=== PATIENT | female | born 1940 | race Caucasian/White ===

== ENCOUNTER → 2019-07-28 | Outpatient (CLI) | payer MEDICARE, SELFPAY | PROVIDERS: Family Provider Family Medicine; Visit Provider Nurse Practitioner | DX: Z85.3 Personal history of malignant neoplasm of breast (principal) | CPT/HCPCS: 77065 ==

== ENCOUNTER 2019-07-30 03:32 | Emergency (ER) | payer MEDICARE, SELFPAY ==
[2019-07-30 03:34] VITALS: BP 172/110; PULSE 73; RESP 20; TEMP 36.8; O2SAT 96; BMI 29.8
--- NOTE | 2019-07-30 03:37 | ED_ITS ---
Entered by Homa Klein, acting as scribe for HPI - Arrhythmia/Palpitations General: Chief Complaint: General Medical, Adult Stated Complaint: heart racing Time Seen by Provider: 07/30/19 03:38 Source: patient History of Present Illness: HPI narrative: 78 yo f came to the er pov for fast heart rate. Onset was today. Pt states that she was laying down when this started. MD complaint: rapid heart beat and heart racing Onset (ago): unknown (today) Duration: constant Context: occurred during rest Associated symptoms: Reports no associated symptoms; Deny nausea or vomiting Review of Systems General: Reports: other (negative unless marked) Const: Denies: fever or chills Eyes: Denies: change in vision ENMT: Denies: throat pain or mouth pain Card: Reports: palpitations; Denies: chest pain Resp: Denies: shortness of breath GI: Denies: abdominal pain, nausea, vomiting or diarrhea : Denies: difficulty urinating Musc: Denies: back pain or joint pain Skin/Breast: Denies: rash Neuro: Denies: headache or behavioral changes Psych: Denies: depression Endo: Denies: excessive urination Ajay/Lymph: Denies: easy bruising All/Imm: Denies: hives PFSH ED PFSH: Statuses (acute, chronic, etc) shown below reflect problem list status as previously entered and may not be historically accurate Social History Smoking and tobacco status: never smoked Physical Exam Const: COMMON NORMALS: no apparent distress and healthy appearing HENMT: COMMON NORMALS: normocephalic and external nose normal HEAD & SCALP: normocephalic NOSE: external nose normal and no nasal discharge (nasal dischage) Eye: COMMON NORMALS: PERRL PUPIL: Yes PERRL Neck/C-Spine: COMMON NORMALS: full ROM and no lymphadenopathy Chest: COMMONS NORMALS: inspection of chest normal Resp: COMMON NORMALS: normal respiratory effort and clear to auscultation bilaterally AUSCULTATION: clear to auscultation bilaterally Cardio: COMMON NORMALS: regular rate and regular rhythm PALPATION: normal PMI RATE: regular rate RHYTHM: regular rhythm GI: COMMON NORMALS: soft to palpation PALPATION: Yes soft Extremity: COMMON NORMALS: normal to inspection, full ROM and normal capillary refill Psych: COMMON NORMALS: mental status grossly normal and cooperative Skin: COMMON NORMALS: no rashes or lesions noted GENERAL SKIN EXAM: no rashes or lesions noted Course Vital Signs: Vital signs: Vital Signs Temperature 98.3 F 07/30/19 03:34 Pulse Rate 73 07/30/19 03:34 Respiratory Rate 20 H 07/30/19 03:34 Blood Pressure 172/110 07/30/19 03:34 Pulse Oximetry 96 07/30/19 03:34 MDM - Arrhythmia/Palpitations MDM Narrative: Medical decision making narrative: Patient presents here with palpitations. Patient's EKG and heart rate has been normal here. She has had no arrhythmias or tachycardia. Patient is well-appearing and stable for discharge. Lab Data: Labs: Lab Results 07/30/19 07/30/19 07/30/19 Range/Units 04:00 04:00 04:00 WBC 4.7 (4.0-10.0) 10^3/ uL RBC 4.70 (4.1-5.3) 10^6/u L Hgb 13.3 (11.5-15.3) g/dL Hct 42.0 (37.0-47.0) % MCV 89.4 (81-99) fL MCH 28.3 (28.0-34.0) pg MCHC 31.7 (30.0-36.0) g/dL RDW 13.4 (12.1-15.1) % Plt Count 195 (130-400) 10^3/c mm MPV 10.1 (7.4-10.4) fL Neut % (Auto) 52.6 % Lymph % (Auto) 33.8 % Edmonson % (Auto) 10.9 % Eos % (Auto) 1.9 % Baso % (Auto) 0.6 % Neut # (Auto) 2.5 (1.8-7.7) 10^3/u L Lymph # (Auto) 1.6 (0.8-4.8) 10^3/u L Edmonson # (Auto) 0.5 (0.2-0.9) 10^3/u L Eos # (Auto) 0.1 (0.0-0.8) 10^3/u L Baso # (Auto) 0.0 (0.0-0.1) 10^3/u L Nucleated RBC % (a uto) 0 % Nucleated RBCs # 0.0 /100WBC PT 14.30 H (10.5-13.3) SECO NDS INR 1.08 (0.8-1.2) Sodium 137 (136-145) mmol/L Potassium 4.0 (3.5-5.1) mmol/L Chloride 103 (98-107) mmol/L Carbon Dioxide 22 (22-29) mmol/L Anion Gap 16.0 (5-19) BUN 15 (8-23) mg/dL Creatinine 0.7 (0.5-0.9) mg/dL Glucose 111 H (74-106) mg/dL Calcium 9.7 (8.8-10.2) mg/Dl Troponin T Baselin e (0-10) ng/mL 07/30/19 Range/Units 04:00 WBC (4.0-10.0) 10^3/ uL RBC (4.1-5.3) 10^6/u L Hgb (11.5-15.3) g/dL Hct (37.0-47.0) % MCV (81-99) fL MCH (28.0-34.0) pg MCHC (30.0-36.0) g/dL RDW (12.1-15.1) % Plt Count (130-400) 10^3/c mm MPV (7.4-10.4) fL Neut % (Auto) % Lymph % (Auto) % Edmonson % (Auto) % Eos % (Auto) % Baso % (Auto) % Neut # (Auto) (1.8-7.7) 10^3/u L Lymph # (Auto) (0.8-4.8) 10^3/u L Edmonson # (Auto) (0.2-0.9) 10^3/u L Eos # (Auto) (0.0-0.8) 10^3/u L Baso # (Auto) (0.0-0.1) 10^3/u L Nucleated RBC % (a uto) % Nucleated RBCs # /100WBC PT (10.5-13.3) SECO NDS INR (0.8-1.2) Sodium (136-145) mmol/L Potassium (3.5-5.1) mmol/L Chloride (98-107) mmol/L Carbon Dioxide (22-29) mmol/L Anion Gap (5-19) BUN (8-23) mg/dL Creatinine (0.5-0.9) mg/dL Glucose (74-106) mg/dL Calcium (8.8-10.2) mg/Dl Troponin T Baselin e 10 (0-10) ng/mL Imaging Data^: CXR: Attestation: I personally reviewed and interpreted this imaging study as follows: My impression: no acute abnormality EKG Data^: EKG 1: Attestation: I personally reviewed and interpreted this EKG as follows: EKG interpretation date: 07/30/19 EKG interpretation time: 03:41 Interpretation: Normal sinus rhythm heart rate [address] or T wave abnormalities QRS 106 QTc 416 Discharge Plan Discharge Patient Disposition: Home, Self-Care Clinical Impression: Heart palpitations Condition: Stable Prescriptions: No Action Breast Cancer Pill PO RF: 0 Crestor PO DAILY RF: 0 carvedilol PO BID RF: 0 Discharge Orders: Discharge Order (Routine); Ordered 07/30/19 Ordered By: Chelita Storm Referrals: Dequan Dubois, DO [Family Provider] - (in 3-5 days) Discharge Diet: Advance as tolerated Discharge Activity: Resume usual activity Patient Instructions: Heart Palpitations Discharge Date/Time: 07/30/19 05:30 Coding Level of Care Code ED [employer] Equipment Wirer for Chg Fwd Exam Problem Focused The documentation recorded by the Ernie peoples Stephanie Lyn, accurately reflects the service I personally performed and the decisions made by Dotty guerrier Korby, MD Jul 30, 2019 03:32
[2019-07-30 03:41] VITALS: BP 133/83; PULSE 75; RESP 18; O2SAT 93
--- NOTE | 2019-07-30 03:45 | ECG_ITS ---
Measurements Intervals [place] Rate: 73 P: 62 VA: 178 QRS: -28 QRSD: 106 T: 63 QT: 391 QTc: 431 SINUS RHYTHM BORDERLINE LEFT AXIS DEVIATION [QRS AXIS < -20] Compared to ECG 07/30/2018 02:48:21 Sinus tachycardia no longer present Left anterior fascicular block no longer present Electronically Signed On 07-30-2019 7:34:41 AGING [employer]OX HAND by Sarah Ferraro M.D. [email or web address]
--- NOTE | 2019-07-30 03:45 | XR_ITS ---
WS: [id number] Portable AP upright chest, 07/30/2019 Clinical Data: chest pain Comparison: Portable chest, 07/30/2018 Findings: No nodules, masses or effusions are seen. The heart is normal. The pulmonary vascularity is not increased. No pneumonia or pneumothorax is seen. The aortic arch and descending aorta show tortu osity. There is a left coronary artery stent. Monitor leads on the chest wall. XR/XR chest 1V portable [id number] Impression: Atherosclerosis
[2019-07-30 04:11] VITALS: BP 113/81; PULSE 86; RESP 14; O2SAT 94
[2019-07-30 04:17] LABS: Basophils % 0.6 %; Eosinophils # 0.1 10^3/uL (0.0-0.8); Eosinophils % 1.9 %; Hemoglobin 13.3 g/dL (11.5-15.3); Lymphocytes # 1.6 10^3/uL (0.8-4.8); Lymphocytes % 33.8 %; Mean Corpuscular HGB Conc 31.7 g/dL (30.0-36.0); Mean Corpuscular Hemoglobin 28.3 pg (28.0-34.0); Mean Corpuscular Volume 89.4 fL (81-99); Mean Platelet Volume 10.1 fL (7.4-10.4); Monocytes # 0.5 10^3/uL (0.2-0.9); Monocytes % 10.9 %; Neutrophils # 2.5 10^3/uL (1.8-7.7); Neutrophils % 52.6 %; Nucleated Red Blood Cells % 0 %; Platelet Count 195 10^3/cmm (130-400); Red Cell Distribution Width 13.4 % (12.1-15.1); White Blood Count 4.7 10^3/uL (4.0-10.0)
[2019-07-30 04:21] LABS: INR 1.08 (0.8-1.2)
[2019-07-30 04:22] LABS: Add RBC Morph No
[2019-07-30 04:31] LABS: Blood Urea Nitrogen 15 mg/dL (8-23); Calcium 9.7 mg/Dl (8.8-10.2); Carbon Dioxide 22 mmol/L (22-29); Chloride 103 mmol/L (98-107); Glucose 111 mg/dL (74-106); Sodium 137 mmol/L (136-145)
[2019-07-30 04:32] LABS: Troponin(5th) Baseline 10 ng/mL (0-10)
[2019-07-30 04:41] VITALS: BP 118/77; PULSE 67; RESP 16; O2SAT 95
[2019-07-30 05:25] VITALS: BP 122/70; PULSE 72; RESP 14; TEMP 36.3; O2SAT 93
== END 2019-07-30 05:30 | disposition home or self-care (01) ==
PROVIDERS: Emergency Provider Emergency Medicine; Family Provider Family Medicine
DX: R00.2 Palpitations (principal)
CPT/HCPCS: 71045; 80048; 84484; 85025; 85610; 93005; 99281

== ENCOUNTER 2019-08-13 09:55 | Outpatient (CLI) | payer MEDICARE, SELFPAY ==
[2019-08-13 10:21] LABS: Basophils % 0.4 %; Eosinophils # 0.1 10^3/uL (0.0-0.8); Eosinophils % 1.5 %; Hematocrit 40.7 % (37.0-47.0); Lymphocytes # 1.4 10^3/uL (0.8-4.8); Lymphocytes % 30.6 %; Mean Corpuscular HGB Conc 31.9 g/dL (30.0-36.0); Mean Corpuscular Hemoglobin 29.3 pg (28.0-34.0); Mean Corpuscular Volume 91.9 fL (81-99); Mean Platelet Volume 9.9 fL (7.4-10.4); Monocytes # 0.4 10^3/uL (0.2-0.9); Monocytes % 9.1 %; Neutrophils # 2.7 10^3/uL (1.8-7.7); Neutrophils % 58.2 %; Nucleated Red Blood Cells % 0 %; Platelet Count 189 10^3/cmm (130-400); Red Blood Count 4.43 10^6/uL (4.1-5.3); Red Cell Distribution Width 13.6 % (12.1-15.1); White Blood Count 4.6 10^3/uL (4.0-10.0)
[2019-08-13 10:39] LABS: Alanine Aminotransferase 13 U/L (0-33); Albumin Level 4.8 g/dL (3.5-5.2); Alkaline Phosphatase 48 IU/L (35-105); Anion Gap 15.3 (5-19); Aspartate Amino Transferase 19 U/L (0-32); Blood Urea Nitrogen 17 mg/dL (8-23); Calcium 9.8 mg/Dl (8.8-10.2); Carbon Dioxide 27 mmol/L (22-29); Chloride 105 mmol/L (98-107); Globulin 3.2 g/dL (1.3-4.6); Glucose 105 mg/dL (74-106); Potassium 4.3 mmol/L (3.5-5.1); Sodium 143 mmol/L (136-145); Total Bilirubin 0.6 mg/dL (0.15-1.2)
== END 2019-08-13 09:56 | disposition home or self-care (01) ==
LOC: ONCMED 09:55
PROVIDERS: Family Provider Family Medicine; PCP Family Medicine; Visit Provider Nurse Practitioner
DX: C50.411 Malignant neoplasm of upper-outer quadrant of right female breast (principal)
CPT/HCPCS: 80053; 85025

== ENCOUNTER 2019-08-17 08:51 | Outpatient (CLI) | payer MEDICARE, SELFPAY ==
--- NOTE | 2019-08-21 17:51 | ONC FU_ITS ---
Dr. Conrad Patient Follow-Up Note Patient: Ester Reaves Unit #: [id number]: [id number] Dicatated By: Washington Conrad M.D.Date of Visit:Aug 17, 2019 Onc Med Follow-up/Prog Note Chief Complaint: Breast cancer. History of Present Illness: This is a 78 year-old woman with recurrent breast cancer, ER positive/HI negative and HER-2/raghavendra negative.. She had initially presented in May 2015 with a palpable right breast mass. Mammogram on 06/13/2015 showed 3.1 cm right breast mass located at 10:00 position, 5 cm from the nipple. She underwent an excisional biopsy by Dr. Kennedy on 06/30/2015. Her surgical pathology showed grade 3 infiltrating ductal carcinoma measuring 2 cm, with negative margins, but microscopic focus was within 2 mm of inked medial margin. She underwent a sentinel lymph node biopsy on 07/28/2015 with a low axillary dissection. A total of 10 axillary lymph nodes, including 2 sentinel lymph nodes, were negative for metastatic disease. Thus, her disease was pathologic stage IA (T1c, N0, M0). She was first seen by Dr. Marley on 08/09/2015. She had further evaluation with Oncotype DX. This showed a recurrence score of 36, corresponding to 24% risk of recurrence with the hormonal therapy alone in the next 10 years. Her evaluation also showed significant osteoporosis. DEXA scan on 08/24/2015 showed a T score -3.9. She had a follow-up visit with Dr. Marley on 08/25/2015. At that time it was recommended that she undergo adjuvant chemotherapy with 4 cycles of Taxotere/cyclophosphamide to be followed by adjuvant hormonal therapy for 5 years with an aromatase inhibitor. It was further recommended that she start treatment with Prolia for the osteoporosis. At that time she was undecided about chemotherapy. I had seen her for a second opinion evaluation on 09/02/2015. At that point she was pretty adamant that she would not take chemotherapy. We discussed the need to undergo radiation to the right breast to complete her primary treatment, and I had recommended adjuvant hormonal therapy with aromatase inhibitor, as there was a relative contraindication to tamoxifen due to a prior history of deep vein thrombosis. For unclear reasons she failed to return for follow-up and she did not receive any radiation or adjuvant hormonal therapy. On 05/26/2018 she was seen by Dr. Kenendy with recurrence of mass in the right breast. She had become aware of it about 3 months earlier. A diagnostic mammogram with limited ultrasound of the right breast on 05/14/2018 was BI-RADS 4C, suspicious for recurrence in the upper outer quadrant of the right breast. Findings included spiculated architectural distortion at the operative site which appeared progressive compared to study from June 2017. Diffuse skin thickening of the right breast appeared similar. Ultrasound showed a focus of decreased echotexture with posterior shadowing and irregular margins at the 10:00 position measuring 1.1 x 1.2 x 0.7 cm. Ultrasound directed needle biopsy of the right breast mass on 06/05/2018 showed grade 2 infiltrating ductal carcinoma. Tumor was involving 5/6 core fragments. The tumor was ER positive at 100% and HI negative at less than 1%. It was negative for overexpression of HER-2/raghavendra, 1+ by IHC and amplification ratio by FISH of 1.0 with 2.0 HER-2 copies/cell. The Ki-67 was unfavorable at 40%. With evidence of recurrence in the breast, she was still potentially eligible for lumpectomy/radiation, but she preferred to have mastectomy. As she was not going to consider adjuvant chemotherapy or radiation, I felt that axillary lymph node sampling would be unnecessary in the absence of any clinical evidence of lymph node involvement, and her right axillary ultrasound was negative. As such, she proceeded with right simple mastectomy on 07/03/2018. Pathology showed grade 2 infiltrating ductal carcinoma measuring 2.8 x 2.0 cm. The margins were free. The best prognostic profile was not repeated. Her other medical illnesses include hypertension, hyperlipidemia, and coronary artery disease. She has history of previous myocardial infarction, and she underwent angioplasty/stent placement in 2010. Her other medical illnesses include GERD and osteoporosis. She required treatment for left lower extremity deep vein thrombosis following a hysterectomy. Other prior surgeries include cholecystectomy and open reduction for a right forearm fracture. She is a nonsmoker. INTERIM HISTORY: On 07/29/2018 she presented to the emergency room with nausea/vomiting and diarrhea. Her CT abdomen/pelvis reported evidence of a right inguinal hernia containing an incarcerated terminal ileum and cecum. It was noted to be a transition point of a small bowel obstruction. Ultrasound also reported evidence of right inguinal hernia with incarcerated bowel. She had surgical consultation in the emergency room with Dr. Bruno and she then had follow-up as an outpatient with Dr. Kennedy. The illness resolved with conservative management. Her repeat Dexa scan on 08/26/2018 showed osteoporosis with T score -2.6 in the lumbar spine, -3.9 in the left femoral neck, and -3.9 in the right femoral neck. She began adjuvant hormonal therapy with anastrozole 1 mg daily on 09/03/2018, and he following month she began treatment with Prolia for the osteoporosis. As of her follow-up visit on 04/06/2019 I had opted to put the anastrozole on hold due to worsening joint pain, mainly in the hands. The symptoms improved, and the following month she started further adjuvant hormonal therapy with exemestane 25 mg daily. She is seen for a follow-up visit. She has been feeling pretty good generally. She says she is on the go. ECOG score is 1. She has good appetite. She has no fever, night sweats, or hot flashes. She continues to have joint pain, mainly in the right hand, and to a lesser extent in the left hand. She sometimes has shortness of breath. She does not complain of cough, and she has not been having chest pain. She has no GI or complaints. She has some numbness in her right hand at night. She has no other focal neurologic symptoms. Medications: Calcium 2 oz Liquid Oral daily, Carvedilol 1 Tablet (of 3.125 mg) Oral b.i.d., Cholecalciferol 1 Tablet (of 2000 Units) Oral daily, Crestor 1 Tablet (of 40 mg) Oral at bedtime, Exemestane 1 Tablet (of 25 mg) Oral daily, Immune Enhance 1 Capsule Oral daily, mangosteen 1 Capsule daily, Metamucil 2 tsp Powder Oral daily, Caro Juice 2 oz Liquid Oral daily, Probiotic 1 Capsule Oral daily Allergies: No Known Allergies. Review of Systems: Constitutional - Her energy is good. She does light work at home. Her appetite is good and her weight is stable. No fever, chills, hot flashes, or night sweats. ECOG score is 1, ENMT - No sinus congestion/drainage. No mouth sores. No sore throat or difficulty swallowing, Hematologic/Lymphatic - No abnormal bruising or bleeding, Respiratory - She has occasional shortness of breath. No cough. No pleuritic pain or hemoptysis, Cardiovascular - No angina pain. No palpitations, Gastrointestinal - No nausea or vomiting. No heartburn or acid reflux. No diarrhea or constipation. No blood in the stool or black stools, Genitourinary (F) - No dysuria or hematuria. No urinary frequency. No urgency or incontinence, Musculoskeletal - She has pain in her wrists. It has gotten worse in her right wrist, Integumentary - No skin complications, Neurologic - No headache or dizziness. She has numbness in her right hand at night, Psychiatric - No anxiety or depression. No insomnia. Vital Signs: Performed on Aug 17, 2019 09:16 Height - 66.50 in Weight - 187.2 lbs (HIGH) BSA - 1.96 sq.m BMI - 29.76 Temperature - 97.5 F (LOW) Pulse - 64 /min Respiration - 24 /min BP - 142/80 mm(hg) (HIGH) O2 Sat - 98 % Pain - 0 Physical Examination: Constitutional - She looks good generally, Eyes - Sclerae nonicteric. Conjunctivae clear, ENMT - No lesions noted in the oral cavity, Hematologic/Lymphatic - No cervical, clavicular, or axillary adenopathy, Respiratory - Lungs are clear with good air movement bilaterally, Cardiovascular - Heart rhythm is regular. There is a II/ systolic murmur. There is no gallop or rub noted, Abdomen - Soft. Liver and spleen are not enlarged. There is no abdominal mass or ascites noted and there is no inguinal adenopathy, Extremities - There is some slight swelling in the fingers. There is no lower extremity edema, Neurologic - No focal neurologic deficits noted. Lab/Imaging: Test performed on Aug 13, 2019 10:05 Glucose 105 mg/dL BUN 17 mg/dL Creatinine 0.7 mg/dL Cr Clearance (Est) 91.36 mL/min Sodium 143 mmol/L Potassium 4.3 mmol/L Chloride 105 mmol/L CO2 27 mmol/L Calcium 9.8 mg/dL Protein, Total 8.0 g/dL Albumin 4.8 g/dL Bilirubin, Total 0.6 mg/dL Alkaline Phosphatase 48 IU/L AST (SGOT) 19 IU/L ALT (SGPT) 13 IU/L WBC 4.6 10^9/L RBC 4.43 10^12/L HGB 13.0 g/dL HCT 40.7 % MCV 91.9 fl MCH 29.3 pg MCHC 31.9 g/dL RDW 13.6 % Platelet Count 189 10^9/L MPV 9.9 fL Neutrophils (Gran) 2.7 10^9/L Lymphocytes 1.4 10^9/L Monocytes 0.4 10^9/L Eosinophils 0.1 10^9/L Basophils 0.0 10^9/L Manual Lymphocytes 30.6 % Manual Monocytes 9.1 % Manual Eosinophils 1.5 % Manual Basophils 0.4 % NRBCs 0.0 /100 WBC Impression: 1. Patient with recurrence of infiltrating ductal carcinoma of the right breast, grade 2/3, ER positive/HI negative and HER-2/raghavendra negative. Her disease is stage IIA (T2, N0, M0), but with clinical evaluation of the axillary node status. 2. She underwent right simple mastectomy on 07/03/2018. 3. She had previous lumpectomy/axillary lymph node sampling in June 2015 for grade 3 infiltrating ductal carcinoma. Her disease was stage IA (T1c, N0, M0), ER positive/HI negative and HER-2/raghavendra negative. It was high risk by Oncotype DX. She opted against adjuvant chemotherapy and she then failed to return for radiation and adjuvant hormonal therapy. 4. She had evidence of osteoporosis on her baseline Dexa scan. Her other medical illnesses include: 5. Hypertension. 6. Hyperlipidemia. 7. Coronary artery disease with previous myocardial infarction and angioplasty/stent placement. 8. GERD. 9. Osteoporosis. 10. She has a history of left lower extremity deep vein thrombosis following a hysterectomy. In August 2018 she began adjuvant hormonal therapy with anastrozole 1 mg daily. In September she started treatment with Prolia for the osteoporosis. She had initially tolerated treatment very well. As of her follow-up visit in March 2019 the anastrozole was put on hold due to increased joint pain, mainly in the hands. Her symptoms improved, and in April 2019 she began further adjuvant hormonal therapy with exemestane 25 mg daily. At this point she continues to have pain and swelling in both hands. It is uncertain to what extent it may be treatment related. She otherwise seems to be tolerating the exemestane well, and thus far there is been no evidence of any further recurrence of the breast cancer. Plan: She will continue adjuvant hormonal therapy with exemestane 25 mg daily. She is given a prescription for meloxicam 7.5 mg daily. She will be scheduled for a follow-up visit in 2 months. Signed By: Washington Conrad M.D. <<Signature on File>>
== END 2019-08-17 08:52 | disposition home or self-care (01) ==
LOC: ONCMED 08:54
PROVIDERS: Family Provider Family Medicine; PCP Family Medicine; Visit Provider Internal Medicine Medical Oncology
DX: C50.411 Malignant neoplasm of upper-outer quadrant of right female breast (principal); M81.0 Age-related osteoporosis without current pathological fracture; I10 Essential (primary) hypertension; E78.5 Hyperlipidemia, unspecified; I25.10 Atherosclerotic heart disease of native coronary artery without angina pectoris; I25.2 Old myocardial infarction; K21.9 Gastro-esophageal reflux disease without esophagitis; Z95.5 Presence of coronary angioplasty implant and graft; Z86.718 Personal history of other venous thrombosis and embolism; Z90.11 Acquired absence of right breast and nipple; Z17.0 Estrogen receptor positive status [ER+]; Z79.811 Long term (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 of aromatase inhibitors
CPT/HCPCS: 99214

== ENCOUNTER 2019-10-02 09:24 | Outpatient (CLI) | payer MEDICARE, SELFPAY ==
[2019-10-02 09:58] LABS: Basophils % 0.7 %; Eosinophils # 0.1 10^3/uL (0.0-0.8); Eosinophils % 1.8 %; Hematocrit 40.5 % (37.0-47.0); Hemoglobin 12.6 g/dL (11.5-15.3); Lymphocytes # 1.1 10^3/uL (0.8-4.8); Lymphocytes % 25.6 %; Mean Corpuscular HGB Conc 31.1 g/dL (30.0-36.0); Mean Corpuscular Hemoglobin 28.3 pg (28.0-34.0); Mean Platelet Volume 10.2 fL (7.4-10.4); Monocytes # 0.4 10^3/uL (0.2-0.9); Monocytes % 9.2 %; Neutrophils # 2.8 10^3/uL (1.8-7.7); Neutrophils % 62.5 %; Nucleated Red Blood Cells % 0 %; Platelet Count 200 10^3/cmm (130-400); Red Blood Count 4.45 10^6/uL (4.1-5.3); Red Cell Distribution Width 13.6 % (12.1-15.1); White Blood Count 4.5 10^3/uL (4.0-10.0)
[2019-10-02 10:19] LABS: Alanine Aminotransferase 18 U/L (0-33); Albumin Level 4.2 g/dL (3.5-5.2); Alkaline Phosphatase 51 IU/L (35-105); Anion Gap 14.5 (5-19); Aspartate Amino Transferase 24 U/L (0-32); Blood Urea Nitrogen 14 mg/dL (8-23); Calcium 9.5 mg/dL (8.5-10.5); Carbon Dioxide 28 mmol/L (22-29); Chloride 102 mmol/L (98-107); Globulin 3.8 g/dL (1.3-4.6); Glucose 96 mg/dL (65-115); Potassium 4.5 mmol/L (3.5-5.1); Sodium 140 mmol/L (136-145); Total Bilirubin 0.6 mg/dL (0.15-1.2)
[2019-10-02 10:40] LABS: Erythrocyte Sedimentation Rate 15 mm/hr (0-15)
== END 2019-10-02 09:25 | disposition home or self-care (01) ==
LOC: ONCMED 09:24
PROVIDERS: Family Provider Family Medicine; PCP Family Medicine; Visit Provider Internal Medicine Medical Oncology
DX: C50.411 Malignant neoplasm of upper-outer quadrant of right female breast (principal); M25.50 Pain in unspecified joint
CPT/HCPCS: 80053; 85025; 85651; 86431

== ENCOUNTER 2019-10-06 13:18 | Outpatient (CLI) | payer MEDICARE, SELFPAY ==
[2019-10-06] MEDS: denosumab 60 mg SDV SUBCUT (13:57)
--- NOTE | 2019-10-10 16:17 | ONC FU_ITS ---
Dr. Conrad Patient Follow-Up Note Patient: Ester Reaves Unit #: [id number]: [id number] Dicatated By: Washington Conrad M.D.Date of Visit:Oct 06, 2019 Onc Med Follow-up/Prog Note Chief Complaint: Breast cancer. History of Present Illness: This is a 78 year-old woman with recurrent breast cancer, ER positive/OR negative and HER-2/raghavendra negative.. She had initially presented in May 2015 with a palpable right breast mass. Mammogram on 06/13/2015 showed 3.1 cm right breast mass located at 10:00 position, 5 cm from the nipple. She underwent an excisional biopsy by Dr. Kennedy on 06/30/2015. Her surgical pathology showed grade 3 infiltrating ductal carcinoma measuring 2 cm, with negative margins, but microscopic focus was within 2 mm of inked medial margin. She underwent a sentinel lymph node biopsy on 07/28/2015 with a low axillary dissection. A total of 10 axillary lymph nodes, including 2 sentinel lymph nodes, were negative for metastatic disease. Thus, her disease was pathologic stage IA (T1c, N0, M0). She was first seen by Dr. Marley on 08/09/2015. She had further evaluation with Oncotype DX. This showed a recurrence score of 36, corresponding to 24% risk of recurrence with the hormonal therapy alone in the next 10 years. Her evaluation also showed significant osteoporosis. DEXA scan on 08/24/2015 showed a T score -3.9. She had a follow-up visit with Dr. Marley on 08/25/2015. At that time it was recommended that she undergo adjuvant chemotherapy with 4 cycles of Taxotere/cyclophosphamide to be followed by adjuvant hormonal therapy for 5 years with an aromatase inhibitor. It was further recommended that she start treatment with Prolia for the osteoporosis. At that time she was undecided about chemotherapy. I had seen her for a second opinion evaluation on 09/02/2015. At that point she was pretty adamant that she would not take chemotherapy. We discussed the need to undergo radiation to the right breast to complete her primary treatment, and I had recommended adjuvant hormonal therapy with aromatase inhibitor, as there was a relative contraindication to tamoxifen due to a prior history of deep vein thrombosis. For unclear reasons she failed to return for follow-up and she did not receive any radiation or adjuvant hormonal therapy. On 05/26/2018 she was seen by Dr. Kennedy with recurrence of mass in the right breast. She had become aware of it about 3 months earlier. A diagnostic mammogram with limited ultrasound of the right breast on 05/14/2018 was BI-RADS 4C, suspicious for recurrence in the upper outer quadrant of the right breast. Findings included spiculated architectural distortion at the operative site which appeared progressive compared to study from June 2017. Diffuse skin thickening of the right breast appeared similar. Ultrasound showed a focus of decreased echotexture with posterior shadowing and irregular margins at the 10:00 position measuring 1.1 x 1.2 x 0.7 cm. Ultrasound directed needle biopsy of the right breast mass on 06/05/2018 showed grade 2 infiltrating ductal carcinoma. Tumor was involving 5/6 core fragments. The tumor was ER positive at 100% and OR negative at less than 1%. It was negative for overexpression of HER-2/raghavendra, 1+ by IHC and amplification ratio by FISH of 1.0 with 2.0 HER-2 copies/cell. The Ki-67 was unfavorable at 40%. With evidence of recurrence in the breast, she was still potentially eligible for lumpectomy/radiation, but she preferred to have mastectomy. As she was not going to consider adjuvant chemotherapy or radiation, I felt that axillary lymph node sampling would be unnecessary in the absence of any clinical evidence of lymph node involvement, and her right axillary ultrasound was negative. As such, she proceeded with right simple mastectomy on 07/03/2018. Pathology showed grade 2 infiltrating ductal carcinoma measuring 2.8 x 2.0 cm. The margins were free. The best prognostic profile was not repeated. Her other medical illnesses include hypertension, hyperlipidemia, and coronary artery disease. She has history of previous myocardial infarction, and she underwent angioplasty/stent placement in 2010. Her other medical illnesses include GERD and osteoporosis. She required treatment for left lower extremity deep vein thrombosis following a hysterectomy. Other prior surgeries include cholecystectomy and open reduction for a right forearm fracture. She is a nonsmoker. INTERIM HISTORY: On 07/29/2018 she presented to the emergency room with nausea/vomiting and diarrhea. Her CT abdomen/pelvis reported evidence of a right inguinal hernia containing an incarcerated terminal ileum and cecum. It was noted to be a transition point of a small bowel obstruction. Ultrasound also reported evidence of right inguinal hernia with incarcerated bowel. She had surgical consultation in the emergency room with Dr. Bruno and she then had follow-up as an outpatient with Dr. Kennedy. The illness resolved with conservative management. Her repeat Dexa scan on 08/26/2018 showed osteoporosis with T score -2.6 in the lumbar spine, -3.9 in the left femoral neck, and -3.9 in the right femoral neck. She began adjuvant hormonal therapy with anastrozole 1 mg daily on 09/03/2018, and he following month she began treatment with Prolia for the osteoporosis. As of her follow-up visit on 04/06/2019 I had opted to put the anastrozole on hold due to worsening joint pain, mainly in the hands. The symptoms improved, and the following month she started further adjuvant hormonal therapy with exemestane 25 mg daily. She is seen for a follow-up visit. She has been feeling good generally. She has continued to have some joint pain, mainly in the right wrist and in her fingers. She had stopped taking meloxicam because she thought it caused constipation. Since then she has been taking ibuprofen as needed. She has good energy and activity tolerance. ECOG score is 0. Her appetite is good. She has no fever, night sweats, or hot flashes. She has no shortness of breath, cough, or chest pain. She currently has no GI or complaints. Bowel function has been adequate with Metamucil. She does not complain of headache or dizziness. Her right hand sometimes goes to sleep, but that does appear to be positional. She has no other focal neurologic symptoms. Medications: Calcium 2 oz Liquid Oral daily, Carvedilol 1 Tablet (of 3.125 mg) Oral b.i.d., Cholecalciferol 1 Tablet (of 2000 Units) Oral daily, Crestor 1 Tablet (of 40 mg) Oral at bedtime, Exemestane 1 Tablet (of 25 mg) Oral daily, Immune Enhance 1 Capsule Oral daily, mangosteen 1 Capsule daily, Metamucil 2 tsp Powder Oral daily, Caro Juice 2 oz Liquid Oral daily, Probiotic 1 Capsule Oral daily Allergies: No Known Allergies. Review of Systems: Constitutional - Her energy is good. She has normal activity. Her appetite is good and her weight is up a couple of pounds. No fever, chills, hot flashes, or night sweats. ECOG score is 0, ENMT - No sinus congestion/drainage. No mouth sores. No sore throat or difficulty swallowing, Hematologic/Lymphatic - No abnormal bruising or bleeding, Respiratory - No shortness of breath. No cough. No pleuritic pain or hemoptysis, Cardiovascular - No angina pain. No palpitations, Gastrointestinal - No nausea or vomiting. No heartburn or acid reflux. No diarrhea or constipation. No blood in the stool or black stools, Genitourinary (F) - No dysuria or hematuria. No urinary frequency. No urgency or incontinence, Musculoskeletal - She has pain in her right wrist and fingers, Integumentary - No skin complications, Neurologic - No headache or dizziness. Her right hand goes to sleep, but that appears to be positional. She has no other focal neurologic symptoms, Psychiatric - No anxiety or depression. No insomnia. Vital Signs: Performed on Oct 06, 2019 13:26 Height - 66.50 in Weight - 189.4 lbs (HIGH) BSA - 1.97 sq.m BMI - 30.11 (HIGH) Temperature - 97.5 F (LOW) Pulse - 70 /min Respiration - 22 /min BP - 125/73 mm(hg) O2 Sat - 95 % (LOW) Pain - 0 Physical Examination: Constitutional - She looks good generally, Eyes - Sclerae nonicteric. Conjunctivae clear, ENMT - No lesions noted in the oral cavity, Hematologic/Lymphatic - No cervical, clavicular, or axillary adenopathy, Respiratory - Lungs are clear with good air movement bilaterally, Cardiovascular - Heart rhythm is regular. There is a II/ systolic murmur. There is no gallop or rub noted, Abdomen - Soft. Liver and spleen are not enlarged. There is no abdominal mass or ascites noted and there is no inguinal adenopathy, Extremities - Slight edema, Neurologic - No focal neurologic deficits noted. Lab/Imaging: Test performed on Oct 02, 2019 09:40 Sodium 140 mmol/L Potassium 4.5 mmol/L Chloride 102 mmol/L CO2 28 mmol/L Anion Gap 14.5 BUN 14 mg/dL Creatinine 0.8 mg/dL Cr Clearance (Est) 80.2000 mL/min Glucose 96 mg/dL Calcium 9.5 mg/dL Protein, Total 8.0 g/dL Albumin 4.2 g/dL Globulin 3.8 g/dL Bilirubin, Total 0.6 mg/dL ALT (SGPT) 18 U/L AST (SGOT) 24 U/L Alkaline Phosphatase 51 IU/L ESR (Sed Rate) 15 mm/hr WBC 4.5 10 3/uL RBC 4.45 10 6/uL HGB 12.6 g/dL HCT 40.5 % MCV 91.0 fL MCH 28.3 pg MCHC 31.1 g/dL RDW 13.6 % Platelet Count 200 10 3/cmm MPV 10.2 fL Neutrophils 2.8 10 3/uL Lymphocytes 1.1 10 3/uL Monocytes 0.4 10 3/uL Eosinophils 0.1 10 3/uL Basophils 0.0 10 3/uL Neutrophil % 62.5 % Lymphocyte % 25.6 % Monocyte % 9.2 % Eosinophil % 1.8 % Basophils % 0.7 % Impression: 1. Patient with recurrence of infiltrating ductal carcinoma of the right breast, grade 2/3, ER positive/OR negative and HER-2/raghavendra negative. Her disease is stage IIA (T2, N0, M0), but with clinical evaluation of the axillary node status. 2. She underwent right simple mastectomy on 07/03/2018. 3. She had previous lumpectomy/axillary lymph node sampling in June 2015 for grade 3 infiltrating ductal carcinoma. Her disease was stage IA (T1c, N0, M0), ER positive/OR negative and HER-2/raghavendra negative. It was high risk by Oncotype DX. She opted against adjuvant chemotherapy and she then failed to return for radiation and adjuvant hormonal therapy. 4. She had evidence of osteoporosis on her baseline Dexa scan. Her other medical illnesses include: 5. Hypertension. 6. Hyperlipidemia. 7. Coronary artery disease with previous myocardial infarction and angioplasty/stent placement. 8. GERD. 9. Osteoporosis. 10. She has a history of left lower extremity deep vein thrombosis following a hysterectomy. In August 2018 she began adjuvant hormonal therapy with anastrozole 1 mg daily. In September she started treatment with Prolia for the osteoporosis. She had initially tolerated treatment very well. As of her follow-up visit in March 2019 the anastrozole was put on hold due to increased joint pain, mainly in the hands. Her symptoms improved, and in April 2019 she began further adjuvant hormonal therapy with exemestane 25 mg daily. During further follow-up she has had some joint pain, but it has been tolerable. She has otherwise been doing well clinically, thus far with no further recurrence of the breast cancer. Plan: She continues adjuvant hormonal therapy with exemestane 25 mg daily. She will be given Prolia 60 mg by subcutaneous injection for the osteoporosis. She will be scheduled for a follow-up visit in 3 months. Signed By: Washington Conrad M.D. <<Signature on File>>
== END 2019-10-06 13:19 | disposition home or self-care (01) ==
LOC: ONCMED 13:21
PROVIDERS: Family Provider Family Medicine; PCP Family Medicine; Visit Provider Internal Medicine Medical Oncology
DX: C50.411 Malignant neoplasm of upper-outer quadrant of right female breast (principal); M81.0 Age-related osteoporosis without current pathological fracture; I10 Essential (primary) hypertension; E78.5 Hyperlipidemia, unspecified; I25.10 Atherosclerotic heart disease of native coronary artery without angina pectoris; I25.2 Old myocardial infarction; K21.9 Gastro-esophageal reflux disease without esophagitis; Z17.0 Estrogen receptor positive status [ER+]; Z79.899 Other long term (current) drug therapy; Z79.811 Long term (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 of aromatase inhibitors; Z90.11 Acquired absence of right breast and nipple; Z95.5 Presence of coronary angioplasty implant and graft; Z86.718 Personal history of other venous thrombosis and embolism
CPT/HCPCS: 96372; 99214; J0897

== ENCOUNTER 2019-10-10 21:40 | Emergency (ER) | payer MEDICARE, SELFPAY ==
[2019-10-10 21:46] VITALS: BP 99/80; PULSE 97; RESP 18; TEMP 37; O2SAT 96; BMI 29.5
--- NOTE | 2019-10-10 21:50 | ED_ITS ---
Entered by Shannon Pardo, acting as scribe for Reynaldo Gunter DO HPI - Female Genitourinary General: Chief complaint: Nausea/Vomiting/Diarrhea Stated complaint: can't urinate/n/v Time Seen by Provider: 10/10/19 21:50 Source: patient and family Mode of arrival: ambulatory History of Present Illness: HPI Narrative: 78 y/o female presents to the ED with complaint of difficulty urinating and weakness. She has had N/V/D. She got her bone shot at Dr. Samaniego office ( for her osteoporosis) earlier in the week. She had been constipated prior, but states she has had loose stool the past day. She states her diarrhea subsided earlier today but she has had continued weakness and lethargy, and continued vomiting. She reports some lower abd pain and discomfort, consistent with past hx of constipation. Her son states he is concerned about dehydration since her fluid intake has decreased and she has had the V/D. MD elicited complaint: other (difficulty urinating/weakness/constipation) Onset (ago): day(s) Severity: moderate Consistency: progressively worsening Urinary symptoms: Difficulty Urinating Exacerbating factors: movement Relieving factors: none Associated symptoms: Reports abdominal pain (constipation pain), nausea and weakness; Deny headache(s) Review of Systems Const: Denies: fever or chills Eyes: Denies: change in vision or blurry vision ENMT: Denies: painful swallowing or facial/sinus pain Card: Denies: chest pain, palpitations, irregular heart rhythm or edema Resp: Denies: shortness of breath, productive cough, non-productive cough or wheezing GI: Reports: abdominal pain (constipation pain), nausea, vomiting, diarrhea and constipation (today); Denies: blood in stool or black tarry stool : Reports: difficulty urinating and urinary urgency; Denies: blood in urine Musc: Denies: neck pain, back pain, redness or joint warmth Skin/Breast: Denies: rash, itching or redness Neuro: Reports: weakness in extremities; Denies: headache, dizziness, vertigo or confusion Psych: Denies: anxiety PFS ED PFSH: Social History Smoking and tobacco status: never smoked Physical Exam Const: COMMON NORMALS: alert GENERAL APPEARANCE: lethargic ORIENTATION/CONSCIOUSNESS: Yes awake, Yes oriented to person, Yes oriented to place, Yes oriented to time and Yes lethargic HENMT: COMMON NORMALS: normocephalic, external ears normal and external nose normal; oral mucous membranes not moist HEAD & SCALP: normocephalic FACE & SINUS: normal facial exam NOSE: external nose normal and no nasal discharge EXTERNAL EAR: Yes external ears normal THROAT: posterior oropharynx normal; no peritonsillar mass Eye: COMMON NORMALS: PERRL, EOMs intact bilaterally and conjunctivae normal EYELID: eyelids normal CONJUNCTIVA: Yes conjunctivae normal PUPIL: Yes PERRL Neck/C-Spine: GENERAL: No tracheal deviation Chest: COMMONS NORMALS: inspection of chest normal CHEST: Yes symmetrical chest wall rise and No tenderness Resp: COMMON NORMALS: clear to auscultation bilaterally EFFORT & INSPECTION: No tachypneic, No respiratory distress, No retractions, No uses accessory muscles and No tracheal deviation AUSCULTATION: clear to auscultation bilaterally, no rhonchi, no wheezes and lung sounds not diminished Cardio: COMMON NORMALS: regular rhythm RATE: tachycardic RHYTHM: regular rhythm HEART SOUNDS: no murmurs PERIPHERAL PULSES: radial pulses present GI: PALPATION: Yes tender and No rigid PERCUSSION: no dullness to percussion and no tympanic to percussion Extremity: NARRATIVE EXTREMITY EXAM: LE weakness Neuro: SENSORIUM/ORIENTATION: Yes alert, Yes oriented to person, Yes oriented to place, Yes oriented to time and Yes lethargic GAIT: Yes other Psych: COMMON NORMALS: mental status grossly normal and speech normal ATTITUDE: Yes calm SPEECH: Yes normal speech Skin: COMMON NORMALS: no rashes or lesions noted GENERAL SKIN EXAM: no ra shes or lesions noted and pallor Course Vital Signs: Vital signs: Vital Signs Temperature 98.6 F 10/10/19 21:46 Pulse Rate 97 10/10/19 21:46 Respiratory Rate 18 10/10/19 21:46 Blood Pressure 99/80 10/10/19 21:46 Pulse Oximetry 96 10/10/19 21:46 MDM - Female [facility] Narrative: Medical decision making narrative: 78-year-old female presents first with constipation, which had resolved earlier in the day with liquid stool. She had been nauseated and had vomited several times. She was not holding down liquids well. Her and her son were concerned about dehydration. Her vitals were good. Her white blood cell count is 3.8. Sodium 132. BUN and creatinine are slightly elevated. She got some fluid while she was here. No vomiting while here. KUB shows distended loops of small bowel up to over 5 cm. Radiology notes this is indicative of at least a partial small bowel obstruction. When I returned to discuss findings and the need for admission of the patient due to these findings, I was confronted by the patient and her son. Her son states that the problem was taking care of when she had her loose stool earlier in the day. He comes to look at the x-ray. He states that their physician has told him in the past that this type of thing is basically bullshit . He threatens that if the admission is not truly warranted there will be recourse toward me. He demanded that she drink water, and attempt to urinate. After doing these things, they decided to leave the emergency department. They signed AMA paperwork to leave AGAINST MEDICAL ADVICE. Lab Data: Labs: Lab Results 10/10/19 10/10/19 10/10/19 Range/Units 22:06 22:06 23:03 WBC 3.8 L (4.0-10.0) 10^3/ uL RBC 4.66 (4.1-5.3) 10^6/u L Hgb 13.5 (11.5-15.3) g/dL Hct 41.1 (37.0-47.0) % MCV 88.2 (81-99) fL MCH 29.0 (28.0-34.0) pg MCHC 32.8 (30.0-36.0) g/dL RDW 13.9 (12.1-15.1) % Plt Count 201 (130-400) 10^3/c mm MPV 10.1 (7.4-10.4) fL Neut % (Auto) 64.8 % Lymph % (Auto) 14.3 % [place] % (Auto) 18.3 % Eos % (Auto) 2.1 % Baso % (Auto) 0.5 % Neut # (Auto) 2.5 (1.8-7.7) 10^3/u L Lymph # (Auto) 0.5 L (0.8-4.8) 10^3/u L [place] # (Auto) 0.7 (0.2-0.9) 10^3/u L Eos # (Auto) 0.1 (0.0-0.8) 10^3/u L Baso # (Auto) 0.0 (0.0-0.1) 10^3/u L Nucleated RBC % (a uto) 0 % Nucleated RBCs # 0.0 /100WBC Sodium 132 L (136-145) mmol/L Potassium 3.6 (3.5-5.1) mmol/L Chloride 93 L (98-107) mmol/L Carbon Dioxide 23 (22-29) mmol/L Anion Gap 19.6 H (5-19) BUN 28 H (8-23) mg/dL Creatinine 1.3 H (0.5-0.9) mg/dL Glucose 152 H (65-115) mg/dL Calculated Osmolal ity 274 L (285-295) mOsm/k g Calcium 10.2 (8.5-10.5) mg/dL Total Bilirubin 0.9 (0.15-1.2) mg/dL AST 19 (0-32) U/L ALT 13 (0-33) U/L Alkaline Phosphata se 49 (35-105) IU/L C-Reactive Protein 13.0 H (0.0-4.9) mg/L Total Protein 7.6 (6.6-8.7) g/dL Albumin 4.3 (3.5-5.2) g/dL Globulin 3.3 (1.3-4.6) g/dL Urine Color Yellow (Yellow) Urine Appearance Sl cloudy A (CLEAR) Urine pH 5 (5-7) Ur Specific Gravit y 1.025 (1.005-1.030) Urine Protein Neg (Negative) Urine Glucose (UA) Norm (Normal) Urine Ketones Negative (Negative) Urine Blood Neg (Negative) Urine Nitrate Negative (Negative) Urine Bilirubin 1+ H (NEGATIVE) Urine Urobilinogen Norm (Negative) mg/dL Ur Leukocyte Josy ase Negative (Negative) Urine RBC 0-4 H (0-2) /hpf Urine WBC 0-4 H (0-5) /hpf Ur Squamous Epith Cells Rare (0-5) Urine Bacteria 1+ H (NONE) Hyaline Casts 0-4 H Urine Mucus 1+ Discharge Plan Discharge Patient Disposition: Left Against Medical Advice Prescriptions: No Action Coreg 3.125 mg Tablet 3.125 mg PO BID RF: 0 exemestane 25 mg Tablet 25 mg PO DAILY RF: 0 Crestor 40 mg Tablet 40 mg PO BEDTIME RF: 0 Referrals: Dequan Dubois DO [Primary Care Provider] - Stand Alone Forms: Against Medical Advice Discharge Date/Time: 10/11/19 01:25 Coding Level of Care Code ED Window Glazier for Chg Fwd Exam Comprehensive The documentation recorded by the Edvin peoples Ashley, accurately reflects the service I personally performed and the decisions made by Jani guerrier Jeremy John, DO Oct 10, 2019 21:40
--- NOTE | 2019-10-10 22:01 | XRR_ITS ---
PROCEDURE INFORMATION: Exam: XR Abdomen, 1 View Exam date and time: 10/10/2019 10:03 PM Age: 78 years old Clinical indication: Nausea and vomiting; Prior surgery; Surgery date: 6+ months; Surgery type: Gb, hyst; Patient HX: C/O n/v and trouble urinating; Additional info: HX of constipation TECHNIQUE: Imaging protocol: XR of the abdomen. Views: Frontal supine view of the abdomen. 1 View. COMPARISON: No relevant prior studies available. FINDINGS: Gastrointestinal tract: There are moderately dilated numerous loops of small bowel compatible with a partial small bowel obstruction. The greatest transverse measurement the dilated loops of bowel is 5.2 cm. There is a paucity of air in the colon. Bones/joints: Unremarkable. Soft tissues: No calculi or foreign bodies. XR/XR KUB portable [id number] IMPRESSION: Partial small bowel obstruction.
[2019-10-10 22:16] LABS: Basophils % 0.5 %; Eosinophils # 0.1 10^3/uL (0.0-0.8); Eosinophils % 2.1 %; Hematocrit 41.1 % (37.0-47.0); Hemoglobin 13.5 g/dL (11.5-15.3); Lymphocytes # 0.5 10^3/uL (0.8-4.8); Lymphocytes % 14.3 %; Mean Corpuscular HGB Conc 32.8 g/dL (30.0-36.0); Mean Corpuscular Volume 88.2 fL (81-99); Mean Platelet Volume 10.1 fL (7.4-10.4); Monocytes # 0.7 10^3/uL (0.2-0.9); Monocytes % 18.3 %; Neutrophils # 2.5 10^3/uL (1.8-7.7); Neutrophils % 64.8 %; Nucleated Red Blood Cells % 0 %; Platelet Count 201 10^3/cmm (130-400); Red Blood Count 4.66 10^6/uL (4.1-5.3); Red Cell Distribution Width 13.9 % (12.1-15.1); White Blood Count 3.8 10^3/uL (4.0-10.0)
[2019-10-10] MEDS: ondansetron 2 mg/ML SDV 2 mL 4 MG IVP (22:26)
[2019-10-10] MEDS: sodium chloride 0.9% 1,000 ML 999 ML IV (22:27)
[2019-10-10 22:29] LABS: Alanine Aminotransferase 13 U/L (0-33); Albumin Level 4.3 g/dL (3.5-5.2); Alkaline Phosphatase 49 IU/L (35-105); Anion Gap 19.6 (5-19); Aspartate Amino Transferase 19 U/L (0-32); Blood Urea Nitrogen 28 mg/dL (8-23); Calcium 10.2 mg/dL (8.5-10.5); Carbon Dioxide 23 mmol/L (22-29); Chloride 93 mmol/L (98-107); Globulin 3.3 g/dL (1.3-4.6); Glucose 152 mg/dL (65-115); Osmolality Calculated 274 mOsm/kg (285-295); Potassium 3.6 mmol/L (3.5-5.1); Sodium 132 mmol/L (136-145); Total Bilirubin 0.9 mg/dL (0.15-1.2); Total Protein 7.6 g/dL (6.6-8.7)
[2019-10-10 23:23] LABS: Add Urine Microscopic? YES; Bacteria Urine 1+; Bilirubin Urine 1+ (NEGATIVE); Blood Urine Neg (Negative); Glucose Urine UA Norm (Normal); Hyaline Casts Urine 0-4; Ketones Urine Negative (Negative); Leukocyte Esterase Urine Negative (Negative); Mucus Urine 1+; Nitrate Urine Negative (Negative); Protein Urine Neg (Negative); RBC Urine 0-4 /hpf (0-2); Specific Gravity, Urine 1.025 (1.005-1.030); Squamous Epithelial Cell Urine RARE (0-5); Urine Color Yellow (Yellow); Urobilinogen Urine Norm (Negative); WBC Urine 0-4 /hpf (0-5); pH Urine 5 (5-7)
== END 2019-10-11 01:25 | disposition left against medical advice (07) ==
PROVIDERS: Emergency Provider Emergency Medicine; Family Provider Family Medicine; PCP Family Medicine
DX: R11.2 Nausea with vomiting, unspecified (principal); R19.7 Diarrhea, unspecified; R39.198 Other difficulties with micturition; R39.15 Urgency of urination; R53.1 Weakness; Z53.29 Procedure and treatment not carried out because of patient's decision for other reasons
CPT/HCPCS: 12345; 74018; 80053; 81001; 85025; 86140; 96375; 99282; J2405; J7030

== ENCOUNTER 2019-10-12 04:56 | Inpatient (IN) | payer MEDICARE, SELFPAY ==
[2019-10-12] VITALS (11 sets, daily range): BP systolic 90–112; BP diastolic 56–67; PULSE 78–113; RESP 16–24; TEMP 36.9–37.4; O2SAT 89–97; BMI 29.5
--- NOTE | 2019-10-12 05:09 | W.ED.WEAKNES ---
HPI - Weakness General: Chief complaint: Weakness Stated complaint: WEAK Time Seen by Provider: 10/12/19 05:01 History of Present Illness: HPI Narrative: 78-year-old female whom I saw the evening of 10/10/2019 with the same complaint. At that time, she had had some vomiting and progressive generalized weakness. Prior, she had had some belly pain as well. She had distended loops of small bowel on a KUB. She decided to leave the emergency department AGAINST MEDICAL ADVICE, as she did not want to be admitted for further workup and management. She re-presents this morning with the same symptoms of generalized weakness. She is vomited a couple more times. She has had some loose stools. Symptoms of generalized weakness are much worse with any exertion. She believes she is dehydrated still. MD Complaint: generalized weakness Location: generalized Migration: none Severity: similar to previous episodes Relieving factors: none Exacerbating factors: exertion Associated symptoms: Reports nausea, vomiting and other (diarrhea); Denies chest pain, chills, confusion, dysuria, fever(s), headache(s) or syncope Review of Systems Const: Reports: fatigue; Denies: fever or chills Eyes: Denies: change in vision Card: Denies: chest pain, palpitations or syncope Resp: Reports: shortness of breath; Denies: productive cough, non-productive cough or wheezing GI: Reports: nausea, vomiting and diarrhea; Denies: blood in stool : Reports: difficulty urinating; Denies: painful urination Skin/Breast: Denies: rash Neuro: Denies: headache, dizziness or confusion PFS ED PFSH: Social History Smoking and tobacco status: never smoked Physical Exam Const: COMMON NORMALS: alert GENERAL APPEARANCE: well developed ORIENTATION/CONSCIOUSNESS: Yes awake, Yes oriented to person, Yes oriented to place and Yes oriented to time HENMT: COMMON NORMALS: normocephalic and external nose normal; oral mucous membranes not moist HEAD & SCALP: normocephalic FACE & SINUS: normal facial exam NOSE: external nose normal and no nasal discharge Eye: COMMON NORMALS: PERRL, EOMs intact bilaterally and conjunctivae normal EYELID: eyelids normal CONJUNCTIVA: Yes conjunctivae normal PUPIL: Yes PERRL Chest: COMMONS NORMALS: inspection of chest normal CHEST: Yes symmetrical chest wall rise and No tenderness Resp: COMMON NORMALS: clear to auscultation bilaterally EFFORT & INSPECTION: No tachypneic, No respiratory distress, No retractions, No uses accessory muscles and No tracheal deviation AUSCULTATION: clear to auscultation bilaterally, no rhonchi, no wheezes and lung sounds not diminished Cardio: COMMON NORMALS: regular rate and regular rhythm RATE: regular rate RHYTHM: regular rhythm HEART SOUNDS: no murmurs PERIPHERAL PULSES: radial pulses present GI: INSPECTION: Yes abdominal distension AUSCULTATION: No hyperactive bowel sounds and No hypoactive bowel sounds PALPATION: Yes tender, No guarding and No rigid PERCUSSION: no dullness to percussion and tympanic to percussion Back/Pelvis: PELVIS: Yes no pain with anterior-posterior compression and Yes no pain with lateral compression Neuro: SENSORIUM/ORIENTATION: Yes alert, Yes oriented to person, Yes oriented to place and Yes oriented to time Psych: COMMON NORMALS: mental status grossly normal and speech normal SPEECH: Yes normal speech Skin: COMMON NORMALS: no rashes or lesions noted NARRATIVE SKIN EXAM: Significant pallor GENERAL SKIN EXAM: no rashes or lesions noted Course Vital Signs: Vital signs: Vital Signs Pulse Rate 112 H 10/12/19 05:04 Respiratory Rate 18 10/12/19 05:04 Blood Pressure 99/62 10/12/19 05:04 Pulse Oximetry 92 10/12/19 05:04 MDM - Weakness MDM Narrative: Medical decision making narrative: 78-year-old lady with generalized weakness. She has a KUB from 30 hours or so ago showing a small bowel obstruction. She re-presents with similar complaints. Labs and CT are pending. Chest x-ray, done because she is now oxygen dependent, shows some vascular congestion. BNP is pending. She will be checked out to Dr. Storm at shift change. Discharge Plan Discharge Prescriptions: No Action Coreg 3.125 mg Tablet 3.125 mg PO BID RF: 0 exemestane 25 mg Tablet 25 mg PO DAILY RF: 0 Crestor 40 mg Tablet 40 mg PO BEDTIME RF: 0 Coding Level of Care Code ED [employer] for Chg Fwd Exam Comprehensive
--- NOTE | 2019-10-12 05:16 | XR_ITS ---
WS: [id number] XR chest 1V portable [id number] REASON FOR EXAM: weakness FINDINGS: Arteriosclerotic changes in the arch of the aorta. Comparisons were made to July 30, 2019 . The heart mediastinum are normal. There is chronic interstitial changes in the peripheral lungs but no active infiltrates. XR/XR chest 1V portable [id number] IMPRESSION: Arteriosclerotic changes Mild fibrosis.
--- NOTE | 2019-10-12 05:16 | CTR_ITS ---
PROCEDURE INFORMATION: Exam: CT Abdomen And Pelvis With Contrast Exam date and time: 10/12/2019 5:58 AM Age: 78 years old Clinical indication: Abdominal pain; Prior surgery; Surgery type: Gb. Hysterectomy. ; Patient HX: Generalized abd pain with distention and n/v; Additional info: Vomiting, belly distension TECHNIQUE: Imaging protocol: Computed tomography of the abdomen and pelvis with intravenous contrast. Total DLP: 1549.9 mGy-cm Radiation optimization: All CT scans at this facility use at least one of these dose optimization techniques: automated exposure control; mA and/or kV adjustment per patient size (includes targeted exams where dose is matched to clinical indication); or iterative reconstruction. Contrast material: VISI 320; Contrast volume: 95 ml; Contrast route: 20G; COMPARISON: CR XR KUB portable [id number] 10/10/2019 10:29 PM FINDINGS: Lungs: Mild basilar airspace disease versus atelectasis bilaterally. Heart: Cardiomegaly Mediastinum: Small hiatal hernia. Liver: Normal. No mass. Gallbladder and bile ducts: Surgical clips in the region of the gallbladder fossa. Prominence of the biliary radicals likely related to the prior cholecystectomy and hence the reservoir effect. Please correlate with LFTs. Pancreas: Normal. No ductal dilation. Spleen: Normal. No splenomegaly. Adrenals: Normal. No mass. Kidneys and ureters: Parapelvic cysts left kidney. 1 cm cortical cyst left kidney Stomach and bowel: Air and fluid-filled dilated small bowel consistent with a small bowel obstruction. Transition point within the distal small bowel proximal to the cecum within the right mid/lower abdomen in the midline at a loop of mildly thickened small bowel. See image number 64 series 2. Air and fluid-filled large bowel Appendix: No evidence of appendicitis. Intraperitoneal space: Unremarkable. No free air. No significant fluid collection. Vasculature: Unremarkable. No abdominal aortic aneurysm. Lymph nodes: Unremarkable. No enlarged lymph nodes. Bladder: Unremarkable as visualized. Reproductive: Prior hysterectomy. Bones/joints: Mild compression fracture L1. No retropulsed fragment. Chronic. Soft tissues: Unremarkable. CT/CT abdomen pelvis w con* [id number] IMPRESSION: 1. Air and fluid-filled dilated small bowel consistent with a small bowel obstruction. Transition point within the distal small bowel proximal to the cecum within the right mid/lower abdomen in the midline at a loop of mildly thickened small bowel. See image number 64 series 2. 2. Mild basilar airspace disease versus atelectasis bilaterally. 3. Mild compression fracture L1. No retropulsed fragment. Chronic. Is Radiation Dose CTDIVOL = (mGy): DLP = 1549.9 (mGy-cm)
[2019-10-12] MEDS: sodium chloride 0.9% 1,000 ML 999 ML IV (05:34)
[2019-10-12] MEDS: ondansetron 2 mg/ML SDV 2 mL 4 MG IVP (05:36)
[2019-10-12 05:48] LABS: Basophils % 0.3 %; Eosinophils % 0.6 %; Hematocrit 38.9 % (37.0-47.0); Hemoglobin 12.7 g/dL (11.5-15.3); Lymphocytes # 0.5 10^3/uL (0.8-4.8); Lymphocytes % 13.9 %; Mean Corpuscular HGB Conc 32.6 g/dL (30.0-36.0); Mean Corpuscular Hemoglobin 29.2 pg (28.0-34.0); Mean Corpuscular Volume 89.4 fL (81-99); Mean Platelet Volume 10.4 fL (7.4-10.4); Monocytes % 30.1 %; Neutrophils # 1.9 10^3/uL (1.8-7.7); Neutrophils % 54.5 %; Nucleated Red Blood Cells % 0 %; Platelet Count 172 10^3/cmm (130-400); Red Blood Count 4.35 10^6/uL (4.1-5.3); Red Cell Distribution Width 13.7 % (12.1-15.1); White Blood Count 3.4 10^3/uL (4.0-10.0)
[2019-10-12 06:09] LABS: Lactate (Lactic Acid level) 1.5 mmol/L (0.5-2.2)
[2019-10-12 06:12] LABS: Alanine Aminotransferase 64 U/L (0-33); Albumin Level 3.8 g/dL (3.5-5.2); Alkaline Phosphatase 59 IU/L (35-105); Anion Gap 12.5 (5-19); Aspartate Amino Transferase 64 U/L (0-32); Blood Urea Nitrogen 28 mg/dL (8-23); C Reactive Protein 85.7 mg/L (0.0-4.9); Calcium 8.4 mg/dL (8.5-10.5); Carbon Dioxide 30 mmol/L (22-29); Chloride 94 mmol/L (98-107); Globulin 3.7 g/dL (1.3-4.6); Glucose 130 mg/dL (65-115); Lipase 16 U/L (13-60); NT Pro B Type Natriuretic Pept 343 pg/mL (0-450); Osmolality Calculated 275 mOsm/kg (285-295); Potassium 3.5 mmol/L (3.5-5.1); Sodium 133 mmol/L (136-145); Total Bilirubin 1.5 mg/dL (0.15-1.2); Total Protein 7.5 g/dL (6.6-8.7)
[2019-10-12] MEDS: iodixanol 320 mg/mL 100mL Btl IV (06:24)
[2019-10-12 06:39] LABS: Slide Review Slide Review Perform
[2019-10-12 06:40] LABS: Absolute Segmented Neutrophil 0.5 10/cmm (1.6-7.1); Band Neutrophils Absolute 0.9 10^3/cmm (0.0-1.2); Giant Platelets Trace; Lymphocytes 25 %; Monocytes Absolute 0.9 10^3/cmm (0.1-0.6); Platelet Estimate Decreased (Normal); Segmented Neutrophils 16 %; Total Cells Counted 100 (0-100)
[2019-10-12 07:06] LABS: Protein Urine 1+ (Negative); Urine Appearance Cloudy (CLEAR); Urine Color Dark Yellow (Yellow); pH Urine 5 (5-7)
[2019-10-12 07:07] LABS: Add Urine Microscopic? YES; Bilirubin Urine 1+ (NEGATIVE); Blood Urine 3+ (Negative); Glucose Urine UA Norm (Normal); Ketones Urine 1+ (Negative); Leukocyte Esterase Urine 2+ (Negative); Nitrate Urine Positive (Negative); Urobilinogen Urine 4 mg/dL (Negative)
[2019-10-12 07:11] LABS: RBC Urine 15-25 /hpf (0-2)
[2019-10-12 07:12] LABS: Add Urine Culture? Yes; Amorphous Sediment Urine 1+; Bacteria Urine 4+; WBC Urine 25-40 /hpf (0-5)
[2019-10-12] MEDS: cefTRIAXone 1,000 MG in sodium chloride 0.9% (plus) 50 ML 100 MG IV (07:14)
[2019-10-12] MEDS: LORazepam 2 mg/mL INJ 1 mL 1 MG IVP (07:38)
--- NOTE | 2019-10-12 07:49 | XR_ITS ---
WS: [id number] XR chest 1V portable [id number] REASON FOR EXAM: post ng FINDINGS: Feeding tube is seen in the stomach area. Pneumonia atelectasis left lung base is not appre ciated on previous exam of October 12, 2019. The heart was normal in the arch of the aorta shows arteriosclerotic changes. XR/XR chest 1V portable [id number] IMPRESSION: Infiltrate atelectasis left lung base Feeding tube in stomach. Arteriosclerotic changes.
--- NOTE | 2019-10-12 08:13 | PC.NURSE ---
cleaned pt up after son stated she had bowel movement. she had minimal feces that appeared to have been there a while. but cleaned pt up and performed linen change.
--- NOTE | 2019-10-12 08:35 | PC.NURSE ---
informed pt that we needed a clean urine specimen, need to do in and out catheter. pt refused in and out catheter.
--- NOTE | 2019-10-12 08:42 | PM.HP ---
Providers/Chief Complaint Admitting Physician: Ariella Euceda DO Primary Care Provider: Dequan Dubois DO Chief Complaint: Weakness, intractable nausea and vomiting History of Present Illness Ester Reaves is a 78 year old female with a past medical history of breast cancer, hypertension and hyperlipidemia as well as coronary artery disease that presented to the emergency department today for intractable nausea vomiting. She reported that she has been having vague abdominal pain over the past couple of days and continued to have recurrent episodes of diarrhea and nausea. She reports that the diarrhea has improved but she is now having nausea, several episodes throughout the night last night. Patient denies any fevers or chills at home, no cough or shortness of breath, no rhinitis. Patient denies any sick contacts or travel. Patient was brought to the emergency department on 10/10/2019 due to concern for weakness and nausea and vomiting was told that there was concern for partial small bowel obstruction, elevated BUN and creatinine and hyponatremia with concern for dehydration. The recommendation was for patient to be admitted to the hospital, however the patient's son stated that he would not keep her in the hospital and patient was signed out AGAINST MEDICAL ADVICE. Patient went home and continued to deteriorate with worsening nausea and vomiting. She reports several episodes of vomiting last night as discussed. She was then brought into the ER for further evaluation and treatment Patient had a CT scan of her abdomen and pelvis in the emergency department which showed concern for small bowel obstruction, dehydration, concern for hypoxia as she was requiring 3 to 4 L of oxygen by nasal cannula with the question of pneumonia. Patient was started on Rocephin and azithromycin. Patient had a urinalysis performed in the ED which showed 4+ bacteria and concern for urinary tract infection, this was a clean-catch specimen, patient did have a pad on at this time with fecal material and recommended to have straight in and out catheter for proper specimen collection, patient and her son refused. Discussed with patient's son the recommendation for observation and surgical consultation, Dr. Kennedy had been consulted by ER physician. He verbalized understanding and agreed with plan at that time. Review of Systems Const: Reports: fatigue; Denies: fever or chills Eyes: Denies: change in vision ENMT: Denies: nasal congestion Card: Denies: chest pain, palpitations or edema Resp: Denies: shortness of breath, productive cough or coughing up blood GI: Reports: abdominal pain, nausea, vomiting and other (Previously reported diarrhea that is now stopped); Denies: diarrhea, constipation, blood in stool or black tarry stool : Denies: painful urination or blood in urine Musc: Denies: extremity pain or muscle cramps Skin/Breast: Denies: rash or new lesion Neuro: Denies: headache or dizziness Psych: Denies: anxiety or depression Endo: Denies: excessive urination or hot flashes Ajay/Lymph: Denies: easy bruising Medications/Allergies Allergies Allergy/AdvReac Type Severity Reaction Status Date / Time No Known Allergies Allergy Verified 07/30/19 03:42 PFSH Acute PFSH: Medical History (Updated 10/12/19 @ 09:09 by Ariella Euceda DO) Coronary artery disease Hyperlipidemia Hypertension Surgical History (Updated 10/12/19 @ 09:01 by Ariella Euceda DO) History of cholecystectomy History of coronary angioplasty with insertion of stent History of hysterectomy History of mastectomy Right History of orthopedic surgery ORIF right forearm fracture Family History (Updated 10/12/19 @ 09:03 by Ariella Euceda DO) Mother TIA (transient ischemic attack) Father , age 72 CAD (coronary artery disease) Social History (Updated 10/12/19 @ 09:04 by Ariella Euceda DO) Smoking and tobacco status: never smoked Alcohol intake: never Substance/Drug Use: never Vitals/I&O/Wt Last Vital Signs Temp 99.1 F 10/12/19 08:05 Pulse 87 10/12/19 07:33 Resp 16 10/12/19 08:36 BP 112/61 10/12/19 07:33 Pulse Ox 94 10/12/19 08:36 10/11/19 10/12/19 10/12/19 22:59 06:59 14:59 Intake Total 1000 / 1000 Balance 1000 / 1000 Weight last 48 hrs Weight 83.007 kg Physical Exam Const: COMMON NORMALS: oriented x3 and alert GENERAL APPEARANCE: cooperative ORIENTATION/CONSCIOUSNESS: Yes awake, Yes oriented to person, Yes oriented to place and Yes oriented to time HENMT: COMMON NORMALS: normocephalic and head/scalp atraumatic HEAD & SCALP: atraumatic NOSE: other (NG tube in place in the left nare) Eye: COMMON NORMALS: PERRL PUPIL: Yes PERRL Neck/C-Spine: COMMON NORMALS: supple GENERAL: Yes normal visual inspection Resp: OTHER: Oxygen by nasal cannula in place, diminished breath sounds bilaterally, no appreciable wheezing or rhonchi Cardio: COMMON NORMALS: regular rate, regular rhythm and no murmurs RATE: regular rate RHYTHM: regular rhythm GI: COMMON NORMALS: soft to palpation AUSCULTATION: Yes hypoactive bowel sounds PALPATION: Yes soft OTHER: No appreciable tenderness, no guarding or rigidity : COMMON NORMALS: Yes no CVA tenderness Extremity: COMMON NORMALS: no clubbing, cyanosis or edema and no calf tenderness Neuro: COMMON NORMALS: oriented x3, CN's II-XII intact bilaterally, moves all extremities and no focal motor deficits SENSORIUM/ORIENTATION: Yes alert, Yes oriented to person, Yes oriented to place and Yes oriented to time SPEECH: speech normal Psych: COMMON NORMALS: mental status grossly normal and cooperative Skin: COMMON NORMALS: no rashes or lesions noted GENERAL SKIN EXAM: no rashes or lesions noted Data : 10/12/19 05:30 10/12/19 05:30 Micro: Microbiology 10/12/19 07:20 Blood Culture - Preliminary Blood SPECIMEN COLLECTED 10/12/19 07:15 Blood Culture - Preliminary Blood SPECIMEN COLLECTED CT Abd/Pel: I personally reviewed and interpreted this imaging study as follows: Radiologist's impression: IMPRESSION: 1. Air and fluid-filled dilated small bowel consistent with a small bowel obstruction. Transition point within the distal small bowel proximal to the cecum within the right mid/lower abdomen in the midline at a loop of mildly thickened small bowel. See image number 64 series 2. 2. Mild basilar airspace disease versus atelectasis bilaterally. 3. Mild compression fracture L1. No retropulsed fragment. Chronic. Is CXR: I personally reviewed and interpreted this imaging study as follows: Radiologist's impression: IMPRESSION: Infiltrate atelectasis left lung base Feeding tube in stomach. Arteriosclerotic changes. A&P Assessment and plan (1) Small bowel obstruction: CT scan of the abdomen and pelvis as noted above. Concern for small bowel obstruction. Patient reports diarrhea over the past several days which is now since stopped and reports increasing nausea and vomiting. Dr. Kennedy, general surgeon consulted by ER physician. Will follow up with recommendations, appreciate assistance in patient's care. NG tube placed in the ED, will continue at low intermittent suction Status: Acute Code(s): K56.609 - Unspecified intestinal obstruction, unspecified as to partial versus complete obstruction (2) Acute kidney injury: Appears to be prerenal Hold nephrotoxic agents Gentle IV fluids Status: Acute Code(s): N17.9 - Acute kidney failure, unspecified (3) Dehydration: Continue with gentle IV fluids as noted above Status: Acute Code(s): E86.0 - Dehydration (4) Coronary artery disease: With reported history of stent placement several years ago, 2010. We will check EKG to rule out any changes contributing to her symptoms. No longer on aspirin, only taking coreg and statin Status: Acute Code(s): I25.10 - Atherosclerotic heart disease of [place] coronary artery without angina pectoris (5) Hypertension: Continue home Coreg Status: Acute Code(s): I10 - Essential (primary) hypertension (6) Hyperlipidemia: Continue home atorvastatin Status: Acute Code(s): E78.5 - Hyperlipidemia, unspecified (7) Left lower lobe consolidation: New L lower lobe consolidation with concern for increased oxygen requirements. This could be related to aspiration pneumonia. Given Rocephin and azithromycin in the emergency department, will transition to Levaquin Respiratory therapy to assess and treat Oxygen per protocol Status: Acute Code(s): J18.1 - Lobar pneumonia, unspecified organism Additional A&P Information Question of urinary tract infection: However believe most of this is related to specimen. Recommended a repeat specimen with straight catheterization and family and patient declined. We will continue on Levaquin as above Leukopenia: Could be secondary to viral gastroenteritis that could have started this incident. We will continue to monitor closely with recheck tomorrow. Elevated AST, ALT and hyperbilirubinemia: CT scan of the abdomen and pelvis shows postsurgical changes, patient does not have any right upper quadrant abdominal pain, will recheck tomorrow DVT prophylaxis: Lovenox Diet: N.p.o. 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
[2019-10-12] MEDS: azithromycin 500 MG in sodium chloride 0.9% 250 ML 250 MG IV (08:51)
--- NOTE | 2019-10-12 09:10 | ECG_ITS ---
Measurements Intervals [place] Rate: 112 P: 12 FL: 154 QRS: -42 QRSD: 116 T: 51 QT: 350 QTc: 480 SINUS TACHYCARDIA MARKED LEFT AXIS DEVIATION [QRS AXIS < -30] LEFT VENTRICULAR HYPERTROPHY AND ST-T CHANGE [VOLTAGE CRITERIA PLUS ST/T ABNORMALITY] POSSIBLE ANTERIOR MYOCARDIAL INFARCTION [30 ms Q WAVE IN V3/V4, OR R < 0.2 mV IN V4], PROBABLY OLD Compared to ECG 07/30/2019 03:41:28 Left ventricular hypertrophy now present ST (T wave) deviation now present Myocardial infarct finding now present Sinus rhythm no longer present Electronically Signed On 10-12-2019 17:26:45 CDT by Serafin Walker M.D. [email or web address]
[2019-10-12 10:44] LABS: Influenza A by IFA Negative (Negative); Influenza B by IFA Negative (Negative)
--- NOTE | 2019-10-12 11:49 | P.CONIM_ITS ---
Providers/Reason For Consult Consulting Physican/Specialty*: General Surgery Lake Kennedy MD Reason for Consult*: Small bowel obstruction. Primary Care Provider: Dequan Dubois DO History of Present Illness History of Present Illness Ester Reaves is a 78 year old female who apparently started developing nausea and vomiting several days ago. There was an indication that there may have been some mild vague abdominal pain at the time, but she actually denies any abdominal pain to me. She says this started after she got a shot for oste oporosis this past week. She felt like she was constipated and took several home remedies according to her son and started having some loose bowel movements. She says that she had some firmness in the right inguinal region that got better after her constipation resolved. She was in the emergency room 2 days ago for weakness and the nausea/vomiting/diarrhea. Admission was recommended for the patient but her son, who lives with her, thought that they would try to keep an eye on this at home, hoping that she would get better. She did not. She has continued having some loose bowel movements and some vomiting as recently as yesterday. She denies any fevers but feels like she is weak and has not been able to eat, etc. A CAT scan done this morning revealed evidence of a small bowel obstruction. Review of Systems General: Reports: 10 or more systems reviewed and unremarkable except in HPI and below Const: Denies: fever Meds/Allergies Home Medications and Allergies Home Medications Medication Instructions Recorded Confirmed Type carvedilol [Coreg] 3.125 mg PO BID 07/30/19 10/12/19 History exemestane 25 mg PO DAILY 07/30/19 10/12/19 History rosuvastatin [Crestor] 40 mg PO BEDTIME 07/30/19 10/12/19 History Allergies Allergy/AdvReac Type Severity Reaction Status Date / Time No Known Allergies Allergy Verified 07/30/19 03:42 PFSH Acute PFSH: Medical History (Updated 10/12/19 @ 12:32 by Lake Kennedy MD) Coronary artery disease / [place] GERD (gastroesophageal reflux disease) History of DVT (deep vein thrombosis) Left lower extremity - following hysterectomy History of right breast cancer Hyperlipidemia Hypertension Osteoporosis Surgical History (Updated 10/12/19 @ 11:48 by Lake Kennedy MD) History of cholecystectomy History of coronary angioplasty with insertion of stent x 6 around 2010 History of hysterectomy History of mastectomy Right --for recurrence of breast cancer following breast conservation (but with axillary dissection) several years previously History of orthopedic surgery ORIF right forearm fracture Family History Mother TIA (transient ischemic attack) Father , age 72 CAD (coronary artery disease) Social History Smoking and tobacco status: never smoked Alcohol intake: never Substance/Drug Use: never Vitals/I&O/Wt Last Vital Signs Temp 99.1 F 10/12/19 08:05 Pulse 87 10/12/19 07:33 Resp 16 10/12/19 08:36 BP 112/61 10/12/19 07:33 Pulse Ox 94 10/12/19 08:36 10/11/19 10/12/19 10/12/19 22:59 06:59 14:59 Intake Total 1300 / 1300 Balance 1300 / 1300 Weight last 48 hrs Weight 183 lb Physical Exam Narrative: EXAM NARRATIVE: The patient was encountered in her hospital room upon her arrival from the emergency room. She has a nasogastric tube in place, but there is no fluid in the canister. She is wearing a mask. The pupils seem equal. No carotid bruits are heard. The lungs seem clear anteriorly. The heart is regular. Bowel sounds are hypoactive. The abdomen is moderately obese but is soft. She does have some firmness to the upper abdomen at the medial aspect of her subcostal scar. She does not seem to have any obvious masses elsewhere. Her abdomen is not tender. The extremities reveal no edema. Neurologically the patient appears to be grossly intact. Data Micro: Micro: Microbiology 10/12/19 07:20 Blood Culture - Pr eliminary Blood SPECIMEN [facility] 10/12/19 07:15 Blood Culture - Pr eliminary Blood SPECIMEN [facility] Imaging^: CT Abd/Pel: I personally reviewed and interpreted this imaging study as follows: My impression: The patient has clear signs of a small bowel obstruction, but I have some difficulty seeing an obvious transition point. There are no loops of bowel in her right inguinal hernia but there does appear to be some fluid within the hernia sac. I have to wonder if this was incarcerated but now the obstructive process may be improving as a result of the hernia being reduced. In addition, the patient does have a fat-containing ventral hernia in the mid epigastrium just to the left side of midline which was not commented on by the radiologist. Radiologist's impression: CT abdomen/pelvis 10/12/2019 iMPRESSION: 1. Air and fluid-filled dilated small bowel consistent with a small bowel obstruction. Transition point within the distal small bowel proximal to the cecum within the right mid/lower abdomen in the midline at a loop of mildly thickened small bowel. See image number 64 series 2. 2. Mild basilar airspace disease versus atelectasis bilaterally. 3. Mild compression fracture L1. No retropulsed fragment. Chronic. A&P Assessment and plan (1) Hernia, inguinal, right: This has been known for over a year. The patient had some symptoms at that time when a CAT scan showed incarcerated loops of small bowel. It is very possible that she had another episode of temporary incarceration given her description of the firmness in the inguinal region that eventually went away. Status: Chronic Code(s): K40.90 - Unilateral inguinal hernia, without obstruction or gangrene, not specified as recurrent (2) Small bowel obstruction: The patient does have findings consistent with a small bowel obstruction. This may, however, be in the process of resolution as there appears to be fluid moving into the cecum on the CAT scan. I am going to recommend continuing the nasogastric tube until we are certain she has improved. Status: Acute Code(s): K56.609 - Unspecified intestinal obstruction, unspecified as to partial versus complete obstruction (3) Incisional hernia: The patient has a fat-containing incisional hernia in the epigastrium as result of her subcostal incision on the right side. This does not appear to be involved in any way in an obstructive process, however. Status: Acute Code(s): K43.2 - Incisional hernia without obstruction or gangrene Consult Attestations Medical Necessity Statement: See admitting service's notation. Coding Level of Care Code Acute Lobby Porter for [facility] Diagnoses Hernia, inguinal, right K40.90 Small bowel obstruction K56.609 Incisional hernia K43.2
[2019-10-12] MEDS: sodium chlor 0.9% + KCl 20 mEq 20 MEQ/1,000 ML BAG 75 MEQ IV (13:59)
--- NOTE | 2019-10-12 13:59 | PC.CHAP ---
Pastoral Care Encounter/Spiritual Assessment Type of Contact [] Declined cyber security consultant visit [] Patient/Family/Request visit [] Outpatient visit [] Follow-up visit [] Physician referral [] Code/Alert [] Routine visit [] Staff referral [] Actively dying [] Patient sleeping [] Family support [] [] Out of room [] Palliative care [] [] Receiving care in room [] Pre-surgical visit [] Trauma [] Long length of stay [] ICU visit [] Other: Isolution Relational/Emotional Strength [] Patient feels connected with others/family/visitors/staff [] Distress [] Loneliness/isolation [] Abandonment Spirituality of Patient [] Person of Josephine [] Attends Sabianism of their Josephine [] Believes in Prayer [] Reads Bible or Congregation materials [] There are Spiritual issues to be addressed Raw Scales Operator Interventions [] Prayer [] Active listening [] Non-anxious presence [] Spiritual/emotional support [] Crisis/trauma care [] Spiritual counseling [] Bereavement support [] Provided bereavement packet [] Provided Bible/devotional materials [] Provided toy/stuffed animal, coloring book to patient or family member [] Provided Communion [] Anointing/[place] [] Salvation [] Completed spiritual assessment [] Other: Impact on Illness or Injury [] Angry [] Fearful [] Anxious [] Often cries [] Exhaustion [] Unable to work [] Unable to attend sabianist [] Unable to walk/stand [] Unable to read [] Unable to drive [] Unable to eat/drink [] Unable to sleep [] Unable to be with family [] Patient intubated [] Other: Summary Isolution Time spent with patient 5 min
--- NOTE | 2019-10-12 14:01 | PC.CHAP ---
Pastoral Care Encounter/Spiritual Assessment Type of Contact [] Declined abe teacher visit [] Patient/Family/Request visit [] Outpatient visit [] Follow-up visit [] Physician referral [] Code/Alert [] Routine visit [] Staff referral [] Actively dying [] Patient sleeping [] Family support [] [] Out of room [] Palliative care [] [] Receiving care in room [] Pre-surgical visit [] Trauma [] Long length of stay [] ICU visit [] Other: Isolution Relational/Emotional Strength [] Patient feels connected with others/family/visitors/staff [] Distress [] Loneliness/isolation [] Abandonment Spirituality of Patient [] Person of Josephine [] Attends Orthodoxy of their Josephine [] Believes in Prayer [] Reads Bible or Sabianism materials [] There are Spiritual issues to be addressed Violin Restorer Interventions [] Prayer [] Active listening [] Non-anxious presence [] Spiritual/emotional support [] Crisis/trauma care [] Spiritual counseling [] Bereavement support [] Provided bereavement packet [] Provided Bible/devotional materials [] Provided toy/stuffed animal, coloring book to patient or family member [] Provided Communion [] Anointing/[place] [] Salvation [] Completed spiritual assessment [] Other: Impact on Illness or Injury [] Angry [] Fearful [] Anxious [] Often cries [] Exhaustion [] Unable to work [] Unable to attend congregational [] Unable to walk/stand [] Unable to read [] Unable to drive [] Unable to eat/drink [] Unable to sleep [] Unable to be with family [] Patient intubated [] Other: Summary Isolution Time spent with patient 5 mins
--- NOTE | 2019-10-12 14:03 | PC.CHAP ---
Pastoral Care Encounter/Spiritual Assessment Type of Contact [] Declined cemetery counselor visit [] Patient/Family/Request visit [] Outpatient visit [] Follow-up visit [] Physician referral [] Code/Alert [x] Routine visit [] Staff referral [] Actively dying [] Patient sleeping [] Family support [] [] Out of room [] Palliative care [] [x] Receiving care in room [] Pre-surgical visit [] Trauma [] Long length of stay [] ICU visit [] Other: Relational/Emotional Strength [x] Patient feels connected with others/family/visitors/staff [] Distress [] Loneliness/isolation [] Abandonment Spirituality of Patient [x] Person of Josephine [] Attends Yazdanism of their Josephine [x] Believes in Prayer [] Reads Bible or Alevism materials [] There are Spiritual issues to be addressed Cattery Operator Interventions [x] Prayer [x] Active listening [x] Non-anxious presence [x] Spiritual/emotional support [] Crisis/trauma care [] Spiritual counseling [] Bereavement support [] Provided bereavement packet [] Provided Bible/devotional materials [] Provided toy/stuffed animal, coloring book to patient or family member [] Provided Communion [] Anointing/[place] [] Salvation [x] Completed spiritual assessment [] Other: Impact on Illness or Injury [] Angry [] Fearful [] Anxious [] Often cries [] Exhaustion [] Unable to work [] Unable to attend jew [] Unable to walk/stand [] Unable to read [] Unable to drive [] Unable to eat/drink [] Unable to sleep [] Unable to be with family [] Patient intubated [] Other: Summary Feels good, understands what is wrong, & treatment that neds to be done, happy wants to go home Time spent with patient 10 mins
[2019-10-12] MEDS: levofloxacin-dextrose 5 % 750 MG/150 ML PREMIX 150 MG IV (14:05)
--- NOTE | 2019-10-12 14:08 | PC.CHAP ---
Pastoral Care Encounter/Spiritual Assessment Type of Contact [] Declined rotary drum tanner visit [] Patient/Family/Request visit [] Outpatient visit [] Follow-up visit [] Physician referral [] Code/Alert [x] Routine visit [] Staff referral [] Actively dying [] Patient sleeping [] Family support [] [] Out of room [] Palliative care [] [x] Receiving care in room [] Pre-surgical visit [] Trauma [] Long length of stay [] ICU visit [] Other: Relational/Emotional Strength [x] Patient feels connected with others/family/visitors/staff [] Distress [] Loneliness/isolation [] Abandonment Spirituality of Patient [] Person of Josephine [] Attends Mormonism of their Josephine [] Believes in Prayer [] Reads Bible or Buddhist materials [] There are Spiritual issues to be addressed Surg Rn Interventions [x] Prayer [x] Active listening [x] Non-anxious presence [x] Spiritual/emotional support [] Crisis/trauma care [] Spiritual counseling [] Bereavement support [] Provided bereavement packet [] Provided Bible/devotional materials [] Provided toy/stuffed animal, coloring book to patient or family member [] Provided Communion [] Anointing/[place] [] Salvation [x] Completed spiritual assessment [] Other: Impact on Illness or Injury [] Angry [] Fearful [x] Anxious [] Often cries [x] Exhaustion [x] Unable to work [] Unable to attend mandaeism [] Unable to walk/stand [] Unable to read [x] Unable to drive [] Unable to eat/drink [] Unable to sleep [] Unable to be with family [] Patient intubated [] Other: Summary Not able to communicate, nods head Time spent with patient 10 mins
[2019-10-12] MEDS: enoxaparin 40 mg/0.4 mL Syringe SUBCUT (14:09)
--- NOTE | 2019-10-12 14:12 | PC.CHAP ---
Pastoral Care Encounter/Spiritual Assessment Type of Contact [] Declined medicaid billing specialist visit [] Patient/Family/Request visit [] Outpatient visit [] Follow-up visit [] Physician referral [] Code/Alert [xx] Routine visit [] Staff referral [] Actively dying [] Patient sleeping [] Family support [] [] Out of room [] Palliative care [] [x] Receiving care in room [] Pre-surgical visit [] Trauma [] Long length of stay [] ICU visit [] Other: Relational/Emotional Strength [x] Patient feels connected with others/family/visitors/staff [] Distress [] Loneliness/isolation [] Abandonment Spirituality of Patient [x] Person of Josephine [] Attends Scientologist of their Josephine [x] Believes in Prayer [] Reads Bible or Christian materials [] There are Spiritual issues to be addressed Suspender Cutter Interventions [x] Prayer [xx] Active listening [x] Non-anxious presence [x] Spiritual/emotional support [] Crisis/trauma care [x] Spiritual counseling [] Bereavement support [] Provided bereavement packet [] Provided Bible/devotional materials [] Provided toy/stuffed animal, coloring book to patient or family member [] Provided Communion [] Anointing/[place] [] Salvation [x] Completed spiritual assessment [] Other: Impact on Illness or Injury [] Angry [x] Fearful [] Anxious [] Often cries [] Exhaustion [x] Unable to work [] Unable to attend uatsdin [x] Unable to walk/stand [] Unable to read [x] Unable to drive [] Unable to eat/drink [] Unable to sleep [] Unable to be with family [] Patient intubated [] Other: Summary Waiting for doctor about tests hip and back, lives with sister Time spent with patient 10 mins
[2019-10-12] MEDS: atorvastatin 40 mg Tablet 80 MG PO (20:59)
[2019-10-13] VITALS (8 sets, daily range): BP systolic 94–106; BP diastolic 59–70; PULSE 74–110; RESP 16–20; TEMP 36.4–37.2; O2SAT 88–97
[2019-10-13 02:49] LABS: Basophils % 0.4 %; Eosinophils % 0.5 %; Hemoglobin 11.1 g/dL (11.5-15.3); Lymphocytes # 0.9 10^3/uL (0.8-4.8); Lymphocytes % 15.2 %; Mean Corpuscular HGB Conc 32.6 g/dL (30.0-36.0); Mean Corpuscular Volume 88.8 fL (81-99); Mean Platelet Volume 10.3 fL (7.4-10.4); Monocytes % 18.6 %; Neutrophils # 3.6 10^3/uL (1.8-7.7); Neutrophils % 64.6 %; Nucleated Red Blood Cells % 0 %; Platelet Count 154 10^3/cmm (130-400); Red Blood Count 3.83 10^6/uL (4.1-5.3); Red Cell Distribution Width 13.9 % (12.1-15.1); White Blood Count 5.6 10^3/uL (4.0-10.0)
[2019-10-13 03:07] LABS: Alanine Aminotransferase 46 U/L (0-33); Albumin Level 3.1 g/dL (3.5-5.2); Alkaline Phosphatase 53 IU/L (35-105); Anion Gap 13.7 (5-19); Aspartate Amino Transferase 33 U/L (0-32); Blood Urea Nitrogen 37 mg/dL (8-23); Calcium 7.2 mg/dL (8.5-10.5); Carbon Dioxide 25 mmol/L (22-29); Chloride 101 mmol/L (98-107); Globulin 3.4 g/dL (1.3-4.6); Glucose 99 mg/dL (65-115); Osmolality Calculated 282 mOsm/kg (285-295); Sodium 137 mmol/L (136-145); Total Bilirubin 0.7 mg/dL (0.15-1.2); Total Protein 6.5 g/dL (6.6-8.7)
[2019-10-13 03:13] LABS: Potassium 2.7 mmol/L (3.5-5.1)
[2019-10-13 03:15] LABS: Slide Review Slide Review Perform
[2019-10-13] MEDS: sodium chlor 0.9% + KCl 20 mEq 20 MEQ/1,000 ML BAG 75 MEQ IV ×2 (04:13→19:56)
[2019-10-13] MEDS: lidocaine 1% INJ 20 mL 5 ML IV (05:13)
[2019-10-13] MEDS: potassium chloride premix 40 MEQ/100 ML PREMIX 25 MEQ IV (05:13)
--- NOTE | 2019-10-13 06:51 | PM.PN ---
Subjective Subjective: Interval history: The patient continues to have multiple loose bowel movements. She still denies abdominal pain. Vitals/I&O/Wt Last Vital Signs Temp 98.1 F 10/13/19 04:00 Pulse 110 H 10/13/19 04:00 Resp 20 H 10/13/19 04:00 BP 104/70 10/13/19 04:00 Pulse Ox 94 10/13/19 04:00 10/12/19 10/12/19 10/13/19 14:59 22:59 06:59 Intake Total 1300 / 1300 1000 / 2300 Output Total 200 / 200 50 / 250 Balance 1300 / 1300 -200 / 1100 950 / 2050 Weight last 48 hrs Weight 189 lb 8 oz Weight 183 lb Physical Exam Narrative: EXAM NARRATIVE: Abdomen is nondistended and soft. Data : 10/13/19 02:29 10/13/19 02:29 Micro: Microbiology 10/12/19 07:20 Blood Culture - Preliminary Blood SPECIMEN COLLECTED 10/12/19 07:15 Blood Culture - Preliminary Blood SPECIMEN COLLECTED A&P Assessment and plan (1) Small bowel obstruction: Remove NG tube. Clear liquid diet. Potassium being replaced. Status: Acute Code(s): K56.609 - Unspecified intestinal obstruction, unspecified as to partial versus complete obstruction (2) Hernia, inguinal, right: This has been known for over a year. The patient had some symptoms at that time when a CAT scan showed incarcerated loops of small bowel. It is very possible that she had another episode of temporary incarceration given her description of the firmness in the inguinal region that eventually went away. Status: Chronic Code(s): K40.90 - Unilateral inguinal hernia, without obstruction or gangrene, not specified as recurrent (3) Incisional hernia: The patient has a fat-containing incisional hernia in the epigastrium as result of her subcostal incision on the right side. This does not appear to be involved in any way in an obstructive process, however. Status: Acute Code(s): K43.2 - Incisional hernia without obstruction or gangrene Attestations Medical Necessity Statement*: See admitting service's notation. Coding Level of Care Code Acute Technical Services Representative for [facility] Diagnoses Small bowel obstruction K56.609 Hernia, inguinal, right K40.90 Incisional hernia K43.2
--- NOTE | 2019-10-13 10:54 | PC.OT ---
OT note: From chart review noted pt's potassium to be 2.7. Will hold at this time and attempt again once able.
--- NOTE | 2019-10-13 12:08 | PC.RESP ---
Patient does not have a qualifying hx of lung disease at this time.
[2019-10-13] MEDS: levofloxacin-dextrose 5 % 750 MG/150 ML PREMIX 150 MG IV (13:54)
[2019-10-13] MEDS: enoxaparin 40 mg/0.4 mL Syringe SUBCUT (14:01)
--- NOTE | 2019-10-13 18:33 | P.PN_ITS ---
Subjective Subjective: Interval history: 4 Vitals/I&O/Wt Last Vital Signs Temp 97.8 F 10/13/19 15:20 Pulse 84 10/13/19 15:20 Resp 18 10/13/19 15:20 BP 106/70 10/13/19 15:20 Pulse Ox 92 10/13/19 15:20 10/13/19 10/13/19 10/13/19 06:59 14:59 22:59 Intake Total 1000 / 2300 710 / 710 Output Total 50 / 250 Balance 950 / 2050 710 / 710 Weight last 48 hrs Weight 85.956 kg Weight 83.007 kg Physical Exam Const: COMMON NORMALS: oriented x3 and alert GENERAL APPEARANCE: cooperative ORIENTATION/CONSCIOUSNESS: Yes awake, Yes oriented to person, Yes oriented to place and Yes oriented to time HENMT: COMMON NORMALS: normocephalic and head/scalp atraumatic HEAD & SCALP: normocephalic and atraumatic NOSE: other (NG tube in place in the left nare) Eye: COMMON NORMALS: PERRL PUPIL: Yes PERRL Neck/C-Spine: COMMON NORMALS: supple GENERAL: Yes normal visual inspection Resp: OTHER: Improved respirations bilaterally, no wheezing or rhonchi Cardio: COMMON NORMALS: regular rate, regular rhythm and no murmurs RATE: regular rate RHYTHM: regular rhythm GI: COMMON NORMALS: soft to palpation AUSCULTATION: Yes hypoactive bowel sounds PALPATION: Yes soft OTHER: No appreciable tenderness, no guarding or rigidity : COMMON NORMALS: Yes no CVA tenderness BLADDER/KIDNEY EXAM: Yes no CVA tenderness Back/Pelvis: COMMON NORMALS: no CVA tenderness Extremity: COMMON NORMALS: no clubbing, cyanosis or edema and no calf tenderness Neuro: COMMON NORMALS: oriented x3, CN's II-XII intact bilaterally, moves all extremities and no focal motor deficits SENSORIUM/ORIENTATION: Yes alert, Yes oriented to person, Yes oriented to place and Yes oriented to time SPEECH: speech normal Psych: COMMON NORMALS: mental status grossly normal and cooperative Skin: COMMON NORMALS: no rashes or lesions noted GENERAL SKIN EXAM: no rashes or lesions noted Data : 10/13/19 02:29 10/13/19 02:29 Micro: Microbiology 10/12/19 06:46 Urine Culture - Preliminary Urine,Clean Catch Gram Negative Rods 10/12/19 07:15 Blood Culture - Preliminary Blood NEGATIVE TO DATE 10/12/19 07:20 Blood Culture - Preliminary Blood NEGATIVE TO DATE 10/13/19 03:35 C.difficile Toxin B Gene (PCR) - Final Stool A&P Assessment and plan (1) Small bowel obstruction: Improved NG tube removed today Started on clear liquid diet and advance to full liquid as tolerated Status: Acute Code(s): K56.609 - Unspecified intestinal obstruction, unspecified as to partial versus complete obstruction (2) Acute kidney injury: Improved with gentle IV fluids Status: Acute Code(s): N17.9 - Acute kidney failure, unspecified (3) Dehydration: Continue with gentle IV fluids as noted above Status: Acute Code(s): E86.0 - Dehydration (4) Coronary artery disease: With reported history of stent placement several years ago, 2010. No longer on aspirin, only taking coreg and statin Status: Acute Code(s): I25.10 - Atherosclerotic heart disease of [place] coronary artery without angina pectoris (5) Hypertension: Continue home Coreg Status: Acute Code(s): I10 - Essential (primary) hypertension (6) Hyperlipidemia: Continue home atorvastatin Status: Acute Code(s): E78.5 - Hyperlipidemia, unspecified (7) Left lower lobe consolidation: Continue on Levaquin Wean oxygen, currently on room air Status: Acute Code(s): J18.1 - Lobar pneumonia, unspecified organism Additional A&P Information Question of urinary tract infection: However believe most of this is related to specimen. Recommended a repeat specimen with straight catheterization and family and patient declined. We will continue on Levaquin as above Leukopenia: Resolved Elevated AST, ALT and hyperbilirubinemia: Improved Hypokalemia DVT prophylaxis: Lovenox Diet: Clear liquid diet CODE STATUS: Full code Attestations Medical Necessity Statement*: Requires further hospitalization due to continued nausea and diarrhea with resolution of small bowel obstruction Coding Level of Care Code Acute Veterinary X Ray Operator for [facility] Diagnoses Small bowel obstruction K56.609 Acute kidney injury N17.9 Dehydration E86.0 Coronary artery disease I25.10 Hypertension I10 Hyperlipidemia E78.5 Left lower lobe consolidation J18.1
[2019-10-13 20:24] LABS: Potassium 3.6 mmol/L (3.5-5.1)
[2019-10-13] MEDS: atorvastatin 40 mg Tablet 80 MG PO (20:39)
[2019-10-14] VITALS: BP 107/62; PULSE 75; RESP 18; TEMP 37; O2SAT 95
[2019-10-14 04:00] VITALS: BP 106/62; PULSE 80; RESP 18; TEMP 36.6; O2SAT 94
[2019-10-14 05:46] LABS: Anion Gap 14.5 (5-19); Blood Urea Nitrogen 17 mg/dL (8-23); Calcium 7.3 mg/dL (8.5-10.5); Carbon Dioxide 21 mmol/L (22-29); Chloride 107 mmol/L (98-107); Glucose 99 mg/dL (65-115); Osmolality Calculated 284 mOsm/kg (285-295); Potassium 3.5 mmol/L (3.5-5.1); Sodium 139 mmol/L (136-145)
[2019-10-14 07:27] VITALS: BP 113/68; PULSE 74; RESP 16; TEMP 36.7; O2SAT 96
--- NOTE | 2019-10-14 09:09 | P.DS_ITS ---
Discharge Providers Date of Admission: 10/12/19 09:20 Date of Discharge: October 14, 2019 Attending Provider at Admission: Ariella Euceda DO Attending Provider at Discharge: Ariella Euceda DO Primary Care Provider: Dequan Dubois DO Diagnoses at Discharge Discharge Diagnosis (1) Small bowel obstruction: Status: Acute (2) Acute kidney injury: Status: Acute (3) Dehydration: Status: Acute (4) Coronary artery disease: Status: Acute Problem details: History of SC (5) Hypertension: Status: Acute (6) Hyperlipidemia: Status: Acute (7) Left lower lobe consolidation: Status: Acute Reason for Visit Reason for Visit: Reason For Visit: SBO,FRAN, ASPIRATION PNEUMONIA Hospital Course Hospital Course: Patient was seen and evaluated in the emergency department noted to have concern for nausea vomiting and abdominal pain and CT findings consistent with small bowel obstruction. She was admitted to the hospital and NG tube was placed in the emergency department. She was kept n.p.o. and general surgeon, Dr. Kennedy, was consulted. Patient was treated with conservative management and continued to show improvement. She began having loose stools and nausea improved. NG tube was removed and she was started on a clear liquid diet which she tolerated well. She was given IV fluids due to concern for acute kidney injury. Her urine output continued to improve and her renal function returned to baseline. She was noted to have concern for hypoxia on admission with concern for an aspiration pneumonia she was started on Levaquin and co ntinued to show improvement. On date of discharge she was awake in bed with her son at bedside she denied any chest pain, no shortness of breath, no abdominal pain or nausea. Discussed plan for discharge to home and she verbalized understanding and agreed with plan. Physical Exam Const: COMMON NORMALS: oriented x3 and alert GENERAL APPEARANCE: cooperative ORIENTATION/CONSCIOUSNESS: Yes awake, Yes oriented to person, Yes oriented to place and Yes oriented to time HENMT: COMMON NORMALS: normocephalic and head/scalp atraumatic HEAD & SCALP: normocephalic and atraumatic Eye: COMMON NORMALS: PERRL PUPIL: Yes PERRL Neck/C-Spine: COMMON NORMALS: supple GENERAL: Yes normal visual inspection Resp: OTHER: Improved respirations bilaterally, no wheezing or rhonchi Cardio: COMMON NORMALS: regular rate, regular rhythm and no murmurs RATE: regular rate RHYTHM: regular rhythm GI: COMMON NORMALS: soft to palpation AUSCULTATION: Yes hypoactive bowel sounds PALPATION: Yes soft OTHER: No appreciable tenderness, no guarding or rigidity : COMMON NORMALS: Yes no CVA tenderness BLADDER/KIDNEY EXAM: Yes no CVA tenderness Back/Pelvis: COMMON NORMALS: no CVA tenderness Extremity: COMMON NORMALS: no clubbing, cyanosis or edema and no calf t enderness Neuro: COMMON NORMALS: oriented x3, CN's II-XII intact bilaterally, moves all extremities and no focal motor deficits SENSORIUM/ORIENTATION: Yes alert, Yes oriented to person, Yes oriented to place and Yes oriented to time SPEECH: speech normal Psych: COMMON NORMALS: mental status grossly normal and cooperative Skin: COMMON NORMALS: no rashes or lesions noted GENERAL SKIN EXAM: no rashes or lesions noted Discharge Data Data Completed and Pending: Completed Studies During Hospitalization Category Date Time Status CT abdomen pelvis w con* [id number] Urge nt Cat Scan 10/12/19 05:16 Completed CXRP [XR chest 1V portable [id number]] S tat Exams 10/12/19 07:49 Completed XR chest 1V [place]lw[place] ble [id number] Stat Exams 10/12/19 05:16 Completed Pending at discharge Category Date Time Status Blood Culture Sta t Lab 10/12/19 07:20 Results Urine Culture Sta t Lab 10/12/19 06:46 Results Labs from last 24 hours 10/14/19 10/13/19 04:16 19:28 Sodium 139 Potassium 3.5 3.6 Chloride 107 Carbon Dioxide 21 L Anion Gap 14.5 BUN 17 Creatinine 0.7 Glucose 99 Calculated Osmolal ity 284 L Calcium 7.3 L Vitals: Last Vital Signs Temp 98.0 F 10/14/19 07:27 Pulse 74 10/14/19 07:27 Resp 16 10/14/19 07:27 BP 113/68 10/14/19 07:27 Pulse Ox 96 10/14/19 07:27 Discharge Plan Discharge Patient Disposition: Home, Self-Care Condition: Stable Prescriptions: New levofloxacin [Levaquin] 750 mg tablet 750 mg PO DAILY 5 Days Qty: 5 RF: 0 Continued carvedilol [Coreg] 3.125 mg Tablet 3.125 mg PO BID RF: 0 exemestane 25 mg Tablet 25 mg PO DAILY RF: 0 rosuvastatin [Crestor] 40 mg Tablet 40 mg PO BEDTIME RF: 0 Discharge Orders: Discharge Order (Routine); Ordered 10/14/19 Ordered By: Ariella Euceda Referrals: Dequan Dubois DO [Primary Care Provider] - 4-7 days Discharge Diet: Advance as tolerated and GI Soft Discharge Activity: Increase activity as tolerated Activity Restrictions/Additional Instructions: Discharged with Levaquin 750 mg daily for 5 additional days Increase activity as tolerated Continue with a bland GI soft diet and gradually increase as tolerated For any worsening abdominal pain, increased nausea vomiting call your physician or present to the ED. Discharge Attestations Time Spent in Discharge Care*: greater than 30 min Quality Metrics Clinical Quality Measures During this hospital stay, did patient experience: None Coding Level of Care Code Acute Public Administration Teacher for Tessa Islas Diagnoses Small bowel obstruction K56.609 Acute kidney injury N17.9 Dehydration E86.0 Coronary artery disease I25.10 Hypertension I10 Hyperlipidemia E78.5 Left lower lobe consolidation J18.1
--- NOTE | 2019-10-14 09:23 | P.PN_ITS ---
Subjective Subjective: Interval history: Ester says she is feeling well today. She appears to be in very good spirits. She is tolerating an oral diet. Vitals/I&O/Wt Last Vital Signs Temp 98.0 F 10/14/19 07:27 Pulse 74 10/14/19 07:27 Resp 16 10/14/19 07:27 BP 113/68 10/14/19 07:27 Pulse Ox 96 10/14/19 07:27 10/13/19 10/14/19 10/14/19 22:59 06:59 14:59 Intake Total 1299 1031.25 / 3041.25 Output Total 303 / 303 Balance 1299 728.25 / 2738.25 Weight last 48 hrs Weight 188 lb 6.4 oz Weight 189 lb 8 oz Physical Exam Narrative: EXAM NARRATIVE: Abdomen remains soft. Data : 10/13/19 02:29 10/14/19 04:16 Micro: Microbiology 10/12/19 06:46 Urine Culture - Preliminary Urine,Clean Catch Gram Negative Rods 10/12/19 07:15 Blood Culture - Preliminary Blood NEGATIVE TO DATE 10/12/19 07:20 Blood Culture - Preliminary Blood NEGATIVE TO DATE 10/13/19 03:35 C.difficile Toxin B Gene (PCR) - Final Stool A&P Assessment and plan (1) Small bowel obstruction: Resolved. Status: Resolved Code(s): K56.609 - Unspecified intestinal obstruction, unspecified as to partial versus complete obstruction (2) Hernia, inguinal, right: This has been known for over a year. The patient was having symptoms when it was originally seen at that time. I have discussed this with the patient and have made her aware that this may be the source of the 2 episodes of small bowel obstruction that she has been diagnosed with. She does not seem to have much interest in having any surgery for this at the current time (she seems to be convinced that her problems stemmed from that bone shot ), but I can certainly discuss an elective repair of this further if the patient has any interest as an outpatient. Status: Chronic Code(s): K40.90 - Unilateral inguinal hernia, without obstruction or gangrene, not specified as recurrent (3) Incisional hernia: The patient has a fat-containing incisional hernia in the epigastrium as result of her subcostal incision on the right side. This does not appear to be involved in any way in an obstructive process, however. Status: Acute Code(s): K43.2 - Incisional hernia without obstruction or gangrene Attestations Medical Necessity Statement*: See admitting service's notation. Coding Level of Care Code Acute Telephone Solicitor for g Fwd Diagnoses Small bowel obstruction K56.609 Hernia, inguinal, right K40.90 Incisional hernia K43.2
[2019-10-14] MEDS: carvedilol 3.125 mg Tablet PO (09:29)
[2019-10-14 09:40] VITALS: BP 113/68; PULSE 74; RESP 16; TEMP 36.7; O2SAT 96
== END 2019-10-14 09:30 | disposition home or self-care (01) | DRG 388 ==
LOC: ER 11:50 → MEDSURG 11:51
PROVIDERS: Emergency Medicine; Admitting Provider Family Medicine; Emergency Provider Emergency Medicine; Family Provider Family Medicine; PCP Family Medicine; Visit Provider Family Medicine
DX: K56.609 Unspecified intestinal obstruction, unspecified as to partial versus complete obstruction (principal); J18.1 Lobar pneumonia, unspecified organism; N17.9 Acute kidney failure, unspecified; E86.0 Dehydration; I25.10 Atherosclerotic heart disease of native coronary artery without angina pectoris; E78.5 Hyperlipidemia, unspecified; I10 Essential (primary) hypertension; A08.4 Viral intestinal infection, unspecified; D72.819 Decreased white blood cell count, unspecified; K59.00 Constipation, unspecified; K43.2 Incisional hernia without obstruction or gangrene; K40.90 Unilateral inguinal hernia, without obstruction or gangrene, not specified as recurrent; E87.6 Hypokalemia; Z79.1 Long term (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 of non-steroidal anti-inflammatories (NSAID); Z79.2 Long term (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 of antibiotics
CPT/HCPCS: 12345; 36415; 71045; 74018; 74177; 80048; 80053; 81001; 83605; 83690; 83880; 84132; 85007; 85025; 86140; 87040; 87077; 87086; 87186; 87493; 87804; 93005; 96372; 96375; 97116; 97163; 97530; 99282; 99283; J0456; J0696; J1650; J1956; J2001; J2060; J2405; J3480; J7030; J7050; Q9967; S0156

== ENCOUNTER 2019-11-16 03:04 | Emergency (ER) | payer MEDICARE, SELFPAY ==
[2019-11-16 03:14] VITALS: BP 158/83; PULSE 83; RESP 18; TEMP 36.4; O2SAT 95
--- NOTE | 2019-11-16 03:49 | W.ED.GENADLT ---
HPI - General Adult General: Chief complaint: General Medical Stated complaint: high bp Time Seen by Provider: 11/16/19 03:22 History of Present Illness: HPI narrative: 79-year-old female with a history of hypertension. She has been having episodes of hypertension at night. She gets some flushing. She had seen her doctor last week who prescribed her losartan to take at 6 PM. Tonight, she woke up and felt flushed. She denied dizziness, headache, blurry vision or chest pain. She took her blood pressure, and it was in the 170s systolic. She presents to the emergency room for this. Her blood pressure had fallen to the 150s systolic by the time she got here. She remains asymptomatic. Onset (ago): hour(s) (2) Radiation: non-radiation Severity: moderate Relieving factors: none Associated symptoms: Deny chest pain, cough, dyspnea, fevers/chills, headache(s), nausea or vomiting Review of Systems Const: Denies: fever or chills Eyes: Denies: blurry vision ENMT: Denies: painful swallowing or nasal congestion Card: Denies: chest pain Resp: Denies: shortness of breath, productive cough or wheezing GI: Denies: nausea or vomiting : Denies: difficulty urinating Neuro: Denies: headache PFSH ED PFSH: Medical History (Updated 11/16/19 @ 03:46 by Reynaldo Gunter DO) Coronary artery disease History of [place] GERD (gastroesophageal reflux disease) History of DVT (deep vein thrombosis) Left lower extremity - following hysterectomy History of right breast cancer Hyperlipidemia Hypertension Osteoporosis Surgical History (Updated 10/12/19 @ 11:48 by Lake Kennedy MD) History of cholecystectomy History of coronary angioplasty with insertion of stent x 6 around 2010 History of hysterectomy History of mastectomy Right --for recurrence of breast cancer following breast conservation (but with axillary dissection) several years previously History of orthopedic surgery ORIF right forearm fracture Social History Smoking and tobacco status: never smoked Alcohol intake: never Physical Exam Const: GENERAL APPEARANCE: well developed ORIENTATION/CONSCIOUSNESS: Yes oriented to person, Yes oriented to place and Yes oriented to time HENMT: COMMON NORMALS: normocephalic, external ears normal and external nose normal HEAD & SCALP: normocephalic FACE & SINUS: normal facial exam NOSE: external nose normal and no nasal discharge EXTERNAL EAR: Yes external ears normal THROAT: no peritonsillar mass Eye: COMMON NORMALS: PERRL, EOMs intact bilaterally and conjunctivae normal EYELID: eyelids normal CONJUNCTIVA: Yes conjunctivae normal PUPIL: Yes PERRL Chest: COMMONS NORMALS: inspection of chest normal CHEST: No tenderness Resp: COMMON NORMALS: clear to auscultation bilaterally EFFORT & INSPECTION: No tachypneic, No respiratory distress, No retractions, No uses accessory muscles and No tracheal deviation AUSCULTATION: clear to auscultation bilaterally, no rhonchi, no wheezes and lung sounds not diminished Cardio: COMMON NORMALS: regular rate and regular rhythm RATE: regular rate RHYTHM: regular rhythm HEART SOUNDS: no murmurs PERIPHERAL PULSES: radial pulses present GI: INSPECTION: No abdominal distension AUSCULTATION: No hyperactive bowel sounds Neuro: SENSORIUM/ORIENTATION: Yes oriented to person, Yes oriented to place and Yes oriented to time Psych: COMMON NORMALS: mental status grossly normal Skin: COMMON NORMALS: no rashes or lesions noted GENERAL SKIN EXAM: no rashes or lesions noted Course Vital Signs: Vital signs: Vital Signs Temperature 97.6 F 11/16/19 03:14 Pulse Rate 75 11/16/19 03:58 Respiratory Rate 18 11/16/19 03:58 Blood Pressure 125/73 11/16/19 03:58 Pulse Oximetry 95 11/16/19 03:58 MDM - General Adult MDM Narrative: Medical decision making narrative: The patient is asymptomatic on arrival. She never had any chest pain. Her blood pressure had fallen to the 150 systolic. While I was in the room, her blood pressure was 132/80. Her next blood pressure was 126/76. She did not want testing, which I think is appropriate. She will be discharged home. Discharge Plan Discharge Patient Disposition: Home, Self-Care Clinical Impression: Hypertension Qualifiers: Hypertension type: essential hypertension Qualified Code(s): I10 - Essential (primary) hypertension Condition: Stable Prescriptions: No Action carvedilol [Coreg] 3.125 mg Tablet 3.125 mg PO BID RF: 0 exemestane 25 mg Tablet 25 mg PO DAILY RF: 0 rosuvastatin [Crestor] 40 mg Tablet 40 mg PO BEDTIME RF: 0 losartan 25 mg Tablet 25 mg PO DAILY RF: 0 Vitamin D3 100 mcg (4,000 unit) Capsule 100 mcg PO DAILY RF: 0 Discharge Orders: Discharge Order (Routine); Ordered 11/16/19 Ordered By: Reynaldo Gunter Referrals: Dequan Dubois DO [Primary Care Provider] - 1-3 days Discharge Diet: Usual diet Discharge Activity: Increase activity as tolerated Patient Instructions: Hypertension (ED) Activity Restrictions/Additional Instructions: Continue to check your blood pressures twice daily. Report numbers to your physician. Return for symptoms such as headache, dizziness, shortness of breath, chest discomfort, or other concerning symptoms. Discharge Date/Time: 11/16/19 04:00 Coding Level of Care Code ED Package Designer for Tessa Islas
[2019-11-16 03:58] VITALS: BP 125/73; PULSE 75; RESP 18; O2SAT 95
--- NOTE | 2019-11-16 04:34 | PC.NURSE ---
I agree with Bety, Highway Engineer assessment
== END 2019-11-16 04:00 | disposition home or self-care (01) ==
PROVIDERS: Emergency Provider Emergency Medicine; Family Provider Family Medicine; PCP Family Medicine
DX: I10 Essential (primary) hypertension (principal); I25.10 Atherosclerotic heart disease of native coronary artery without angina pectoris; I25.2 Old myocardial infarction; Z86.718 Personal history of other venous thrombosis and embolism; Z85.3 Personal history of malignant neoplasm of breast; E78.5 Hyperlipidemia, unspecified
CPT/HCPCS: 12345; 99281; 99282

== ENCOUNTER 2019-11-27 00:03 | Emergency (ER) | payer MEDICARE, SELFPAY ==
[2019-11-27 00:09] VITALS: BP 136/76; PULSE 63; RESP 18; TEMP 36.6; O2SAT 96; BMI 28.0
--- NOTE | 2019-11-27 00:28 | ECG_ITS ---
Measurements Intervals Mobile Rate: 60 P: 46 TX: 193 QRS: -30 QRSD: 121 T: 22 QT: 451 QTc: 451 SINUS RHYTHM POSSIBLE LEFT VENTRICULAR HYPERTROPHY [VOLTAGE CRITERIA PLUS LAE OR QRS WIDENING] POSSIBLE SEPTAL MYOCARDIAL INFARCTION , OF INDETERMINATE AGE [30 ms Q WAVE IN V1/V2] Compared to ECG 10/12/2019 16:46:40 Sinus tachycardia no longer present Left-axis deviation no longer present ST (T wave) deviation no longer present Myocardial infarct finding still present Electronically Signed On 11-27-2019 15:29:39 CDT by Sarah Ferraro M.D. [email or web address]
--- NOTE | 2019-11-27 00:28 | XR_ITS ---
WS: [id number] PORTABLE CHEST HISTORY: cough/congestion COMPARISON: 10/12/2019 LEFT upper lobe patchy opacification. Otherwise lungs are hyperexpanded but clear. No pleural effusio n or pneumothorax. Cardiac size: Mildly enlarged cardiac silhouette. Coronary artery stent over the LEFT heart. Mediastinum/Aorta: Mild atherosclerosis aorta. Moderate degenerative changes at the AC joints and glenohumeral joints. XR/XR chest 1V portable [id number] IMPRESSION: 1. LEFT upper lobe developing pneumonia or pneumonitis. 2. Partially calcified aorta and mild cardiomegaly.
--- NOTE | 2019-11-27 00:34 | W.ED.GENADLT ---
HPI - General Adult General: Chief complaint: Anxiety Stated complaint: anxiety Time Seen by Provider: 11/27/19 00:09 Source: patient and EMS Mode of arrival: EMS Limitations: no limitations History of Present Illness: HPI narrative: Patient is a very nice 79-year-old female who presents to ED today via EMS for complaints of an episode of not feeling right . Patient tells me while seated in a chair, resting, watching television she states she began not feeling right . She tells me she felt as if her blood pressure was high but when she checked it it was not. She states she felt like her heart was beating harder than normal. Reports pulse was normal. States it could be anxiety however is not sure. She states all day she felt normal. Patient states she never had any chest pain or difficulty breathing. She never had any numbness/tingling/weakness to her extremities. Never noticed any slurred speech or facial drooping. Patient states symptoms began around 8 PM and lasted approximately 1 to 2 hours. Patient states upon arrival her symptoms have completely subsided. Onset (ago): hour(s) Pain Consistency: now resolved Relieving factors: none Exacerbating factors: none Associated symptoms: Deny chest pain, dyspnea, headache(s), malaise, nausea, rash, palpitations, syncope or vomiting Treatments prior to arrival: none Review of Systems Const: Denies: fever, chills, body aches, fatigue or malaise Eyes: Denies: change in vision, blurry vision, blind spots, photophobia, floaters or seeing flashes Card: Reports: other (felt like heart was beating harder than normal -subsided now); Denies: chest pain, palpitations, irregular heart rhythm, edema, lightheadedness, syncope, pre-syncope, shortness of breath on exertion or shortness of breath when lying down Resp: Denies: shortness of breath, productive cough, non-productive cough, pain on inspiration, coughing up blood or chest congestion GI: Denies: abdominal pain, nausea, vomiting, heartburn/indigestion or diarrhea : Denies: flank pain, difficulty urinating, painful urination, urinary frequency or urinary urgency Musc: Denies: neck pain, back pain or joint pain Skin/Breast: Denies: rash Neuro: Denies: headache, numbness in extremities, weakness in extremities or changes in sensation PFSH ED PFSH: Medical History (Updated 11/27/19 @ 02:42 by ALBA Mcmahon) Coronary artery disease History of [place] GERD (gastroesophageal reflux disease) History of DVT (deep vein thrombosis) Left lower extremity - following hysterectomy History of right breast cancer Hyperlipidemia Hypertension Osteoporosis Surgical History (Updated 10/12/19 @ 11:48 by Lake Kennedy MD) History of cholecystectomy History of coronary angioplasty with insertion of stent x 6 around 2010 History of hysterectomy History of mastectomy Right --for recurrence of breast cancer following breast conservation (but with axillary dissection) several years previously History of orthopedic surgery ORIF right forearm fracture Social History Smoking and tobacco status: never smoked Alcohol intake: never Physical Exam Const: COMMON NORMALS: no apparent distress, average body habitus, oriented x3, no limitations, healthy appearing, alert and well nourished ORIENTATION/CONSCIOUSNESS: Yes oriented to person, Yes oriented to place and Yes oriented to time HENMT: COMMON NORMALS: normocephalic, head/scalp atraumatic and hearing grossly normal bilaterally HEAD & SCALP: normocephalic and atraumatic Eye: COMMON NORMALS: PERRL, EOMs intact bilaterally and conjunctivae normal CONJUNCTIVA: Yes conjunctivae normal PUPIL: Yes PERRL Neck/C-Spine: COMMON NORMALS: full ROM, no lymphadenopathy and no meningeal signs Chest: COMMONS NORMALS: inspection of chest normal and palpation of chest normal Resp: COMMON NORMALS: normal respiratory effort and clear to auscultation bilaterally AUSCULTATION: clear to auscultation bilaterally Cardio: COMMON NORMALS: regular rate and regular rhythm RATE: regular rate RHYTHM: regular rhythm GI: COMMON NORMALS: normal to inspection, nondistended, normoactive bowel sounds, soft to palpation, non-tender, no hepatosplenomegaly and no masses PALPATION: Yes soft and Yes no hepatosplenomegaly : COMMON NORMALS: Yes no CVA tenderness BLADDER/KIDNEY EXAM: Yes no CVA tenderness Back/Pelvis: COMMON NORMALS: no CVA tenderness Extremity: COMMON NORMALS: normal to inspection, no clubbing, cyanosis or edema, no calf tenderness and no pedal edema Neuro: ELI COMA SCALE: document GCS findings [place] coma scale eye opening: Spontaneous [place] coma scale verbal response: Orientated [place] coma scale motor response: Obey commands Eli coma scale total score: 15 COMMON NORMALS: oriented x3, CN's II-XII intact bilaterally, moves all extremities, no focal motor deficits, no sensory deficits noted and gait normal SENSORIUM/ORIENTATION: Yes alert, Yes oriented to person, Yes oriented to place and Yes oriented to time MENINGEAL SIGNS: Yes no meningeal signs COORDINATION/BALANCE: [id number] test normal SPEECH: speech normal COORDINATION: [id number] test normal Skin: COMMON NORMALS: no rashes or lesions noted GENERAL SKIN EXAM: no rashes or lesions noted Course Vital Signs: Vital signs: Vital Signs Temperature 97.9 F 11/27/19 00:09 Pulse Rate 60 11/27/19 02:30 Respiratory Rate 16 11/27/19 02:30 Blood Pressure 124/68 11/27/19 02:30 Pulse Oximetry 98 11/27/19 02:30 MDM - General Adult MDM Narrative: Medical decision making narrative: Again upon arrival all of patient's symptoms have completely subsided. She has remained completely asymptomatic throughout her stay. Her baseline troponin is 11. Symptoms starting 4 to 5 hours ago so I would suspect this would be much higher if this was actually any form of cardiac ischemic event. Remainder of labs are non-concerning at this time. Her EKG shows no acute ischemic changes when compared to previous. At this time patient is stable to be discharged. She agrees with this plan and would like to go home. Lab Data: Labs: Lab Results 11/27/19 11/27/19 11/27/19 Range/Units 01:05 01:05 01:05 WBC 5.7 (4.0-10.0) 10^3/ uL RBC 3.98 L (4.1-5.3) 10^6/u L Hgb 11.8 (11.5-15.3) g/dL Hct 36.7 L (37.0-47.0) % MCV 92.2 (81-99) fL MCH 29.6 (28.0-34.0) pg MCHC 32.2 (30.0-36.0) g/dL RDW 14.1 (12.1-15.1) % Plt Count 207 (130-400) 10^3/c mm MPV 10.1 (7.4-10.4) fL Neut % (Auto) 61.9 % Lymph % (Auto) 24.7 % [place] % (Auto) 11.3 % Eos % (Auto) 1.4 % Baso % (Auto) 0.5 % Neut # (Auto) 3.6 (1.8-7.7) 10^3/u L Lymph # (Auto) 1.4 (0.8-4.8) 10^3/u L [place] # (Auto) 0.7 (0.2-0.9) 10^3/u L Eos # (Auto) 0.1 (0.0-0.8) 10^3/u L Baso # (Auto) 0.0 (0.0-0.1) 10^3/u L Nucleated RBC % (a uto) 0 % Nucleated RBCs # 0.0 /100WBC Sodium 141 (136-145) mmol/L Potassium 3.5 (3.5-5.1) mmol/L Chloride 105 (98-107) mmol/L Carbon Dioxide 26 (22-29) mmol/L Anion Gap 13.5 (5-19) BUN 10 (8-23) mg/dL Creatinine 0.8 (0.5-0.9) mg/dL Glucose 138 H (65-115) mg/dL Calculated Osmolal ity 290 (285-295) mOsm/k g Calcium 8.9 (8.5-10.5) mg/dL Total Bilirubin 0.4 (0.15-1.2) mg/dL AST 20 (0-32) U/L ALT 15 (0-33) U/L Alkaline Phosphata se 47 (35-105) IU/L Troponin T Baselin e 11 H (0-10) ng/mL Total Protein 7.2 (6.6-8.7) g/dL Albumin 4.2 (3.5-5.2) g/dL Globulin 3.0 (1.3-4.6) g/dL Imaging Data^: CXR: My impression: NAD EKG Data^: EKG 1: EKG interpretation date: 11/27/19 EKG interpretation time: 01:33 Computer generated interpretation: Chest X-Ray 11/27/19 00:28 IMPRESSION: 1. LEFT upper lobe developing pneumonia or pneumonitis. 2. Partially calcified aorta and mild cardiomegaly. Sinus rhythm Rate 60 Possible LVH No acute ischemic changes noted when compared to EKG performed on 07/2019 Discharge Plan Discharge Patient Disposition: Home, Self-Care Clinical Impression: Pounding heartbeat Condition: Stable Prescriptions: No Action carvedilol [Coreg] 3.125 mg Tablet 3.125 mg PO BID RF: 0 exemestane 25 mg Tablet 25 mg PO DAILY RF: 0 rosuvastatin [Crestor] 40 mg Tablet 40 mg PO BEDTIME RF: 0 losartan 25 mg Tablet 25 mg PO DAILY RF: 0 Vitamin D3 100 mcg (4,000 unit) Capsule 100 mcg PO DAILY RF: 0 Discharge Orders: Discharge Order (Routine); Ordered 11/27/19 Ordered By: Karon Israel Referrals: Dequan Dubois DO [Primary Care Provider] - Discharge Diet: Usual diet Discharge Activity: Increase activity as tolerated Activity Restrictions/Additional Instructions: Return to the emergency department for chest pain, shortness of breath, difficulty breathing, palpitations, or any other concerns you may have. Otherwise follow-up with your PCP early next week for re-evaluation. Discharge Date/Time: 11/27/19 03:10 Coding Level of Care Code ED Bicycle Service Technician for Chg Fwd Exam Comprehensive
[2019-11-27 01:04] VITALS: BP 128/74; PULSE 60; RESP 16; O2SAT 96
--- NOTE | 2019-11-27 01:31 | PC.NURSE ---
Asked the patient if she would like to give a urine sample just incase of UA orders, patient refused, nurse was notified.
[2019-11-27 01:33] LABS: Basophils % 0.5 %; Eosinophils # 0.1 10^3/uL (0.0-0.8); Eosinophils % 1.4 %; Hematocrit 36.7 % (37.0-47.0); Hemoglobin 11.8 g/dL (11.5-15.3); Lymphocytes # 1.4 10^3/uL (0.8-4.8); Lymphocytes % 24.7 %; Mean Corpuscular HGB Conc 32.2 g/dL (30.0-36.0); Mean Corpuscular Hemoglobin 29.6 pg (28.0-34.0); Mean Corpuscular Volume 92.2 fL (81-99); Mean Platelet Volume 10.1 fL (7.4-10.4); Monocytes # 0.7 10^3/uL (0.2-0.9); Monocytes % 11.3 %; Neutrophils # 3.6 10^3/uL (1.8-7.7); Neutrophils % 61.9 %; Nucleated Red Blood Cells % 0 %; Platelet Count 207 10^3/cmm (130-400); Red Blood Count 3.98 10^6/uL (4.1-5.3); Red Cell Distribution Width 14.1 % (12.1-15.1); White Blood Count 5.7 10^3/uL (4.0-10.0)
[2019-11-27 01:42] LABS: Alanine Aminotransferase 15 U/L (0-33); Albumin Level 4.2 g/dL (3.5-5.2); Alkaline Phosphatase 47 IU/L (35-105); Anion Gap 13.5 (5-19); Aspartate Amino Transferase 20 U/L (0-32); Blood Urea Nitrogen 10 mg/dL (8-23); Calcium 8.9 mg/dL (8.5-10.5); Carbon Dioxide 26 mmol/L (22-29); Chloride 105 mmol/L (98-107); Glucose 138 mg/dL (65-115); Osmolality Calculated 290 mOsm/kg (285-295); Potassium 3.5 mmol/L (3.5-5.1); Sodium 141 mmol/L (136-145); Total Bilirubin 0.4 mg/dL (0.15-1.2); Total Protein 7.2 g/dL (6.6-8.7)
[2019-11-27 02:14] LABS: Troponin(5th) Baseline 11 ng/mL (0-10)
[2019-11-27 02:30] VITALS: BP 124/68; PULSE 60; RESP 16; O2SAT 98
== END 2019-11-27 03:10 | disposition home or self-care (01) ==
PROVIDERS: Emergency Provider Physician Assistant; Family Provider Family Medicine; PCP Family Medicine
DX: R00.8 Other abnormalities of heart beat (principal); I25.10 Atherosclerotic heart disease of native coronary artery without angina pectoris; I25.2 Old myocardial infarction; Z86.718 Personal history of other venous thrombosis and embolism; Z85.3 Personal history of malignant neoplasm of breast; E78.5 Hyperlipidemia, unspecified; I10 Essential (primary) hypertension; Z95.5 Presence of coronary angioplasty implant and graft
CPT/HCPCS: 12345; 36415; 71045; 80053; 84484; 85025; 93005; 99282; 99283

== ENCOUNTER 2019-12-10 08:20 | Day surgery (SDC) | payer MEDICARE, SELFPAY ==
[2019-12-09 13:11] VITALS: BMI 36.3
[2019-12-10] VITALS (8 sets, daily range): BP systolic 144–171; BP diastolic 75–99; PULSE 67–98; RESP 15–20; TEMP 35.9–36.8; O2SAT 93–100
--- NOTE | 2019-12-10 08:50 | P.ANESASSM_ITS ---
Pre-Anesthetic Assessment Pre-Anesthetic Assessment: Height/Weight: Height 1.7 m Weight 105.233 kg Temp Pulse Resp BP Pulse Ox 98.3 F 68 18 163/86 98 12/10/19 08:30 12/10/19 08:30 12/10/19 08:30 12/10/19 08:30 12/10/19 08:30 Proposed Procedure: Operation Date: 12/10/19 09:45 Proposed Procedures p Inguinal Hernia Repair w/ Mesh(Right) - Lake Kennedy MD s Incisional Hernia Repair w/ Mesh(Right) - Lake Kennedy MD Last intake: Intake Last Liquid Date 12/09/19 Last Liquid Time 20:00 Last Solid Date 12/09/19 Last Solid Time 18:30 Social: Social History: No alcohol and No tobacco Exam: Pre-Anes Outpt Exam: alert, oriented x 3, clear to auscultation bila terally and regular rate & rhythm Airway: Submandibular: WNL Cervical ROM: WNL MP: 2 Dentition: Partials (lower) and Other (poor dentation) History/ROS: No significant history except as noted Pulmonary: Pulmonary: CONRAD CV/HEM: CV/HEM: CAD (2010 stents) and HTN : : None reported Hepatic: Hepatic: None reported GI: GI: GERD (occ) Metabolic: Metabolic: Hyperlipidemia Musc/skel: Musc/skel: OA/DJD Neuropsych: Neuropsych: None reported Anesthetic Plan: ASA status: 3 Anesthesia: Anesthesia Evaluation and General Risk of > 500 ml blood loss (7ml/kg in children): No PFSH Anesthesia PFSH: Medical History Coronary artery disease History of ID GERD (gastroesophageal reflux disease) History of DVT (deep vein thrombosis) Left lower extremity - following hysterectomy History of right breast cancer Hyperlipidemia Hypertension Osteoporosis Surgical History History of cholecystectomy History of coronary angioplasty with insertion of stent x 6 around 2010 History of hysterectomy History of mastectomy Right --for recurrence of breast cancer following breast conservation (but with axillary dissection) several years previously History of orthopedic surgery ORIF right forearm fracture Family History Mother TIA (transient ischemic attack) Father , age 72 CAD (coronary artery disease) Social History Smoking and tobacco status: never smoked Alcohol intake: never Data Anesthesia Cardiac Studies: No Data to Display
[2019-12-10] MEDS: sodium chloride 0.9% 1,000 ML 100 ML IV (09:20)
--- NOTE | 2019-12-10 09:40 | W.PM.OPSUD ---
Surgery/Procedure H&P Update DATE OF PROCEDURE: December 10, 2019 DATE H&P PERFORMED: 11/30/19 H&P UPDATE INFORMATION: I have examined patient prior to procedure, No changes to prior documentation and Changes to prior documentation as noted here CHANGES TO PREVIOUS DOCUMENTATION: The patient has had a long history of both a incisional hernia as well as a right inguinal hernia. She initially just wanted to undergo repair of the right inguinal hernia, since that has been incarcerated in the past. After the patient had originally scheduled repair of her right inguinal hernia, she had called the office back later and indicated that she did want to proceed with concurrent repair of her longstanding ventral hernia, as well. An addendum was made to the H&P, but the refaxed orders/documents apparently were not received or were misplaced at the hospital. The original documents/orders were updated by me personally accordingly today. PLANNED PROCEDURE: Operation Date: 12/10/19 09:45 Proposed Procedures p Inguinal Hernia Repair w/ Mesh(Right) - Lake Kennedy MD s Incisional Hernia Repair w/ Mesh(Right) - Lake Kennedy MD
--- NOTE | 2019-12-10 10:50 | PM.OP ---
Operative Report Date of procedure: December 10, 2019 Pre-op Diagnosis: 1. Incisional hernia.2. Right inguinal hernia, status post episode of incarceration in the past. Post-op Diagnosis: 1. Incisional hernia. 2. Right indirect inguinal hernia. Procedure Done: 1. Repair of incisional hernia. 2. Repair of right inguinal hernia with mesh. Implants: Large mesh plug and right inguinal hernia repair. Pathology: none sent Surgeon: Lake Kennedy Anesthesia: General Estimated blood loss (mL): 5 Complications: None. Condition: stable Disposition: PACU Procedure: The patient was brought to the operating room and was placed in a supine position on the operating room table. General endotracheal anesthesia was induced. The entire abdomen, including the right inguinal region was prepped and draped in a sterile fashion. A combination of 1% lidocaine and 0.5% bupivacaine with 1-200,000 parts epinephrine was used for local anesthesia throughout the procedures for postoperative anesthesia. The right inguinal hernia was approached first. A transverse incision was carried out above the level of the pubic tubercle. Cautery was used to divide the subcutaneous tissue down to the external oblique aponeurosis which was incised in parallel with its fibers over the inguinal canal. An indirect hernia was found at the internal ring, but had obliterated the upper portion of the inguinal canal floor. The hernia sac and contents were carefully freed from the surrounding structures down to the internal ring and the hernia sac was reduced. A large mesh plug was used to hold the hernia sac in a reduced position and was held in place with several sutures of 0 Prolene that were used to connect the conjoined area medially to the reflecting edge of Poupart's ligament laterally, essentially re-creating the inguinal canal floor superiorly. The onlay patch was anchored at the tubercle with a suture of 0 Prolene and was laid along the inguinal canal floor. The external oblique aponeurosis was closed over the top of the onlay patch using a running suture of 3-0 Vicryl. The wound was irrigated with saline. The subcutaneous tissue was brought together with a simple suture of 3-0 Vicryl and the skin was approximated using a running subcuticular suture of 3-0 Vicryl. Attention was then directed to the incisional hernia in the upper abdomen. A slightly oblique incision was carried out at the medial aspect of the patient's right upper quadrant scar. Cautery was used to divide the subcutaneous tissue and the hernia sac was quickly identified. This was freed on all sides from the surrounding subcutaneous tissue using cautery down to the fascia where the entire hernia sac and contents were reduced through the defect that measured perhaps 3 to 4 cm in greatest size. The surrounding tissue appeared to be in fairly good condition and the defect was simply closed transversely using a combination of interrupted sutures of 0 Prolene and 0 Vicryl. The wound was irrigated with saline. The subcutaneous tissue was brought together with some simple sutures of 3-0 Vicryl and the skin was reapproximated with a running subcuticular suture of 3-0 Vicryl. Benzoin and Steri-Strips were placed over the incisions and sterile bandages followed. The patient was taken to the recovery area in stable condition postoperatively.
--- NOTE | 2019-12-10 11:04 | SUR.PHASEI ---
PT AWAKE ALERT TALKATIVE, DENIES PAIN AND NAUSEA, PT NOW ON RA TRIAL TAKING OCC ICE CHIPS VSS ABD SOFT SITES D/I DR HOLT AT BEDSIDE.
[2019-12-10] MEDS: HYDROcodone-acetaminophen 5-325 mg Tablet 1 TAB PO (11:39)
== END 2019-12-10 12:00 ==
PROVIDERS: PCP Family Medicine; Visit Provider Surgery
PROC: (CPT 49505; principal; 2019-12-10 09:45)
PROC: (CPT 49505; 2019-12-10 09:45)
DX: K43.2 Incisional hernia without obstruction or gangrene (principal); K40.90 Unilateral inguinal hernia, without obstruction or gangrene, not specified as recurrent; I25.10 Atherosclerotic heart disease of native coronary artery without angina pectoris; I10 Essential (primary) hypertension; K21.9 Gastro-esophageal reflux disease without esophagitis; E78.5 Hyperlipidemia, unspecified; M19.90 Unspecified osteoarthritis, unspecified site; I25.2 Old myocardial infarction; M81.0 Age-related osteoporosis without current pathological fracture; Z85.3 Personal history of malignant neoplasm of breast; Z86.718 Personal history of other venous thrombosis and embolism
CPT/HCPCS: 49505; 49560; 12345; J0690; J1885; J2001; J2704; J2710; J3010; J3490; J7030

== ENCOUNTER 2020-01-20 08:42 | Outpatient (CLI) | payer MEDICARE, SELFPAY ==
--- NOTE | 2020-01-20 18:30 | ONC FU_ITS ---
Dr. Conrad Patient Follow-Up Note Patient: Ester Reaves Unit #: [id number]: [id number] Dicatated By: Washington Conrad M.D.Date of Visit:Jan 20, 2020 Onc Med Follow-up/Prog Note Chief Complaint: Breast cancer. History of Present Illness: This is a 79 year-old woman with recurrent breast cancer, ER positive/NE negative and HER-2/raghavendra negative.. She had initially presented in May 2015 with a palpable right breast mass. Mammogram on 06/13/2015 showed 3.1 cm right breast mass located at 10:00 position, 5 cm from the nipple. She underwent an excisional biopsy by Dr. Kennedy on 06/30/2015. Her surgical pathology showed grade 3 infiltrating ductal carcinoma measuring 2 cm, with negative margins, but microscopic focus was within 2 mm of inked medial margin. She underwent a sentinel lymph node biopsy on 07/28/2015 with a low axillary dissection. A total of 10 axillary lymph nodes, including 2 sentinel lymph nodes, were negative for metastatic disease. Thus, her disease was pathologic stage IA (T1c, N0, M0). She was first seen by Dr. Marley on 08/09/2015. She had further evaluation with Oncotype DX. This showed a recurrence score of 36, corresponding to 24% risk of recurrence with the hormonal therapy alone in the next 10 years. Her evaluation also showed significant osteoporosis. DEXA scan on 08/24/2015 showed a T score -3.9. She had a follow-up visit with Dr. Marlye on 08/25/2015. At that time it was recommended that she undergo adjuvant chemotherapy with 4 cycles of Taxotere/cyclophosphamide to be followed by adjuvant hormonal therapy for 5 years with an aromatase inhibitor. It was further recommended that she start treatment with Prolia for the osteoporosis. At that time she was undecided about chemotherapy. I had seen her for a second opinion evaluation on 09/02/2015. At that point she was pretty adamant that she would not take chemotherapy. We discussed the need to undergo radiation to the right breast to complete her primary treatment, and I had recommended adjuvant hormonal therapy with aromatase inhibitor, as there was a relative contraindication to tamoxifen due to a prior history of deep vein thrombosis. For unclear reasons she failed to return for follow-up and she did not receive any radiation or adjuvant hormonal therapy. On 05/26/2018 she was seen by Dr. Kennedy with recurrence of mass in the right breast. She had become aware of it about 3 months earlier. A diagnostic mammogram with limited ultrasound of the right breast on 05/14/2018 was BI-RADS 4C, suspicious for recurrence in the upper outer quadrant of the right breast. Findings included spiculated architectural distortion at the operative site which appeared progressive compared to study from June 2017. Diffuse skin thickening of the right breast appeared similar. Ultrasound showed a focus of decreased echotexture with posterior shadowing and irregular margins at the 10:00 position measuring 1.1 x 1.2 x 0.7 cm. Ultrasound directed needle biopsy of the right breast mass on 06/05/2018 showed grade 2 infiltrating ductal carcinoma. Tumor was involving 5/6 core fragments. The tumor was ER positive at 100% and NE negative at less than 1%. It was negative for overexpression of HER-2/raghavendra, 1+ by IHC and amplification ratio by FISH of 1.0 with 2.0 HER-2 copies/cell. The Ki-67 was unfavorable at 40%. With evidence of recurrence in the breast, she was still potentially eligible for lumpectomy/radiation, but she preferred to have mastectomy. As she was not going to consider adjuvant chemotherapy or radiation, I felt that axillary lymph node sampling would be unnecessary in the absence of any clinical evidence of lymph node involvement, and her right axillary ultrasound was negative. As such, she proceeded with right simple mastectomy on 07/03/2018. Pathology showed grade 2 infiltrating ductal carcinoma measuring 2.8 x 2.0 cm. The margins were free. The breast prognostic profile was not repeated. She began adjuvant hormonal therapy with anastrozole 1 mg daily on 09/03/2018. She also started reatment with Prolia for osteoporosis, as her repeat Dexa scan on 08/26/2018 had shown osteoporosis with T score -2.6 in the lumbar spine, -3.9 in the left femoral neck, and -3.9 in the right femoral neck. As of her follow-up visit on 04/06/2019 I had opted to put the anastrozole on hold due to worsening joint pain, mainly in the hands. The symptoms improved, and the following month she started further adjuvant hormonal therapy with exemestane 25 mg daily. Her other medical illnesses include hypertension, hyperlipidemia, and coronary artery disease. She has history of previous myocardial infarction, and she underwent angioplasty/stent placement in 2010. Her other medical illnesses include GERD and osteoporosis. She required treatment for left lower extremity deep vein thrombosis following a hysterectomy. Other prior surgeries included cholecystectomy and open reduction for a right forearm fracture. On 12/10/2019 she underwent repair of incisional and right inguinal hernias. She is a nonsmoker. INTERIM HISTORY: As her follow-up visit on 10/06/2019 she continued exemestane 25 mg daily, as she appeared to be tolerating it with acceptable toxicity. She also continued Prolia for the osteoporosis. She is seen for a scheduled visit. She has been feeling good generally. She does complain that sometimes following her last visit she had developed pretty significant constipation. She attributed it to the Prolia, but she also decided to stop taking the exemestane. The constipation subsequently resolved, and she did start taking the exemestane again. She is now managing her bowels with warm water and Metamucil, and that seems to be working very well. She has good energy and activity tolerance. ECOG score is 0. She has good appetite. She has not had fever or night sweats. She says she sometimes feels too hot. She has no shortness of breath, cough, or chest pain. She has no other GI or complaints. She currently has no significant joint or bone pain. She has no focal neurologic symptoms. She underwent repair of right inguinal and incisional hernias last month, and she has had an uneventful recovery from that surgery. Medications: Calcium 2 oz Liquid Oral daily, Carvedilol 1 Tablet (of 3.125 mg) Oral b.i.d., Cholecalciferol 1 Tablet (of 2000 Units) Oral daily, Crestor 1 Tablet (of 40 mg) Oral at bedtime, Exemestane 1 Tablet (of 25 mg) Oral daily, Immune Enhance 1 Capsule Oral daily, mangosteen 1 Capsule daily, Metamucil 2 tsp Powder Oral daily, Caro Juice 2 oz Liquid Oral daily, Probiotic 1 Capsule Oral daily Allergies: No Known Allergies. Review of Systems: Constitutional - She is feeling good and her energy is improved. She has pretty normal activity. Her appetite is good and weight is stable. No fever, night sweats, or hot flashes. ECOG score is 0, ENMT - No sinus congestion/drainage. No mouth sores. No sore throat or difficulty swallowing, Hematologic/Lymphatic - No abnormal bruising or bleeding, Respiratory - No shortness of breath. No cough. No pleuritic pain or hemoptysis, Cardiovascular - No angina pain. No palpitations, Gastrointestinal - No nausea or vomiting. No heartburn or acid reflux. No diarrhea. She had developed constipation, but it is now well managed with warm water and Metamucil. No blood in the stool or black stools. She had hernia surgery about one month ago, Genitourinary (F) - No dysuria or hematuria. No urinary frequency. No urgency or incontinence, Musculoskeletal - No joint or bone pain, Integumentary - No skin complications, Neurologic - No headache or dizziness. No numbness or tingling. No other focal neurologic symptoms, Psychiatric - No anxiety or depression. No insomnia. Vital Signs: Performed on Jan 20, 2020 09:16 Height - 66.50 in Weight - 188.0 lbs (LOW) BSA - 1.96 sq.m BMI - 29.89 Temperature - 97.9 F (LOW) Pulse - 66 /min Respiration - 22 /min BP - 125/69 mm(hg) O2 Sat - 98 % Pain - 0 Physical Examination: Constitutional - She looks good generally, Eyes - Sclerae nonicteric. Conjunctivae clear, ENMT - No lesions noted in the oral cavity, Hematologic/Lymphatic - No cervical or clavicular adenopathy, Respiratory - Lungs are clear with good air movement bilaterally, Cardiovascular - Heart rhythm is regular. There is a II/ systolic murmur. There is no gallop or rub noted, Breasts - The right chest wall shows no lesions. There is no axillary adenopathy, Abdomen - Soft. Liver and spleen are not enlarged. There is no abdominal mass or ascites noted and there is no inguinal adenopathy, Extremities - Slight edema, Neurologic - No focal neurologic deficits noted. Impression: 1. Patient with recurrence of infiltrating ductal carcinoma of the right breast, grade 2/3, ER positive/NE negative and HER-2/raghavendra negative. Her disease is stage IIA (T2, N0, M0), but with clinical evaluation of the axillary node status. 2. She underwent right simple mastectomy on 07/03/2018. 3. She had previous lumpectomy/axillary lymph node sampling in June 2015 for grade 3 infiltrating ductal carcinoma. Her disease was stage IA (T1c, N0, M0), ER positive/NE negative and HER-2/raghavendra negative. It was high risk by Oncotype DX. She opted against adjuvant chemotherapy and she then failed to return for radiation and adjuvant hormonal therapy. 4. She had evidence of osteoporosis on her baseline Dexa scan. Her other medical illnesses include: 5. Hypertension. 6. Hyperlipidemia. 7. Coronary artery disease with previous myocardial infarction and angioplasty/stent placement. 8. GERD. 9. Osteoporosis. 10. She has a history of left lower extremity deep vein thrombosis following a hysterectomy. In August 2018 she began adjuvant hormonal therapy with anastrozole 1 mg daily. In September she started treatment with Prolia for the osteoporosis. She had initially tolerated treatment very well. As of her follow-up visit in March 2019 the anastrozole was put on hold due to increased joint pain, mainly in the hands. Her symptoms improved, and in April 2019 she began further adjuvant hormonal therapy with exemestane 25 mg daily. As of her follow-up visit in September 2019 she continued the exemestane, she seemed to be tolerating it without adverse effects. She also continued Prolia for the osteoporosis. Subsequent to that visit she had developed significant constipation, but that subsequently resolved. She did stop the exemestane, but she has since restarted. She otherwise appears to be doing well clinically. Thus far there is been no evidence of any further recurrence of the breast cancer. Plan: She will continue adjuvant hormonal therapy with exemestane 25 mg daily. She is unsure if she will take any furthter Prolia injections. She will be scheduled for a follow-up visit in 3 months. Signed By: Washington Conrad M.D. <<Signature on File>>
== END 2020-01-20 08:43 | disposition home or self-care (01) ==
LOC: ONCMED 08:45
PROVIDERS: PCP Family Medicine; Visit Provider Internal Medicine Medical Oncology
DX: C50.411 Malignant neoplasm of upper-outer quadrant of right female breast (principal); Z17.0 Estrogen receptor positive status [ER+]; M81.0 Age-related osteoporosis without current pathological fracture; I10 Essential (primary) hypertension; E78.5 Hyperlipidemia, unspecified; I25.10 Atherosclerotic heart disease of native coronary artery without angina pectoris; I25.2 Old myocardial infarction; K21.9 Gastro-esophageal reflux disease without esophagitis; Z90.11 Acquired absence of right breast and nipple; Z79.811 Long term (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 of aromatase inhibitors; Z86.718 Personal history of other venous thrombosis and embolism
CPT/HCPCS: 99214

== ENCOUNTER 2020-04-21 09:11 | Outpatient (CLI) | payer MEDICARE, SELFPAY ==
[2020-04-21 09:44] LABS: Basophils % 0.6 %; Eosinophils # 0.1 10^3/uL (0.0-0.8); Eosinophils % 1.5 %; Hematocrit 40.1 % (37.0-47.0); Hemoglobin 12.3 g/dL (11.5-15.3); Lymphocytes # 1.3 10^3/uL (0.8-4.8); Lymphocytes % 26.7 %; Mean Corpuscular HGB Conc 30.7 g/dL (30.0-36.0); Mean Corpuscular Hemoglobin 28.7 pg (28.0-34.0); Mean Corpuscular Volume 93.5 fL (81-99); Mean Platelet Volume 9.9 fL (7.4-10.4); Monocytes # 0.5 10^3/uL (0.2-0.9); Monocytes % 10.8 %; Neutrophils # 2.89 10^3/uL (1.8-7.7); Neutrophils % 60.2 %; Nucleated Red Blood Cells % 0 %; Platelet Count 188 10^3/cmm (130-400); Red Blood Count 4.29 10^6/uL (4.1-5.3); Red Cell Distribution Width 13.8 % (12.1-15.1); White Blood Count 4.8 10^3/uL (4.0-10.0)
[2020-04-21 10:04] LABS: Alanine Aminotransferase 18 U/L (0-33); Albumin Level 4.3 g/dL (3.5-5.2); Alkaline Phosphatase 60 IU/L (35-105); Aspartate Amino Transferase 22 U/L (0-32); Blood Urea Nitrogen 20 mg/dL (8-23); Calcium 9.2 mg/dL (8.5-10.5); Carbon Dioxide 28 mmol/L (22-29); Chloride 103 mmol/L (98-107); Globulin 3.1 g/dL (1.3-4.6); Glucose 78 mg/dL (65-115); Osmolality Calculated 291 mOsm/kg (285-295); Sodium 140 mmol/L (136-145); Total Bilirubin 0.4 mg/dL (0.15-1.2); Total Protein 7.4 g/dL (6.6-8.7)
[2020-04-21 10:37] LABS: Anion Gap 12.9 (5-19); Potassium 3.9 mmol/L (3.5-5.1)
--- NOTE | 2020-04-21 11:57 | ONC FU_ITS ---
Dr. Conrad Patient Follow-Up Note Patient: Ester Reaves Unit #: [id number]: 1940 Dicatated By: Washington Conrad M.D.Date of Visit:Apr 21, 2020 Onc Med Follow-up/Prog Note Chief Complaint: Breast cancer. History of Present Illness: This is a 79 year-old woman with recurrent breast cancer, ER positive/AZ negative and HER-2/raghavendra negative.. She had initially presented in May 2015 with a palpable right breast mass. Mammogram on 06/13/2015 showed 3.1 cm right breast mass located at 10:00 position, 5 cm from the nipple. She underwent an excisional biopsy by Dr. Kennedy on 06/30/2015. Her surgical pathology showed grade 3 infiltrating ductal carcinoma measuring 2 cm, with negative margins, but microscopic focus was within 2 mm of inked medial margin. She underwent a sentinel lymph node biopsy on 07/28/2015 with a low axillary dissection. A total of 10 axillary lymph nodes, including 2 sentinel lymph nodes, were negative for metastatic disease. Thus, her disease was pathologic stage IA (T1c, N0, M0). She was first seen by Dr. Marley on 08/09/2015. She had further evaluation with Oncotype DX. This showed a recurrence score of 36, corresponding to 24% risk of recurrence with the hormonal therapy alone in the next 10 years. Her evaluation also showed significant osteoporosis. DEXA scan on 08/24/2015 showed a T score -3.9. She had a follow-up visit with Dr. Marley on 08/25/2015. At that time it was recommended that she undergo adjuvant chemotherapy with 4 cycles of Taxotere/cyclophosphamide to be followed by adjuvant hormonal therapy for 5 years with an aromatase inhibitor. It was further recommended that she start treatment with Prolia for the osteoporosis. At that time she was undecided about chemotherapy. I had seen her for a second opinion evaluation on 09/02/2015. At that point she was pretty adamant that she would not take chemotherapy. We discussed the need to undergo radiation to the right breast to complete her primary treatment, and I had recommended adjuvant hormonal therapy with aromatase inhibitor, as there was a relative contraindication to tamoxifen due to a prior history of deep vein thrombosis. For unclear reasons she failed to return for follow-up and she did not receive any radiation or adjuvant hormonal therapy. On 05/26/2018 she was seen by Dr. Kennedy with recurrence of mass in the right breast. She had become aware of it about 3 months earlier. A diagnostic mammogram with limited ultrasound of the right breast on 05/14/2018 was BI-RADS 4C, suspicious for recurrence in the upper outer quadrant of the right breast. Findings included spiculated architectural distortion at the operative site which appeared progressive compared to study from June 2017. Diffuse skin thickening of the right breast appeared similar. Ultrasound showed a focus of decreased echotexture with posterior shadowing and irregular margins at the 10:00 position measuring 1.1 x 1.2 x 0.7 cm. Ultrasound directed needle biopsy of the right breast mass on 06/05/2018 showed grade 2 infiltrating ductal carcinoma. Tumor was involving 5/6 core fragments. The tumor was ER positive at 100% and AZ negative at less than 1%. It was negative for overexpression of HER-2/raghavendra, 1+ by IHC and amplification ratio by FISH of 1.0 with 2.0 HER-2 copies/cell. The Ki-67 was unfavorable at 40%. With evidence of recurrence in the breast, she was still potentially eligible for lumpectomy/radiation, but she preferred to have mastectomy. As she was not going to consider adjuvant chemotherapy or radiation, I felt that axillary lymph node sampling would be unnecessary in the absence of any clinical evidence of lymph node involvement, and her right axillary ultrasound was negative. As such, she proceeded with right simple mastectomy on 07/03/2018. Pathology showed grade 2 infiltrating ductal carcinoma measuring 2.8 x 2.0 cm. The margins were free. The breast prognostic profile was not repeated. She began adjuvant hormonal therapy with anastrozole 1 mg daily on 09/03/2018. She also started reatment with Prolia for osteoporosis, as her repeat Dexa scan on 08/26/2018 had shown osteoporosis with T score -2.6 in the lumbar spine, -3.9 in the left femoral neck, and -3.9 in the right femoral neck. As of her follow-up visit on 04/06/2019 I had opted to put the anastrozole on hold due to worsening joint pain, mainly in the hands. The symptoms improved, and the following month she started further adjuvant hormonal therapy with exemestane 25 mg daily. Her other medical illnesses include hypertension, hyperlipidemia, and coronary artery disease. She has history of previous myocardial infarction, and she underwent angioplasty/stent placement in 2010. Her other medical illnesses include GERD and osteoporosis. She required treatment for left lower extremity deep vein thrombosis following a hysterectomy. Other prior surgeries included cholecystectomy and open reduction for a right forearm fracture. On 12/10/2019 she underwent repair of incisional and right inguinal hernias. She is a nonsmoker. INTERIM HISTORY: As her follow-up visit on 10/06/2019 she continued exemestane 25 mg daily, as she appeared to be tolerating it with acceptable toxicity. She also continued Prolia for the osteoporosis. At her follow-up visit in December 2019 she complained of constipation, which she thought was probably due to the Prolia. She did stop taking the exemestane, but just temporarily. She is seen for a scheduled visit. She has been feeling good generally. Her energy has been okay. She has normal activity. Her ECOG score is 0. Her appetite is good. She has no fever, night sweats, or hot flashes. She has no shortness of breath, cough, or chest pain. She currently has no GI or complaints. Her bowels are normal now. She has had no further constipation. She has some joint pain in her hands and arms, but it does not seem to be getting any worse. She does not complain of headache or dizziness. She has no focal neurologic symptoms. Medications: Calcium 2 oz Liquid Oral daily, Carvedilol 1 Tablet (of 3.125 mg) Oral b.i.d., Cholecalciferol 1 Tablet (of 2000 Units) Oral daily, Crestor 1 Tablet (of 40 mg) Oral at bedtime, Exemestane 1 Tablet (of 25 mg) Oral daily, Immune Enhance 1 Capsule Oral daily, mangosteen 1 Capsule daily, Metamucil 2 tsp Powder Oral daily, Caro Juice 2 oz Liquid Oral daily, Probiotic 1 Capsule Oral daily Allergies: No Known Allergies. Review of Systems: Constitutional - Her energy is been okay. She has normal activity. Appetite is good and weight is stable. No fever, night sweats, or hot flashes. ECOG score is 0, ENMT - No sinus congestion/drainage. No mouth sores. No sore throat or difficulty swallowing, Hematologic/Lymphatic - No abnormal bruising or bleeding, Respiratory - No shortness of breath. No cough. No pleuritic pain or hemoptysis, Cardiovascular - No angina pain. No palpitations, Gastrointestinal - No nausea or vomiting. No heartburn or acid reflux. No diarrhea or constipation. No blood in the stool or black stools, Genitourinary (F) - No dysuria or hematuria. No urinary frequency. No urgency or incontinence, Musculoskeletal - She has some joint pain, mainly in the hands and arms. It is not getting worse, Integumentary - No skin rash, Neurologic - No headache or dizziness. No numbness or tingling. No other focal neurologic symptoms, Psychiatric - She is kind of nervous. No depression. No insomnia. Vital Signs: Performed on Apr 21, 2020 10:35 Height - 66.50 in Weight - 189.4 lbs (HIGH) BSA - 1.97 sq.m BMI - 30.11 (HIGH) Temperature - 97.7 F (LOW) Pulse - 65 /min Respiration - 20 /min BP - 144/81 mm(hg) (HIGH) O2 Sat - 96 % Pain - 0 Physical Examination: Constitutional - She looks good generally, Eyes - Sclerae nonicteric. Conjunctivae clear, ENMT - No lesions noted in the oral cavity, Hematologic/Lymphatic - No cervical or clavicular adenopathy, Respiratory - Lungs are clear with good air movement bilaterally, Cardiovascular - Heart rhythm is regular. There is a II/ systolic murmur. There is no gallop or rub noted, Breasts - The right chest wall shows no lesions. There is no axillary adenopathy, Abdomen - Soft. Liver and spleen are not enlarged. There is no abdominal mass or ascites noted and there is no inguinal adenopathy, Extremities - Mild swelling at the left ankle. No other edema, Neurologic - No focal neurologic deficits noted. Lab/Imaging: Test performed on Apr 21, 2020 09:24 Sodium 140 mmol/L Potassium 3.9 mmol/L Chloride 103 mmol/L CO2 28 mmol/L Anion Gap 12.9 BUN 20 mg/dL Creatinine 0.9 mg/dL Cr Clearance (Est) 71.00 mL/min Glucose 78 mg/dL Osmolality - Calculated 291 mOsm/kg Calcium 9.2 mg/dL Protein, Total 7.4 g/dL Albumin 4.3 g/dL Globulin 3.1 g/dL Bilirubin, Total 0.4 mg/dL ALT (SGPT) 18 U/L AST (SGOT) 22 U/L Alkaline Phosphatase 60 IU/L WBC 4.8 10 3/uL RBC 4.29 10 6/uL HGB 12.3 g/dL HCT 40.1 % MCV 93.5 fL MCH 28.7 pg MCHC 30.7 g/dL RDW 13.8 % Platelet Count 188 10 3/cmm MPV 9.9 fL Neutrophils 2.89 10 3/uL Lymphocytes 1.3 10 3/uL Monocytes 0.5 10 3/uL Eosinophils 0.1 10 3/uL Basophils 0.0 10 3/uL Neutrophil % 60.2 % Lymphocyte % 26.7 % Monocyte % 10.8 % Eosinophil % 1.5 % Basophils % 0.6 % NRBC % 0 % Impression: 1. Patient with recurrence of infiltrating ductal carcinoma of the right breast, grade 2/3, ER positive/AZ negative and HER-2/raghavendra negative. Her disease is stage IIA (T2, N0, M0), but with clinical evaluation of the axillary node status. 2. She underwent right simple mastectomy on 07/03/2018. 3. She had previous lumpectomy/axillary lymph node sampling in June 2015 for grade 3 infiltrating ductal carcinoma. Her disease was stage IA (T1c, N0, M0), ER positive/AZ negative and HER-2/raghavendra negative. It was high risk by Oncotype DX. She opted against adjuvant chemotherapy and she then failed to return for radiation and adjuvant hormonal therapy. 4. She had evidence of osteoporosis on her baseline Dexa scan. Her other medical illnesses include: 5. Hypertension. 6. Hyperlipidemia. 7. Coronary artery disease with previous myocardial infarction and angioplasty/stent placement. 8. GERD. 9. Osteoporosis. 10. She has a history of left lower extremity deep vein thrombosis following a hysterectomy. In August 2018 she began adjuvant hormonal therapy with anastrozole 1 mg daily. In September she started treatment with Prolia for the osteoporosis. She had initially tolerated treatment very well. As of her follow-up visit in March 2019 the anastrozole was put on hold due to increased joint pain, mainly in the hands. Her symptoms improved, and in April 2019 she began further adjuvant hormonal therapy with exemestane 25 mg daily. As of her follow-up visit in September 2019 she continued the exemestane, she seemed to be tolerating it without adverse effects. She also continued Prolia for the osteoporosis. Subsequent to that visit she had developed significant constipation, which she thought was most likely due to the Prolia. She had stopped the exemestane, but just temporarily. The constipation subsequently resolved. She has since then continued the exemestane with no adverse effects. Overall, she appears to be doing well clinically with no evidence of any further recurrence of the breast cancer. Plan: She will continue adjuvant hormonal therapy with exemestane 25 mg daily. I will not attempt any further treatment with Prolia. I will see her again in 6 months, or sooner as needed. Signed By: Washington Conrad M.D. <<Signature on File>>
== END 2020-04-21 09:12 | disposition home or self-care (01) ==
LOC: ONCMED 09:14
PROVIDERS: PCP Family Medicine; Visit Provider Internal Medicine Medical Oncology
DX: C50.411 Malignant neoplasm of upper-outer quadrant of right female breast (principal); Z17.0 Estrogen receptor positive status [ER+]; M81.0 Age-related osteoporosis without current pathological fracture; Z79.811 Long term (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 of aromatase inhibitors; Z90.11 Acquired absence of right breast and nipple; I10 Essential (primary) hypertension; E78.5 Hyperlipidemia, unspecified; I25.10 Atherosclerotic heart disease of native coronary artery without angina pectoris; I25.2 Old myocardial infarction; Z95.5 Presence of coronary angioplasty implant and graft; Z95.1 Presence of aortocoronary bypass graft; K21.9 Gastro-esophageal reflux disease without esophagitis; Z86.718 Personal history of other venous thrombosis and embolism
CPT/HCPCS: 80053; 85025; 99214

== ENCOUNTER 2020-06-28 08:47 | Outpatient (CLI) | payer MEDICARE, SELFPAY ==
--- NOTE | 2020-07-01 13:26 | ONC FU_ITS ---
Dr. Conrad Patient Follow-Up Note Patient: Ester Reaves Unit #: [id number]: [id number] Dicatated By: Washington Conrad M.D.Date of Visit:Jun 28, 2020 Onc Med Follow-up/Prog Note Chief Complaint: Breast cancer. History of Present Illness: This is a 79 year-old woman with recurrent breast cancer, ER positive/WA negative and HER-2/raghavendra negative.. She had initially presented in May 2015 with a palpable right breast mass. Mammogram on 06/13/2015 showed 3.1 cm right breast mass located at 10:00 position, 5 cm from the nipple. She underwent an excisional biopsy by Dr. Kennedy on 06/30/2015. Her surgical pathology showed grade 3 infiltrating ductal carcinoma measuring 2 cm, with negative margins, but microscopic focus was within 2 mm of inked medial margin. She underwent a sentinel lymph node biopsy on 07/28/2015 with a low axillary dissection. A total of 10 axillary lymph nodes, including 2 sentinel lymph nodes, were negative for metastatic disease. Thus, her disease was pathologic stage IA (T1c, N0, M0). She was first seen by Dr. Marley on 08/09/2015. She had further evaluation with Oncotype DX. This showed a recurrence score of 36, corresponding to 24% risk of recurrence with the hormonal therapy alone in the next 10 years. Her evaluation also showed significant osteoporosis. DEXA scan on 08/24/2015 showed a T score -3.9. She had a follow-up visit with Dr. Marley on 08/25/2015. At that time it was recommended that she undergo adjuvant chemotherapy with 4 cycles of Taxotere/cyclophosphamide to be followed by adjuvant hormonal therapy for 5 years with an aromatase inhibitor. It was further recommended that she start treatment with Prolia for the osteoporosis. At that time she was undecided about chemotherapy. I had seen her for a second opinion evaluation on 09/02/2015. At that point she was pretty adamant that she would not take chemotherapy. We discussed the need to undergo radiation to the right breast to complete her primary treatment, and I had recommended adjuvant hormonal therapy with aromatase inhibitor, as there was a relative contraindication to tamoxifen due to a prior history of deep vein thrombosis. For unclear reasons she failed to return for follow-up and she did not receive any radiation or adjuvant hormonal therapy. On 05/26/2018 she was seen by Dr. Kennedy with recurrence of mass in the right breast. She had become aware of it about 3 months earlier. A diagnostic mammogram with limited ultrasound of the right breast on 05/14/2018 was BI-RADS 4C, suspicious for recurrence in the upper outer quadrant of the right breast. Findings included spiculated architectural distortion at the operative site which appeared progressive compared to study from June 2017. Diffuse skin thickening of the right breast appeared similar. Ultrasound showed a focus of decreased echotexture with posterior shadowing and irregular margins at the 10:00 position measuring 1.1 x 1.2 x 0.7 cm. Ultrasound directed needle biopsy of the right breast mass on 06/05/2018 showed grade 2 infiltrating ductal carcinoma. Tumor was involving 5/6 core fragments. The tumor was ER positive at 100% and WA negative at less than 1%. It was negative for overexpression of HER-2/raghavendra, 1+ by IHC and amplification ratio by FISH of 1.0 with 2.0 HER-2 copies/cell. The Ki-67 was unfavorable at 40%. With evidence of recurrence in the breast, she was still potentially eligible for lumpectomy/radiation, but she preferred to have mastectomy. As she was not going to consider adjuvant chemotherapy or radiation, I felt that axillary lymph node sampling would be unnecessary in the absence of any clinical evidence of lymph node involvement, and her right axillary ultrasound was negative. As such, she proceeded with right simple mastectomy on 07/03/2018. Pathology showed grade 2 infiltrating ductal carcinoma measuring 2.8 x 2.0 cm. The margins were free. The breast prognostic profile was not repeated. She began adjuvant hormonal therapy with anastrozole 1 mg daily on 09/03/2018. She also started reatment with Prolia for osteoporosis, as her repeat Dexa scan on 08/26/2018 had shown osteoporosis with T score -2.6 in the lumbar spine, -3.9 in the left femoral neck, and -3.9 in the right femoral neck. As of her follow-up visit on 04/06/2019 I had opted to put the anastrozole on hold due to worsening joint pain, mainly in the hands. The symptoms improved, and the following month she started further adjuvant hormonal therapy with exemestane 25 mg daily. Her other medical illnesses include hypertension, hyperlipidemia, and coronary artery disease. She has history of previous myocardial infarction, and she underwent angioplasty/stent placement in 2010. Her other medical illnesses include GERD and osteoporosis. She required treatment for left lower extremity deep vein thrombosis following a hysterectomy. Other prior surgeries included cholecystectomy and open reduction for a right forearm fracture. On 12/10/2019 she underwent repair of incisional and right inguinal hernias. She is a nonsmoker. INTERIM HISTORY: As her follow-up visit on 10/06/2019 she continued exemestane 25 mg daily, as she appeared to be tolerating it with acceptable toxicity. She also continued Prolia for the osteoporosis. At her follow-up visit in December 2019 she complained of constipation, which she thought was probably due to the Prolia. She did stop taking the exemestane, but just temporarily. I had seen her for a follow-up visit in March, at that point she seemed to be tolerating the exemestane pretty well. She is seen for an unplanned visit. She had called recently to report that she was having more joint pain, significant enough that she did stop taking the exemestane 4 days ago. Since then she has felt a little better, though she continues to have pain and stiffness in both hands and she also is having pain in her upper right arm. She still has pretty good energy and activity tolerance. Her ECOG score is 0. Appetite also is good. She has no fever, night sweats, or hot flashes. She has no shortness of breath, cough, or chest pain. She has no GI or complaints. She has headaches, that has been going on for years. She occasionally has numbness in her hands. She has no other focal neurologic symptoms. Medications: Calcium 2 oz Liquid Oral daily, Carvedilol 1 Tablet (of 3.125 mg) Oral b.i.d., Cholecalciferol 1 Tablet (of 2000 Units) Oral daily, Crestor 1 Tablet (of 40 mg) Oral at bedtime, Exemestane 1 Tablet (of 25 mg) Oral daily, Immune Enhance 1 Capsule Oral daily, mangosteen 1 Capsule daily, Metamucil 2 tsp Powder Oral daily, Caro Juice 2 oz Liquid Oral daily, Probiotic 1 Capsule Oral daily Allergies: No Known Allergies. Review of Systems: Constitutional - Her energy is okay. She has normal activity. Appetite is good and weight is stable. No fever, night sweats, or hot flashes. ECOG score is 0, ENMT - No sinus congestion/drainage. No mouth sores. No sore throat or difficulty swallowing, Hematologic/Lymphatic - No abnormal bruising or bleeding, Respiratory - No shortness of breath. She sometimes has a tickle in her throat. No cough. No pleuritic pain or hemoptysis, Cardiovascular - No angina pain. No palpitations, Gastrointestinal - No nausea or vomiting. No heartburn or acid reflux. No diarrhea or constipation. No blood in the stool or black stools, Genitourinary (F) - No dysuria or hematuria. No urinary frequency. No urgency or incontinence, Musculoskeletal - She is still having some joint pain and stiffness in her hands. She has pain in her upper right arm. She does not complain of back pain, Integumentary - No skin rash, Neurologic - She says she has had headaches for years. No dizziness. She occasionally has numbness in her hands. No other focal neurologic symptoms, Psychiatric - No anxiety or depression. No insomnia. Vital Signs: Performed on Jun 28, 2020 08:54 Height - 66.50 in Weight - 197.2 lbs (HIGH) BSA - 2.00 sq.m BMI - 31.35 (HIGH) Temperature - 97.5 F (LOW) Pulse - 71 /min Respiration - 22 /min BP - 160/84 mm(hg) (HIGH) O2 Sat - 97 % Pain - 5 Physical Examination: Constitutional - She looks good generally, Eyes - Sclerae nonicteric. Conjunctivae clear, ENMT - No lesions noted in the oral cavity, Hematologic/Lymphatic - No cervical, clavicular, or axillary adenopathy, Respiratory - Lungs are clear with good air movement bilaterally, Cardiovascular - Heart rhythm is regular. There is a II/ systolic murmur. There is no gallop or rub noted, Abdomen - Soft. Liver and spleen are not enlarged. There is no abdominal mass or ascites noted and there is no inguinal adenopathy, Extremities - There is slight edema at the left ankle, Neurologic - No focal neurologic deficits noted. Impression: 1. Patient with recurrence of infiltrating ductal carcinoma of the right breast, grade 2/3, ER positive/WA negative and HER-2/raghavendra negative. Her disease is stage IIA (T2, N0, M0), but with clinical evaluation of the axillary node status. 2. She underwent right simple mastectomy on 07/03/2018. 3. She had previous lumpectomy/axillary lymph node sampling in June 2015 for grade 3 infiltrating ductal carcinoma. Her disease was stage IA (T1c, N0, M0), ER positive/WA negative and HER-2/raghavendra negative. It was high risk by Oncotype DX. She opted against adjuvant chemotherapy and she then failed to return for radiation and adjuvant hormonal therapy. 4. She had evidence of osteoporosis on her baseline Dexa scan. Her other medical illnesses include: 5. Hypertension. 6. Hyperlipidemia. 7. Coronary artery disease with previous myocardial infarction and angioplasty/stent placement. 8. GERD. 9. Osteoporosis. 10. She has a history of left lower extremity deep vein thrombosis following a hysterectomy. In August 2018 she began adjuvant hormonal therapy with anastrozole 1 mg daily. In September she started treatment with Prolia for the osteoporosis. She had initially tolerated treatment very well. As of her follow-up visit in March 2019 the anastrozole was put on hold due to increased joint pain, mainly in the hands. Her symptoms improved, and in April 2019 she began further adjuvant hormonal therapy with exemestane 25 mg daily. As of her follow-up visit in September 2019 she continued the exemestane, she seemed to be tolerating it without adverse effects. She also continued Prolia for the osteoporosis. Subsequent to that visit she had developed significant constipation, which she thought was most likely due to the Prolia. She had stopped the exemestane, but just temporarily. The constipation subsequently resolved. She then continued the exemestane with no adverse effects. As of her follow-up visit in March 2020 she appeared to be doing well clinically, and she was still tolerating the exemestane well. However, she comes in now with increasing joint pain, the worst of which is in her hands. Plan: She will stop the exemestane. I will have her try taking meloxicam 7.5 mg daily. I will see her in 1 month. Signed By: Washington Conrad M.D. <<Signature on File>>
== END 2020-06-28 08:48 | disposition home or self-care (01) ==
PROVIDERS: PCP Family Medicine; Visit Provider Internal Medicine Medical Oncology
DX: C50.411 Malignant neoplasm of upper-outer quadrant of right female breast (principal); M81.0 Age-related osteoporosis without current pathological fracture; I10 Essential (primary) hypertension; E78.5 Hyperlipidemia, unspecified; I25.10 Atherosclerotic heart disease of native coronary artery without angina pectoris; K21.9 Gastro-esophageal reflux disease without esophagitis; Z17.0 Estrogen receptor positive status [ER+]; Z79.811 Long term (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 of aromatase inhibitors; Z86.718 Personal history of other venous thrombosis and embolism; Z90.11 Acquired absence of right breast and nipple
CPT/HCPCS: 99214

== ENCOUNTER 2020-08-01 07:34 | Outpatient (CLI) | payer MEDICARE, SELFPAY ==
--- NOTE | 2020-08-01 07:40 | MM_ITS ---
WS: [id number] LEFT DIGITAL MAMMOGRAPHY WITH CAD CLINICAL INFORMATION: HX OF BREAST CA;RT MASTECTOMY COMPARISON: TECHNIQUE: 3 views of the left breast were obtained. FINDINGS: The left breast is composed of heterogeneous fibroglandular density tissue, which can limit the detec tion of small underlying mass lesions. No suspicious focal mass, asymmetry, calcifications, or architectural distortion. No evidence of davon gnancy. MM/[id number] IMPRESSION: BI-RADS: 1-Negative FOLLOW UP: 1 Year Follow-up Recommend return to annual diagnostic mammography.
== END 2020-08-01 07:35 | disposition home or self-care (01) ==
LOC: ONCMED 07:38
PROVIDERS: PCP Family Medicine; Visit Provider Internal Medicine Medical Oncology
DX: Z85.3 Personal history of malignant neoplasm of breast (principal); Z90.11 Acquired absence of right breast and nipple
CPT/HCPCS: 77065

== ENCOUNTER 2020-08-15 06:03 | Outpatient (CLI) | payer MEDICARE, SELFPAY ==
--- NOTE | 2020-08-19 13:56 | ONC FU_ITS ---
Dr. Conrad Patient Follow-Up Note Patient: Ester Reaves Unit #: [id number]: 1940 Dicatated By: Washington Conrad M.D.Date of Visit:Aug 15, 2020 Onc Med Follow-up/Prog Note Chief Complaint: Breast cancer. History of Present Illness: This is a 79 year-old woman with recurrent breast cancer, ER positive/SC negative and HER-2/raghavendra negative.. She had initially presented in May 2015 with a palpable right breast mass. Mammogram on 06/13/2015 showed 3.1 cm right breast mass located at 10:00 position, 5 cm from the nipple. She underwent an excisional biopsy by Dr. Kennedy on 06/30/2015. Her surgical pathology showed grade 3 infiltrating ductal carcinoma measuring 2 cm, with negative margins, but microscopic focus was within 2 mm of inked medial margin. She underwent a sentinel lymph node biopsy on 07/28/2015 with a low axillary dissection. A total of 10 axillary lymph nodes, including 2 sentinel lymph nodes, were negative for metastatic disease. Thus, her disease was pathologic stage IA (T1c, N0, M0). She was first seen by Dr. Marley on 08/09/2015. She had further evaluation with Oncotype DX. This showed a recurrence score of 36, corresponding to 24% risk of recurrence with the hormonal therapy alone in the next 10 years. Her evaluation also showed significant osteoporosis. DEXA scan on 08/24/2015 showed a T score -3.9. She had a follow-up visit with Dr. Marley on 08/25/2015. At that time it was recommended that she undergo adjuvant chemotherapy with 4 cycles of Taxotere/cyclophosphamide to be followed by adjuvant hormonal therapy for 5 years with an aromatase inhibitor. It was further recommended that she start treatment with Prolia for the osteoporosis. At that time she was undecided about chemotherapy. I had seen her for a second opinion evaluation on 09/02/2015. At that point she was pretty adamant that she would not take chemotherapy. We discussed the need to undergo radiation to the right breast to complete her primary treatment, and I had recommended adjuvant hormonal therapy with aromatase inhibitor, as there was a relative contraindication to tamoxifen due to a prior history of deep vein thrombosis. For unclear reasons she failed to return for follow-up and she did not receive any radiation or adjuvant hormonal therapy. On 05/26/2018 she was seen by Dr. Kennedy with recurrence of mass in the right breast. She had become aware of it about 3 months earlier. A diagnostic mammogram with limited ultrasound of the right breast on 05/14/2018 was BI-RADS 4C, suspicious for recurrence in the upper outer quadrant of the right breast. Findings included spiculated architectural distortion at the operative site which appeared progressive compared to study from June 2017. Diffuse skin thickening of the right breast appeared similar. Ultrasound showed a focus of decreased echotexture with posterior shadowing and irregular margins at the 10:00 position measuring 1.1 x 1.2 x 0.7 cm. Ultrasound directed needle biopsy of the right breast mass on 06/05/2018 showed grade 2 infiltrating ductal carcinoma. Tumor was involving 5/6 core fragments. The tumor was ER positive at 100% and SC negative at less than 1%. It was negative for overexpression of HER-2/raghavendra, 1+ by IHC and amplification ratio by FISH of 1.0 with 2.0 HER-2 copies/cell. The Ki-67 was unfavorable at 40%. With evidence of recurrence in the breast, she was still potentially eligible for lumpectomy/radiation, but she preferred to have mastectomy. As she was not going to consider adjuvant chemotherapy or radiation, I felt that axillary lymph node sampling would be unnecessary in the absence of any clinical evidence of lymph node involvement, and her right axillary ultrasound was negative. As such, she proceeded with right simple mastectomy on 07/03/2018. Pathology showed grade 2 infiltrating ductal carcinoma measuring 2.8 x 2.0 cm. The margins were free. The breast prognostic profile was not repeated. She began adjuvant hormonal therapy with anastrozole 1 mg daily on 09/03/2018. She also started reatment with Prolia for osteoporosis, as her repeat Dexa scan on 08/26/2018 had shown osteoporosis with T score -2.6 in the lumbar spine, -3.9 in the left femoral neck, and -3.9 in the right femoral neck. As of her follow-up visit on 04/06/2019 I had opted to put the anastrozole on hold due to worsening joint pain, mainly in the hands. The symptoms improved, and the following month she started further adjuvant hormonal therapy with exemestane 25 mg daily. Her other medical illnesses include hypertension, hyperlipidemia, and coronary artery disease. She has history of previous myocardial infarction, and she underwent angioplasty/stent placement in 2010. Her other medical illnesses include GERD and osteoporosis. She required treatment for left lower extremity deep vein thrombosis following a hysterectomy. Other prior surgeries included cholecystectomy and open reduction for a right forearm fracture. On 12/10/2019 she underwent repair of incisional and right inguinal hernias. She is a nonsmoker. INTERIM HISTORY: As her follow-up visit on 10/06/2019 she continued exemestane 25 mg daily, as she appeared to be tolerating it with acceptable toxicity. She also continued Prolia for the osteoporosis. At her follow-up visit in December 2019 she complained of constipation, which she thought was probably due to the Prolia. She did stop taking the exemestane, but just temporarily. I had seen her for a follow-up visit in March, at that point she seemed to be tolerating the exemestane pretty well. However on 06/28/2020 she was seen for an unplanned visit, as her joint pain had worsened significantly. She had stopped taking the exemestane, and at that point I advised her to keep it on hold. At the time I also had her start meloxicam 7.5 mg daily. She is seen for a followup visit. She has been feeling better with significant improvement in her musculoskeletal pain, but at this point I am not certain to what extent that may be due to the meloxicam or to stopping the exemestane. She has been feeling pretty good otherwise with exception that she has been having some GERD symptoms. Medications: Calcium 2 oz Liquid Oral daily, Carvedilol 1 Tablet (of 3.125 mg) Oral b.i.d., Cholecalciferol 1 Tablet (of 2000 Units) Oral daily, Crestor 1 Tablet (of 40 mg) Oral at bedtime, Exemestane 1 Tablet (of 25 mg) Oral daily, Immune Enhance 1 Capsule Oral daily, mangosteen 1 Capsule daily, Metamucil 2 tsp Powder Oral daily, Caro Juice 2 oz Liquid Oral daily, Probiotic 1 Capsule Oral daily Allergies: No Known Allergies. Vital Signs: Performed on Aug 15, 2020 10:21 Height - 66.50 in Weight - 194.4 lbs (LOW) BSA - 1.99 sq.m BMI - 30.91 (HIGH) Temperature - 97.2 F (LOW) Pulse - 71 /min Respiration - 18 /min BP - 142/75 mm(hg) (HIGH) O2 Sat - 96 % Pain - 0 Fatigue - 0 Physical Examination: Constitutional - She looks good generally, Eyes - Sclerae nonicteric. Conjunctivae clear, ENMT - No lesions noted in the oral cavity, Hematologic/Lymphatic - No cervical, clavicular, or axillary adenopathy, Respiratory - Lungs are clear with good air movement bilaterally, Cardiovascular - Heart rhythm is regular. There is a II/ systolic murmur. There is no gallop or rub noted, Abdomen - Soft. Liver and spleen are not enlarged. There is no abdominal mass or ascites noted and there is no inguinal adenopathy, Extremities - There is slight edema at the left ankle, which is chronic, Neurologic - No focal neurologic deficits noted. Problem List: 1. Patient with recurrence of infiltrating ductal carcinoma of the right breast, grade 2/3, ER positive/SC negative and HER-2/raghavendra negative. Her disease was stage IIA (T2, N0, M0), but with clinical evaluation of the axillary node status. 2. She underwent right simple mastectomy on 07/03/2018. 3. She had previous lumpectomy/axillary lymph node sampling in June 2015 for grade 3 infiltrating ductal carcinoma. Her disease was stage IA (T1c, N0, M0), ER positive/SC negative and HER-2/raghavendra negative. It was high risk by Oncotype DX. She opted against adjuvant chemotherapy and she then failed to return for radiation and adjuvant hormonal therapy. 4. She had evidence of osteoporosis on her baseline Dexa scan. 5. Hypertension. 6. Hyperlipidemia. 7. Coronary artery disease with previous myocardial infarction and angioplasty/stent placement. 8. GERD. 9. Osteoporosis. 10. She has a history of left lower extremity deep vein thrombosis following a hysterectomy. Problems Addressed with this Encounter and Plan: 1. Locally recurrent of infiltrating ductal carcinoma of the right breast, grade 2/3, ER positive/SC negative and HER-2/raghavendra negative. She underwent right simple mastectomy on 07/03/2018. Her disease was stage IIA (T2, N0, M0), but with clinical evaluation of the axillary node status. In August 2018 she began adjuvant hormonal therapy with anastrozole 1 mg daily. As of her follow-up visit in March 2019 the anastrozole was put on hold due to increased joint pain, mainly in the hands. Her symptoms improved, and in April 2019 she began further adjuvant hormonal therapy with exemestane 25 mg daily. The exemestane was stopped in June 2020, again due to worsening joint pain. At that time she also started treatment with meloxicam 7.5 mg daily. She has since then had significant improvement in the pain, though it is uncertain to what extent it may be due to the meloxicam or to stopping the exemestane. I discussed options for further management. She has had some difficulty tolerating both the anastrozole and the exemestane due to joint pain. It is not likely that she would do any better with letrozole. She is not a candidate for treatment with tamoxifen due to her prior history of deep vein thrombosis. As such, she pretty much has to decide for her to try and put up with the side effects of the aromatase inhibitor or just continue on observation/expectant management. She would certainly have a higher risk of breast cancer recurrence without treatment. As such, she is going to try restarting the exemestane 25 mg daily together with the meloxicam. She will be scheduled for a follow-up visit in 1 month. 2. She had evidence of osteoporosis by DEXA scan. She has started treatment with Prolia in September 2019, but she opted to have no further treatment with it due to constipation. She will require ongoing monitoring of her bone health. Signed By: Washington Conrad M.D. <<Signature on File>>
== END 2020-08-15 06:04 | disposition home or self-care (01) ==
LOC: ONCMED 06:05
PROVIDERS: PCP Family Medicine; Visit Provider Internal Medicine Medical Oncology
DX: C50.411 Malignant neoplasm of upper-outer quadrant of right female breast (principal); Z17.0 Estrogen receptor positive status [ER+]; M81.0 Age-related osteoporosis without current pathological fracture; M25.50 Pain in unspecified joint; T45.1X5D Adverse effect of antineoplastic and immunosuppressive drugs, subsequent encounter; Z79.811 Long term (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 of aromatase inhibitors; Z79.899 Other long term (current) drug therapy
CPT/HCPCS: 99214

== ENCOUNTER 2020-10-19 11:15 | Outpatient (CLI) | payer MEDICARE, SELFPAY ==
[2020-10-19 11:40] LABS: Basophils % 0.3 %; Eosinophils # 0.1 10^3/uL (0.0-0.8); Eosinophils % 1.5 %; Hematocrit 39.5 % (37.0-47.0); Hemoglobin 12.4 g/dL (11.5-15.3); Lymphocytes # 1.3 10^3/uL (0.8-4.8); Lymphocytes % 20.9 %; Mean Corpuscular HGB Conc 31.4 g/dL (30.0-36.0); Mean Corpuscular Hemoglobin 28.4 pg (28.0-34.0); Mean Corpuscular Volume 90.6 fL (81-99); Mean Platelet Volume 9.7 fL (7.4-10.4); Monocytes # 0.6 10^3/uL (0.2-0.9); Monocytes % 9.7 %; Neutrophils # 4.02 10^3/uL (1.8-7.7); Neutrophils % 67.1 %; Nucleated Red Blood Cells % 0 %; Platelet Count 206 10^3/cmm (130-400); Red Blood Count 4.36 10^6/uL (4.1-5.3); Red Cell Distribution Width 13.9 % (12.1-15.1)
[2020-10-19 12:26] LABS: 25 Hydroxy Vitamin D 46 ng/mL (30-100); Alanine Aminotransferase 22 U/L (0-33); Albumin Level 4.1 g/dL (3.5-5.2); Alkaline Phosphatase 105 IU/L (35-105); Anion Gap 14.4 (5-19); Aspartate Amino Transferase 25 U/L (0-32); Blood Urea Nitrogen 23 mg/dL (8-23); Calcium 9.5 mg/dL (8.5-10.5); Carbon Dioxide 29 mmol/L (22-29); Chloride 103 mmol/L (98-107); Globulin 3.1 g/dL (1.3-4.6); Glucose 79 mg/dL (65-115); Osmolality Calculated 297 mOsm/kg (285-295); Potassium 4.4 mmol/L (3.5-5.1); Sodium 142 mmol/L (136-145); Total Bilirubin 0.3 mg/dL (0.15-1.2); Total Protein 7.2 g/dL (6.6-8.7)
--- NOTE | 2020-10-23 10:07 | ONC FU_ITS ---
Dr. Conrad Patient Follow-Up Note Patient: Ester Reaves Unit #: [id number]: 1940 Dicatated By: Washington Conrad M.D.Date of Visit:Oct 19, 2020 Onc Med Follow-up/Prog Note Chief Complaint: Breast cancer. History of Present Illness: This is a 80 year-old woman with recurrent breast cancer, ER positive/MS negative and HER-2/raghavendra negative.. She had initially presented in May 2015 with a palpable right breast mass. Mammogram on 06/13/2015 showed 3.1 cm right breast mass located at 10:00 position, 5 cm from the nipple. She underwent an excisional biopsy by Dr. Kennedy on 06/30/2015. Her surgical pathology showed grade 3 infiltrating ductal carcinoma measuring 2 cm, with negative margins, but microscopic focus was within 2 mm of inked medial margin. She underwent a sentinel lymph node biopsy on 07/28/2015 with a low axillary dissection. A total of 10 axillary lymph nodes, including 2 sentinel lymph nodes, were negative for metastatic disease. Thus, her disease was pathologic stage IA (T1c, N0, M0). She was first seen by Dr. Marley on 08/09/2015. She had further evaluation with Oncotype DX. This showed a recurrence score of 36, corresponding to 24% risk of recurrence with the hormonal therapy alone in the next 10 years. Her evaluation also showed significant osteoporosis. DEXA scan on 08/24/2015 showed a T score -3.9. She had a follow-up visit with Dr. Marley on 08/25/2015. At that time it was recommended that she undergo adjuvant chemotherapy with 4 cycles of Taxotere/cyclophosphamide to be followed by adjuvant hormonal therapy for 5 years with an aromatase inhibitor. It was further recommended that she start treatment with Prolia for the osteoporosis. At that time she was undecided about chemotherapy. I had seen her for a second opinion evaluation on 09/02/2015. At that point she was pretty adamant that she would not take chemotherapy. We discussed the need to undergo radiation to the right breast to complete her primary treatment, and I had recommended adjuvant hormonal therapy with aromatase inhibitor, as there was a relative contraindication to tamoxifen due to a prior history of deep vein thrombosis. For unclear reasons she failed to return for follow-up and she did not receive any radiation or adjuvant hormonal therapy. On 05/26/2018 she was seen by Dr. Kennedy with recurrence of mass in the right breast. She had become aware of it about 3 months earlier. A diagnostic mammogram with limited ultrasound of the right breast on 05/14/2018 was BI-RADS 4C, suspicious for recurrence in the upper outer quadrant of the right breast. Findings included spiculated architectural distortion at the operative site which appeared progressive compared to study from June 2017. Diffuse skin thickening of the right breast appeared similar. Ultrasound showed a focus of decreased echotexture with posterior shadowing and irregular margins at the 10:00 position measuring 1.1 x 1.2 x 0.7 cm. Ultrasound directed needle biopsy of the right breast mass on 06/05/2018 showed grade 2 infiltrating ductal carcinoma. Tumor was involving 5/6 core fragments. The tumor was ER positive at 100% and MS negative at less than 1%. It was negative for overexpression of HER-2/raghavendra, 1+ by IHC and amplification ratio by FISH of 1.0 with 2.0 HER-2 copies/cell. The Ki-67 was unfavorable at 40%. With evidence of recurrence in the breast, she was still potentially eligible for lumpectomy/radiation, but she preferred to have mastectomy. As she was not going to consider adjuvant chemotherapy or radiation, I felt that axillary lymph node sampling would be unnecessary in the absence of any clinical evidence of lymph node involvement, and her right axillary ultrasound was negative. As such, she proceeded with right simple mastectomy on 07/03/2018. Pathology showed grade 2 infiltrating ductal carcinoma measuring 2.8 x 2.0 cm. The margins were free. The breast prognostic profile was not repeated. She began adjuvant hormonal therapy with anastrozole 1 mg daily on 09/03/2018. She also started reatment with Prolia for osteoporosis, as her repeat Dexa scan on 08/26/2018 had shown osteoporosis with T score -2.6 in the lumbar spine, -3.9 in the left femoral neck, and -3.9 in the right femoral neck. As of her follow-up visit on 04/06/2019 I had opted to put the anastrozole on hold due to worsening joint pain, mainly in the hands. The symptoms improved, and the following month she started further adjuvant hormonal therapy with exemestane 25 mg daily. Her other medical illnesses include hypertension, hyperlipidemia, and coronary artery disease. She has history of previous myocardial infarction, and she underwent angioplasty/stent placement in 2010. Her other medical illnesses include GERD and osteoporosis. She required treatment for left lower extremity deep vein thrombosis following a hysterectomy. Other prior surgeries included cholecystectomy and open reduction for a right forearm fracture. On 12/10/2019 she underwent repair of incisional and right inguinal hernias. She is a nonsmoker. INTERIM HISTORY: As her follow-up visit on 10/06/2019 she continued exemestane 25 mg daily, as she appeared to be tolerating it with acceptable toxicity. She also continued Prolia for the osteoporosis. At her follow-up visit in December 2019 she complained of constipation, which she thought was probably due to the Prolia. She did stop taking the exemestane, but just temporarily. I had seen her for a follow-up visit in March, at that point she seemed to be tolerating the exemestane pretty well. However on 06/28/2020 she was seen for an unplanned visit, as her joint pain had worsened significantly. She had stopped taking the exemestane, and at that point I advised her to keep it on hold. At the time I also had her start meloxicam 7.5 mg daily. Her symptoms improved, and as of her follow-up visit on 08/15/2020 she restarted exemestane at 25 mg daily. She is seen for a followup visit. She has been feeling good generally. Thus far she has been tolerating the exemestane with no apparent significant adverse effects. She has pretty good energy. Her ECOG score is 0. She has good appetite, and she has gained weight. She does not have fever or night sweats. She has no shortness of breath, cough, or chest pain. She currently has no GI or complaints. She does have some joint pain, mainly in the knees, but that does seem to be chronic and not getting any worse. She has some lower back pain, but she says that is getting better. She does not complain of headache or dizziness. She has no focal neurologic symptoms. Medications: Calcium 2 oz Liquid Oral daily, Carvedilol 1 Tablet (of 3.125 mg) Oral b.i.d., Cholecalciferol 1 Tablet (of 2000 Units) Oral daily, Crestor 1 Tablet (of 40 mg) Oral at bedtime, Exemestane 1 Tablet (of 25 mg) Oral daily, Immune Enhance 1 Capsule Oral daily, mangosteen 1 Capsule daily, Metamucil 2 tsp Powder Oral daily, Caro Juice 2 oz Liquid Oral daily, Probiotic 1 Capsule Oral daily Allergies: No Known Allergies. Vital Signs: Performed on Oct 19, 2020 13:00 Height - 66.50 in Weight - 197.4 lbs (HIGH) BSA - 2.00 sq.m BMI - 31.38 (HIGH) Temperature - 97.4 F (LOW) Pulse - 71 /min Respiration - 18 /min BP - 148/78 mm(hg) (HIGH) O2 Sat - 95 % (LOW) Pain - 0 Fatigue - 0 Physical Examination: Constitutional - She looks good generally, Eyes - Sclerae nonicteric. Conjunctivae clear, ENMT - No lesions noted in the oral cavity, Hematologic/Lymphatic - No cervical, clavicular, or axillary adenopathy, Respiratory - Lungs are clear with good air movement bilaterally, Cardiovascular - Heart rhythm is regular. There is a II/ systolic murmur. There is no gallop or rub noted, Abdomen - Soft. Liver and spleen are not enlarged. There is no abdominal mass or ascites noted and there is no inguinal adenopathy, Extremities - Mild edema at the left ankle, Neurologic - No focal neurologic deficits noted. Lab/Imaging: Test performed on Oct 19, 2020 11:23 Sodium 142 mmol/L Vitamin D (25-Hydroxy), Total 46 ng/mL Potassium 4.4 mmol/L Chloride 103 mmol/L CO2 29 mmol/L Anion Gap 14.4 BUN 23 mg/dL Creatinine 1.1 mg/dL Cr Clearance (Est) 59.58 mL/min Glucose 79 mg/dL Osmolality - Calculated 297 mOsm/kg Calcium 9.5 mg/dL Protein, Total 7.2 g/dL Albumin 4.1 g/dL Globulin 3.1 g/dL Bilirubin, Total 0.3 mg/dL ALT (SGPT) 22 U/L AST (SGOT) 25 U/L Alkaline Phosphatase 105 IU/L WBC 6.0 10 3/uL RBC 4.36 10 6/uL HGB 12.4 g/dL HCT 39.5 % MCV 90.6 fL MCH 28.4 pg MCHC 31.4 g/dL RDW 13.9 % Platelet Count 206 10 3/cmm MPV 9.7 fL Neutrophils 4.02 10 3/uL Lymphocytes 1.3 10 3/uL Monocytes 0.6 10 3/uL Eosinophils 0.1 10 3/uL Basophils 0.0 10 3/uL Neutrophil % 67.1 % Lymphocyte % 20.9 % Monocyte % 9.7 % Eosinophil % 1.5 % Basophils % 0.3 % NRBC % 0 % Problem List: 1. Locally recurrent of infiltrating ductal carcinoma of the right breast, grade 2/3, ER positive/MS negative and HER-2/raghavendra negative. Her disease was stage IIA (T2, N0, M0), but with clinical evaluation of the axillary node status. 2. She underwent right simple mastectomy on 07/03/2018. 3. She had previous lumpectomy/axillary lymph node sampling in June 2015 for grade 3 infiltrating ductal carcinoma. Her disease was stage IA (T1c, N0, M0), ER positive/MS negative and HER-2/raghavendra negative. It was high risk by Oncotype DX. She opted against adjuvant chemotherapy, and she then failed to return for radiation and adjuvant hormonal therapy. 4. She had evidence of osteoporosis on her baseline Dexa scan. 5. Hypertension. 6. Hyperlipidemia. 7. Coronary artery disease with previous myocardial infarction and angioplasty/stent placement. 8. GERD. 9. Osteoporosis. 10. She has a history of left lower extremity deep vein thrombosis following a hysterectomy. Problems Addressed with this Encounter and Plan: 1. Patient with local recurrence of ER positive, grade 2 infiltrating ductal carcinoma of the right breast following previous lumpectomy/axiilary lymph node sampling in June 2015. She underent right simple mastectomy on 07/03/2018. Her disease was stage IIA (T2, N0, M0), but with clinical evaluation of the axillary node status. In August 2018 she began adjuvant hormonal therapy with anastrozole 1 mg daily. As of her follow-up visit in March 2019 the anastrozole was put on hold due to increased joint pain, mainly in the hands. Her symptoms improved, and in April 2019 she began further adjuvant hormonal therapy with exemestane 25 mg daily. The exemestane was stopped in June 2020, again due to worsening joint pain. At that time she started treatment with meloxicam 7.5 mg daily. Her symptoms improved, and as of 08/15/2020 she restarted the exemestane together with the meloxicam at 7.5 mg daily. Thus far she has been able to tolerated with no significant adverse effects. She will continue her adjuvant hormonal therapy with exemestane 25 mg daily. I will see her again in 3 months. 2. She had evidence of osteoporosis by DEXA scan. She has started treatment with Prolia in September 2019, but she opted to have no further treatment with it due to constipation. She will require ongoing monitoring of her bone health. Signed By: [place] Conrad M.D. <<Signature on File>>
== END 2020-10-19 11:16 | disposition home or self-care (01) ==
LOC: ONCMED 11:19
PROVIDERS: PCP Family Medicine; Visit Provider Internal Medicine Medical Oncology
DX: C50.411 Malignant neoplasm of upper-outer quadrant of right female breast (principal); M81.0 Age-related osteoporosis without current pathological fracture; Z17.0 Estrogen receptor positive status [ER+]; Z90.11 Acquired absence of right breast and nipple; Z79.811 Long term (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 of aromatase inhibitors; Z79.899 Other long term (current) drug therapy
CPT/HCPCS: 80053; 82306; 85025; 99214

== ENCOUNTER 2020-12-28 12:47 | Outpatient (CLI) | payer MEDICARE, SELFPAY ==
--- NOTE | 2020-12-28 12:59 | XR_ITS ---
WS: [id number] Lumbar spine, 3 views, 12/28/2020 Clinical Data: BACK PAIN Comparison: Lumbar spine, 05/02/2007. Findings: There are old compression fractures of T12, L1 and the superior aspect of L4. There is degenerative d isc narrowing at L5-S1. Diffuse osteoporosis is present. There is a slight dextroscoliosis of the lum bar spine. The transverse processes and SI joints are normal. There is calcification in the wall of t he abdominal aorta along with a small aneurysm of 3.1 cm. XR/XR lumbar spine 2-3V* [id number] Impression: 1. Old compression fractures of T12, L1 and L4 with loss of vertebral body heig ht of approximately 25-50%. 2. Degenerative disc narrowing at L5-S1. 3. Diffuse osteoporosis. 4. 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
== END 2020-12-28 12:48 | disposition home or self-care (01) ==
PROVIDERS: PCP Family Medicine; Visit Provider Family Medicine
DX: M54.5 Low back pain (principal); M81.0 Age-related osteoporosis without current pathological fracture; S22.089A Unspecified fracture of T11-T12 vertebra, initial encounter for closed fracture; S32.019A Unspecified fracture of first lumbar vertebra, initial encounter for closed fracture; S32.049A Unspecified fracture of fourth lumbar vertebra, initial encounter for closed fracture; X58.XXXA Exposure to other specified factors, initial encounter
CPT/HCPCS: 72100

== ENCOUNTER 2021-03-17 06:53 | Outpatient (CLI) | payer MEDICARE, SELFPAY ==
--- NOTE | 2021-03-17 07:03 | MR_ITS ---
WS: [id number] MRI LUMBAR SPINE NONCONTRAST TECHNIQUE: Sagittal T1, T2 and STIR imaging. Axial T1 and T2 imaging. CLINICAL INFORMATION: LOW BACK PAIN < 3 MONTHS COMPARISON: None. FINDINGS: Mild lumbar curve. Acute to subacute appearing biconcave compression of the L1 vertebral body with mi ld edema. Loss of approximately 50% vertebral body height. No retropulsion. Additional mild acute acu te to subacute appearing compression superior endplate T12. Minimal loss vertebral body height. Addit ional mild compression superior endplate L4 with edema. L1 compression fracture was present on 16,0 20 has progressed. L1-L2: Mild disc bulging with slight effacement of ventral thecal sac. Tiny left foraminal protrusion with mild left foraminal narrowing. Right foramen is patent. Moderate facet arthropathy. Spinal thai l is patent. L2-L3: No significant disc bulging. Spinal canal and foramen are patent. Moderate facet arthropathy. L3-L4: Mild annular bulging with slight effacement of ventral thecal sac. Narrowing of the subarticul ar recess bilaterally. Moderate facet arthropathy. Foramen are patent. L4-L5: No significant disc bulging. Moderate facet arthropathy. Spinal canal and foramen are patent. L5-S1: Mild disc bulging with mild central canal stenosis. Slight impingement traversing S1 nerve [place] ts bilaterally. Moderate facet arthropathy. Right eccentric osteophytic ridging L5-S1 encroaches on t he far exiting L5 nerve root. Bilateral peripelvic renal cysts. Slightly ectatic infrarenal abdominal aorta measuring 2.3 x 2.5 cm. Moderate thoracic kyphosis seen on the network support manager imaging. Patulous ventral epidural space unchanged sinc e the prior CTs. MR/MR lumbar spine wo con* [id number] IMPRESSION: 1. Mild lumbar curve. No high-grade central canal stenosis. 2. Acute to subacute compression fractures involving the T12, L1, and L4 vert ebral bodies with edema. 3. Mild compression superior endplate T12. 4. Biconcave compression L1 vertebral body has progressed since with edema. No significant retropulsion. Loss of approximately 50% vertebral body he ight. 5. Mild compression superior endplate L4 with mild edema. 6. Right eccentric osteophytic ridging L5-S1 encroaches on the far exiting L5 nerve root.
== END 2021-03-17 06:54 | disposition home or self-care (01) ==
LOC: RADSHAW 06:59
PROVIDERS: PCP Family Medicine; Visit Provider Clinical Nurse Specialist Adult Health
DX: S22.080A Wedge compression fracture of T11-T12 vertebra, initial encounter for closed fracture (principal); S32.010A Wedge compression fracture of first lumbar vertebra, initial encounter for closed fracture; S32.040A Wedge compression fracture of fourth lumbar vertebra, initial encounter for closed fracture; M25.78 Osteophyte, vertebrae; X58.XXXA Exposure to other specified factors, initial encounter
CPT/HCPCS: 72148

== ENCOUNTER 2021-03-17 07:06 | Outpatient (CLI) | payer MEDICARE, SELFPAY ==
[2021-03-17 08:31] LABS: Basophils % 0.5 %; Eosinophils # 0.1 10^3/uL (0.0-0.8); Eosinophils % 1.7 %; Hemoglobin 12.1 g/dL (11.5-15.3); Lymphocytes # 1.3 10^3/uL (0.8-4.8); Mean Corpuscular HGB Conc 31.8 g/dL (30.0-36.0); Mean Corpuscular Hemoglobin 28.8 pg (28.0-34.0); Mean Corpuscular Volume 90.5 fl (81-99); Mean Platelet Volume 9.9 fL (7.4-10.4); Monocytes # 0.6 10^3/uL (0.2-0.9); Neutrophils # 3.74 10^3/uL (1.8-7.7); Neutrophils % 64.6 %; Nucleated Red Blood Cells % 0 %; Platelet Count 222 10^3/cmm (130-400); Red Cell Distribution Width 14.8 % (12.1-15.1); White Blood Count 5.8 10^3/uL (4.0-10.0)
[2021-03-17 09:01] LABS: Alanine Aminotransferase 25 U/L (0-33); Albumin Level 4.2 g/dL (3.5-5.2); Alkaline Phosphatase 127 IU/L (35-105); Anion Gap 14.2 (5-19); Aspartate Amino Transferase 30 U/L (0-32); Blood Urea Nitrogen 30 mg/dL (8-23); Calcium 9.6 mg/dL (8.5-10.5); Carbon Dioxide 25 mmol/L (22-29); Chloride 106 mmol/L (98-107); Globulin 3.2 g/dL (1.3-4.6); Glucose 99 mg/dL (65-115); Osmolality Calculated 298 mOsm/kg (285-295); Potassium 4.2 mmol/L (3.5-5.1); Sodium 141 mmol/L (136-145); Total Bilirubin 0.4 mg/dL (0.15-1.2); Total Protein 7.4 g/dL (6.6-8.7)
== END 2021-03-17 07:07 | disposition home or self-care (01) ==
LOC: ONCMED 07:08
PROVIDERS: PCP Family Medicine; Visit Provider Nurse Practitioner
DX: C50.911 Malignant neoplasm of unspecified site of right female breast (principal); Z17.0 Estrogen receptor positive status [ER+]; Z79.899 Other long term (current) drug therapy
CPT/HCPCS: 36415; 80053; 85025

== ENCOUNTER 2021-03-20 11:48 | Outpatient (CLI) | payer MEDICARE, SELFPAY ==
--- NOTE | 2021-03-20 12:04 | USCV_ITS ---
Ester Reaves Age: 80 Gender: F : 1940 Exam Date: 03/20/2021 12:36 Ordering Phys: Dionte Rider Technologist: Arlene Harmon Exam Location: [facility] [place] Indication: localized edema BP: 124 / 70 HR: 69 Rhythm: Sinus Technical Quality: Adequate MEASUREMENTS (Male / Female) Normal Values 2D ECHO LV Diastolic Diameter PLAX 3.7 cm 4.2 - 5.9 / 3.9 - 5.3 cm LV Systolic Diameter PLAX 2.7 cm IVS Diastolic Thickness 1.3 cm 0.6 - 1.0 / 0.6 - 0.9 cm IVS Systolic Thickness 1.7 cm LVPW Diastolic Thickness 1.5 cm 0.6 - 1.0 / 0.6 - 0.9 cm LVPW Systolic Thickness 1.4 cm RV Chamber Size 3.3 cm LVOT Diameter 2.0 cm LV Ejection Fraction 2D Teich 53.4 % LV Ejection Fraction MOD 2C 55.1 % LV Ejection Fraction 2C AL 57.2 % LA Diameter 2.9 cm LA Width 3.0 cm LA Height 4.1 cm RA Width 3.8 cm RA Height 4.2 cm Aorta at Sinotubular Diameter 2.5 cm M-MODE Aortic Annulus Diameter 3.4 cm LA Ao Ratio MM 1.1 DOPPLER AV Peak Velocity 145.0 cm/s LVOT Peak Velocity 90.0 cm/s AV Area Cont Eq vti 2.0 cm squared AV Area Cont Eq pk 2.0 cm squared MV Area PHT 3.1 cm squared Mitral E to A Ratio 0.5 MV E' Velocity 34.5 cm/s Mitral E to MV E' Ratio 9.0 Mitral E to LV E' Lateral Ratio 7.3 Mitral E to LV E' Septal Ratio 11.8 TR Peak Velocity 256.0 cm/s TR Peak Gradient 26.2 mmHg TV Peak E Velocity 37.0 cm/s Right Atrial Pressure 3.0 mmHg Pulmonary Artery Systolic Pressu 29.2 mmHg PV Peak Velocity 88.0 cm/s RV Acceleration Time 0.1 s RV Ejection Time 0.3 s RV AcT/ET 0.3 FINDINGS Left Ventricle Normal left ventricular size. LV systolic function is normal with EF of 55-60%. No regional wall motion abnormalities. Grade 1 diastolic dysfunction Right Ventricle The right ventricle is normal in size and function. Right Atrium The right atrium is normal in size. Left Atrium The left atrium is normal in size. Mitral Valve Structurally normal mitral valve without significant stenosis or prolapse. There is trace mitral regurgitation. Aortic Valve Thickened aortic valve. No aortic stenosis. There is mild aortic regurgitation. Tricuspid Valve Structurally normal tricuspid valve without significant stenosis. Trace tricuspid regurgitation. Insufficient TR jet to calculate RVSP Pulmonic Valve Structurally normal pulmonic valve without significant stenosis. There is mild pulmonic regurgitation. Pericardium Normal pericardium without effusion. Aorta Normal ascending aorta dimension. CONCLUSIONS LV systolic function is normal with EF of 55-60% Grade 1 diastolic dysfunction Trace mitral regurgitation Trace tricuspid regurgitation Mild pulmonic regurgitation No comparison studies are available Roc Greco MD (Electronically Signed) Final Date: 30 March 2021 13:17 S
== END 2021-03-20 11:49 | disposition home or self-care (01) ==
LOC: US 11:52
PROVIDERS: PCP Family Medicine; Visit Provider Clinical Nurse Specialist Adult Health
DX: R60.0 Localized edema (principal)
CPT/HCPCS: 93306

== ENCOUNTER 2021-03-21 05:49 | Outpatient (CLI) | payer MEDICARE, SELFPAY ==
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
== END 2021-03-21 05:50 | disposition home or self-care (01) ==
PROVIDERS: PCP Family Medicine; Visit Provider Internal Medicine Medical Oncology
DX: C50.411 Malignant neoplasm of upper-outer quadrant of right female breast (principal); Z17.0 Estrogen receptor positive status [ER+]; M81.0 Age-related osteoporosis without current pathological fracture; Z79.899 Other long term (current) drug therapy
CPT/HCPCS: 99214

== ENCOUNTER 2021-04-11 09:40 | Outpatient (CLI) | payer MEDICARE, SELFPAY ==
--- NOTE | 2021-04-11 09:43 | XR_ITS ---
WS: [id number] SCREENING DEXA SCAN [employer] CLINICAL INFORMATION: OSTEOPOROSIS, GENERALIZED COMPARISON: 019 FINDINGS: The L1-L4 bone mineral density measures 0.960 g/cm2. This corresponds to a T score score of -1.8 and Z score of -0.7. Left femoral neck bone mineral density measures 0.438 g/cm2. This corresponds to a T score of -4.5 an d Z score of -3.1. Right femoral neck bone mineral density measures 0.428 g/cm2. This corresponds to a T score -4.6of an d Z score of -3.2. Mean femoral neck bone mineral density measures 0.433 g/cm2. This corresponds to a T score of -4.6 an d Z score of -3.2. XR/XR DEXA axial skeleton* [id number] IMPRESSION: Osteopenia lumbar spine. Osteoporosis femoral necks. Patient's FRAX calculated 10 year probability for major osteoporotic fracture i s 47.4 % and osteoporotic hip fracture is 25.7%.
== END 2021-04-11 09:41 | disposition home or self-care (01) ==
PROVIDERS: PCP Family Medicine; Visit Provider Clinical Nurse Specialist Adult Health
DX: M81.0 Age-related osteoporosis without current pathological fracture (principal); M85.88 Other specified disorders of bone density and structure, other site
CPT/HCPCS: 77080

== ENCOUNTER 2021-07-31 12:10 | Outpatient (CLI) | payer MEDICARE, SELFPAY ==
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
== END 2021-07-31 12:11 | disposition home or self-care (01) ==
LOC: ONCMED 12:15
PROVIDERS: PCP Family Medicine; Visit Provider Internal Medicine Medical Oncology
DX: C50.011 Malignant neoplasm of nipple and areola, right female breast (principal); Z17.0 Estrogen receptor positive status [ER+]; Z90.11 Acquired absence of right breast and nipple; M81.0 Age-related osteoporosis without current pathological fracture; I10 Essential (primary) hypertension; E78.5 Hyperlipidemia, unspecified; I25.10 Atherosclerotic heart disease of native coronary artery without angina pectoris; K21.9 Gastro-esophageal reflux disease without esophagitis; Z86.718 Personal history of other venous thrombosis and embolism; Z90.710 Acquired absence of both cervix and uterus
CPT/HCPCS: 99215

== ENCOUNTER 2021-10-10 09:30 | Outpatient (CLI) | payer MEDICARE, SELFPAY ==
--- NOTE | 2021-10-10 09:59 | MM_ITS ---
WS: [id number] LEFT 3D TOMOSYNTHESIS DIGITAL MAMMOGRAPHY WITH CAD CLINICAL INFORMATION: HX OF BREAST CA COMPARISON: August 01, 2020 TECHNIQUE: 3 views of the left breast were obtained. FINDINGS: Scattered fibroglandular densities of the left breast. A few stable nodular densities central and out er LEFT breast are unchanged.. No suspicious focal mass, asymmetry, calcifications, or architectural distortion. No evidence of davon gnancy. MM/[place] [id number] IMPRESSION: BI-RADS: 1-Negative FOLLOW UP: 1 Year Follow-up Recommend return to annual diagnostic mammography.
== END 2021-10-10 09:31 | disposition home or self-care (01) ==
LOC: RAD 09:33
PROVIDERS: PCP Family Medicine; Visit Provider Internal Medicine Medical Oncology
DX: C50.411 Malignant neoplasm of upper-outer quadrant of right female breast (principal); M81.0 Age-related osteoporosis without current pathological fracture
CPT/HCPCS: 77061

== ENCOUNTER → 2022-01-19 12:49 | Outpatient (BNVA) | payer MEDICARE, SELFPAY | PROVIDERS: PCP Family Medicine; Visit Provider Family Medicine | DX: N39.0 Urinary tract infection, site not specified (principal) | CPT/HCPCS: 81000; 87077; 87086; 87184 ==

== ENCOUNTER → 2022-02-02 12:48 | Outpatient (BNVA) | payer MEDICARE, SELFPAY | PROVIDERS: PCP Family Medicine; Visit Provider Family Medicine | DX: N39.0 Urinary tract infection, site not specified (principal) | CPT/HCPCS: 81000 ==

== ENCOUNTER → 2022-02-20 08:47 | Outpatient (BNVA) | payer MEDICARE, SELFPAY | PROVIDERS: PCP Family Medicine; Visit Provider Clinical Nurse Specialist Adult Health | DX: R30.0 Dysuria (principal) | CPT/HCPCS: 81000 ==

== ENCOUNTER 2022-02-27 09:30 | Emergency (ER) | payer MEDICARE, SELFPAY ==
--- NOTE | 2022-02-27 09:33 | XR_ITS ---
WS: [id number] CHEST XRAY TECHNIQUE: Portable chest. CLINICAL INFORMATION: palpitations COMPARISON: November 27, 2019 FINDINGS: Heart: Normal cardiac silhouette. Tortuous calcified thoracic aorta. Lungs: Hyperinflation.Chronic emphysematous changes. No acute pulmonary infiltrates. Bones: Osteopenia. XR/XR chest 1V portable [id number] IMPRESSION: No acute chest findings
[2022-02-27 09:35] VITALS: BP 177/69; PULSE 69; RESP 16; TEMP 36.6; O2SAT 97
--- NOTE | 2022-02-27 09:47 | ECG_ITS ---
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 Measurements Intervals [place] Rate: 70 P: 44 HI: 169 QRS: -47 QRSD: 113 T: 65 QT: 410 QTc: 443 Interpretive Statements SINUS RHYTHM LEFT ANTERIOR FASCICULAR BLOCK [QRS AXIS <= -45, QR IN I, RS IN II] MINIMAL VOLTAGE CRITERIA FOR LVH, CONSIDER NORMAL VARIANT [MEETS CRITERIA IN ONE OF: R(aVL), S(V1), R(V5), R(V5/V6)+S(V1)] SEPTAL MYOCARDIAL INFARCTION , OF INDETERMINATE AGE [40+ ms Q WAVE IN V1/V2] INTERPRETATION BASED ON A DEFAULT AGE OF 40 YEARS Compared to ECG 11/27/2019 01:33:24 Left anterior fascicular block now present Myocardial infarct finding still present Electronically Signed On 02-27-2022 21:10:13 CDT by Derrick Diaz M.D. [id number] f
[2022-02-27 13:29] LABS: Basophils # 0.1 10^3/uL (0.0-0.1); Basophils % 0.8 %; Eosinophils % 0.6 %; Hematocrit 42.2 % (37.0-47.0); Hemoglobin 13.1 g/dL (11.5-15.3); Lymphocytes # 1.7 10^3/uL (0.8-4.8); Lymphocytes % 26.7 %; Mean Corpuscular Hemoglobin 28.9 pg (28.0-34.0); Mean Corpuscular Volume 93.2 fl (81-99); Mean Platelet Volume 9.6 fL (7.4-10.4); Monocytes # 0.5 10^3/uL (0.2-0.9); Monocytes % 7.4 %; Neutrophils # 3.96 10^3/uL (1.8-7.7); Nucleated Red Blood Cells % 0 %; Platelet Count 259 10^3/cmm (130-400); Red Blood Count 4.53 10^6/uL (4.1-5.3); Red Cell Distribution Width 14.3 % (12.1-15.1); White Blood Count 6.2 10^3/uL (4.0-10.0)
--- NOTE | 2022-02-27 13:30 | W.ED.ARRPALP ---
HPI - Arrhythmia/Palpitations General: Chief Complaint: Arrhythmia/Palpitations Stated Complaint: Heart beat skipping, sent by Time Seen by Provider: 02/27/22 13:20 Source: patient Mode of arrival: ambulatory Limitations: no limitations History of Present Illness: 81-year-old female presents emergency room complaints of palpitations for about the last 3 days. She not really had any chest pain she has notes intermittent palpitations at times she also has noticed that is better if she stays sitting up is not really technically had any orthopnea. She has a extensive medical history particular for breast cancer which is recurred her oncology notes were reviewed. He also has had coronary disease in the past. MD complaint: skipped beats and palpitations Onset (ago): day(s) (3) Duration: constant Severity: mild Context: occurred during rest Associated symptoms: Deny anxiety, cough, diaphoresis, muscle cramps, nausea, paresthesias, pre-syncope, sense of impending doom, short of breath, syncope or vomiting Review of Systems Const: Denies: fever(s), chills, fatigue, malaise or diaphoresis ENMT: Denies: throat pain, ear or mastoid pain, nasal discharge or nasal congestion Card: Denies: syncope or pre-syncope Resp: Denies: dyspnea, productive cough or non-productive cough GI: Denies: abdominal pain, nausea or vomiting : Denies: flank pain, difficulty voiding, dysuria, urinary frequency or urinary urgency Musc: Denies: back pain or muscle cramps Skin/Breast: Denies: rash or pruritus Neuro: Denies: headache(s) Psych: Denies: anxiety PFSH ED PFSH: Medical History Breast cancer Coronary artery disease History of RI GERD (gastroesophageal reflux disease) History of DVT (deep vein thrombosis) Left lower extremity - following hysterectomy Hyperlipidemia Hypertension Osteoporosis Surgical History History of cholecystectomy History of coronary angioplasty with insertion of stent x 6 around 2010 History of hysterectomy History of inguinal hernia repair History of orthopedic surgery ORIF right forearm fracture History of right mastectomy (07/03/18) S/P lymph node biopsy (07/27/15) Right axillary sentinel lymph node biopsy Status post excisional biopsy (06/30/15) Excisional biopsy of right breast mass Family History Mother TIA (transient ischemic attack) Father , age 72 CAD (coronary artery disease) Social History Smoking and tobacco status: never smoked Alcohol intake: never Physical Exam Const: COMMON NORMALS: no acute distress GENERAL APPEARANCE: cooperative and comfortable ORIENTATION/CONSCIOUSNESS: Yes awake, Yes oriented to person, Yes oriented to place and Yes oriented to time HENMT: COMMON NORMALS: normocephalic, atraumatic and hearing grossly normal bilaterally HEAD & SCALP: normocephalic and atraumatic Eye: COMMON NORMALS: Equal, round and reactive pupils present, EOMs intact bilaterally, conjunctivae normal and no scleral icterus CONJUNCTIVA: Yes conjunctivae normal PUPIL: Yes Equal, round and reactive pupils present Neck/C-Spine: COMMON NORMALS: full ROM, no lymphadenopathy, supple and no JVD Lymph: LYMPHATIC: no lymphadenopathy noted and no lymphedema noted Resp: COMMON NORMALS: normal respiratory effort, No retractions, No use of accessory muscles and clear to auscultation bilaterally AUSCULTATION: clear to auscultation bilaterally Cardio: COMMON NORMALS: no JVD, regular rate, regular rhythm and No murmurs present (Cardio) RATE: regular rate RHYTHM: regular rhythm GI: COMMON NORMALS: Soft to palpation and No hepatosplenomegaly present AUSCULTATION: Yes normoactive bowel sounds PALPATION: Yes Soft to palpation, No Tenderness to palpation present (GI), No Guarding due to palpation present (GI) and Yes No hepatosplenomegaly present Extremity: COMMON NORMALS: normal to inspection, capillary refill normal, no clubbing, cyanosis or edema, no calf tenderness and no pedal edema Neuro: SENSORIUM/ORIENTATION: Yes oriented to person, Yes oriented to place and Yes oriented to time Skin: COMMON NORMALS: no rashes or lesions noted GENERAL SKIN EXAM: no rashes or lesions noted Course Vital Signs: Vital signs: Vital Signs Temperature 98.6 F 02/27/22 16:48 Pulse Rate 74 02/27/22 16:48 Respiratory Rate 22 H 02/27/22 16:48 Blood Pressure 124/62 02/27/22 16:48 Pulse Oximetry 93 02/27/22 16:48 Oxygen Delivery Me thod 02/27/22 16:47 MDM - Arrhythmia/Palpitations Medical Decision Making Labs imaging and EKG reviewed as found in the chart. No significant abnormalities. We will discharge patient home 48-hour Holter and follow-up with her primary care doctor. Medical Records I reviewed the patient's medical records. Lab Data I reviewed the patient's lab results. : 02/27/22 13:19 02/27/22 13:19 Radiology Impressions Chest X-Ray 02/27/22 09:33 IMPRESSION: No acute chest findings Laboratory Results WBC 6.2 10^3/uL (4.0-10.0) 02/27/22 13:19 RBC 4.53 10^6/uL (4.1-5.3) 02/27/22 13:19 Hgb 13.1 g/dL (11.5-15.3) 02/27/22 13:19 Hct 42.2 % (37.0-47.0) 02/27/22 13:19 MCV 93.2 fl (81-99) 02/27/22 13:19 MCH 28.9 pg (28.0-34.0) 02/27/22 13:19 MCHC 31.0 g/dL (30.0-36.0) 02/27/22 13:19 RDW 14.3 % (12.1-15.1) 02/27/22 13:19 Plt Count 259 10^3/cmm (130-400) 02/27/22 13:19 MPV 9.6 fL (7.4-10.4) 02/27/22 13:19 Neut % (Auto) 64.0 % 02/27/22 13:19 Lymph % (Auto) 26.7 % 02/27/22 13:19 [place] % (Auto) 7.4 % 02/27/22 13:19 Eos % (Auto) 0.6 % 02/27/22 13:19 Baso % (Auto) 0.8 % 02/27/22 13:19 Neut # (Auto) 3.96 10^3/uL (1.8-7.7) 02/27/22 13:19 Lymph # (Auto) 1.7 10^3/uL (0.8-4.8) 02/27/22 13:19 [place] # (Auto) 0.5 10^3/uL (0.2-0.9) 02/27/22 13:19 Eos # (Auto) 0.0 10^3/uL (0.0-0.8) 02/27/22 13:19 Baso # (Auto) 0.1 10^3/uL (0.0-0.1) 02/27/22 13:19 Nucleated RBC % (auto) 0 % 02/27/22 13:19 Nucleated RBCs # 0.0 /100WBC 02/27/22 13:19 Sodium 143 mmol/L (136-145) 02/27/22 13:19 Potassium 3.9 mmol/L (3.5-5.1) 02/27/22 13:19 Chloride 104 mmol/L (98-107) 02/27/22 13:19 Carbon Dioxide 28 mmol/L (22-29) 02/27/22 13:19 Anion Gap 14.9 (5-19) 02/27/22 13:19 BUN 20 mg/dL (8-23) 02/27/22 13:19 Creatinine 0.7 mg/dL (0.5-0.9) 02/27/22 13:19 GFR Calculation Not Reportable 02/27/22 13:19 Glucose 100 mg/dL (65-115) 02/27/22 13:19 Calculated Osmolality 299 mOsm/kg (285-295) H 02/27/22 13:19 Calcium 9.5 mg/dL (8.5-10.5) 02/27/22 13:19 Total Bilirubin 0.4 mg/dL (0.15-1.2) 02/27/22 13:19 AST 22 U/L (0-32) 02/27/22 13:19 ALT 16 U/L (0-33) 02/27/22 13:19 Alkaline Phosphatase 118 IU/L (35-105) H 02/27/22 13:19 Troponin T Baseline 10 ng/L (0-10) 02/27/22 13:19 Troponin T 120 Minute 10.08 ng/L (0-10) H 02/27/22 15:41 Delta Troponin T 0.08 ABS# (0-10) 02/27/22 15:41 NT-Pro-B Natriuret Pep 298 pg/mL (0-450) 02/27/22 13:19 Total Protein 7.6 g/dL (6.6-8.7) 02/27/22 13:19 Albumin 4.1 g/dL (3.5-5.2) 02/27/22 13:19 Globulin 3.5 g/dL (1.3-4.6) 02/27/22 13:19 Discharge Plan Discharge Patient Disposition: Home Clinical Impression: Palpitations, Hypertension Condition: Stable Prescriptions: No Action alendronate 70 mg tablet 70 mg PO .COMPLEX Qty: 12 0RF Rx Instructions: 1 tablet by mouth once a week meloxicam 7.5 mg tablet 7.5 tab PO QAM carvedilol [Coreg] 3.125 mg Tablet 3.125 mg PO BID rosuvastatin [Crestor] 40 mg Tablet 40 mg PO BEDTIME Probiotic 15 billion cell Capsule 1 cap PO QAM Immune From Live Pure 1 tab PO DAILY Mangosteen Juice 1 oz PO DAILY Caro Juice 1 oz PO DAILY Tylenol Ex Str Rapid Release 500 mg Tablet 1,000 mg PO Q4H PRN (Reason: Pain) Coffee Mocha Recharge 1 packet PO QAM Calciumk+ 5 - 10 ml PO DAILY Discharge Orders: Discharge ED (Routine); Ordered 02/27/22 Ordered By: Jose Harris Referrals: Dequan Dubois DO [Primary Care Provider] - Discharge Diet: Usual diet Discharge Activity: Resume usual activity Patient Instructions: Opioid Safety Activity Restrictions/Additional Instructions: Case management will call to make arrangements for her to have a 48-hour Holter monitor. Follow-up with your doctor to recheck your blood pressure within the next week. Coding Level of Care Code ED Reimbursement Representative for Tessa Islas
[2022-02-27 13:48] LABS: Troponin(5th) Baseline 10 ng/L (0-10)
[2022-02-27 13:49] LABS: Alanine Aminotransferase 16 U/L (0-33); Albumin Level 4.1 g/dL (3.5-5.2); Alkaline Phosphatase 118 IU/L (35-105); Anion Gap 14.9 (5-19); Aspartate Amino Transferase 22 U/L (0-32); Blood Urea Nitrogen 20 mg/dL (8-23); Calcium 9.5 mg/dL (8.5-10.5); Carbon Dioxide 28 mmol/L (22-29); Chloride 104 mmol/L (98-107); Globulin 3.5 g/dL (1.3-4.6); Glucose 100 mg/dL (65-115); Osmolality Calculated 299 mOsm/kg (285-295); Potassium 3.9 mmol/L (3.5-5.1); Sodium 143 mmol/L (136-145); Total Bilirubin 0.4 mg/dL (0.15-1.2); Total Protein 7.6 g/dL (6.6-8.7)
[2022-02-27 14:13] LABS: NT Pro B Type Natriuretic Pept 298 pg/mL (0-450)
--- NOTE | 2022-02-27 14:14 | ECG_ITS ---
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 Measurements Intervals [place] Rate: 64 P: 42 [place]: 179 QRS: -38 QRSD: 127 T: 36 QT: 441 QTc: 456 Interpretive Statements SINUS RHYTHM LEFT AXIS DEVIATION [QRS AXIS < -30] VOLTAGE CRITERIA FOR LVH [MEETS CRITERIA IN ONE OF: R(aVL), S(V1), R(V5), R(V5/V6)+S(V1)] POSSIBLE SEPTAL MYOCARDIAL INFARCTION , OF INDETERMINATE AGE [30 ms Q WAVE IN V1/V2] Compared to ECG 02/27/2022 09:47:42 Left-axis deviation now present Left anterior fascicular block no longer present Myocardial infarct finding still present Electronically Signed On 02-28-2022 6:45:30 CDT by Derrick Diaz M.D. [id number]
--- NOTE | 2022-02-27 15:36 | ECG_ITS ---
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 Measurements Intervals [place] Rate: 64 P: 43 NC: 180 QRS: -40 QRSD: 114 T: 43 QT: 435 QTc: 450 Interpretive Statements SINUS RHYTHM LEFT AXIS DEVIATION [QRS AXIS < -30] POSSIBLE LEFT VENTRICULAR HYPERTROPHY [VOLTAGE CRITERIA PLUS LAE OR QRS WIDENING] POSSIBLE SEPTAL MYOCARDIAL INFARCTION , OF INDETERMINATE AGE [30 ms Q WAVE IN V1/V2] Compared to ECG 02/27/2022 14:14:38 No significant changes Electronically Signed On 02-28-2022 6:46:35 CDT by Derrick Diaz M.D. [id number]
[2022-02-27 16:25] LABS: Troponin 5 2HR 10.08 ng/L (0-10); Troponin 5 2HR Delta 0.08 ABS# (0-10)
[2022-02-27 16:47] VITALS: BP 124/62; PULSE 74; RESP 21; TEMP 37.1; O2SAT 93
[2022-02-27 16:48] VITALS: BP 124/62; PULSE 74; RESP 22; TEMP 37; O2SAT 93
--- NOTE | 2022-03-09 10:58 | DCPLANNER ---
Addendum entered by Briesyda Anderson 03/30/22 08:34: credit administration manager received the following message from [facility] regarding follow up appointment: Patient does not want monitor - I called and spoke with her yesterday. Original Note: credit administration manager had message to schedule a follow up appointment for patient for a 48 hour halter monitor. credit administration manager faxed order to [facility], who will call patient with appointment information.
== END 2022-02-27 16:50 | disposition home or self-care (01) ==
PROVIDERS: Physician Assistant; Emergency Provider Family Medicine; PCP Family Medicine
DX: R00.2 Palpitations (principal); I10 Essential (primary) hypertension; Z85.3 Personal history of malignant neoplasm of breast; I25.10 Atherosclerotic heart disease of native coronary artery without angina pectoris; E78.5 Hyperlipidemia, unspecified; Z95.5 Presence of coronary angioplasty implant and graft
CPT/HCPCS: 36415; 71045; 80053; 83880; 84484; 85025; 93005; 99285

== ENCOUNTER 2022-03-05 13:39 | Oncology outpatient (recurring) (ONCR) | payer MEDICARE, SELFPAY | END 2022-03-28 23:59 | disposition home or self-care (01) | PROVIDERS: PCP Family Medicine; Visit Provider Internal Medicine Medical Oncology | DX: Z08 Encounter for follow-up examination after completed treatment for malignant neoplasm (principal); Z85.3 Personal history of malignant neoplasm of breast | CPT/HCPCS: G0463 ==

== ENCOUNTER → 2022-04-23 16:31 | Outpatient (BNVA) | payer MEDICARE, SELFPAY | PROVIDERS: PCP Family Medicine; Visit Provider Family Medicine | DX: N39.0 Urinary tract infection, site not specified (principal) | CPT/HCPCS: 81000; 87086 ==

== ENCOUNTER 2022-09-18 13:49 | Oncology outpatient (recurring) (ONCR) | payer MEDICARE, SELFPAY ==
[2022-09-18 14:51] LABS: Basophils % 0.7 %; Eosinophils # 0.1 10^3/uL (0.0-0.8); Hematocrit 40.8 % (37.0-47.0); Hemoglobin 12.8 g/dL (11.5-15.3); Lymphocytes # 1.5 10^3/uL (0.8-4.8); Lymphocytes % 27.9 %; Mean Corpuscular HGB Conc 31.4 g/dL (30.0-36.0); Mean Corpuscular Hemoglobin 28.6 pg (28.0-34.0); Mean Corpuscular Volume 91.1 fl (81-99); Monocytes # 0.5 10^3/uL (0.2-0.9); Monocytes % 9.4 %; Neutrophils # 3.23 10^3/uL (1.8-7.7); Neutrophils % 59.8 %; Nucleated Red Blood Cells % 0 %; Platelet Count 194 10^3/cmm (130-400); Red Blood Count 4.48 10^6/uL (4.1-5.3); Red Cell Distribution Width 14.2 % (12.1-15.1); White Blood Count 5.4 10^3/uL (4.0-10.0)
[2022-09-18 15:20] LABS: Alanine Aminotransferase 16 U/L (0-33); Albumin Level 4.1 g/dL (3.5-5.2); Alkaline Phosphatase 81 U/L (35-105); Anion Gap 13.6 (5-19); Aspartate Amino Transferase 24 U/L (0-32); Blood Urea Nitrogen 22 mg/dL (8-23); Calcium 9.5 mg/dL (8.5-10.5); Carbon Dioxide 28 mmol/L (22-29); Chloride 104 mmol/L (98-107); Globulin 3.5 g/dL (1.3-4.6); Glucose 93 mg/dL (65-115); Osmolality Calculated 295 mOsm/kg (285-295); Potassium 4.6 mmol/L (3.5-5.1); Sodium 141 mmol/L (136-145); Total Bilirubin 0.4 mg/dL (0.15-1.2); Total Protein 7.6 g/dL (6.6-8.7)
== END 2022-09-25 23:59 | disposition home or self-care (01) ==
PROVIDERS: PCP Family Medicine; Visit Provider Internal Medicine Medical Oncology
DX: Z08 Encounter for follow-up examination after completed treatment for malignant neoplasm (principal); Z85.3 Personal history of malignant neoplasm of breast; Z90.11 Acquired absence of right breast and nipple; M81.0 Age-related osteoporosis without current pathological fracture; M84.48XA Pathological fracture, other site, initial encounter for fracture; Z79.899 Other long term (current) drug therapy
CPT/HCPCS: 36415; 80053; 85025; 99214

== ENCOUNTER 2022-11-30 11:11 | Outpatient (CLI) | payer MEDICARE, SELFPAY ==
--- NOTE | 2022-11-30 11:17 | XR_ITS ---
WS: [id number] Chest 2 views, 11/30/2022 Clinical Data: shortness of breath, left wheeze, Comparison: Portable chest, 02/27/2022 Findings: No nodules, masses or effusions are seen. The heart is normal. The pulmonary vascularity is not increased. No pneumonia or pneumothorax is seen. The aortic arch and descending thoracic aorta s how tortuosity and calcification. The diaphragms are flattened. There is a dextroscoliosis and kyphos is with osteoporosis of the thoracic spine. XR/XR chest 2V* [id number] Impression: Atherosclerosis and hyperinflation.
== END 2022-11-30 11:12 | disposition home or self-care (01) ==
PROVIDERS: PCP Family Medicine; Visit Provider Clinical Nurse Specialist Adult Health
DX: J22 Unspecified acute lower respiratory infection (principal); R06.02 Shortness of breath
CPT/HCPCS: 71046

== ENCOUNTER 2023-01-08 10:06 | Outpatient (CLI) | payer MEDICARE, SELFPAY ==
--- NOTE | 2023-01-08 10:11 | MM_ITS ---
WS: [id number] DIAGNOSTIC LEFT DIGITAL BREAST TOMOSYNTHESIS MAMMOGRAPHY WITH CAD HISTORY: ANNUAL - HX BR CA;RT MST COMPARISON: 10/10/2021, 08/01/2020 and 07/28/2019 TECHNIQUE: Bilateral craniocaudad, mediolateral oblique, and mediolateral views are submitted with to mosynthesis and SM. Computer aided detection utilized. Breast composition: There are scattered areas of fibroglandular density. Scattered asymmetries are st able over multiple prior years within the upper outer quadrant of the LEFT breast. No distortion. No mass. MM/[place] [id number] IMPRESSION: BI-RADS: 2-Benign FOLLOW UP: 1 Year Follow-up
== END 2023-01-08 10:07 | disposition home or self-care (01) ==
PROVIDERS: PCP Family Medicine; Visit Provider Family Medicine
DX: Z85.3 Personal history of malignant neoplasm of breast (principal); Z90.11 Acquired absence of right breast and nipple
CPT/HCPCS: 77061; G0279

== ENCOUNTER 2023-01-10 12:47 | Outpatient (CLI) | payer MEDICARE, SELFPAY ==
[2023-01-10] MEDS: iohexol 350 mg/mL 500 mL Btl (per mL) IV (13:13)
--- NOTE | 2023-01-10 13:30 | CT_ITS ---
WS: [id number] CT chest w con* [id number] HISTORY: URI TECHNIQUE: Axial imaging performed through the thorax. Coronal and sagittal reformats are submitted. All CT scans at [facility] use at least one of these dose optimization techniques: automated exposure control; mA and/or kV adjustment per patient size (includes targeted exams where dose is mat ched to clinical indication); or iterative reconstruction. CONTRAST: Omnipaque 350; 100 mL IV. DLP: 271.46 mGy.cm COMPARISON: 07/30/2018 Lungs and central airway: Marked pulmonary hyperinflation. Increased AP diameter of the thorax. Benig n granuloma RIGHT middle lobe. Subsegmental linear areas of atelectasis in the lingula and LEFT lower lobes. There is a soft tissue mass centered at the LEFT hilum encasing the proximal LEFT bronchovasc ular structures. There is partial obstruction of the proximal LEFT upper and LEFT lower lobe bronchi. Largest diameter the soft tissue mass at the LEFT hilum is 3.0 cm x 2.3 cm. Slightly greater encasem ent extending into the LEFT lower lobe bronchovascular tree. Pleura: Normal. No pleural effusion. Heart and pericardium: Mild cardiomegaly. No pericardial effusion. Mediastinum and bebo: See above description of the LEFT hilar mass which is likely adenopathy. There are a few additional smaller lymph nodes. Inferior RIGHT paratracheal lymph node measures 9 mm. Vessels: Marked atherosclerosis aorta. No aneurysm. Pulmonary artery is enlarged at 3.9 cm. Chest wall and lower neck: Prior RIGHT mastectomy. Upper abdomen: Hepatic and splenic granulomata. No adrenal mass. Osseous structures: Advanced degenerative changes within the thoracic spine. L1 60% compression fract ure. Osteopenia. CT/CT chest w con* [id number] IMPRESSION: 1. LEFT hilar soft tissue mass is probably confluent adenopathy encasing the b ronchovascular tree and causing a mild occlusion. Largest diameter is 3.0 x 2.3 cm. Lung cancer/squamous cell carcinoma or lymphoma within the differential. R ecommend follow-up bronchoscopy for sampling. 2. Pulmonary hypertension. 3. Chronic emphysema. 4. Prior RIGHT mastectomy.
== END 2023-01-10 12:48 | disposition home or self-care (01) ==
LOC: RAD 12:51
PROVIDERS: PCP Family Medicine; Visit Provider Family Medicine
DX: J22 Unspecified acute lower respiratory infection (principal); I27.20 Pulmonary hypertension, unspecified; J43.9 Emphysema, unspecified
CPT/HCPCS: 71260; Q9967

== ENCOUNTER → 2023-01-28 09:29 | Outpatient (BNVA) | payer MEDICARE, SELFPAY | PROVIDERS: PCP Family Medicine; Visit Provider Internal Medicine Cardiovascular Disease | DX: I25.10 Atherosclerotic heart disease of native coronary artery without angina pectoris (principal); I44.4 Left anterior fascicular block | CPT/HCPCS: 93005; 99204 ==

== ENCOUNTER 2023-01-31 07:58 | Outpatient (CLI) | payer MEDICARE, SELFPAY ==
[2023-01-31 08:21] LABS: Basophils % 0.4 %; Eosinophils # 0.1 10^3/uL (0.0-0.8); Eosinophils % 1.7 %; Hematocrit 39.6 % (37.0-47.0); Hemoglobin 12.4 g/dL (11.5-15.3); Lymphocytes # 1.3 10^3/uL (0.8-4.8); Lymphocytes % 24.9 %; Mean Corpuscular HGB Conc 31.3 g/dL (30.0-36.0); Mean Corpuscular Hemoglobin 27.9 pg (28.0-34.0); Mean Corpuscular Volume 89.2 fl (81-99); Mean Platelet Volume 9.4 fL (7.4-10.4); Monocytes # 0.5 10^3/uL (0.2-0.9); Monocytes % 9.6 %; Neutrophils # 3.37 10^3/uL (1.8-7.7); Nucleated Red Blood Cells % 0 %; Platelet Count 181 10^3/cmm (130-400); Red Blood Count 4.44 10^6/uL (4.1-5.3); Red Cell Distribution Width 14.2 % (12.1-15.1); White Blood Count 5.3 10^3/uL (4.0-10.0)
[2023-01-31 08:42] LABS: Alanine Aminotransferase 13 U/L (0-33); Albumin Level 4.1 g/dL (3.5-5.2); Alkaline Phosphatase 72 U/L (35-105); Anion Gap 14.2 (5-19); Aspartate Amino Transferase 19 U/L (0-32); Blood Urea Nitrogen 24 mg/dL (8-23); Calcium 9.2 mg/dL (8.5-10.5); Carbon Dioxide 26 mmol/L (22-29); Chloride 105 mmol/L (98-107); Globulin 3.1 g/dL (1.3-4.6); Glucose 99 mg/dL (65-115); Osmolality Calculated 296 mOsm/kg (285-295); Potassium 4.2 mmol/L (3.5-5.1); Sodium 141 mmol/L (136-145); Total Bilirubin 0.4 mg/dL (0.15-1.2); Total Protein 7.2 g/dL (6.6-8.7)
[2023-01-31 08:54] LABS: Erythrocyte Sedimentation Rate 18 mm/hr (0-15)
== END 2023-01-31 07:59 | disposition home or self-care (01) ==
PROVIDERS: PCP Family Medicine; Visit Provider Family Medicine
DX: M19.90 Unspecified osteoarthritis, unspecified site (principal); E03.9 Hypothyroidism, unspecified; R91.8 Other nonspecific abnormal finding of lung field
CPT/HCPCS: 36415; 80053; 85025; 85651; 86140

== ENCOUNTER → 2023-02-05 12:54 | Outpatient (BNVA) | payer MEDICARE, SELFPAY | PROVIDERS: PCP Family Medicine; Visit Provider Internal Medicine Pulmonary Disease | DX: R91.8 Other nonspecific abnormal finding of lung field (principal); R06.02 Shortness of breath; R06.2 Wheezing; T78.40XA Allergy, unspecified, initial encounter | CPT/HCPCS: 36415; 82785; 86003 ==

== ENCOUNTER → 2023-02-05 12:54 | Outpatient (BNVA) | payer MEDICARE, SELFPAY | PROVIDERS: PCP Family Medicine; Visit Provider Internal Medicine Pulmonary Disease | DX: R91.8 Other nonspecific abnormal finding of lung field (principal); R06.2 Wheezing; R06.02 Shortness of breath; T78.40XA Allergy, unspecified, initial encounter | CPT/HCPCS: 36415; 82785; 86003; 99204 ==

== ENCOUNTER → 2023-02-14 14:22 | Outpatient (BNVA) | payer MEDICARE, SELFPAY | PROVIDERS: PCP Family Medicine; Referring Provider Dermatology; Visit Provider Student in an Organized Health Care Education/Training Program | DX: M17.11 Unilateral primary osteoarthritis, right knee (principal) | CPT/HCPCS: 73560; 73565; 99204 ==

== ENCOUNTER 2023-02-16 06:32 | Outpatient (CLI) | payer MEDICARE, SELFPAY ==
--- NOTE | 2023-02-16 08:30 | PETR_ITS ---
PROCEDURE INFORMATION: Exam: PET/CT Skull Base to Mid-thigh Exam date and time: 02/16/2023 9:13 AM Age: 82 years old Clinical indication: Abnormal findings; Lung mass LABS AND CLINICAL REPORTS: Glucose: 98 mg/dl Treatment strategy for malignancy (PET staging): Restaging (PS) TECHNIQUE: Imaging protocol: Following at least four-hour fasting and following the injection of radiopharmaceutical, low dose CT images were obtained. Then, PET images were obtained. Attenuation corrected images were constructed using the CT scan. Fused images of PET and CT were reviewed. The standardized uptake values (SUV) reported below are maximum values within a region of interest, expressed in gm/ml. Exam includes orbital meatal line to mid-thigh. Radiopharmaceutical: 12.27 mCi F-18 FDG (Fluorodeoxyglucose), IV. Time of imaging post radiopharmaceutical administration: 1 hour Injection site: Not specified COMPARISON: CT chest w con* [id number] 01/10/2023 1:45 PM, CT abdomen and pelvis 10/12/2019, CTA chest 07/30/2018 FINDINGS: Brain: Visualized brain has normal physiologic uptake. Pharynx: No abnormal uptake. Larynx: No abnormal uptake. Lungs, pleura and trachea: Abnormal uptake in the left hilar region is noted case in the left hilar structures, SUV max 9.7, within region of soft tissue density measuring approximately 4.1 cm in diameter on series 3, image 52. A right middle lobe calcified granuloma is present. Heart: Normal physiologic uptake. Mediastinal space: No abnormal uptake. Liver: No abnormal uptake. Calcified granulomas in the liver are noted. Gallbladder and bile ducts: No abnormal uptake. The gallbladder is not identified, likely surgically absent. There is moderate prominence of the common bile duct, likely related to postoperative changes of cholecystectomy. Pancreas: No abnormal uptake. Spleen: No abnormal uptake. Calcified granulomas in the spleen are present. Adrenal glands: No abnormal uptake. Kidneys and ureters: Normal physiologic uptake. Stomach and bowel: No abnormal uptake. Small hiatal hernia. Reproductive: The uterus is not identified, likely surgically absent. Vasculature: No abnormal uptake. There are diffuse atherosclerotic changes, and including within the coronary arteries. There is a mildly prominent caliber of the main pulmonary artery. Lymph nodes: Small clustered precarinal lymph nodes measuring up to 1.4 cm in diameter on series 3, image 45 are noted, SUV max 3.3. There is uptake in the right hilar region on image 50, SUV max 4.1 and image 54, SUV max 3.4, without well-defined lymph nodes on the current CT (where there is limited assessment secondary to lack of intravenous contrast). Mildly prominent lymph nodes in these locations were noted on the comparison CT from 01/10/2023 (for example on the prior CT series 3, image 27 where a lymph node or cluster of lymph nodes measured 2.3 x 2.0 cm). Bones/joints: There is moderate to severe right and mild left-sided glenohumeral joint primary osteoarthritic changes. Uptake in the bilateral glenohumeral joint capsules is likely inflammatory and is greatest on the right, SUV max 4.0. In the left ischial tuberosity, there is a new lytic expansile lesion measuring approximately 2.7 x 1.5 cm on series 3, image 141 with elevated uptake, SUV max 11.3. The bones appear demineralized.There is mild diffuse vertebral body spondylosis. There is moderate thoracic spine kyphosis. Non radiotracer avid compression fractures of the vertebral bodies appears severe at L1, mild at T12 and moderate at L4. The compression fractures of T12 and L1 are similar compared with 01/10/2023. The fracture of L4 is new compared with 10/12/2019. Soft tissues: No abnormal uptake in the visualized head, neck, chest, abdomen, pelvis, and extremities. There are postoperative changes of right mastectomy. There is asymmetric atrophy of the right rectus abdominus musculature. METRICS: Mediastinal blood pool: SUV max 3.0 PET/PET skulltothigh SUBSEQ [id number] IMPRESSION: 1. Elevated uptake is noted within a region of rounded soft tissue density encasing left hilar structures a similar to the prior CT of 01/10/2023, SUV max 9.7. This uptake is concerning for malignancy. 2. Mild uptake within a cluster of partially calcified precarinal lymph nodes is likely related to inflammatory or infectious uptake associated with prior granulomatous infection. Uptake in the right hilar region (SUV max 3.4) correlates with mildly prominent lymph nodes on the prior CT. Although this uptake may also represent infectious or inflammatory changes, neoplastic involvement cannot be excluded. 3. There is a new radiotracer avid lytic lesion in the left ischial tuberosity (SUV max 11.3) compatible with malignancy. 4. Additional nonurgent findings as detailed above.
== END 2023-02-16 06:33 | disposition home or self-care (01) ==
LOC: RAD 02-18 06:32
PROVIDERS: PCP Family Medicine; Visit Provider Internal Medicine Pulmonary Disease
DX: R91.8 Other nonspecific abnormal finding of lung field (principal); R93.7 Abnormal findings on diagnostic imaging of other parts of musculoskeletal system
CPT/HCPCS: 36415; 78815; 82785; 86003; A9552

== ENCOUNTER 2023-02-19 08:07 | Outpatient (CLI) | payer MEDICARE, SELFPAY ==
[2023-02-19 08:15] VITALS: BP 152/94
[2023-02-19 08:51] VITALS: PULSE 81; RESP 18; O2SAT 98
[2023-02-19 08:55] VITALS: PULSE 79
== END 2023-02-19 08:08 | disposition home or self-care (01) ==
LOC: RT 08:08
PROVIDERS: PCP Family Medicine; Visit Provider Internal Medicine Pulmonary Disease
DX: R06.09 Other forms of dyspnea (principal); R94.2 Abnormal results of pulmonary function studies
CPT/HCPCS: 94060; 94618; 94726; 94729; J7613

== ENCOUNTER 2023-02-20 06:00 | Outpatient (CLI) | payer MEDICARE, SELFPAY | END 2023-02-20 06:01 | disposition home or self-care (01) | LOC: SPT 02-21 09:37 | PROVIDERS: PCP Family Medicine; Visit Provider Student in an Organized Health Care Education/Training Program | DX: Z46.89 Encounter for fitting and adjustment of other specified devices (principal); M17.11 Unilateral primary osteoarthritis, right knee | CPT/HCPCS: 97760; L1852 ==

== ENCOUNTER → 2023-03-07 15:04 | Outpatient (BNVA) | payer MEDICARE, SELFPAY | PROVIDERS: PCP Family Medicine; Visit Provider Internal Medicine Pulmonary Disease | DX: R91.8 Other nonspecific abnormal finding of lung field (principal); R06.2 Wheezing | CPT/HCPCS: 99214 ==

== ENCOUNTER → 2023-03-08 10:21 | Outpatient (BNVA) | payer MEDICARE, SELFPAY | PROVIDERS: PCP Family Medicine; Visit Provider Emergency Medicine | DX: R39.9 Unspecified symptoms and signs involving the genitourinary system (principal) | CPT/HCPCS: 81000; 87086 ==

== ENCOUNTER 2023-03-12 11:03 | Day surgery (SDC) | payer MEDICARE, SELFPAY ==
[2023-03-08 12:04] VITALS: BMI 31.3
[2023-03-12] VITALS (13 sets, daily range): BP systolic 125–166; BP diastolic 65–94; PULSE 60–83; RESP 10–20; TEMP 36.3–36.6; O2SAT 93–98
[2023-03-12] MEDS: sodium chloride 0.9% 1,000 ML 30 ML IV (11:52)
[2023-03-12 12:33] LABS: INR 0.99 (0.8-1.2)
--- NOTE | 2023-03-12 12:45 | CT_ITS ---
WS: [id number] CT-GUIDED LEFT ISCHIAL TUBEROSITY BIOPSY CLINICAL INFORMATION: CT guided biopsy PET lytic left ischial tuberostiy lesion COMPARISON: PET/CT 02/16/2023 DLP: 519.58 mGy.cm TECHNIQUE: The procedure including risk, benefits, and complications were discussed with the patient who agreed to proceed. Versed and fentanyl administered for conscious sedation. Timeout was performed . Using sterile technique, the patient was prepped and draped in the usual sterile fashion. Patient w as positioned prone and CT images were obtained through the pelvis. The lytic lesion in the left isch ial tuberosity was selected. After 1% lidocaine using fluoroscopic guidance, a 10-gauge coaxial osteo cyte needle device was advanced into the bone lesion. Single bony core was obtained and placed in kevin ine. No immediate complications. IMPRESSION: 1. Uncomplicated CT-guided bone biopsy 2. Pathology is pending. 3. Patient was discharged 1 hour postprocedure in stable condition.
[2023-03-12] MEDS: midazolam 1 mg/mL INJ 2 mL IVP ×2 (13:05→13:13)
[2023-03-12] MEDS: fentaNYL 50 mcg/mL INJ 2mL IVP (13:05)
[2023-03-12] MEDS: fentaNYL 50 mcg/mL INJ 2mL 25 MCG IVP (13:13)
[2023-03-13 14:21] LABS: Lymphoma Profile (BBPL) See Report
== END 2023-03-12 14:52 | disposition home or self-care (01) ==
PROVIDERS: Radiology Neuroradiology; PCP Family Medicine; Visit Provider Internal Medicine Pulmonary Disease
DX: R68.89 Other general symptoms and signs (principal); C79.9 Secondary malignant neoplasm of unspecified site
CPT/HCPCS: 20225; 36415; 77012; 85610; 88184; 88185; 88307; 88311; 88342; 96374; 96375; J2250; J3010; J7030

== ENCOUNTER 2023-03-18 07:48 | Outpatient (CLI) | payer MEDICARE, SELFPAY ==
--- NOTE | 2023-03-18 | ECG_ITS ---
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 Interpretive Statements NAME OF STUDY: LEXISCAN SESTAMIBI STRESS TEST INDICATION: Coronary Artery disease, preop clearance PROCEDURE: At the baseline, the blood pressure was 169/81 mmHg, oxygen saturation 94% with a heart rate of 57 bpm. The electrocardiogram showed sinus bradycardia, leftward axis. Possible old anteroseptal infarct. The Lexiscan was infused over a period of 20 seconds. A total of 0.4 milligrams of Lexiscan was infused. The stress phase was continued for a total of 5 minutes. Heart rate at the end of the stress phase was 71 bpm, oxygen saturation 94% with a blood pressure 119/72 mmHg. The EKG at the peak infusion revealed sinus rhythm with no significant ST-T wave changes. The study was terminated due to protocol combination Sestamibi was injected 20 seconds after the Lexiscan infusion. Blood pressure at the end of the recovery phase was 135/69 mmHg, oxygen saturation 92% with a heart rate of 68 beats per minute. CONCLUSION: 1. Normal EKG response to LexiScan infusion. 2. No LexiScan induced chest pain or cardiac arrhythmia. 3. Normal blood pressure and heart rate response. 4. Sestamibi/sestamibi perfusion scan pending; see separate report. Electronically Signed On 03-18-2023 13:01:17 CDT by Sarah Ferraro M.D. [email or web address]
[2023-03-18 08:09] VITALS: BMI 31.9
--- NOTE | 2023-03-18 08:13 | NMCV_ITS ---
NM sylvester perf SPECT r/s* [id number] Ester Reaves Age: 82 Gender: F : 1940 Exam Date: 03/18/2023 09:21 Ordering Phys: Sarah Ferraro MD ([email or web address]) Technologist: TAVIA Phillips Exam Location: [facility] Indications: HYPERTENSION, ATHEROSCLEROTIC HEART DISEASE STRESS TEST Please see separate stress test report in [facility] for full findings IMAGE PROTOCOL Rest/Stress 1 Lexiscan Day Radiopharmaceutical Dose (mCi) Administration Site Administered by Rest: Tc-99m 10.6 IV TAVIA Gallegos Sestamibi Stress:Tc-99m 32.5 IV TAVIA Phillips Sestamiron Rest: 18-Mar-2023 60 Discovery 630 Stress: 18-Mar-2023 30 Discovery 630 0.4mg Lexiscan. Supine position only as patient was unable to lay prone. SPECT RESULTS Technical Quality: Excellent Raw Data Analysis: Normal Image Corrections: No attenuation or motion correction applied Summed Stress Score: 12 Summed Rest Score: 7 Summed Difference Score: 5 PERFUSION FINDINGS Small sized perfusion abnormality of mild severity of basal to mid inferior lateral, mid inferior, apical lateral wall on rest images with some reversibility noted in mid inferolateral and basal to mid inferior wall on supine stress images. FUNCTIONAL RESULTS (calculated via Gated SPECT) Stress Image LV EF (%): 72 Stress EDV (mL):92 TID: 0.95 Stress ESV (mL):26 FUNCTIONAL FINDINGS: The left ventricle is normal in size. Transient Ischemia Dilatation of 0.95. The left ventricular ejection fraction is normal with a value of 72%. There is normal left ventricular wall thickening. Normal end-diastolic and end-systolic volumes. IMPRESSIONS 1. Medium sized perfusion abnormality of basal to mid inferior lateral, basal to mid inferior, apical inferior and apical lateral jacinto. 2. This may represent old myocardial infarction in right coronary artery/circumflex artery territory with mild sun-infarct ischemia. Attenuation artifact cannot be completely ruled out in absence of prone imaging. 3. Overall left ventricular systolic function is normal without regional wall motion abnormalities, LVEF=72%. 4. No EKG changes with Lexiscan infusion. Refer to separate report for details. Sarah Ferraro MD (Electronically Signed) Final Date: 18 March 2023 13:08 S
[2023-03-18] MEDS: regadenoson 0.4 Mg/5 ml Syringe IVP (10:01)
[2023-03-18 10:16] VITALS: BP 145/68; PULSE 62
== END 2023-03-18 07:49 | disposition home or self-care (01) ==
PROVIDERS: PCP Family Medicine; Visit Provider Internal Medicine Cardiovascular Disease
DX: Z01.818 Encounter for other preprocedural examination (principal); I25.10 Atherosclerotic heart disease of native coronary artery without angina pectoris; I10 Essential (primary) hypertension
CPT/HCPCS: 36415; 78452; 93017; 96374; A9500; J2785

== ENCOUNTER 2023-03-21 10:56 | Day surgery (SDC) | payer MEDICARE, SELFPAY ==
[2023-03-20 16:38] VITALS: BMI 31.9
[2023-03-21] VITALS (9 sets, daily range): BP systolic 127–154; BP diastolic 72–91; PULSE 66–89; RESP 16–18; TEMP 36.2–36.5; O2SAT 92–95
[2023-03-21] MEDS: sodium chloride 0.9% 1,000 ML 30 ML IV (11:33)
--- NOTE | 2023-03-21 11:57 | ANES.PREANE2 ---
Pre-Anesthetic Assessment Height/Weight: Height 1.65 m Weight 87.09 kg Temp Pulse Resp BP Pulse Ox O2 Del Method 97.4 F L 89 18 142/91 95 Room Air 03/21/23 11:21 03/21/23 11:21 03/21/23 11:21 03/21/23 11:21 03/21/23 11:21 03/21/23 11:21 Operation Date: 03/21/23 12:00 Proposed Procedures p EBUS, 92945, 61748, 85949, 48638,R91.8(Not Applicable) - Michele Eli DatarMD Familial anesthetic complications: None Was Beta Dina taken within 24 hours: Yes Was Clonidine taken within 24 hours: N/A Last intake: Intake Last Liquid Date 03/20/23 Last Liquid Time 21:00 Last Solid Date 03/20/23 Last Solid Time 21:00 Social No alcohol and No tobacco Exam alert, oriented x 3, clear to auscultation bilaterally and regular rate & rhythm Airway Submandibular: within normal limits Cervical ROM: within normal limits Mallampati: Class III Dentition: partials History/ROS No significant history except as noted and No significant complaints Pulmonary Exertional Dyspnea and None reported CV/HEM Coronary Artery Disease, Deep Vein Thrombosis, Hypertension and Myocardial Infarction (6 stents 10 years ago.) CONCLUSIONS ?LV systolic function is normal with EF of 55-60% ?Grade 1 diastolic dysfunction ?Trace mitral regurgitation ?Trace tricuspid regurgitation ?Mild pulmonic regurgitation ?No comparison studies are available CONCLUSION: 1. Normal EKG response to LexiScan infusion. 2. No LexiScan induced chest pain or cardiac arrhythmia. 3. Normal blood pressure and heart rate response. 4. Sestamibi/sestamibi perfusion scan pending; see separate report. None reported Hepatic None reported GI Gastroesophageal Reflux Disease Metabolic None reported Musc/skel None reported Neuropsych Neuropathy Anesthetic Plan ASA status: 3 Anesthesia: Anesthesia Evaluation and General Risk of > 500 ml blood loss (7ml/kg in children): No Medications/Allergies Home Medications Medication Instructions Recorded Confirmed Last Taken Type Lactobacillus acidophilus and 1 cap PO QAM 12/09/19 03/20/23 03/20/23 History rhamnosus 15 billion cell capsule (Probiotic) Calciumk+ 5 - 10 ml PO DAILY 02/27/22 03/20/23 03/20/23 History Coffee Mocha Recharge 1 packet PO QAM 02/27/22 03/20/23 03/20/23 History Immune From Live Pure 1 tab PO DAILY 02/27/22 03/20/23 03/20/23 History Mangosteen Juice 1 oz PO DAILY 02/27/22 03/20/23 03/20/23 History Caro Juice 1 oz PO DAILY 02/27/22 03/20/23 03/20/23 History acetaminophen 500 mg tablet 1,000 mg PO Q4H PRN Pain 02/27/22 03/20/23 03/20/23 History 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 ##1 02/20/23 03/08/23 03/12/23 Rx alendronate 70 mg tablet 70 mg PO DIRECTED 03/08/23 03/20/23 03/16/23 History carvedilol 3.125 mg tablet 3.125 mg PO BID 03/08/23 03/20/23 03/21/23 07:30 History meloxicam 7.5 mg tablet 7.5 mg PO DAILY 03/08/23 03/20/23 03/21/23 07:30 History rosuvastatin 40 mg tablet 40 mg PO DAILY 03/08/23 03/20/23 03/20/23 History triamcinolone acetonide 0.1 % 1 applic topical BID skin 03/14/23 03/20/23 03/20/23 Rx topical ointment dermatitis #30 grams Allergies Allergy/AdvReac Type Severity Reaction Status Date / Time No Known Allergies Allergy Verified 03/20/23 16:43 Current Medications Generic Name Dose Route Start Last Admin Trade Name Freq PRN Reason Stop Dose Admin Sodium Chloride 1,000 mls @ 30 mls/hr 03/21/23 11:15 03/21/23 11:33 Sodium Chloride 0.9% IV 03/22/23 11:14 30 mls/hr .Q24H ROMA Administration PFSH Anesthesia Medical History Breast cancer Coronary artery disease History of OR GERD (gastroesophageal reflux disease) History of DVT (deep vein thrombosis) Left lower extremity - following hysterectomy Hyperlipidemia Hypertension Osteoporosis Surgical History History of cholecystectomy History of coronary angioplasty with insertion of stent x 6 around 2010 History of hysterectomy History of inguinal hernia repair History of orthopedic surgery ORIF right forearm fracture History of right mastectomy (07/03/18) S/P lymph node biopsy (07/27/15) Right axillary sentinel lymph node biopsy Status post excisional biopsy (06/30/15) Excisional biopsy of right breast mass Family History Mother TIA (transient ischemic attack) Father , age 72 CAD (coronary artery disease) Social History Smoking and tobacco status: never smoked Alcohol intake: never Substance/Drug Use: never Data Anesthesia Cardiac Studies: Echocardiogram 03/20/21 Sestamibi Stress Test (Cardiology) 03/18/23
--- NOTE | 2023-03-21 12:03 | P.HPUD_ITS ---
Surgery/Procedure H&P Update DATE OF PROCEDURE: March 21, 2023 DATE H&P PERFORMED: 03/07/23 CHANGES TO PREVIOUS DOCUMENTATION: Patient underwent CT-guided biopsy of left ischial tuberosity on 03/12/2023- pathology was consistent with metastatic carcinoma however definitive margin determination is challenging as the material was limited. Hence today she is scheduled for endobronchial ultrasound biopsy of PET active left hilar mass PREOP DIAGNOSIS: Suspected malignancy PRIMARY INDICATION FOR PROCEDURE: Procedure is being performed to obtain tissue from left hilar PET active area to do additional studies to determine primary lung versus metastatic breast PLANNED PROCEDURE: Operation Date: 03/21/23 12:00 Proposed Procedures p EBUS, 03490, 76922, 59925, 82513,R91.8(Not Applicable) - Michele Levy MD
[2023-03-21 12:53] LABS: Apprearance, Bronch Wash Bloody (CLEAR); Bronch Source LEFT UPPER LOBE; Color, Bronc Wash Red; Cyto Order Verification Order Verified
[2023-03-21] MEDS: lidocaine 1% INJ 10 mL (per mL) XX (13:19)
--- NOTE | 2023-03-21 13:27 | P.OP_ITS ---
Operative Report Date of procedure: March 21, 2023 Pre-op diagnosis: Preop Diagnosis Suspected malignancy Post-op diagnosis: same Procedure done: 51853 Dx Bronchoscope w/BAL 51795 Dx Bronchoscopy w/Bronchial or Endobronchial biopsy(s), single or multiple sites 39098 Bronchoscopy w/ therapeutic aspiration of the tracheobronchial tree (clearance of airway secretions, removal of mucus plugs) 93978 EBUS Sampling 1/2 nodes Surgeon: Michele Levy MD [facility] Brief History: Ester is a 82-year-old female with past medical history of, hypertension, CAD, osteoporosis-referred by Dr. Polanco for abnormal lung finding on imaging.? Left hilar soft tissue mass on CT chest 01/10/2023. Patient had history of malignant neoplasm of upper-outer quadrant of right female breast in 2014. She underwent excisional biopsy June 2015 showed grade 3 infiltrating ductal carcinoma with negative margins. Total of 10 axillary lymph nodes were negative for metastatic disease. Her disease was pathologic stage Ia (T1c, N0 M0). She also was recommended to have adjuvant radiation and adjuvant hormonal therapy, but she then failed to return for follow-up. In April 2018-there was recurrence of mass in right breast-ultrasound biopsy May 2018 showed grade 2 infiltrating ductal carcinoma. ER positive at 100%-patient underwent right simple mastectomy 07/03/2018. Margins are free. She received adjuvant hormonal therapy as well as treatment with Prolia for osteoporosis. After several months she discontinued anastrozole due to worsening joint pain-she was started on exemestane. In February 2020 when she was showing some improvement clinically but had vertebral compression fractures and so was recommended to stop exemestane. And since then continue daily expectant management for breast cancer. Reported that she never smoked. In December 2022 patient has shortness of breath and for which she underwent CT chest 01/10/2023 which showed left hilar soft tissue mass probably confluent adenopathy encasing bronchovascular tree and causing mild occlusion.? Largest diameter 3 x 2.3 cm. ? PET/CT 02/16/2023 elevated uptake in the rounded soft tissue density encasing the left hilar structures similar to prior CT 01/10/2023 with SUV max 9.7 from sending for malignancy.? Uptake in the right hilar region SUV max 3.4.? New radiotracer avid lytic lesion in the left ischial tuberosity SUV max 11.3 c ompatible with malignancy. Atherosclerotic heart disease of [place] coronary artery and has seen cardiology after almost 10 years-they plan to do stress test to rule out CAD as cause of her shortness of breath as well. Meanwhile she was referred to me to obtain an lung biopsies. As her cardiac stress test was pending, I recommended CT-guided biopsy of left ischial tuberosity with local anesthesia. However her CT-guided biopsy on 03/12/2023 of left ischial tuberosity-pathology was consistent with metastatic carcinoma however definitive margin determination is challenging as the material was limited. Hence today she is scheduled for bronchoscopic evaluation and endobronchial ultrasound-guided biopsy of left hilar mass. Her cardiac stress test 03/18/2023 showed medium size perfusion abnormality of basal to mid inferior lateral, basal to mid inferior and apical inferior and apical lateral jacinto which may represent old myocardial infarction and RCA/circumflex artery with mild sun-infarct ischemia. I discussed with the patient's systems architecture analyst Dr. Ferraro and she has given clearance to proceed with bronchoscopic biopsies. Prior to procedure indication, alternatives, nature of the procedure, complications including bleeding and pneumothorax were discussed in detail with patient and her [id number]-[id number]. They verbalized understanding and agreed to proceed with the procedure Procedure: 95933 Dx Bronchoscope w/BAL 51791 Dx Bronchoscopy w/Bronchial or Endobronchial biopsy(s), single or multiple sites 37708 Bronchoscopy w/ therapeutic aspiration of the tracheobronchial tree (clearance of airway secretions, removal of mucus plugs) 90130 EBUS Sampling 1/2 nodes Indication: PET active left hilar soft tissue density; uptake in right hilar region-rule out Malignancy Anesthesia: General anesthesia. Local anesthesia: The mei in the right and left mainstem bronchi were anesthetized with 1% lidocaine, 3 mL. Description of the procedure: The procedure was explained to the patient and the consent was obtained. The patient was brought to the OR. The patient underwent induction for general anesthesia and endotracheal tube was placed. The bronchoscope was advanced through the ET tube. The distal trachea was visualized. Tracheal mucosa appeared normal, no endotracheal lesion was seen. The mei was sharp. 1 mL each of 1% lidocaine was instilled in the trachea the right and left mainstem bronchi for local anesthesia. In a systematic manner bilateral bronchial tree was then examined. The bronchoscope was then introduced into the right mainstem bronchus. The right upper lobe, right middle lobe and right lower lobe bronchi were examined up to the third subsegmental level and no abnormalities were identified. The mucosa appeared normal with no endobronchial lesions, active bleeding or mucous plugs.There were clear secretions which were suctioned right away(86811). The bronchoscope was advanced into the left mainstem bronchus. There is a endobronchial lesion which is completely occluding left lower lobe airway. It is friable and started to bleed as soon as bronchoscope touched the surface. The left upper lobe, lingula, left lower lobe were examined and there were endobronchial lesion occluding lingula as well as left lower lobes. There were clear secretions which were suctioned right away(27203). With the help of forceps-endobronchial biopsies (16111) were taken from the endobronchial lesions of lingula.(82513) Bronchoalveolar lavage was taken from left lingula Bronchoscope was retracted and Endobronchial Ultrasound (EBUS)(34051 ) was introduced. Identified a large hypoechoic mass in station 7 as well as station 11 L. Using wjgj-sasgwe-hdqtwxzl were taken from all station 11 L as well as station 7 (35836); there was some evidence of bleeding which is controlled with instillation of cold saline. I do not see any significant lymph nodes on the right hilar area. After making sure there is no active bleeding, bronchoscope retracted and procedure terminated. Samples: 1. Endobronchial biopsies from left lingula endobronchial lesion (94895). 2. Bronchoalveolar lavage (37144) was performed after wedging the bronchoscope at the entrance of occluded left lingula. 30 mL of saline was instilled, fluid return was 15 mL. Bronchoalveolar lavage specimen was sent for cell count and differential, gram stain and culture, cytology B. EBUS guided Fine-needle aspiration biopsies were taken from station 4L, station 11 L, (20424) 1. Total of 3 passes were made using needle aspiration(31218) from station 7; all the material was placed in formalin and sent for histopathology 2. Total of 3 passes were made using needle aspiration(73900) from station 11 L; all the material was placed in formalin and sent for histopathology Complications: None.The patient was extubated and brought to the PACU in stable condition. Disposition: Patient can be discharged home in stable condition. Pt and her hznszsny-qd-zhz are aware that I am going to call them to update final biopsy results once available. Related Problem List Diagnoses (1) Lung mass: (2) Hilar mass:
--- NOTE | 2023-03-21 13:55 | XR_ITS ---
WS: [id number] EXAMINATION: XR chest 1V portable 62309 REASON FOR EXAM: Bronch/ebus COMPARISON: 11/30/2022 ORDER DATE: 03/21/2023 1:59 PM TECHNIQUE: A single, portable frontal chest x-ray was obtained. X-RAY FINDINGS: The lungs are of infiltrate. There our generalized chronic lung changes with some minor atelectasis i n the left base. Pleural spaces are clear. No pleural effusions or pneumothorax. Cardiomediastinal silhouette is unremarkable with atherosclerotic aortic change and tortuosity.. No e vidence for pulmonary edema. Soft tissue and osseous structures are unremarkable. No tubes or lines are present. IMPRESSION: Minor left basal atelectasis, minimal change from previous study
[2023-03-21 14:24] LABS: WBC Within 10% 9
[2023-03-21 14:43] LABS: Other Cells, Bronch Wash 0 %; PATH Referral Yes; Total Cells Counted Bronch 100
--- NOTE | 2023-03-21 16:12 | ANE.PACU2 ---
Inpatient post-anesthesia follow up: Airway intact: Yes Vital signs: Temperature 97.2 F Pulse Rate 67 Respiratory Rate 16 Blood Pressure 132/77 Pulse Oximetry 93 Oxygen Delivery Me thod Room Air Oxygen Flow Rate Fraction of Inspir ed Oxygen Hydration adequate: Yes Nausea and vomiting: No Pain level: 2 Mental status: Baseline
[2023-03-27 06:32] LABS: PD-L1 (Clone 22C3) by IHC BBPL See Report
== END 2023-03-21 14:30 | disposition home or self-care (01) ==
PROVIDERS: PCP Family Medicine; Visit Provider Internal Medicine Pulmonary Disease
PROC: BB4BZZZ Ultrasonography of Pleura (ICD-10-PCS; principal; 2023-03-21 12:00)
PROC: 0BJ08ZZ Inspection of Tracheobronchial Tree, Via Natural or Artificial Opening Endoscopic (ICD-10-PCS; CPT 31622; 2023-03-21 12:00)
DX: R91.8 Other nonspecific abnormal finding of lung field (principal); I10 Essential (primary) hypertension; I25.10 Atherosclerotic heart disease of native coronary artery without angina pectoris; M81.0 Age-related osteoporosis without current pathological fracture; Z85.3 Personal history of malignant neoplasm of breast; I25.2 Old myocardial infarction; Z95.5 Presence of coronary angioplasty implant and graft
CPT/HCPCS: 31624; 31625; 31645; 31652; 71045; 80503; 87070; 87205; 88112; 88305; 88341; 88342; 89050; J0330; J1100; J2405; J2704; J3010; J3490; J7030

== ENCOUNTER 2023-03-26 15:28 | Oncology outpatient (recurring) (ONCR) | payer MEDICARE, SELFPAY ==
[2023-02-26 09:58] VITALS: BMI 31.8
[2023-02-26 09:59] VITALS: BP 138/76; PULSE 70; RESP 16; TEMP 35.9; O2SAT 95
[2023-02-26 10:11] LABS: Basophils % 0.4 %; Eosinophils # 0.1 10^3/uL (0.0-0.8); Eosinophils % 1.8 %; Hematocrit 39.3 % (37.0-47.0); Hemoglobin 12.3 g/dL (11.5-15.3); Lymphocytes # 1.1 10^3/uL (0.8-4.8); Lymphocytes % 24.9 %; Mean Corpuscular HGB Conc 31.3 g/dL (30.0-36.0); Mean Corpuscular Hemoglobin 28.1 pg (28.0-34.0); Mean Corpuscular Volume 89.9 fl (81-99); Mean Platelet Volume 9.7 fL (7.4-10.4); Monocytes # 0.4 10^3/uL (0.2-0.9); Monocytes % 9.9 %; Neutrophils # 2.79 10^3/uL (1.8-7.7); Neutrophils % 62.8 %; Nucleated Red Blood Cells % 0 %; Platelet Count 191 10^3/cmm (130-400); Red Blood Count 4.37 10^6/uL (4.1-5.3); Red Cell Distribution Width 14.5 % (12.1-15.1); White Blood Count 4.5 10^3/uL (4.0-10.0)
[2023-02-26 10:35] LABS: Alanine Aminotransferase 16 U/L (0-33); Albumin Level 4.1 g/dL (3.5-5.2); Alkaline Phosphatase 85 U/L (35-105); Anion Gap 14.4 (5-19); Aspartate Amino Transferase 22 U/L (0-32); Blood Urea Nitrogen 25 mg/dL (8-23); Calcium 9.3 mg/dL (8.5-10.5); Carbon Dioxide 26 mmol/L (22-29); Chloride 103 mmol/L (98-107); Globulin 3.2 g/dL (1.3-4.6); Glucose 96 mg/dL (65-115); Osmolality Calculated 292 mOsm/kg (285-295); Potassium 4.4 mmol/L (3.5-5.1); Sodium 139 mmol/L (136-145); Total Bilirubin 0.3 mg/dL (0.15-1.2); Total Protein 7.3 g/dL (6.6-8.7)
[2023-02-26 11:49] LABS: 25 Hydroxy Vitamin D 46 ng/mL (30-100)
== END 2023-03-28 23:59 | disposition home or self-care (01) ==
PROVIDERS: PCP Family Medicine; Visit Provider Internal Medicine Medical Oncology
DX: C50.811 Malignant neoplasm of overlapping sites of right female breast (principal); Z17.0 Estrogen receptor positive status [ER+]; Z90.11 Acquired absence of right breast and nipple; Z79.811 Long term (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 of aromatase inhibitors; M81.0 Age-related osteoporosis without current pathological fracture; Z79.899 Other long term (current) drug therapy; C79.51 Secondary malignant neoplasm of bone
CPT/HCPCS: 36415; 80053; 82306; 85025; 99214

== ENCOUNTER → 2023-04-18 11:54 | Day surgery (SDC) | payer MEDICARE, SELFPAY ==
--- NOTE | 2023-04-18 11:28 | XR_ITS ---
WS: [id number] XR chest 1V portable [id number] REASON FOR EXAM: Post PICC insertion FINDINGS: The initial left arm PICC line placement image demonstrated the PICC line to be just within the super ior vena cava. It was recommended to advance the PICC line 2 to 3 cm. This was done and the follow-up image demonstr ates the tip of the PICC line in the superior vena cava just above the right atrium in proper positio n for use. IMPRESSION: Left arm PICC line placement as above. Images were reviewed and discussed over the phone with the x-r ay technologist 12:42 p.m. 04/18/2023.
[2023-04-18 12:05] VITALS: BP 144/86; PULSE 87; RESP 18; TEMP 36.1; O2SAT 93
--- NOTE | 2023-04-18 12:10 | PC.NURSE ---
Double lumen PICC placed to left basilic vein. Pt referred to PICC nurse from [facility] for PICC placement for chemotherapy. Risks and benefits discussed with patient and informed consent obtained. Pt with history of right mastectomy. Left arm assessed with basilic vein measuring 7.6 mm, straight, and apparent best choice for placement. Using sterile technique and MST, left basilic vein accessed x 1 stick. Mid-arm circumference measured 10 cm from left AC 25 cm. Trimmed cath 41 cm with external length 0 cm. CXR shows tip in distal SVC, in good position for use per radiologist. Line secured with stat-lock. Insertion site covered with Biopatch and TSM. Report called to Kyara at [facility]. Pt scheduled to follow up tomorrow at 0830 for PICC dressing change at [facility].
== END ==
PROVIDERS: PCP Family Medicine; Visit Provider Internal Medicine Medical Oncology
DX: C79.51 Secondary malignant neoplasm of bone (principal); C50.411 Malignant neoplasm of upper-outer quadrant of right female breast
CPT/HCPCS: 36573; 71045

== ENCOUNTER 2023-04-25 09:00 | Oncology outpatient (recurring) (ONCR) | payer MEDICARE, SELFPAY ==
--- NOTE | 2023-04-04 17:16 | N.ONRAD NP_ITS ---
Radiation Oncology New Patient Visit Patient: Ester Reaves MR#: [id number] : 1940 Age: 82 Sex: Female> Dictated by: Eligio Varela Date of Service: 04/04/2023 Referring Physician(s) : Dr. Lake Kennedy Diagnosis: 1) C50.411 - malignant neoplasm of upper-outer quadrant of right female breast, Diagnosed 06/23/2018 (active), stage iia, t2, n0, m0, g2 and C50.411 - malignant neoplasm of upper-outer quadrant of right female breast, Diagnosed 08/09/2015 (active), stage ia, t1c, n0, m0, g3. 2) lung, left, squamous cell carcinoma, stage T2 N2 M1 Radiotherapy to date: Summary > No prior radiation therapy. Chief Complaint / History of Present Illness: Ms Reaves is an 82-year-old lady who developed breast cancer in May 2015. She had an excisional biopsy of a palpable mass in the right breast that showed grade 3 infiltrating ductal carcinoma. [place] node biopsy was negative with an additional 8 nodes being taken and also negative. She had a stage [id number] with estrogen receptor positive disease, but she had a high Oncotype DX score of 36 and chemotherapy was recommended. She refused chemotherapy and then she also refused radiation as part of breast conservation. She failed in the right breast and underwent a mastectomy and it appears she continues to be free of disease. She developed increased shortness of breath with exertion and worsening cough earlier this summer. A CT scan of the chest was performed which showed a soft tissue mass in the left hilum encasing the bronchovascular tree and causing mild occlusion. The mass measured 3.0 x 2.3 cm. She underwent a bronchoscopy and a mass was encountered in the left upper lobe bronchus and the biopsy was positive for squamous cell carcinoma. She also had ultrasound-guided biopsies of lymph nodes in stations 7 and 11L. They were positive for metastatic squamous cell carcinoma. A PET scan was performed for further staging and it showed uptake consistent with malignancy in the left upper lobe mass and also revealed a lytic lesion in the left ischial tuberosity consistent with malignancy with an SUV of 11.3. A biopsy of the left ischium was performed 03/15/2023. The tissue showed malignancy, favoring lung, though difficult to evaluate because of the paucity of cells. Ms Reaves is stable. She actually has no pulmonary complaints today. She has mild discomfort in the area of the left ischial tuberosity. She mainly notices it when she is erect and walking. She does not complain of significant cough, hemoptysis, or sputum production. She is referred for evaluation and recommendations with regard to the use of radiation in the treatment of her cancer. Current Medications: Anastrozole, calcium, calcium 600/Vitamin D, carvedilol, cholecalciferol, crestor, exemestane, exemestane, immune Enhance, mangosteen, meloxicam, metamucil, linda Juice, probiotic, voltaren. Allergies: No Known Allergies Medical History: Coronary artery disease, DVT of left lower leg post hysterectomy, gastroesophageal reflux disease, hyperlipidemia, hypertension, myocardial infarction, osteoporosis. No history of collagen vascular disease. No previous radiation therapy. Surgical History: Breast biopsy on 06/30/2015, cardiac stent X6 in 2010, cholecystectomy, hysterectomy, iNGUINAL HERNIA REPAIR, mammogram on 06/13/2015, mastectomy in 06/2018, right forearm fracture with surgical repair, right mastectomy on 07/03/2018 and sentinal node biopsy on 07/27/2015. Family History: Father is at age 72 having experienced myocardial infarction. Mother is having experienced TIA. Social History: Last screened on 07/31/2021 - Never smoked. Last screened on 07/31/2021 - Never drank. Current Complaints / Review of Systems: . Vital Signs: Physical Exam: Alert, oriented, no acute distress. She has no cervical or supraclavicular lymphadenopathy. Lungs are clear to percussion. On auscultation no rales, rhonchi, or wheezes. Heart rhythm regular. No murmur or gallop. Abdomen has no distention. No organomegaly or mass or tenderness. Musculoskeletal no bone tenderness. Performance Status: ECOG 2 Pathology: 1)Primary, c50.411 - malignant neoplasm of upper-outer quadrant of right female breast, Diagnosed 06/23/2018 (active) stage iia, t2, n0, m0, g2, Primary, c50.411 - malignant neoplasm of upper-outer quadrant of right female breast, Diagnosed 08/09/2015 (active) stage ia, t1c, n0, m0, g3 and Secondary, m81.0 - age-related osteoporosis without current pathological fracture, Diagnosed 07/29/1799 (active). 2) lung, left, squamous cell carcinoma. Left ischial tuberosity, metastatic carcinoma probably originating from lung. Lab: Imaging: See HPI Impression: Ms. Reaves appears to have metastatic lung cancer. She has a history of breast cancer for which she did not take standard therapy, but it seems that she is doing well related to that cancer. Dr. Macias saw Ms Reaves and he indicated that the NCCN guidelines recommend/allow proceeding with curative therapy in patients who have oligometastatic lung cancer, particularly metastatic to just one site. This appears to be the case with Ms Reaves. I discussed the aggressive approach with Ms Reaves and her [id number]. I discussed a 6-week course of radiation given with weekly chemotherapy. I reviewed the side effects and possible complications. Most likely the main risk from radiation would be related to the esophagus because the mass and lymphadenopathy are directly adjacent to the esophagus. I discussed that in detail and told her that some patients require frequent dilatations following radiation. I also discussed the lesser risks of pulmonary fibrosis or cardiac injury. I discussed that after the aggressive course of treatment to the lung is given that she could be evaluated for a brief course of radiation to the left ischial tuberosity. I reviewed 3 other options with the patient. One is to take palliative systemic therapy without any radiation, reserving radiation for symptomatic disease. Another option is to proceed with palliative radiation at this time with a course of 2 to 3 weeks of therapy to both the primary site and the metastatic site. The last option I discussed is taking no treatment at all at this time and only coming in for treatment when she develops troublesome symptoms. Plan: The patient will see Dr. Conrad next week to further discuss these options. Signed by: 04/04/2023 5:13:59 PM <<Signature on File>> Time spent with patient: CPT Code: CPT Code:
[2023-04-19 08:35] VITALS: BP 142/78; PULSE 63; RESP 17; TEMP 36.7; O2SAT 94
--- NOTE | 2023-04-19 10:43 | PC.NURSE ---
PICC LINE DRESSING CHANGED COMPLETED VIA STERILE TECHNIQUE. NO REDDNESS OR IRRITATION NOTED. NO INFECTION NOTED. PATIENT TOLERATED WELL.
[2023-04-25 09:45] VITALS: BP 137/98; PULSE 80; RESP 18; TEMP 36.8; O2SAT 95
== END 2023-04-27 23:59 | disposition home or self-care (01) ==
PROVIDERS: PCP Family Medicine; Visit Provider Radiology Radiation Oncology
DX: Z45.2 Encounter for adjustment and management of vascular access device (principal)
CPT/HCPCS: 77295; 77300; 77301; 77334; 77338; 77470; 99205; 99214; J1642

== ENCOUNTER 2023-05-13 08:25 | Oncology outpatient (recurring) (ONCR) | payer MEDICARE, SELFPAY ==
[2023-04-29 08:21] VITALS: BP 122/76; PULSE 81; RESP 18; TEMP 36.6; O2SAT 96
[2023-04-29 08:26] LABS: Basophils % 0.6 %; Eosinophils # 0.1 10^3/uL (0.0-0.8); Eosinophils % 1.7 %; Lymphocytes # 1.2 10^3/uL (0.8-4.8); Lymphocytes % 24.4 %; Mean Corpuscular HGB Conc 31.6 g/dL (30-55); Mean Corpuscular Hemoglobin 28.9 pg (27-33); Mean Corpuscular Volume 91.4 fl (85-98); Mean Platelet Volume 9.8 fL (7.4-10.4); Monocytes # 0.5 10^3/uL (0.2-0.9); Monocytes % 10.8 %; Neutrophils # 2.98 10^3/uL (1.8-7.7); Neutrophils % 62.1 %; Nucleated Red Blood Cells % 0 %; Platelet Count 157 10^3/cmm (157-399); Red Blood Count 4.05 10^6/uL (3.85-5.65); Red Cell Distribution Width 14.6 % (12.1-15.1)
[2023-04-29 08:42] LABS: Alanine Aminotransferase 14 U/L (0-33); Albumin Level 3.9 g/dL (3.5-5.2); Alkaline Phosphatase 80 U/L (35-105); Anion Gap 14.3 (5-19); Aspartate Amino Transferase 21 U/L (0-32); Blood Urea Nitrogen 20 mg/dL (8-23); Calcium 8.9 mg/dL (8.5-10.5); Carbon Dioxide 25 mmol/L (22-29); Chloride 103 mmol/L (98-107); Globulin 3.1 g/dL (1.3-4.6); Glucose 103 mg/dL (65-115); Osmolality Calculated 289 mOsm/kg (285-295); Potassium 4.3 mmol/L (3.5-5.1); Sodium 138 mmol/L (136-145); Total Bilirubin 0.4 mg/dL (0.15-1.2)
[2023-04-29] MEDS: palonosetron 0.25 mg/5 mL SDV IVP (10:44)
[2023-04-29] MEDS: acetaminophen 325 mg Tablet 650 MG PO (10:44)
[2023-04-29] MEDS: sodium chloride 0.9% 250 ML 100 ML IV (10:44)
[2023-04-29] MEDS: famotidine 20 mg/2 mL INJ IVP (10:45)
[2023-04-29] MEDS: diphenhydrAMINE 50 mg/mL SDV 1mL 25 MG IVP (10:45)
[2023-04-29] MEDS: dexamethasone 20 MG in sodium chloride 0.9% 50 ML 188 MG IV (10:53)
[2023-04-29] MEDS: PACLitaxeL 100 MG in sodium chloride 0.9%(non-DEHP) 250 ML 266.67 MG IV (11:14)
[2023-04-29] MEDS: CARBOplatin 190 MG in sodium chloride 0.9% 500 ML 519 MG IV (12:24)
[2023-04-29 13:25] VITALS: BP 137/80; PULSE 65; RESP 18; TEMP 36; O2SAT 93
--- NOTE | 2023-04-30 09:42 | ONCRAD TMN_ITS ---
Radiation Oncology Weekly Treatment Management Patient: Jelly Norman MR#: [id number] : 1940 Attending Physician: Gabe Fish Date of Service: 04/30/2023 Referring Physician(s) : Dr. Lake Kennedy Diagnosis: C50.411 - Malignant neoplasm of upper-outer quadrant of right female breast, Diagnosed 06/23/2018 (Active) Stage IIA, T2, N0, M0, G2 C50.411 - Malignant neoplasm of upper-outer quadrant of right female breast, Diagnosed 08/09/2015 (Active) Stage IA, T1c, N0, M0, G3 Radiotherapy to date: Course: Chest [id number], Treatment Site: Lt [id number], Ref. ID: [id number], Energy: 6X, Dose/Fx (cGy): 200, #Fx: , Dose Correction (cGy): 0, Total Dose (cGy): 400, Start Date: 04/29/2023, Elapsed Days: 1 Reason for visit: The patient is being seen today as part of their regularly scheduled weekly on treatment visits to assess for acute toxicities from radiotherapy. Review of Systems: Hard for her to lay on treatment couch yesterday. Eating ok and breathing ok. Vital Signs: Performed on 04/30/2023 8:44 AM BMI - 30.494 kg/m2 (high), Height - 66.5 in, Weight - 191.8 lbs, Temperature - 97.6 f, Pulse - 72 /min, Respiration - 16 /min, O2 Sat - 97 %, Pain - 0, Fatigue - 2 and BP - 137/ 81 mm(hg). Physical Exam: Imaging: Radiation therapy imaging related to accurate target localization (i.e. KV, MV and CBCT) was reviewed. Appropriate changes, if any, were made to ensure treatment accuracy. Plan: Good tolerance of treatment. Continue as planned. Signed by: Gabe Fish 04/30/2023 9:41:35 AM
[2023-05-06 10:04] VITALS: BP 127/78; PULSE 84; RESP 16; TEMP 36.7; O2SAT 95
[2023-05-06 10:30] LABS: Basophils % 0.6 %; Eosinophils # 0.1 10^3/uL (0.0-0.8); Eosinophils % 2.1 %; Lymphocytes # 0.9 10^3/uL (0.8-4.8); Lymphocytes % 19.2 %; Mean Corpuscular HGB Conc 32.6 g/dL (30-55); Mean Corpuscular Hemoglobin 29.6 pg (27-33); Mean Corpuscular Volume 90.9 fl (85-98); Mean Platelet Volume 10.1 fL (7.4-10.4); Monocytes # 0.4 10^3/uL (0.2-0.9); Monocytes % 7.6 %; Neutrophils # 3.28 10^3/uL (1.8-7.7); Neutrophils % 69.4 %; Nucleated Red Blood Cells % 0 %; Platelet Count 169 10^3/cmm (157-399); Red Blood Count 3.85 10^6/uL (3.85-5.65); Red Cell Distribution Width 14.8 % (12.1-15.1); White Blood Count 4.73 10^3/uL (3.29-11.43)
[2023-05-06 10:49] LABS: Alanine Aminotransferase 20 U/L (0-33); Albumin Level 3.7 g/dL (3.5-5.2); Alkaline Phosphatase 77 U/L (35-105); Anion Gap 10.5 (5-19); Aspartate Amino Transferase 27 U/L (0-32); Blood Urea Nitrogen 23 mg/dL (8-23); Calcium 8.7 mg/dL (8.5-10.5); Carbon Dioxide 26 mmol/L (22-29); Chloride 100 mmol/L (98-107); Globulin 2.9 g/dL (1.3-4.6); Glucose 93 mg/dL (65-115); Osmolality Calculated 277 mOsm/kg (285-295); Potassium 4.5 mmol/L (3.5-5.1); Sodium 132 mmol/L (136-145); Total Bilirubin 0.4 mg/dL (0.15-1.2); Total Protein 6.6 g/dL (6.6-8.7)
[2023-05-06] MEDS: sodium chloride 0.9% 250 ML 75 ML IV (12:12)
[2023-05-06] MEDS: palonosetron 0.25 mg/5 mL SDV IVP (12:13)
[2023-05-06] MEDS: acetaminophen 325 mg Tablet 650 MG PO (12:13)
[2023-05-06] MEDS: famotidine 20 mg/2 mL INJ IVP (12:13)
[2023-05-06] MEDS: diphenhydrAMINE 50 mg/mL SDV 1mL 25 MG IVP (12:14)
[2023-05-06 12:20] LABS: Add Urine Culture? No; Add Urine Microscopic? YES; Bacteria Urine TRACE /hpf; Bilirubin Urine Neg (Negative); Blood Urine Neg (Negative); Glucose Urine UA Norm (Normal); Ketones Urine Negative (Negative); Leukocyte Esterase Urine Trace (Negative); Nitrate Urine Negative (Negative); Protein Urine Neg (Negative); RBC Urine 0-4 /hpf (0-2); Squamous Epithelial Cell Urine 0-4 /hpf (0-5); Urine Appearance Clear (CLEAR); Urine Color Yellow (Yellow); Urobilinogen Urine Norm (Negative); WBC Urine 0-4 /hpf (0-5); pH Urine 7 (5-7)
[2023-05-06] MEDS: dexamethasone 20 MG in sodium chloride 0.9% 50 ML 188 MG IV (12:40)
[2023-05-06] MEDS: PACLitaxeL 100 MG in sodium chloride 0.9%(non-DEHP) 250 ML 266.67 MG IV (12:59)
[2023-05-06] MEDS: CARBOplatin 160 MG in sodium chloride 0.9% 500 ML 516 MG IV (13:56)
[2023-05-06 15:10] VITALS: BP 100/60; PULSE 16; RESP 18; TEMP 36.3; O2SAT 91
--- NOTE | 2023-05-07 12:06 | ONCRAD TMN_ITS ---
Radiation Oncology Weekly Treatment Management Patient: Ester Reaves MR#: [id number] : 1940> Attending Physician: Gabe Fish Date of Service: 05/07/2023 Referring Physician(s) : Dr. Lake Kennedy Diagnosis: C34.32 - Malignant neoplasm of lower lobe, left bronchus or lung, Diagnosed 05/06/2023 (Active) C50.411 - Malignant neoplasm of upper-outer quadrant of right female breast, Diagnosed 06/23/2018 (Active) Stage IIA, T2, N0, M0, G2 C50.411 - Malignant neoplasm of upper-outer quadrant of right female breast, Diagnosed 08/09/2015 (Active) Stage IA, T1c, N0, M0, G3 Radiotherapy to date: Course: Chest , Treatment Site: Lt [id number], Ref. ID: [id number], Energy: 15X, Dose/Fx (cGy): 300, #Fx: 2 / 10, Dose Correction (cGy): 0, Total Dose (cGy): 600, Start Date: 05/06/2023, Elapsed Days: 1 Chest [id number], Treatment Site: Lt [id number], Ref. ID: [id number], Energy: 6X, Dose/Fx (cGy): 200, #Fx: , Dose Correction (cGy): 0, Total Dose (cGy): 1,400, Start Date: 04/29/2023, Elapsed Days: 8 Reason for visit: The patient is being seen today as part of their regularly scheduled weekly on treatment visits to assess for acute toxicities from radiotherapy. Review of Systems: She began chemo yesterday which was well tolerated outside of fatigue. Eating ok. Maintaining a normal level of activity. Vital Signs: Performed on 05/07/2023 8:41 AM BMI - 30.875 kg/m2 (high), Height - 66.5 in, Weight - 194.2 lbs, Temperature - 97.1 f, Pulse - 66 /min, Respiration - 16 /min, O2 Sat - 96 %, Pain - 0, Fatigue - 0 and BP - 126/ 83 mm(hg). Physical Exam: Imaging: Radiation therapy imaging related to accurate target localization (i.e. KV, MV and CBCT) was reviewed. Appropriate changes, if any, were made to ensure treatment accuracy. Plan: Good tolerance of treatment. Continue as planned. Signed by: Gabe Fish 05/07/2023 12:06:01 PM Telemedicine Consent Patient seen today via Telemedicine by agreement and consent of patient. Telemedicine technology used during the visit include audio and, as available, review of images. This patient encounter is appropriate and reasonable under the circumstances given the patient???s particular presentation at this time. The patient has been advised of the potential risks and limitations of this mode of treatment (including but not limited to the absence of in-person examination) and has agreed to be treated in a remote fashion in spite of them. Any and all of the patient???s/patient???s family???s questions on this issue have been answered and I have made no promises or guarantees to the patient. The patient has also been advised to contact this office for worsening conditions or problems, and seek emergency medical treatment and/or call 911 if the patient deems either necessary.
[2023-05-13 08:58] LABS: Basophils % 0.3 %; Eosinophils # 0.1 10^3/uL (0.0-0.8); Eosinophils % 1.4 %; Hematocrit 34.3 % (36-47); Lymphocytes # 0.5 10^3/uL (0.8-4.8); Lymphocytes % 14.3 %; Mean Corpuscular HGB Conc 31.5 g/dL (30-55); Mean Corpuscular Hemoglobin 29.3 pg (27-33); Mean Platelet Volume 9.8 fL (7.4-10.4); Monocytes # 0.4 10^3/uL (0.2-0.9); Monocytes % 9.6 %; Neutrophils # 2.69 10^3/uL (1.8-7.7); Neutrophils % 73.9 %; Nucleated Red Blood Cells % 0 %; Platelet Count 155 10^3/cmm (157-399); Red Blood Count 3.69 10^6/uL (3.85-5.65); Red Cell Distribution Width 14.9 % (12.1-15.1); White Blood Count 3.64 10^3/uL (3.29-11.43)
[2023-05-13 09:00] VITALS: BP 177/69; PULSE 79; RESP 16; TEMP 36.6; O2SAT 98
[2023-05-13 09:28] LABS: Alanine Aminotransferase 17 U/L (0-33); Albumin Level 3.6 g/dL (3.5-5.2); Alkaline Phosphatase 76 U/L (35-105); Aspartate Amino Transferase 22 U/L (0-32); Blood Urea Nitrogen 20 mg/dL (8-23); Calcium 8.8 mg/dL (8.5-10.5); Carbon Dioxide 26 mmol/L (22-29); Chloride 101 mmol/L (98-107); Globulin 2.9 g/dL (1.3-4.6); Glucose 95 mg/dL (65-115); Osmolality Calculated 282 mOsm/kg (285-295); Sodium 135 mmol/L (136-145); Total Bilirubin 0.4 mg/dL (0.15-1.2); Total Protein 6.5 g/dL (6.6-8.7)
[2023-05-13 09:35] LABS: Anion Gap 12.7 (5-19); Potassium 4.7 mmol/L (3.5-5.1)
[2023-05-13] MEDS: famotidine 20 mg/2 mL INJ IVP (10:39)
[2023-05-13] MEDS: acetaminophen 325 mg Tablet 650 MG PO (10:39)
[2023-05-13] MEDS: sodium chloride 0.9% 250 ML 75 ML IV (10:39)
[2023-05-13] MEDS: palonosetron 0.25 mg/5 mL SDV IVP (10:43)
[2023-05-13] MEDS: diphenhydrAMINE 50 mg/mL SDV 1mL 25 MG IVP (10:44)
[2023-05-13 11:10] LABS: Add Urine Microscopic? YES; Bilirubin Urine Neg (Negative); Blood Urine Neg (Negative); Glucose Urine UA Norm (Normal); Ketones Urine Negative (Negative); Leukocyte Esterase Urine 2+ (Negative); Nitrate Urine Negative (Negative); Protein Urine Neg (Negative); Specific Gravity, Urine 1.005 (1.005-1.030); Urine Appearance Clear (CLEAR); Urine Color Straw (Yellow); Urobilinogen Urine Norm (Negative); pH Urine 5 (5-7)
[2023-05-13 11:11] LABS: Add Urine Culture? No; Bacteria Urine TRACE /hpf; Squamous Epithelial Cell Urine RARE /hpf (0-5)
[2023-05-13] MEDS: PACLitaxeL 100 MG in sodium chloride 0.9%(non-DEHP) 250 ML 266.67 MG IV (11:29)
[2023-05-13] MEDS: CARBOplatin 160 MG in sodium chloride 0.9% 500 ML 516 MG IV (12:49)
[2023-05-13 14:45] VITALS: BP 179/74; PULSE 77; RESP 16; TEMP 36.5; O2SAT 98
== END 2023-05-13 23:59 | disposition home or self-care (01) ==
PROVIDERS: Internal Medicine Medical Oncology; Nurse Practitioner Family; PCP Family Medicine; Visit Provider Radiology Radiation Oncology
DX: C34.32 Malignant neoplasm of lower lobe, left bronchus or lung (principal); Z51.11 Encounter for antineoplastic chemotherapy; Z51.0 Encounter for antineoplastic radiation therapy; C50.911 Malignant neoplasm of unspecified site of right female breast; C78.02 Secondary malignant neoplasm of left lung; C77.9 Secondary and unspecified malignant neoplasm of lymph node, unspecified; C79.51 Secondary malignant neoplasm of bone; Z17.0 Estrogen receptor positive status [ER+]
CPT/HCPCS: 77336; 77386; 77412; 80053; 81001; 85025; 96365; 96367; 96375; 96411; 96413; 96417; 99024; 99214; 99215; J1100; J1200; J1642; J2469; J3490; J7040; J7050; J9045; J9267

== ENCOUNTER 2023-05-14 08:06 | Outpatient (CLI) | payer MEDICARE, SELFPAY ==
--- NOTE | 2023-05-14 08:41 | USCV_ITS ---
Ester Reaves Age: 82 Gender: F : 1940 Exam Date: 05/14/2023 13:06 Ordering Phys: Washington Conrad MD Technologist: [place] [facility] [place]: pain PROCEDURES: Venous duplex imaging was performed in only the left lower extremity. In addition, the posterior tibial and peroneal trunk were evaluated. FINDINGS: no dvt CONCLUSIONS No evidence of left lower extremity DVT. Darrian Frias MD (Electronically Signed) Final Date: 15 May 2023 09:36 S
== END 2023-05-16 08:07 | disposition home or self-care (01) ==
PROVIDERS: PCP Family Medicine; Visit Provider Internal Medicine Medical Oncology
DX: M79.662 Pain in left lower leg (principal)
CPT/HCPCS: 93971

== ENCOUNTER 2023-05-28 08:38 | Oncology outpatient (recurring) (ONCR) | payer MEDICARE, SELFPAY ==
--- NOTE | 2023-05-15 08:36 | ONCRAD TMN_ITS ---
Radiation Oncology Weekly Treatment Management Patient: Jelly Norman MR#: [id number] : 1940 Attending Physician: Gabe Fish Date of Service: 05/14/2023 Referring Physician(s) : Dr. 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 ID: [id number], Energy: 15X, Dose/Fx (cGy): 300, #Fx: / 10, Dose Correction (cGy): 0, Total Dose (cGy): 2,100, Start Date: 05/06/2023, Elapsed Days: 8 Course: Chest [id number], Treatment Site: Lt Xhqak61Hc, Ref. ID: [id number], Energy: 6X, Dose/Fx (cGy): 200, #Fx: 30, Dose Correction (cGy): 0, Total Dose (cGy): 2,400, Start Date: 04/29/2023, Elapsed Days: 15 Reason for visit: The patient is being seen today as part of their regularly scheduled weekly on treatment visits to assess for acute toxicities from radiotherapy. Review of Systems: New left ankle swelling and pain. Saw Dr. Conrad and U/S study scheduled later today to assess for DVT. No SOB or CP. Swallowing and eating ok. She did have a DVT years ago. Vital Signs: Performed on 05/14/2023 8:43 AM BMI - 30.748 kg/m2 (high), Height - 66.50 in, Weight - 193.4 lbs, Temperature - 97.3 f, Pulse - 18 /min (low), Respiration - 63 /min (high), O2 Sat - 98 %, Pain - 0, Fatigue - 2 and BP - 143/ 74 mm(hg)(high/). Physical Exam: Imaging: Radiation therapy imaging related to accurate target localization (i.e. KV, MV and CBCT) was reviewed. Appropriate changes, if any, were made to ensure treatment accuracy. Plan: Good tolerance of treatment. Await US. She will be seen in Dr. Samaniego office for results. Continue treatment as planned. Signed by: Gabe Fish 05/15/2023 8:34:46 AM Telemedicine Consent Patient seen today via Telemedicine by agreement and consent of patient. Telemedicine technology used during the visit include audio and, as available, review of images. This patient encounter is appropriate and reasonable under the circumstances given the patient???s particular presentation at this time. The patient has been advised of the potential risks and limitations of this mode of treatment (including but not limited to the absence of in-person examination) and has agreed to be treated in a remote fashion in spite of them. Any and all of the patient???s/patient???s family???s questions on this issue have been answered and I have made no promises or guarantees to the patient. The patient has also been advised to contact this office for worsening conditions or problems, and seek emergency medical treatment and/or call 911 if the patient deems either necessary.
[2023-05-20 07:31] VITALS: BP 120/71; PULSE 87; TEMP 36.5; O2SAT 96
[2023-05-20 07:53] LABS: Basophils % 0.4 %; Eosinophils % 1.3 %; Hematocrit 32.4 % (36-47); Lymphocytes # 0.4 10^3/uL (0.8-4.8); Mean Corpuscular HGB Conc 31.8 g/dL (30-55); Mean Corpuscular Hemoglobin 29.4 pg (27-33); Mean Corpuscular Volume 92.6 fl (85-98); Mean Platelet Volume 9.9 fL (7.4-10.4); Monocytes # 0.2 10^3/uL (0.2-0.9); Monocytes % 10.4 %; Neutrophils # 1.65 10^3/uL (1.8-7.7); Neutrophils % 71.5 %; Nucleated Red Blood Cells % 0 %; Platelet Count 107 10^3/cmm (157-399); Red Cell Distribution Width 15.6 % (12.1-15.1); White Blood Count 2.31 10^3/uL (3.29-11.43)
[2023-05-20 08:11] LABS: Alanine Aminotransferase 21 U/L (0-33); Albumin Level 3.9 g/dL (3.5-5.2); Alkaline Phosphatase 100 U/L (35-105); Blood Urea Nitrogen 16 mg/dL (8-23); Carbon Dioxide 22 mmol/L (22-29); Chloride 105 mmol/L (98-107); Globulin 2.7 g/dL (1.3-4.6); Glucose 116 mg/dL (65-115); Osmolality Calculated 282 mOsm/kg (285-295); Sodium 135 mmol/L (136-145); Total Bilirubin 0.3 mg/dL (0.15-1.2); Total Protein 6.6 g/dL (6.6-8.7)
[2023-05-20 08:15] LABS: Anion Gap 12.9 (5-19); Aspartate Amino Transferase 29 U/L (0-32); Potassium 4.9 mmol/L (3.5-5.1)
[2023-05-20] MEDS: acetaminophen 325 mg Tablet 650 MG PO (09:30)
[2023-05-20] MEDS: sodium chloride 0.9% 250 ML 100 ML IV (09:30)
[2023-05-20] MEDS: diphenhydrAMINE 50 mg/mL SDV 1mL 25 MG IVP (09:31)
[2023-05-20] MEDS: palonosetron 0.25 mg/5 mL SDV IVP (09:31)
[2023-05-20] MEDS: dexamethasone 20 MG in sodium chloride 0.9% 50 ML 188 MG IV (09:31)
[2023-05-20] MEDS: famotidine 20 mg/2 mL INJ IVP (09:31)
[2023-05-20] MEDS: PACLitaxeL 100 MG in sodium chloride 0.9%(non-DEHP) 250 ML 266.67 MG IV (09:57)
[2023-05-20] MEDS: CARBOplatin 200 MG in sodium chloride 0.9% 500 ML 520 MG IV (11:13)
[2023-05-20 12:25] VITALS: BP 125/70; PULSE 67; RESP 18; TEMP 36.2; O2SAT 95
--- NOTE | 2023-05-20 12:40 | XR_ITS ---
WS: [id number] Exam: XR hip LT 4V wo/w pel [id number] Date/Time of Exam: 05/20/2023 12:50 PM Reason For Exam: left hip/pelvis pain, known bone mets There is an acute nondisplaced fracture of the LEFT superior pubic ramus. No hip fracture or dislocat ion noted. Old fracture of the LEFT inferior pubic ramus. No obvious sign of bone destruction. Osteop enia noted. Normal soft tissues. Mild to moderate degenerative narrowing of the joint compartment. IMPRESSION: 1. Acute appearing nondisplaced fracture of the LEFT superior pubic ramus. Old healed fracture of the inferior LEFT pubic ramus. 2. No acute hip fracture.
--- NOTE | 2023-05-21 16:09 | ONCRAD TMN_ITS ---
Radiation Oncology Weekly Treatment Management Patient: Jelly Norman MR#: [id number] : 1940> Attending Physician: Dread Parsons Date of Service: 05/21/2023 Referring Physician(s) : Dr. 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 ID: [id number], Energy: 15X, Dose/Fx (cGy): 300, #Fx: , Dose Correction (cGy): 0, Total Dose (cGy): 3,000, Start Date: 05/06/2023, End Date: 05/17/2023, Elapsed Days: 11 Course: Chest [id number], Treatment Site: Lt Fazre14Tr, Ref. ID: [id number], Energy: 6X, Dose/Fx (cGy): 200, #Fx: 30, Dose Correction (cGy): 0, Total Dose (cGy): 3,400, Start Date: 04/29/2023, Elapsed Days: 22 Reason for visit: The patient is being seen today as part of their regularly scheduled weekly on treatment visits to assess for acute toxicities from radiotherapy. Review of Systems: Patient had complained of left hip pain. X-ray by medical oncology has revealed a small fracture in the left pubic ramus. Patient is taking Tylenol every 4-6 hours as needed. She denies any difficulty sleeping. She has a walker if needed at home and has been ambulatory by wheelchair outside the home. She denies cough or hemoptysis. She has no difficulty swallowing. Vital Signs: Performed on 05/21/2023 3:29 PM BMI - 30.557 kg/m2 (high), Height - 66.5 in, Weight - 192.2 lbs, Temperature - 97.9 f, Pulse - 67 /min, Respiration - 16 /min, O2 Sat - 99 %, Pain - 0, Fatigue - 0 and BP - 138/ 78 mm(hg). Physical Exam: Alert and oriented female appearing her stated age. Lungs clear to auscultation. Cardiovascular exam reveals regular rhythm. Patient ambulatory by wheelchair. She is able to stand and move with assistance. Imaging: Radiation therapy imaging related to accurate target localization (i.e. KV, MV and CBCT) was reviewed. Appropriate changes, if any, were made to ensure treatment accuracy. Plan: X-ray was reviewed with the patient and her female friend and Candace Sands nurse practitioner. Recommendation is to allow for healing of the fracture as it is proximal to the recently treated left ischial tuberosity. Continue radiation therapy to the lung. Hydrocodone with acetaminophen was offered however patient declined additional pain medication at this time due to the potential side effect of constipation. Signed by: Dread Parsons 05/21/2023 4:07:48 PM
[2023-05-27 08:28] VITALS: BP 101/69; PULSE 97; RESP 18; TEMP 36.6; O2SAT 96
[2023-05-27 08:29] VITALS: BMI 31.0
[2023-05-27 08:31] LABS: Basophils % 0.9 %; Eosinophils % 1.3 %; Hematocrit 31.5 % (36-47); Lymphocytes # 0.3 10^3/uL (0.8-4.8); Lymphocytes % 14.6 %; Mean Corpuscular Hemoglobin 29.6 pg (27-33); Mean Corpuscular Volume 89.7 fl (85-98); Mean Platelet Volume 10.2 fL (7.4-10.4); Monocytes # 0.3 10^3/uL (0.2-0.9); Monocytes % 12.4 %; Neutrophils # 1.58 10^3/uL (1.8-7.7); Neutrophils % 69.9 %; Nucleated Red Blood Cells % 0 %; Platelet Count 81 10^3/cmm (157-399); Red Blood Count 3.51 10^6/uL (3.85-5.65); Red Cell Distribution Width 15.3 % (12.1-15.1); White Blood Count 2.26 10^3/uL (3.29-11.43)
[2023-05-27 08:50] LABS: Alanine Aminotransferase 20 U/L (0-33); Albumin Level 4.1 g/dL (3.5-5.2); Alkaline Phosphatase 108 U/L (35-105); Aspartate Amino Transferase 23 U/L (0-32); Blood Urea Nitrogen 14 mg/dL (8-23); Calcium 9.1 mg/dL (8.5-10.5); Carbon Dioxide 21 mmol/L (22-29); Chloride 102 mmol/L (98-107); Glucose 123 mg/dL (65-115); Osmolality Calculated 280 mOsm/kg (285-295); Sodium 134 mmol/L (136-145); Total Bilirubin 0.5 mg/dL (0.15-1.2); Total Protein 7.1 g/dL (6.6-8.7)
[2023-05-27 08:55] LABS: Anion Gap 15.4 (5-19); Potassium 4.4 mmol/L (3.5-5.1)
[2023-05-27] MEDS: sodium chloride 0.9% 250 ML 75 ML IV (09:39)
[2023-05-27] MEDS: acetaminophen 325 mg Tablet 650 MG PO (09:41)
[2023-05-27] MEDS: diphenhydrAMINE 50 mg/mL SDV 1mL 25 MG IVP (09:43)
[2023-05-27] MEDS: famotidine 20 mg/2 mL INJ IVP (09:48)
[2023-05-27] MEDS: palonosetron 0.25 mg/5 mL SDV IVP (09:50)
[2023-05-27] MEDS: dexamethasone 20 MG in sodium chloride 0.9% 50 ML 188 MG IV (10:13)
[2023-05-27] MEDS: PACLitaxeL 100 MG in sodium chloride 0.9%(non-DEHP) 250 ML 266.67 MG IV (10:41)
[2023-05-27] MEDS: CARBOplatin 220 MG in sodium chloride 0.9% 500 ML 522 MG IV (12:08)
[2023-05-27 13:57] VITALS: BP 139/72; PULSE 71; RESP 17; TEMP 36.1; O2SAT 96
--- NOTE | 2023-05-28 09:24 | ONCRAD TMN_ITS ---
Radiation Oncology Weekly Treatment Management Patient: Jelly Bernal MR#: [id number] : 1940 Attending Physician: Dr. Chelsea Mays Date of Service: 05/28/2023 Fractions: 22 out of 30, 1 chemo remaining Referring Physician(s) : Dr. 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 ID: [id number], Energy: 15X, Dose/Fx (cGy): 300, #Fx: , Dose Correction (cGy): 0, Total Dose (cGy): 3,000, Start Date: 05/06/2023, End Date: 05/17/2023, Elapsed Days: 11 Course: Chest [id number], Treatment Site: Lt Nbfgk65Fw, Ref. ID: [id number], Energy: 6X, Dose/Fx (cGy): 200, #Fx: , Dose Correction (cGy): 0, Total Dose (cGy): 4,400, Start Date: 04/29/2023, End Date: 05/28/2023, Elapsed Days: 29 Reason for visit: The patient is being seen today as part of their regularly scheduled weekly on treatment visits to assess for acute toxicities from radiotherapy. Review of Systems: Patient is in good spirits. She says that her hip pain is improving. She had her chemo yesterday. Her last chemo is next week. She can still cause problems with her appetite and taste. She has dropped about 9 or 10 pounds to the course of her treatment. She has had no real difficulty with shortness of breath. She was constipated but this has been relieved this morning. Vital Signs: Performed on 05/28/2023 9:06 AM BMI - 29.54 kg/m2 (high), Height - 66.5 in, Weight - 185.8 lbs, Temperature - 97.5 f, Pulse - 77 /min, Respiration - 18 /min, O2 Sat - 99 %, Pain - 0, Fatigue - 0 and BP - 138/ 77 mm(hg). Physical Exam: Alert and oriented x3. Patient is comfortably sitting in wheelchair. Pupils are equal, sclera clear. Respiratory rate was regular nonlabored. No skin changes noted. Imaging: Radiation therapy imaging related to accurate target localization (i.e. KV, MV and CBCT) was reviewed. Appropriate changes, if any, were made to ensure treatment accuracy. Plan: Patient is tolerating combined modality therapy well. She will be completed with her treatments at the end of next week. Signed by: Dr. Chelsea Mays 05/28/2023 9:22:56 AM
[2023-05-28 11:30] LABS: Urine Appearance Hazy (CLEAR); Urine Color Yellow (Yellow); pH Urine 5 (5-7)
[2023-05-28 11:31] LABS: Add Urine Microscopic? YES; Bilirubin Urine Neg (Negative); Blood Urine 2+ (Negative); Glucose Urine UA Norm (Normal); Ketones Urine Negative (Negative); Leukocyte Esterase Urine 2+ (Negative); Nitrate Urine Negative (Negative); Protein Urine Neg (Negative); Specific Gravity, Urine 1.015 (1.005-1.030); Urobilinogen Urine Norm (Negative)
[2023-05-28 11:53] LABS: Bacteria Urine TRACE /hpf; Mucus Urine 1+ /hpf; Squamous Epithelial Cell Urine 0-4 /hpf (0-5); WBC Urine 15-25 /hpf (0-5)
[2023-05-28 11:54] LABS: Add Urine Culture? Yes
== END 2023-05-28 23:59 | disposition home or self-care (01) ==
PROVIDERS: Internal Medicine Medical Oncology; PCP Family Medicine; Visit Provider Radiology Radiation Oncology
DX: C50.811 Malignant neoplasm of overlapping sites of right female breast (principal); Z51.0 Encounter for antineoplastic radiation therapy; C34.32 Malignant neoplasm of lower lobe, left bronchus or lung; C79.51 Secondary malignant neoplasm of bone; R32 Unspecified urinary incontinence
CPT/HCPCS: 73503; 77336; 77386; 80053; 81001; 85025; 87086; 93971; 96367; 96375; 96413; 96417; 99024; 99214; J1100; J1200; J1642; J2469; J3490; J7040; J7050; J9045; J9267

== ENCOUNTER 2023-06-12 10:33 | Inpatient (IN) | payer MEDICARE, SELFPAY ==
[2023-06-12] VITALS (46 sets, daily range): BP systolic 92–160; BP diastolic 60–85; PULSE 76–113; RESP 11–30; TEMP 36.4–36.9; O2SAT 84–98; BMI 28.8; BMI 30.2
--- NOTE | 2023-06-12 10:45 | XR_ITS ---
WS: [id number] Exam: XR chest 1V portable [id number] Date/Time of Exam: 06/12/2023 10:45 AM Reason For Exam: dyspnea/cough Comparison 04/18/2023. The lungs are fully expanded. Areas of plaque atelectasis in the bilateral bases. Mild cardiac enlarg ement unchanged. The mediastinum is normal in contour. Left-sided PICC line ends in the lower one thi rd of the SVC. No pleural effusions. Bony structures are intact. Moderate DJD of the RIGHT shoulder. IMPRESSION: 1. No acute cardiopulmonary finding. 2. Bibasal plaque atelectasis. 3. Right-sided PICC line in satisfactory position.
--- NOTE | 2023-06-12 10:46 | ECG_ITS ---
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 Measurements Intervals [place] Rate: 102 P: 37 AL: 173 QRS: -55 QRSD: 122 T: 84 QT: 374 QTc: 488 Interpretive Statements SINUS TACHYCARDIA LEFT ANTERIOR FASCICULAR BLOCK [QRS AXIS <= -45, QR IN I, RS IN II] SEPTAL MYOCARDIAL INFARCTION , PROBABLY OLD [40+ ms Q WAVE IN V1/V2] Compared to ECG 01/28/2023 09:41:56 Sinus rhythm no longer present Myocardial infarct finding still present Electronically Signed On 06-12-2023 15:11:28 [employer] by Serafin Walker M.D. [id number]
[2023-06-12] MEDS: sodium chloride 0.9% 1,000 ML 999 ML IV (10:54)
[2023-06-12 11:17] LABS: Hematocrit 24.1 % (36-47); Mean Corpuscular Hemoglobin 30.1 pg (27-33); Mean Corpuscular Volume 88.6 fl (85-98); Platelet Count 44 10^3/cmm (157-399); Red Blood Count 2.72 10^6/uL (3.85-5.65); Red Cell Distribution Width 16.4 % (12.1-15.1)
[2023-06-12 11:27] LABS: INR 1.16 (0.8-1.2)
[2023-06-12 11:28] LABS: Partial Thromboplastin Time 35.4 SECONDS (23.9-36.7)
[2023-06-12 11:34] LABS: Troponin(5th) Baseline 26 ng/L (0-10)
[2023-06-12 11:40] LABS: Alanine Aminotransferase 22 U/L (0-33); Albumin Level 3.3 g/dL (3.5-5.2); Alkaline Phosphatase 123 U/L (35-105); Anion Gap 19.1 (5-19); Aspartate Amino Transferase 28 U/L (0-32); Blood Urea Nitrogen 25 mg/dL (8-23); Calcium 8.3 mg/dL (8.5-10.5); Carbon Dioxide 22 mmol/L (22-29); Chloride 97 mmol/L (98-107); Creatine Phosphokinase 21 U/L (26-192); Globulin 2.3 g/dL (1.3-4.6); Glucose 96 mg/dL (65-115); Lipase 20 U/L (13-60); Osmolality Calculated 284 mOsm/kg (285-295); Potassium 3.1 mmol/L (3.5-5.1); Sodium 135 mmol/L (136-145); Total Bilirubin 0.6 mg/dL (0.15-1.2); Total Protein 5.6 g/dL (6.6-8.7)
[2023-06-12 11:49] LABS: Add Urine Microscopic? YES; Bilirubin Urine 1+ (Negative); Blood Urine 2+ (Negative); Glucose Urine UA Norm (Normal); Ketones Urine 1+ (Negative); Leukocyte Esterase Urine 2+ (Negative); Nitrate Urine Negative (Negative); Protein Urine 1+ (Negative); Urine Appearance Hazy (CLEAR); Urine Color Yellow (Yellow); Urobilinogen Urine Norm (Negative); pH Urine 5 (5-7)
--- NOTE | 2023-06-12 11:49 | ED_ITS ---
HPI - Weakness General: Chief complaint: Weakness Stated complaint: weakness Time Seen by Provider: 06/12/23 10:36 Source: patient Mode of arrival: ambulatory History of Present Illness: 82-year-old female who presents to the emergency room complaining of generalized weakness progressive deterioration. Patient has a history of lung cancer recently completed chemo and radiation. Patient has been nauseated no vomiting or diarrhea. She is requiring the assist of 2 to get around her home unable to manage her ADLs. MD Complaint: generalized weakness Onset (ago): hour(s) Duration: constant Relieving factors: none Exacerbating factors: none Associated symptoms: Denies chest pain, chills, confusion, melena, decreased appetite, diaphoresis, dysuria, easy bruising, fever(s), headache(s), myalgias, nausea, rash, short of breath, syncope or vomiting Review of Systems Const: Denies: fever(s), chills or diaphoresis Card: Denies: chest pain or syncope Resp: Denies: dyspnea GI: Denies: nausea, vomiting or melena : Denies: dysuria Musc: Denies: neck pain or back pain Skin/Breast: Denies: rash Neuro: Denies: headache(s) or confusion Ajay/Lymph: Denies: easy bruising PFSH ED PFSH: Medical History (Updated 06/12/23 @ 13:47 by Jose Harris DO) Breast cancer Coronary artery disease History of [place] GERD (gastroesophageal reflux disease) History of DVT (deep vein thrombosis) Left lower extremity - following hysterectomy Hyperlipidemia Hypertension Non-small cell lung cancer Osteoporosis Surgical History History of cholecystectomy History of coronary angioplasty with insertion of stent x 6 around 2010 History of hysterectomy History of inguinal hernia repair History of orthopedic surgery ORIF right forearm fracture History of right mastectomy (07/03/18) S/P lymph node biopsy (07/27/15) Right axillary sentinel lymph node biopsy Status post excisional biopsy (06/30/15) Excisional biopsy of right breast mass Family History Mother TIA (transient ischemic attack) Father , age 72 CAD (coronary artery disease) Social History (Reviewed 06/12/23 @ 12:17 by BUFFY Chavarria Smoking and tobacco/nicotine status: never used tobacco/nicotine Alcohol intake: never Substance/Drug Use: never Physical Exam Const: GENERAL APPEARANCE: cooperative and comfortable ORIENTATION/CONSCIOUSNESS: Yes awake, Yes oriented to person, Yes oriented to place and Yes oriented to time HENMT: COMMON NORMALS: normocephalic, atraumatic and hearing grossly normal bilaterally HEAD & SCALP: normocephalic and atraumatic Resp: COMMON NORMALS: normal respiratory effort, No retractions and No use of accessory muscles AUSCULTATION: rhonchi and wheezes Cardio: COMMON NORMALS: regular rate, regular rhythm and No murmurs present (Cardio) RATE: regular rate RHYTHM: regular rhythm GI: COMMON NORMALS: Soft to palpation and No hepatosplenomegaly present AUSCULTATION: Yes normoactive bowel sounds PALPATION: Yes Soft to palpation, No Tenderness to palpation present (GI), No Guarding due to palpation present (GI) and Yes No hepatosplenomegaly present Extremity: COMMON NORMALS: normal to inspection, capillary refill normal, no clubbing, cyanosis or edema, no calf tenderness and no pedal edema Neuro: SENSORIUM/ORIENTATION: Yes oriented to person, Yes oriented to place and Yes oriented to time Skin: COMMON NORMALS: no rashes or lesions noted GENERAL SKIN EXAM: no rashes or lesions noted Course Vital Signs: Vital signs: Vital Signs Temperature 97.8 F 06/12/23 10:35 Pulse Rate 101 H 06/12/23 12:10 Respiratory Rate 17 06/12/23 12:10 Blood Pressure 112/64 06/12/23 12:10 Pulse Oximetry 93 06/12/23 12:10 Oxygen Delivery Me thod Room Air 06/12/23 11:25 MDM - Weakness Medical Decision Making Chemo and radiation after completion of course. She is neutropenic with a bladder infection this that she is generally. Patient history of lung cancer with recent cessation of the point where she cannot really manage her self and is a full assist of 2 with all activities. We will admit patient on cefepime I am with neutropenia on reverse isolation precautions cultures done discussed with hospitalist orders written Medical Records I reviewed the patient's medical records. Lab Data I reviewed the patient's lab results. 06/12/23 10:26 06/12/23 10:26 Laboratory Results WBC 1.40 10^3/uL (3.29-11.43) L 06/12/23 10: RBC 2.72 10^6/uL (3.85-5.65) L 06/12/23 10:26 Hgb 8.20 g/dL (11.27-16.99) L 06/12/23 10:26 Hct 24.1 % (36-47) L 06/12/23 10: MCV 88.6 fl (85-98) 06/12/23 10:26 MCH 30.1 pg (27-33) 06/12/23 10:26 MCHC 34.0 g/dL (30-55) 06/12/23 10: RDW 16.4 % (12.1-15.1) H 06/12/23 10: Plt Count 44 10^3/cmm (157-399) L 06/12/23 10: MPV 10.0 fL (7.4-10.4) 06/12/23 10:26 Lymph % (Auto) Not Reportable 06/12/23 10:26 [place] % (Auto) Not Reportable 06/12/23 10:26 Neut # (Auto) Pneumatic Hoist Operator 06/12/23 10:26 Lymph # (Auto) Not Reportable 06/12/23 10:26 [place] # (Auto) Not Reportable 06/12/23 10:26 Total Counted 100 (0-100) 06/12/23 10:26 Atypical Lymphs % 13.0 % (0-5) H 06/12/23 10:26 Absolute Neutrophils 0.9 10^3/cmm (1.4-6.5) L 06/12/23 10:26 Segmented Neutrophils 61 % 06/12/23 10:26 Abs Segm Neuts (Man) 0.9 10/cmm (1.6-7.1) L 06/12/23 10:26 Band Neutrophils 2.0 % 06/12/23 10: Abs Band Neuts (Man) 0.0 10^3/cmm (0.0-1.2) 06/12/23 10:26 Absolute Lymphocytes 0.4 10^3/cmm (1.2-3.4) L 06/12/23 10:26 Lymphocytes (Manual) 19 % 06/12/23 10:26 Monocytes (Manual) 1.0 % 06/12/23 10:26 Absolute Monocytes 0.0 10^3/cmm (0.1-0.6) L 06/12/23 10:26 Eosinophils (Manual) 0 % 06/12/23 10:26 Absolute Eosinophils 0.0 10^3/cmm (0.0-0.7) 06/12/23 10: Basophils (Manual) 0.0 % 06/12/23 10: Absolute Basophils 0.0 10^3/cmm (0.0-0.2) 06/12/23 10:26 Metamyelocytes 4.0 % 06/12/23 10: Nucleated RBCs 2.0 /100WBC (0-1) H 06/12/23 10:26 Platelet Estimate Decreased (Normal) L 06/12/23 10:26 Polychromasia 2+ H 06/12/23 10: Anisocytosis 2+ H 06/12/23 10: PT 15.10 SECONDS (12.1-14.9) H 06/12/23 10:26 INR 1.16 (0.8-1.2) 06/12/23 10:26 APTT 35.4 SECONDS (23.9-36.7) 06/12/23 10:26 Sodium 135 mmol/L (136-145) L 06/12/23 10:26 Potassium 3.1 mmol/L (3.5-5.1) L 06/12/23 10:26 Chloride 97 mmol/L (98-107) L 06/12/23 10:26 Carbon Dioxide 22 mmol/L (22-29) 06/12/23 10:26 Anion Gap 19.1 (5-19) H 06/12/23 10:26 BUN 25 mg/dL (8-23) H 06/12/23 10:26 Creatinine 0.7 mg/dL (0.5-0.9) 06/12/23 10:26 GFR Calculation Not Reportable 06/12/23 10:26 Glucose 96 mg/dL (65-115) 06/12/23 10:26 Calculated Osmolality 284 mOsm/kg (285-295) L 06/12/23 10:26 Lactic Acid 0.7 mmol/L (0.5-2.2) 06/12/23 11:32 Calcium 8.3 mg/dL (8.5-10.5) L 06/12/23 10:26 Total Bilirubin 0.6 mg/dL (0.15-1.2) 06/12/23 10:26 AST 28 U/L (0-32) 06/12/23 10:26 ALT 22 U/L (0-33) 06/12/23 10:26 Alkaline Phosphatase 123 U/L (35-105) H 06/12/23 10:26 Creatine Kinase 21 U/L (26-192) L 06/12/23 10:26 Troponin T Baseline 26 ng/L (0-10) H 06/12/23 10:26 Troponin T 120 Minute 20.35 ng/L (0-10) H 06/12/23 12:30 Delta Troponin T -5.65 ABS# (0-10) L 06/12/23 12:30 Total Protein 5.6 g/dL (6.6-8.7) L 06/12/23 10:26 Albumin 3.3 g/dL (3.5-5.2) L 06/12/23 10:26 Globulin 2.3 g/dL (1.3-4.6) 06/12/23 10:26 Lipase 20 U/L (13-60) 06/12/23 10:26 Urine Color Yellow (Yellow) 06/12/23 11:11 Urine Appearance Hazy (CLEAR) A 06/12/23 11:11 Urine pH 5 (5-7) 06/12/23 11:11 Ur Specific [place] 1.020 (1.005-1.030) 06/12/23 11:11 Urine Protein 1+ (Negative) H 06/12/23 11:11 Urine Glucose (UA) Norm (Normal) 06/12/23 11:11 Urine Ketones 1+ (Negative) H 06/12/23 11:11 Urine Blood 2+ (Negative) H 06/12/23 11:11 Urine Nitrate Negative (Negative) 06/12/23 11:11 Urine Bilirubin 1+ (Negative) H 06/12/23 11:11 Urine Urobilinogen Norm mg/dL (Negative) 06/12/23 11:11 Ur Leukocyte Esterase 2+ (Negative) H 06/12/23 11:11 Urine RBC 5-10 /hpf (0-2) H 06/12/23 11:11 Urine WBC 55-80 /hpf (0-5) H 06/12/23 11:11 Ur Squamous Epith Cells 5-10 /hpf (0-5) H 06/12/23 11:11 Ur Transition Epith Cell 5-10 /hpf 06/12/23 11:11 Amorphous Sediment Trace /hpf 06/12/23 11:11 Urine Bacteria 1+ /hpf (NONE) H 06/12/23 11:11 Hyaline Casts 0-4 /lpf H 06/12/23 11:11 Fine Granular Casts 0-4 /lpf H 06/12/23 11:11 Urine Mucus 1+ /hpf 06/12/23 11:11 All radiology interpretation(s) finalized by discharge Discharge Plan Discharge Patient Disposition: Admitted As Inpatient Admit Provider: Lin Wild Clinical Impression: Neutropenia, Anemia, Cystitis, Weakness generalized Condition: Stable Coding Level of Care Code ED Manhole Builder for Tessa Islas
[2023-06-12 11:57] LABS: Amorphous Sediment Urine TRACE /hpf; Bacteria Urine 1+ /hpf; Fine Granular Casts Urine 0-4 /lpf; Hyaline Casts Urine 0-4 /lpf; Mucus Urine 1+ /hpf; WBC Urine 55-80 /hpf (0-5)
[2023-06-12 11:58] LABS: Add Urine Culture? Yes
[2023-06-12 11:59] LABS: Lactic Sepsis W/Reflex 0.7 mmol/L (0.5-2.2)
[2023-06-12 12:25] LABS: Absolute Segmented Neutrophil 0.9 10/cmm (1.6-7.1); Eosinophils 0 %; Lymphocytes 19 %; Segmented Neutrophils 61 %; Slide Review Slide Review Perform; Total Cells Counted 100 (0-100)
[2023-06-12 12:26] LABS: Lymphocytes Absolute 0.4 10^3/cmm (1.2-3.4); Platelet Estimate Decreased (Normal)
[2023-06-12 12:28] LABS: Absolute Neutrophil 0.9 10^3/cmm (1.4-6.5); Anisocytosis 2+; Polychromasia 2+
--- NOTE | 2023-06-12 12:30 | P.HP_ITS ---
Providers/Chief Complaint Primary Care Provider: Dequan Dubois DO Chief Complaint: weakness History of Present Illness Ester Reaves is a 82 year old female With history of recurrent breast cancer, coronary artery disease, history of ID, GERD, DVT following hysterectomy, hyperlipidemia, hypertension, non-small cell lung cancer presented to the hospital today for generalized weakness. She slid off her chair this morning. At this time she is requiring 2 people to assist her for any activity. She is considerably weak. She just had radiation done on 07 June and has been undergoing chemotherapy as well (last tx jun 03). She is currently on weekly carboplatin paclitaxel since 04/29/2023. She tolerated it with acceptable to xicity and she continued cycle 2 on 05/06/2004/17/2023 and cycle 3 on 04/1620. Recently on 04/2323 she also had acute appearing nondisplaced fracture of left superior pubic ramus. She denies nausea, vomiting, diarrhea at this time. Denies chest pain, shortness of breath. ED course: 112/64, respirate 17, pulse 101, temperature 97.8 saturating 93% on room air. Labs show INR 1.16, sodium 135, potassium 3.1, creatinine 0.7, lactic acid 0.7, UA positive for 2+ leukocyte esterase, 55-80 WBC. She has been afebrile. ANC is 0.7. 2% bands present. In the ER urine culture was obtained and sent to the lab. She did have a positive urine culture in 2019 with E. coli that was pansensitive and another one in December 2021 with Enterococcus faecalis which was also pansensitive. 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 ##1 02/20/23 06/12/23 04/18/23 Rx carvedilol 3.125 mg tablet 3.125 mg PO BID 03/08/23 06/12/23 06/03/23 History rosuvastatin 40 mg tablet 40 mg PO QPM 03/08/23 06/12/23 06/03/23 History cholecalciferol (vitamin D3) 10 10 mcg PO DAILY 04/09/23 06/12/23 06/03/23 History mcg (400 unit) capsule prochlorperazine maleate 10 mg 10 mg PO Q4H PRN Mild Nausea #30 04/26/23 3 06/03/23 Rx tablet (Compazine) tabs lorazepam 1 mg tablet 0.5 - 1 mg PO Q6H PRN Severe 04/29/23 06/12/23 06/03/23 Rx Nausea #30 tabs lidocaine HCl 2 % mucosal solution 1 applic mucous membrane TID PRN 06/03/23 06/12/23 Unknown Rx (Lidocaine Viscous) pain #80 mL pantoprazole 40 mg tablet,delayed 40 mg PO DAILY #30 tabs 06/03/23 06/12/23 Unknown Rx release (Protonix) meloxicam 7.5 mg tablet 7.5 mg PO DAILY 06/12/23 06/12/23 Unknown History Allergies Allergy/AdvReac Type Severity Reaction Status Date / Time No Known Allergies Allergy Verified 06/12/23 10:42 PFSH Acute PFSH: Medical History (Updated 06/12/23 @ 15:08 by Lin Wild MD) Breast cancer Coronary artery disease History of [place] GERD (gastroesophageal reflux disease) History of DVT (deep vein thrombosis) Left lower extremity - following hysterectomy Hyperlipidemia Hypertension Non-small cell lung cancer Osteoporosis Surgical History History of cholecystectomy History of coronary angioplasty with insertion of stent x 6 around 2010 History of hysterectomy History of inguinal hernia repair History of orthopedic surgery ORIF right forearm fracture History of right mastectomy (07/03/18) S/P lymph node biopsy (07/27/15) Right axillary sentinel lymph node biopsy Status post excisional biopsy (06/30/15) Excisional biopsy of right breast mass Family History Mother TIA (transient ischemic attack) Father , age 72 CAD (coronary artery disease) Social History Smoking and tobacco/nicotine status: never used tobacco/nicotine Alcohol intake: never Substance/Drug Use: never Vitals/I&O/Wt Last Vital Signs Temp 97.8 F 06/12/23 10:35 Pulse 101 H 06/12/23 12:10 Resp 17 06/12/23 12:10 BP 112/64 06/12/23 12:10 Pulse Ox 93 06/12/23 12:10 O2 Del Method Room Air 06/12/23 11:25 Weight last 48 hrs Weight 78.471 kg Physical Exam Narrative: Frail-appearing 82-year-old female laying in bed appearing comfortable at this time no acute distress. Appears significantly weak NC/AT, mouth without any sores,. dry mucous membranes On room air Abdomen soft nontender Lungs clear to auscultation with mild rhonchi at bases. No edema bilateral lower extremities. Son at bedside Data 06/12/23 10:26 06/12/23 10:26 Micro: Microbiology 06/12/23 11:28 Blood Culture - Preliminary Blood SPECIMEN COLLECTED 06/12/23 11:32 Blood Culture - Preliminary Blood SPECIMEN COLLECTED A&P Assessment and plan (1) Coronary artery disease: (2) Hypertension: (3) Hyperlipidemia: (4) Urinary tract infection: Qualifiers: Hematuria presence: without hematuria Urinary tract infection type: acute cystitis Qualified Code(s): N30.00 - Acute cystitis without hematuria (5) Lung mass: (6) Breast cancer: (7) Neutropenia: (8) Bandemia: (9) SIRS (systemic inflammatory response syndrome): (10) Thrombocytopenia: (11) Anemia: (12) Cystitis: (13) Weakness generalized: (14) Goals of care, counseling/discussion: Plan #UTI #Immunocompromise status #Neutropenia, ANC 0.7, bandemia #Meets SIRS criteria, tachycardic, hypotensive on admission #Acute on chronic anemia #Nosebleed #Generalized weakness #Recurrent breast cancer #Non-small cell lung cancer #Chemotherapy/radiation #Nondisplaced left superior pubic ramus fracture 05/20/23 #Hx of HTN #Thrombocytopenia ? Check blood cultures ? Check urine cultures ? Monitor for fever ? Was initially hypotensive in the ER with systolic 90 but responded well to fluids. Repeat blood pressure 110. Heart rate 101. Lactic 0.7. No evidence of endorgan damage. Does not meet sepsis criteria ? Chest x-ray showed no acute cardiopulmonary finding. Bibasilar plaque atelectasis present. Right-sided PICC in place. ? Admit to medical surgical floor with private bed ? Neutropenic precautions ? Previous urine cultures have been pansensitive however due to patient's immunocompromise status with neutropenia and bandemia I will treat with broad- spectrum cefepime at this time to cover for Pseudomonas. May de-escalate as culture data becomes available ? PT OT ? Continue Protonix, rosuvastatin - Hold coreg ? Zofran for nausea. If still uncontrolled may consider continuing home medication lorazepam and Compazine for nausea if needed. ? Placed on IV fluids normal saline 100 cc/h ? Oxygen therapy protocol as needed ? Hemoglobin 8.20. Last hemoglobin 9.80 06/03/2023. Most likely chemo induced -Check FOBT, iron, TIBC, ferritin - Transfuse 1 unit prbc - dicussed with Dr. Houston Lopez Neuopogen 300 daily x 2 doses, recheck cbc, then repeat cycle till counts come up. Discussed with Dr. Conrad - Platelets 44, continue to monitor DVT prophylaxis: SCDs Goals of care discussion with patient and her son. She would like to be a full code at this time. Attestations Medical Necessity Statement*: >2 midnight stay for tx of uti Diagnoses Coronary artery disease I25.10 Hypertension I10 Hyperlipidemia E78.5 Urinary tract infection N30.00 Hematuria presence: without hematuria Urinary tract infection type: acute cystitis Lung mass R91.8 Breast cancer C50.919 Neutropenia D70.9 Bandemia D72.825 SIRS (systemic inflammatory response syndrome) R65.10 Thrombocytopenia D69.6 Anemia D64.9 Cystitis N30.90 Weakness generalized R53.1 Goals of care, counseling/discussion Z71.89
--- NOTE | 2023-06-12 12:46 | ECG_ITS ---
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 Measurements Intervals [place] Rate: 83 P: 60 RI: 169 QRS: -50 QRSD: 138 T: 79 QT: 408 QTc: 480 Interpretive Statements SINUS RHYTHM INTRAVENTRICULAR CONDUCTION DELAY [130+ ms QRS DURATION] SEPTAL MYOCARDIAL INFARCTION , PROBABLY OLD [40+ ms Q WAVE IN V1/V2] LATERAL MYOCARDIAL INFARCTION , PROBABLY RECENT [40+ ms Q WAVE AND/OR ST/T ABNORMALITY IN I/aVL/V5/V6] Compared to ECG 06/12/2023 10:52:10 Intraventricular conduction delay now present Sinus tachycardia no longer present Left anterior fascicular block no longer present Myocardial infarct finding still present Electronically Signed On 06-12-2023 15:12:57 PULP DRIER FIRER by Serafin Walker M.D. [id number]
[2023-06-12] MEDS: cefepime 1,000 MG in sodium chloride 0.9% (plus) 50 ML 100 MG IV (12:59)
[2023-06-12 13:00] LABS: Troponin 5 2HR 20.35 ng/L (0-10)
[2023-06-12 13:01] LABS: Troponin 5 2HR Delta -5.65 ABS# (0-10)
[2023-06-12] MEDS: filgrastim-sndz 300 mcg/0.5 mL Syringe SUBCUT (15:38)
[2023-06-12] MEDS: sodium chloride 0.9% 1,000 ML 100 ML IV (16:36)
[2023-06-12] MEDS: pantoprazole DR 40 mg Tablet PO (16:37)
--- NOTE | 2023-06-12 16:46 | ECG_ITS ---
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 Measurements Intervals [place] Rate: 79 P: 57 VT: 178 QRS: -37 QRSD: 115 T: 79 QT: 411 QTc: 473 Interpretive Statements SINUS RHYTHM LEFT AXIS DEVIATION [QRS AXIS < -30] LEFT VENTRICULAR HYPERTROPHY AND ST-T CHANGE [VOLTAGE CRITERIA PLUS ST/T ABNORMALITY] POSSIBLE SEPTAL MYOCARDIAL INFARCTION , PROBABLY OLD [30 ms Q WAVE IN V1/V2] Compared to ECG 06/12/2023 13:10:35 Left-axis deviation now present Left ventricular hypertrophy now present ST (T wave) deviation now present Intraventricular conduction delay no longer present Myocardial infarct finding still present Electronically Signed On 06-14-2023 14:16:25 LINUX SYSTEM ENGINEER by Serafin Walker M.D. [id number]
[2023-06-12 17:33] LABS: Troponin 5 6HR 17.67 ng/L (0-10)
[2023-06-12 17:34] LABS: Troponin 5 6HR Delta -8.33 ng/L (0-12)
[2023-06-12] MEDS: atorvastatin 40 mg Tablet 80 MG PO (19:08)
[2023-06-13] VITALS (10 sets, daily range): BP systolic 102–141; BP diastolic 54–85; PULSE 89–113; RESP 16–18; TEMP 36.6–37.3; O2SAT 90–92; BMI 30.8
[2023-06-13] MEDS: cefepime 2,000 MG in sodium chloride 0.9% (plus) 50 ML 100 MG IV ×2 (02:06→12:39)
[2023-06-13] MEDS: sodium chloride 0.9% 1,000 ML 100 ML IV ×2 (02:07→12:40)
[2023-06-13 05:45] LABS: Hematocrit 23.2 % (36-47); Mean Corpuscular HGB Conc 32.8 g/dL (30-55); Mean Corpuscular Hemoglobin 29.6 pg (27-33); Mean Corpuscular Volume 90.3 fl (85-98); Platelet Count 38 10^3/cmm (157-399); Red Blood Count 2.57 10^6/uL (3.85-5.65); Red Cell Distribution Width 16.5 % (12.1-15.1); White Blood Count 2.06 10^3/uL (3.29-11.43)
[2023-06-13 06:05] LABS: Alanine Aminotransferase 21 U/L (0-33); Albumin Level 2.5 g/dL (3.5-5.2); Alkaline Phosphatase 103 U/L (35-105); Anion Gap 17.9 (5-19); Aspartate Amino Transferase 28 U/L (0-32); Blood Urea Nitrogen 17 mg/dL (8-23); Calcium 7.8 mg/dL (8.5-10.5); Carbon Dioxide 20 mmol/L (22-29); Chloride 103 mmol/L (98-107); Globulin 2.7 g/dL (1.3-4.6); Glucose 86 mg/dL (65-115); Magnesium 1.4 mg/dL (1.7-2.3); Osmolality Calculated 287 mOsm/kg (285-295); Sodium 138 mmol/L (136-145); Total Bilirubin 0.8 mg/dL (0.15-1.2); Total Protein 5.2 g/dL (6.6-8.7)
[2023-06-13 06:12] LABS: Slide Review Slide Review Perform
[2023-06-13 06:17] LABS: Absolute Segmented Neutrophil 1.3 10/cmm (1.6-7.1); Eosinophils 0 %; Lymphocytes 20 %; Monocytes Absolute 0.2 10^3/cmm (0.1-0.6); Segmented Neutrophils 64 %; Total Cells Counted 100 (0-100)
[2023-06-13 06:18] LABS: Platelet Estimate Decreased (Normal)
[2023-06-13 06:27] LABS: Potassium 2.9 mmol/L (3.5-5.1)
[2023-06-13] MEDS: potassium chloride ER 20 mEq Tablet 40 MEQ PO (06:45)
[2023-06-13] MEDS: acetaminophen 325 mg Tablet 650 MG PO ×2 (08:23→14:52)
[2023-06-13] MEDS: pantoprazole DR 40 mg Tablet PO (08:25)
--- NOTE | 2023-06-13 10:08 | PC.CHAP ---
Pastoral Care Encounter/Spiritual Assessment Type of Contact [] Declined economic adviser visit [] Patient/Family/Request visit [] Outpatient visit [] Follow-up visit [] Physician referral [] Code/Alert [x] Routine visit [] Staff referral [] Actively dying [] Patient sleeping [] Family support [] [] Out of room [] Palliative care [] [] Receiving care in room [] Pre-surgical visit [] Trauma [] Long length of stay [] ICU visit [x] Other: Isolation Relational/Emotional Strength [] Patient feels connected with others/family/visitors/staff [] Distress [] Loneliness/isolation [] Abandonment Spirituality of Patient [] Person of Josephine [] Attends Hinduism of their Josephine [] Believes in Prayer [] Reads Bible or Congregation materials [] There are Spiritual issues to be addressed Financial Analysis Consultant Interventions [] Prayer [] Active listening [] Non-anxious presence [] Spiritual/emotional support [] Crisis/trauma care [] Spiritual counseling [] Bereavement support [] Provided bereavement packet [] Provided Bible/devotional materials [] Provided toy/stuffed animal, coloring book to patient or family member [] Provided Communion [] Anointing/[place] [] Salvation [] Completed spiritual assessment [] Other: Impact on Illness or Injury [] Angry [] Fearful [] Anxious [] Often cries [] Exhaustion [] Unable to work [] Unable to attend zoroastrian [] Unable to walk/stand [] Unable to read [] Unable to drive [] Unable to eat/drink [] Unable to sleep [] Unable to be with family [] Patient intubated [] Other: Summary Isolation Time spent with patient 5 mins
[2023-06-13] MEDS: pantoprazole 40 mg SDV IVP (12:39)
[2023-06-13] MEDS: nystatin 100,000 unit/mL UDC 5 mL 500000 UNIT PO ×3 (12:39→21:21)
--- NOTE | 2023-06-13 14:17 | PM.PN ---
Subjective Subjective: Continues to complain of difficulty swallowing today. States that she has been vomiting. Experiencing dysphagia and states that food does not go down easily. Outpatient notes reviewed from radiation oncology, it appears there was concern for developing radiation esophagitis while on treatment, patient has not tried any specific medications to address this currently. Medications: Reviewed: Yes Vitals/I&O/Wt Last Vital Signs Temp 98.6 F 06/13/23 12:00 Pulse 109 H 06/13/23 12:00 Resp 18 06/13/23 12:00 BP 116/58 06/13/23 12:00 Pulse Ox 92 06/13/23 12:00 O2 Del Method Room Air 06/13/23 08:00 06/12/23 06/13/23 06/13/23 22:59 06:59 14:59 Intake Total 250 / 1300 1001.667 / 2301.667 1290 / 1290 Output Total 600 / 600 Balance 250 / 1300 1001.667 / 2301.667 690 / 690 Weight last 48 hrs Weight 84.028 kg Weight 82.554 kg Weight 78.471 kg Physical Exam Narrative: General: No acute distress, AO x3 HEENT: PERRLA, pupils bilaterally equal and reactive, pallors not present, no gross findings of mucositis Chest: Normal vesicular breath sounds, no added sounds, equal good air entry bilaterally CVS: S1-S2 regular, no murmurs, no tachycardia, no gallops, no rubs Abdomen: Soft, nontender, no organomegaly, bowel sounds present Neuro: No focal deficits, no facial deformity, AO x3, power 5/5 in all limbs Data 06/13/23 05:20 06/13/23 05:20 Micro: Microbiology 06/12/23 11:11 Urine Culture - Preliminary Urine,Clean Catch 06/12/23 11:28 Blood Culture - Preliminary Blood NEGATIVE TO DATE 06/12/23 11:32 Blood Culture - Preliminary Blood NEGATIVE TO DATE A&P Assessment and plan (1) Metastatic squamous cell carcinoma: (2) Neutropenia: (3) Thrombocytopenia: (4) Anemia: (5) Cystitis: (6) Weakness generalized: Plan 82-year-old lady with current 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 Also on concurrent radiation which she completed on June 11, 2023. Current hospital issues as below #Pancytopenia Most likely related to bone marrow suppression from recent chemotherapy. Patient is currently on filgastrim WBC count has been 2.3 since May 20, 2023, patient states she did not have any fill gastrium after her recent chemotherapy. Currently white blood cell count is at 2.06, ANC not charted today, 900 from yesterday. We will continue full gastrum with aim to bring ANC up to 1000 Thrombocytopenia with platelet count of 38,000 today. No active signs of bleeding at any site. #Radiation esophagitis Patient has been complaining of developing dysphagia, inability to tolerate any p.o. intake and had recurrent vomiting during the course of her radiation. 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 She elected to continue treatment through her symptoms. No gross signs of mucositis in the oropharynx currently. We will start conservative management including continuing IV fluids. Change diet from regular which she is not currently tolerating to a full liquid to pur?ed consistency. Add Ensure with every meal Dietitian consult Start Magic mouthwash 4 times a day Start nystatin swish and swallow due to high probability of coexisting candidal infection in these patients. Discussed with her that should conservative management fail to resolve her symptoms over the next week or so, she will need endoscopic evaluation to assess for esophageal stricture in which case she may need further procedures with esophageal dilatation. change protonix PO to IV #UTI/cystitis Urine WBC 55-80, positive leukocyte Estrace, urine culture revealing mixed urogenital oliver. Currently on empiric treatment with cefepime for neutropenic prophylaxis and also for UTI Continue with the same for now. Attestations Medical Necessity Statement*: raidation esophagitis unable to tolerate po intake, pancytopenia , reassess ANC with filgatsrim Coding Level of Care Code Acute Code for Chg Fwd Moderate MDM includes number and complexity of problems actively addressed during encounter, amount and/or complexity of data reviewed/ordered and described risk of complication, morbidity or mortality of management as documented Diagnoses Metastatic squamous cell carcinoma Neutropenia D70.9 Thrombocytopenia D69.6 Anemia D64.9 Cystitis N30.90 Weakness generalized R53.1
[2023-06-13] MEDS: filgrastim-sndz 300 mcg/0.5 mL Syringe SUBCUT (14:52)
[2023-06-13] MEDS: dextrose 5%-sod chloride 0.9% 1,000 ML 75 ML IV (14:53)
[2023-06-13] MEDS: lidocaine 2% viscous 1.667 ML, diphenhydrAMINE oral liq 4.165 MG, aluminum-mag hydrox-s... MUCOUS MEM ×2 (15:10→21:32)
[2023-06-13] MEDS: atorvastatin 40 mg Tablet 80 MG PO (17:20)
[2023-06-13] MEDS: ondansetron 2 mg/ML SDV 2 mL 4 MG IVP (21:21)
[2023-06-13] MEDS: simethicone 80 mg Chew PO (21:21)
[2023-06-14] VITALS (8 sets, daily range): BP systolic 101–120; BP diastolic 59–72; PULSE 89–98; RESP 16–23; TEMP 36.7–37.4; O2SAT 90–92
[2023-06-14] MEDS: pantoprazole 40 mg SDV IVP ×3 (00:37→23:58)
[2023-06-14] MEDS: cefepime 2,000 MG in sodium chloride 0.9% (plus) 50 ML 100 MG IV ×3 (00:41→23:58)
[2023-06-14] MEDS: lidocaine 2% viscous 1.667 ML, diphenhydrAMINE oral liq 4.165 MG, aluminum-mag hydrox-s... MUCOUS MEM ×4 (01:58→20:33)
[2023-06-14] MEDS: dextrose 5%-sod chloride 0.9% 1,000 ML 75 ML IV (04:41)
[2023-06-14 05:47] LABS: Basophils % 0.8 %; Hematocrit 24.2 % (36-47); Lymphocytes # 0.4 10^3/uL (0.8-4.8); Lymphocytes % 11.4 %; Mean Corpuscular HGB Conc 33.1 g/dL (30-55); Mean Corpuscular Hemoglobin 29.7 pg (27-33); Mean Platelet Volume 10.1 fL (7.4-10.4); Monocytes # 0.5 10^3/uL (0.2-0.9); Monocytes % 14.4 %; Neutrophils # 2.11 10^3/uL (1.8-7.7); Neutrophils % 57.6 %; Nucleated Red Blood Cells % 0.5 %; Platelet Count 35 10^3/cmm (157-399); Red Blood Count 2.69 10^6/uL (3.85-5.65); Red Cell Distribution Width 17.5 % (12.1-15.1); White Blood Count 3.67 10^3/uL (3.29-11.43)
[2023-06-14 06:06] LABS: Alanine Aminotransferase 21 U/L (0-33); Albumin Level 2.6 g/dL (3.5-5.2); Alkaline Phosphatase 113 U/L (35-105); Aspartate Amino Transferase 26 U/L (0-32); Blood Urea Nitrogen 13 mg/dL (8-23); Calcium 7.9 mg/dL (8.5-10.5); Carbon Dioxide 27 mmol/L (22-29); Chloride 107 mmol/L (98-107); Globulin 2.7 g/dL (1.3-4.6); Glucose 133 mg/dL (65-115); Osmolality Calculated 296 mOsm/kg (285-295); Sodium 142 mmol/L (136-145); Total Bilirubin 0.7 mg/dL (0.15-1.2); Total Protein 5.3 g/dL (6.6-8.7)
[2023-06-14 06:17] LABS: Slide Review Slide Review Perform
[2023-06-14] MEDS: nystatin 100,000 unit/mL UDC 5 mL 500000 UNIT PO ×4 (09:08→20:31)
[2023-06-14] MEDS: lidocaine 1% 5 ML in potassium chloride premix 100 ML 25 ML IV (10:23)
--- NOTE | 2023-06-14 14:25 | PC.SOCIAL ---
IMM Update pg 2 of IMM updated and reviewed w/ patient. Copy provided and copy dated, initialed and placed in chart.
[2023-06-14] MEDS: lactulose oral liq 20 gm/30 mL UDC 10 GM PO (14:39)
--- NOTE | 2023-06-14 15:03 | PM.PN ---
Subjective Subjective: States that her dysphagia is better since modifying her diet and starting nystatin and Magic mouthwash. Able to tolerate pur?ed diet today. States that she still feels very weak and is fearful that she will fall when she gets home. Neutropenia resolved, WBC count today at 3.67 with an ANC of 2100. Taken off isolation precautions Platelet count stable at 35. Hemoglobin stable at 8. Medications: Reviewed: Yes Vitals/I&O/Wt Last Vital Signs Temp 98.5 F 06/14/23 11:11 Pulse 98 06/14/23 11:11 Resp 18 06/14/23 11:11 BP 112/67 06/14/23 11:11 Pulse Ox 92 06/14/23 11:11 O2 Del Method Room Air 06/14/23 11:11 06/14/23 06/14/23 06/14/23 06:59 14:59 22:59 Intake Total 1170.0 / 2668.0 170 / 170 105 / 275 Output Total 900 / 900 Balance 1170.0 / 1668.0 -730 / -730 105 / -625 Weight last 48 hrs Weight 89.103 kg Weight 84.028 kg Physical Exam Narrative: General: No acute distress, AO x3 HEENT: PERRLA, pupils bilaterally equal and reactive, pallors not present, no gross findings of mucositis Chest: Normal vesicular breath sounds, no added sounds, equal good air entry bilaterally CVS: S1-S2 regular, no murmurs, no tachycardia, no gallops, no rubs Abdomen: Soft, nontender, no organomegaly, bowel sounds present Neuro: No focal deficits, no facial deformity, AO x3, power 5/5 in all limbs Data 06/14/23 05:30 06/14/23 05:30 Micro: Microbiology 06/12/23 11:11 Urine Culture - Preliminary Urine,Clean Catch 06/12/23 11:28 Blood Culture - Preliminary Blood NEGATIVE TO DATE 06/12/23 11:32 Blood Culture - Preliminary Blood NEGATIVE TO DATE A&P Assessment and plan (1) Metastatic squamous cell carcinoma: (2) Neutropenia: (3) Thrombocytopenia: (4) Anemia: (5) Cystitis: (6) Weakness generalized: Plan 82-year-old lady with current 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 Also on concurrent radiation which she completed on June 11, 2023. Current hospital issues as below #Pancytopenia Currently with anemia and thrombocytopenia. Neutropenia now resolved. ANC up to 2100. Status post jazmyn gastrim for 3 days. Most likely related to bone marrow suppression from recent chemotherapy. #Radiation esophagitis Patient has been complaining of developing dysphagia, inability to tolerate any p.o. intake and had recurrent vomiting during the course of her radiation. Per review of outpatient radiation oncology notes it appears she was diagnosed with radiation esophagitis clinically. She elected to continue treatment through her symptoms. No gross signs of mucositis in the oropharynx currently. reduce IVF today. continue pureed diet, Ensure with every meal Continue Magic mouthwash 4 times a day continue nystatin swish and swallow. Discussed with her and her son over phone that should conservative management fail to resolve her symptoms over the next week or so, she will need endoscopic evaluation to assess for esophageal stricture continue protonix 40mg IV q12h #UTI/cystitis Urine WBC 55-80, positive leukocyte Estrace, urine culture revealing mixed urogenital oliver. Currently on empiric treatment with cefepime Continue with the same for now; plan 5-7 days. # Lactulose for constipation resume carvedilol from home medications Attestations Medical Necessity Statement*: improving clinically, OOB today, ambulate , assess for stability priro to discharge, anticipated in the upcoming 24 hrs Coding Level of Care Code Acute Code for Chg Fwd Diagnoses Metastatic squamous cell carcinoma Neutropenia D70.9 Thrombocytopenia D69.6 Anemia D64.9 Cystitis N30.90 Weakness generalized R53.1
[2023-06-14] MEDS: carvedilol 3.125 mg Tablet PO (17:24)
[2023-06-14] MEDS: atorvastatin 40 mg Tablet 80 MG PO (17:24)
[2023-06-14] MEDS: dextrose 5%-sod chloride 0.9% 1,000 ML 50 ML IV (20:37)
[2023-06-14] MEDS: lanolin oint 7 gm 1 APPLIC TOPICAL (20:39)
[2023-06-15] VITALS: BP 101/65; PULSE 115; RESP 24; TEMP 36.8; O2SAT 91
[2023-06-15 04:00] VITALS: BP 106/67; PULSE 101; RESP 22; TEMP 36.6; O2SAT 92
[2023-06-15 04:39] LABS: Basophils % 0.6 %; Lymphocytes # 0.8 10^3/uL (0.8-4.8); Lymphocytes % 16.4 %; Mean Corpuscular HGB Conc 32.6 g/dL (30-55); Mean Platelet Volume 10.6 fL (7.4-10.4); Monocytes # 0.7 10^3/uL (0.2-0.9); Monocytes % 15.3 %; Neutrophils # 3.08 10^3/uL (1.8-7.7); Neutrophils % 66.4 %; Nucleated Red Blood Cells % 0 %; Platelet Count 33 10^3/cmm (157-399); Red Cell Distribution Width 17.8 % (12.1-15.1); White Blood Count 4.64 10^3/uL (3.29-11.43)
[2023-06-15 04:53] LABS: Alanine Aminotransferase 18 U/L (0-33); Albumin Level 2.4 g/dL (3.5-5.2); Alkaline Phosphatase 119 U/L (35-105); Aspartate Amino Transferase 25 U/L (0-32); Blood Urea Nitrogen 14 mg/dL (8-23); Calcium 7.6 mg/dL (8.5-10.5); Carbon Dioxide 24 mmol/L (22-29); Chloride 107 mmol/L (98-107); Globulin 2.6 g/dL (1.3-4.6); Glucose 124 mg/dL (65-115); Osmolality Calculated 294 mOsm/kg (285-295); Sodium 141 mmol/L (136-145); Total Bilirubin 0.6 mg/dL (0.15-1.2)
[2023-06-15 04:54] VITALS: PULSE 86
[2023-06-15 05:01] LABS: Slide Review Slide Review Perform
[2023-06-15 08:00] VITALS: BP 120/78; PULSE 98; RESP 16; TEMP 36.7; O2SAT 90
[2023-06-15] MEDS: polyethylene glycol 3350 Pkt 17 gm PO (08:40)
[2023-06-15] MEDS: carvedilol 3.125 mg Tablet PO (08:40)
[2023-06-15] MEDS: nystatin 100,000 unit/mL UDC 5 mL 500000 UNIT PO ×2 (08:41→12:09)
[2023-06-15] MEDS: lidocaine 2% viscous 1.667 ML, diphenhydrAMINE oral liq 4.165 MG, aluminum-mag hydrox-s... MUCOUS MEM ×2 (08:41→13:32)
[2023-06-15] MEDS: lidocaine 1% 5 ML in potassium chloride premix 100 ML 26.25 ML IV (10:32)
[2023-06-15 11:51] VITALS: BP 119/75; PULSE 88; RESP 16; TEMP 36.6; O2SAT 94
[2023-06-15] MEDS: acetaminophen 325 mg Tablet 650 MG PO (12:08)
[2023-06-15] MEDS: pantoprazole 40 mg SDV IVP (12:09)
[2023-06-15] MEDS: cefepime 2,000 MG in sodium chloride 0.9% (plus) 50 ML 100 MG IV (12:09)
--- NOTE | 2023-06-15 17:00 | P.DS_ITS ---
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 Also on concurrent radiation which she completed on June 11, 2023. Admitted to the hospital on 06/12 with generalized weakness, fatigue and pancytopenia. #Pancytopenia Currently with anemia and thrombocytopenia.? Neutropenia now resolved.? ANC up to 2100. Status post filgastrim for 3 days. Most likely related to bone marrow suppression from recent chemotherapy. Follow up with heme/onc on saturday for repeat labs (today is saturday) no bleeding manifestations #Radiation esophagitis Patient has been complaining of developing dysphagia, inability to tolerate any p.o. intake and had recurrent vomiting during the course of her radiation.? Per review of outpatient radiation oncology notes it appears she was diagnosed with radiation esophagitis clinically.? She elected to continue treatment through her symptoms. No gross signs of mucositis in the oropharynx currently. received pureed diet and Ensure with every meal Continue Magic mouthwash 4 times a day at discharge continue nystatin swish and swallow continue protonix 40mg? po q12h Outpatient referral provided to general surgery if symptoms persist for possible endoscopy tolerating pureed diet currently, dysphagia better #UTI/cystitis Urine WBC 55-80, positive leukocyte Estrace, urine culture revealing mixed urogenital oliver. received empiric treatment with cefepime between 06/12-06/15 #Nondisplaced left superior pubic ramus fracture 05/20/23 Participated with PT , noted to be independent with all transfers, ambulating well with walker Physical Exam Narrative: General: No acute distress, AO x3 HEENT: PERRLA, pupils bilaterally equal and reactive, pallors not present Chest: Normal vesicular breath sounds, no added sounds, equal good air entry bilaterally CVS: S1-S2 regular, no murmurs, no tachycardia, no gallops, no rubs Abdomen: Soft, nontender, no organomegaly, bowel sounds present Neuro: No focal deficits, no facial deformity, AO x3, power 5/5 in all limbs Discharge Data Studies Completed and Pending Completed Studies During Hospitalization Category Date Time Status XR chest 1V portable [id number] Stat Exams 06/12/23 10:45 Completed Pending at discharge Category Date Time Status Blood Culture Stat Lab 06/12/23 11:32 Results Laboratory Results WBC 4.64 10^3/uL (3.29-11.43) 06/15/23 02:41 Corrected WBC 2.0 10^3/cmm (4.8-10.8) L 06/13/23 05:20 RBC 2.50 10^6/uL (3.85-5.65) L 06/15/23 02:41 Hgb 7.50 g/dL (11.27-16.99) L 06/15/23 02:41 Hct 23.0 % (36-47) L 06/15/23 02:41 MCV 92.0 fl (85-98) 06/15/23 02:41 MCH 30.0 pg (27-33) 06/15/23 02:41 MCHC 32.6 g/dL (30-55) 06/15/23 02:41 RDW 17.8 % (12.1-15.1) H 06/15/23 02:41 Plt Count 33 10^3/cmm (157-399) L 06/15/23 02:41 MPV 10.6 fL (7.4-10.4) H 06/15/23 02:41 Neut % (Auto) 66.4 % 06/15/23 02:41 Lymph % (Auto) 16.4 % 06/15/23 02:41 Kings % (Auto) 15.3 % 06/15/23 02:41 Eos % (Auto) 0.0 % 06/15/23 02:41 Baso % (Auto) 0.6 % 06/15/23 02:41 Neut # (Auto) 3.08 10^3/uL (1.8-7.7) 06/15/23 02:41 Lymph # (Auto) 0.8 10^3/uL (0.8-4.8) 06/15/23 02:41 Kings # (Auto) 0.7 10^3/uL (0.2-0.9) 06/15/23 02:41 Eos # (Auto) 0.0 10^3/uL (0.0-0.8) 06/15/23 02:41 Baso # (Auto) 0.0 10^3/uL (0.0-0.1) 06/15/23 02:41 Nucleated RBC % (auto) 0 % 06/15/23 02:41 Total Counted 100 (0-100) 06/13/23 05:20 Atypical Lymphs % Not Reportable 06/13/23 05:20 Absolute Neutrophils 0.9 10^3/cmm (1.4-6.5) L 06/12/23 10:26 Segmented Neutrophils 64 % 06/13/23 05:20 Abs Segm Neuts (Man) 1.3 10/cmm (1.6-7.1) L 06/13/23 05:20 Band Neutrophils Not Reportable 06/13/23 05:20 Abs Band Neuts (Man) 0.0 10^3/cmm (0.0-1.2) 06/12/23 10:26 Absolute Lymphocytes 0.4 10^3/cmm (1.2-3.4) L 06/12/23 10:26 Lymphocytes (Manual) 20 % 06/13/23 05:20 Monocytes (Manual) 9.0 % 06/13/23 05:20 Absolute Monocytes 0.2 10^3/cmm (0.1-0.6) 06/13/23 05:20 Eosinophils (Manual) 0 % 06/13/23 05:20 Absolute Eosinophils 0.0 10^3/cmm (0.0-0.7) 06/13/23 05:20 Basophils (Manual) 0.0 % 06/13/23 05:20 Absolute Basophils 0.0 10^3/cmm (0.0-0.2) 06/13/23 05:20 Metamyelocytes 4.0 % 06/12/23 10:26 Myelocytes 3.0 % 06/13/23 05:20 Nucleated RBCs 4.0 /100WBC (0-1) H 06/13/23 05:20 Nucleated RBCs # 0.0 /100WBC 06/15/23 02:41 Platelet Estimate Decreased (Normal) L 06/13/23 05:20 Polychromasia 2+ H 06/12/23 10:26 Anisocytosis 2+ H 06/12/23 10:26 PT 15.10 SECONDS (12.1-14.9) H 06/12/23 10:26 INR 1.16 (0.8-1.2) 06/12/23 10: APTT 35.4 SECONDS (23.9-36.7) 06/12/23 10:26 Sodium 141 mmol/L (136-145) 06/15/23 02:41 Potassium 3.0 mmol/L (3.5-5.1) L 06/15/23 02:41 Chloride 107 mmol/L (98-107) 06/15/23 02:41 Carbon Dioxide 24 mmol/L (22-29) 06/15/23 02:41 Anion Gap 13.0 (5-19) 06/15/23 02:41 BUN 14 mg/dL (8-23) 06/15/23 02:41 Creatinine 0.6 mg/dL (0.5-0.9) 06/15/23 02:41 GFR Calculation Not Reportable 06/15/23 02:41 Glucose 124 mg/dL (65-115) H 06/15/23 02:41 Calculated Osmolality 294 mOsm/kg (285-295) 06/15/23 02:41 Lactic Acid 0.7 mmol/L (0.5-2.2) 06/12/23 11:32 Calcium 7.6 mg/dL (8.5-10.5) L 06/15/23 02:41 Magnesium 1.4 mg/dL (1.7-2.3) L 06/13/23 05:20 Total Bilirubin 0.6 mg/dL (0.15-1.2) 06/15/23 02:41 AST 25 U/L (0-32) 06/15/23 02:41 ALT 18 U/L (0-33) 06/15/23 02:41 Alkaline Phosphatase 119 U/L (35-105) H 06/15/23 02:41 Creatine Kinase 21 U/L (26-192) L 06/12/23 10:26 Troponin T Baseline 26 ng/L (0-10) H 06/12/23 10:26 Troponin T 120 Minute 20.35 ng/L (0-10) H 06/12/23 12:30 Delta Troponin T -5.65 ABS# (0-10) L 06/12/23 12:30 Troponin T Hi Sens 6Hr 17.67 ng/L (0-10) H 06/12/23 17:00 Troponin T Hi Sens 6Hr Delta -8.33 ng/L (0-12) L 06/12/23 17:00 Total Protein 5.0 g/dL (6.6-8.7) L 06/15/23 02:41 Albumin 2.4 g/dL (3.5-5.2) L 06/15/23 02:41 Globulin 2.6 g/dL (1.3-4.6) 06/15/23 02:41 Lipase 20 U/L (13-60) 06/12/23 10:26 Urine Color Yellow (Yellow) 06/12/23 11:11 Urine Appearance Hazy (CLEAR) A 06/12/23 11:11 Urine pH 5 (5-7) 06/12/23 11:11 Ur Specific Darragh 1.020 (1.005-1.030) 06/12/23 11:11 Urine Protein 1+ (Negative) H 06/12/23 11:11 Urine Glucose (UA) Norm (Normal) 06/12/23 11:11 Urine Ketones 1+ (Negative) H 06/12/23 11:11 Urine Blood 2+ (Negative) H 06/12/23 11:11 Urine Nitrate Negative (Negative) 06/12/23 11:11 Urine Bilirubin 1+ (Negative) H 06/12/23 11:11 Urine Urobilinogen Norm mg/dL (Negative) 06/12/23 11:11 Ur Leukocyte Esterase 2+ (Negative) H 06/12/23 11:11 Urine RBC 5-10 /hpf (0-2) H 06/12/23 11:11 Urine WBC 55-80 /hpf (0-5) H 06/12/23 11:11 Ur Squamous Epith Cells 5-10 /hpf (0-5) H 06/12/23 11:11 Ur Transition Epith Cell 5-10 /hpf 06/12/23 11:11 Amorphous Sediment Trace /hpf 06/12/23 11:11 Urine Bacteria 1+ /hpf (NONE) H 06/12/23 11:11 Hyaline Casts 0-4 /lpf H 06/12/23 11:11 Fine Granular Casts 0-4 /lpf H 06/12/23 11:11 Urine Mucus 1+ /hpf 06/12/23 11:11 Blood Type A Negative 06/12/23 11:32 Rho(D) Type Negative 06/12/23 11:32 Antibody Screen Negative 06/12/23 11:32 Crossmatch See Detail 06/12/23 11:32 Vitals Last Vital Signs Temp 97.9 F 06/15/23 11:51 Pulse 88 06/15/23 11:51 Resp 16 06/15/23 11:51 BP 119/75 06/15/23 11:51 Pulse Ox 94 06/15/23 11:51 O2 Del Method Room Air 06/15/23 11:51 Discharge Plan Discharge Patient Disposition: Home Health Service Condition: Stable Prescriptions: New nystatin 100,000 unit/mL Suspension 500,000 unit PO QID 30 Days Qty: 600 0RF diphenhydramine HCl 12.5 mg/5 mL elixir 25 mg PO Q6H Qty: 500 0RF Maalox Advanced 200-200-20 mg/5 mL suspension 10 ml PO Q6H Qty: 3000 0RF lactulose 10 gram/15 mL solution 10 g PO DAILY PRN (Reason: constipation) Qty: 237 1RF levofloxacin 500 mg tablet 500 mg PO DAILY 3 Days Qty: 3 0RF Continued cholecalciferol (vitamin D3) 10 mcg (400 unit) capsule 10 mcg PO DAILY lorazepam 1 mg tablet 0.5 - 1 mg PO Q6H PRN (Reason: Severe Nausea) Qty: 30 3RF (DME) top steep tender knee brace See Rx Instructions .Route .MEDSUPPLY Qty: 1 0RF Rx Instructions: arthritis right knee Probiotic 15 billion cell Capsule 1 cap PO QAM Immune From Live Pure 1 tab PO DAILY acetaminophen 500 mg Tablet 1,000 mg PO Q4H PRN (Reason: Pain) Coffee Mocha Recharge 1 packet PO QAM Calciumk+ 5 - 10 ml PO DAILY carvedilol 3.125 mg tablet 3.125 mg PO BID rosuvastatin 40 mg tablet 40 mg PO QPM prochlorperazine maleate [Compazine] 10 mg tablet 10 mg PO Q4H PRN (Reason: Mild Nausea) Qty: 30 3RF Changed Protonix 40 mg tablet,delayed release (DR/EC) 40 mg PO BID Qty: 30 0RF Lidocaine Viscous 2 % solution 1 applic mucous membrane Q6H Qty: 80 0RF Rx Instructions: add Maalox 80ml and benadryl 80ml to make mouthwash swish & swallow Discontinued meloxicam 7.5 mg tablet 7.5 mg PO DAILY Discharge Orders: Discharge Order (Routine); Ordered 06/15/23 Ordered By: Kika Livingston Referrals: [facility]) [Outside] Morris Velazquez MD [Physician] - (radiation esophagitis We have notified your physician's clinic of the need for a follow-up appointment to be scheduled. If you have not heard from them within the next 2 business days, please call them directly. ) Dequan Dubois, [Primary Care Provider] - (We have notified your physician's clinic of the need for a follow-up appointment to be scheduled. If you have not heard from them within the next 2 business days, please call them directly. ) Washington Conrad MD [Hospitalist] - 1-3 days Discharge Diet: Advance as tolerated and Soft Mechanical Discharge Activity: Resume usual activity Patient Instructions: Nystatin (By mouth), Lung Cancer (DC), Oral Candidiasis (GEN), Opioid Safety Activity Restrictions/Additional Instructions: Magic Mouthwash * 70 mL viscous lidocaine 2% * 70 mL Maalox (do not substitute Kaopectate) * 70 mL diphenhydramine (Benadryl) (of the elixir, which is 12.5 mg per 5 mL) Disp: 210 ml (10 day supply) Sig: Swish thoroughly, gargle, and spit one teaspoonful (5 mL) after meals and before bed. Shake well before using. Discharge Attestations Time Spent in Discharge Care*: greater than 30 min Quality Metrics Clinical Quality Measures [ No reported AMI, CVA or VTE this stay] Coding Level of Care Code Acute Code for Chg Fwd Diagnoses Metastatic squamous cell carcinoma Neutropenia D70.9 Thrombocytopenia D69.6 Anemia D64.9 Cystitis N30.90 Weakness generalized R53.1
[2023-06-15 17:41] VITALS: BP 119/75; PULSE 88; RESP 16; TEMP 36.6; O2SAT 94
== END 2023-06-15 17:00 | disposition home health service (06) | DRG 809 ==
LOC: ER 11:53 → MEDSURG 12:49
PROVIDERS: Admitting Provider Internal Medicine; Emergency Provider Family Medicine; PCP Family Medicine; Visit Provider Student in an Organized Health Care Education/Training Program
DX: D61.810 Antineoplastic chemotherapy induced pancytopenia (principal); C34.32 Malignant neoplasm of lower lobe, left bronchus or lung; C79.51 Secondary malignant neoplasm of bone; D84.821 Immunodeficiency due to drugs; T45.1X5A Adverse effect of antineoplastic and immunosuppressive drugs, initial encounter; D75.89 Other specified diseases of blood and blood-forming organs; K12.33 Oral mucositis (ulcerative) due to radiation; W88.1XXA Exposure to radioactive isotopes, initial encounter; N30.90 Cystitis, unspecified without hematuria; I25.10 Atherosclerotic heart disease of native coronary artery without angina pectoris; K21.9 Gastro-esophageal reflux disease without esophagitis; M81.0 Age-related osteoporosis without current pathological fracture; I10 Essential (primary) hypertension; E78.5 Hyperlipidemia, unspecified; I25.2 Old myocardial infarction; Z79.899 Other long term (current) drug therapy; Z85.3 Personal history of malignant neoplasm of breast; Z86.718 Personal history of other venous thrombosis and embolism; Z95.5 Presence of coronary angioplasty implant and graft; Z90.11 Acquired absence of right breast and nipple
CPT/HCPCS: 36415; 36430; 71045; 80053; 81001; 82550; 83605; 83690; 83735; 84484; 85007; 85025; 85610; 85730; 86850; 86900; 86920; 87040; 87086; 92610; 93005; 96360; 96365; 96372; 96375; 97110; 97116; 97162; 97166; 97530; 97535; 99285; C9113; J0692; J1642; J2405; J3480; J7030; J7042; P9040; Q5101

== ENCOUNTER 2023-06-17 09:39 | Oncology outpatient (recurring) (ONCR) | payer MEDICARE, SELFPAY ==
[2023-06-03 08:25] VITALS: BP 128/78; PULSE 97; RESP 16; TEMP 36.7; O2SAT 94
[2023-06-03 08:52] LABS: Basophils % 0.5 %; Eosinophils % 0.5 %; Hematocrit 29.8 % (36-47); Lymphocytes # 0.3 10^3/uL (0.8-4.8); Mean Corpuscular HGB Conc 32.9 g/dL (30-55); Mean Corpuscular Hemoglobin 29.9 pg (27-33); Mean Corpuscular Volume 90.9 fl (85-98); Mean Platelet Volume 10.2 fL (7.4-10.4); Monocytes # 0.3 10^3/uL (0.2-0.9); Monocytes % 15.4 %; Neutrophils # 1.47 10^3/uL (1.8-7.7); Neutrophils % 70.6 %; Nucleated Red Blood Cells % 0 %; Platelet Count 59 10^3/cmm (157-399); Red Blood Count 3.28 10^6/uL (3.85-5.65); Red Cell Distribution Width 15.6 % (12.1-15.1); White Blood Count 2.08 10^3/uL (3.29-11.43)
[2023-06-03 09:32] LABS: Alanine Aminotransferase 20 U/L (0-33); Albumin Level 3.9 g/dL (3.5-5.2); Alkaline Phosphatase 115 U/L (35-105); Anion Gap 16.6 (5-19); Aspartate Amino Transferase 23 U/L (0-32); Blood Urea Nitrogen 19 mg/dL (8-23); Calcium 9.1 mg/dL (8.5-10.5); Carbon Dioxide 22 mmol/L (22-29); Chloride 100 mmol/L (98-107); Creatinine Clr Calc Pharmacy 59.4228; Globulin 3.2 g/dL (1.3-4.6); Glucose 102 mg/dL (65-115); Osmolality Calculated 282 mOsm/kg (285-295); Potassium 3.6 mmol/L (3.5-5.1); Sodium 135 mmol/L (136-145); Total Bilirubin 0.6 mg/dL (0.15-1.2); Total Protein 7.1 g/dL (6.6-8.7)
[2023-06-03] MEDS: sodium chloride 0.9% 250 ML 75 ML IV (11:45)
[2023-06-03] MEDS: acetaminophen 325 mg Tablet 650 MG PO (11:46)
[2023-06-03] MEDS: famotidine 20 mg/2 mL INJ IVP (11:48)
[2023-06-03] MEDS: diphenhydrAMINE 50 mg/mL SDV 1mL 25 MG IVP (11:50)
[2023-06-03] MEDS: palonosetron 0.25 mg/5 mL SDV IVP (11:52)
[2023-06-03] MEDS: dexamethasone 20 MG in sodium chloride 0.9% 50 ML 188 MG IV (11:55)
[2023-06-03] MEDS: PACLitaxeL 100 MG in sodium chloride 0.9%(non-DEHP) 250 ML 266.67 MG IV (12:22)
[2023-06-03] MEDS: CARBOplatin 240 MG in sodium chloride 0.9% 500 ML 524 MG IV (13:36)
[2023-06-03 14:55] VITALS: BP 107/69; PULSE 101; RESP 16; TEMP 36.2; O2SAT 95
--- NOTE | 2023-06-04 10:01 | ONCRAD TMN_ITS ---
Radiation Oncology Weekly Treatment Management Patient: Jelly Norman MR#: [id number] : 1940 Attending Physician: Dr. Chelsea Mays Date of Service: 06/04/2023 Fractions: 27 out of 30 Chief complaint: She began to develop over the last 2 days difficulty with swallowing. It happened over the weekend. She found when she swallowed she was unable to get a few things down and they came back up. She did not have nausea. She says this is gotten to the point this morning where it was quite painful to get half of her coffee down. She is completed her chemotherapy. She is down 3 pounds from last week. Referring Physician(s) : Dr. 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 ID: Lt [id number], Energy: 15X, Dose/Fx (cGy): 300, #Fx: , Dose Correction (cGy): 0, Total Dose (cGy): 3,000, Start Date: 05/06/2023, End Date: 05/17/2023, Elapsed Days: 11 Course: Chest KiUhw1666, Treatment Site: Lt Ynove84Tj, Ref. ID: [id number], Energy: 6X, Dose/Fx (cGy): 200, #Fx: , Dose Correction (cGy): 0, Total Dose (cGy): 5,400, Start Date: 04/29/2023, Elapsed Days: 36 Reason for visit: The patient is being seen today as part of their regularly scheduled weekly on treatment visits to assess for acute toxicities from radiotherapy. Review of Systems: As above Vital Signs: Performed on 06/04/2023 9:10 AM BMI - 29.063 kg/m2 (high), Height - 66.5 in, Weight - 182.8 lbs, Temperature - 96.9 f, Pulse - 81 /min, Respiration - 16 /min, O2 Sat - 98 %, Pain - 2, Fatigue - 4 and BP - 128/ 60 mm(hg)(/low). Physical Exam: Respiratory rate is regular nonlabored. Skin was warm and dry with good color. No radiation changes were noted. Imaging: Radiation therapy imaging related to accurate target localization (i.e. KV, MV and CBCT) was reviewed. Appropriate changes, if any, were made to ensure treatment accuracy. 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 I reviewed with her that she has 3 treatments remaining. The area is substantially down in the esophagus and will be difficult to reach with topical agents such as viscous lidocaine. She declined any pain medicine intervention. She is open to taking Tylenol. I reviewed with her that she could continue with these last 3 treatments and the esophagitis would not worsen. Once she finished then the process of healing will begin. It would feel the same for approximately 3 to 5 days and then gradually improve over 2 weeks. Between 2 and 3 weeks it would substantially improve. We talked about how sometimes patients need additional fluid support the last week or 2 of after treatment. The other option will be to take a break until Saturday and then complete her treatments next week. After some discussion she is elected to go ahead and proceed with the treatments and get this done so that she can begin the healing. At this point I have asked her to return tomorrow and we will weigh her daily. I will get her set up to have fluids on . She was scheduled to visit with the GI physician we will get that put on hold for now. Signed by: Dr. Chelsea Mays 06/04/2023 9:59:48 AM
[2023-06-05] MEDS: sodium chloride 0.9% 1,000 ML 999 ML IV (09:29)
--- NOTE | 2023-06-06 15:16 | ONCRAD TMN_ITS ---
Radiation Oncology Weekly Treatment Management Patient: Ester Reaevs MR#: [id number] : 1940> Attending Physician: Dr. Chelsea Mays Date of Service: 06/06/2023 Interval history: Patient received IV fluids yesterday. She spent last night with watery diarrhea. She is linked to 2. I reassured her that I did not think that she had diarrhea because she got IV fluids. Her son who was on the phone was concerned that all the fluids we gave her have been washed out with her diarrhea. I agreed with him and she has agreed at this point to receive additional fluids tomorrow and 2 days next week. She at this point is not able to get anything in other than sips and I basically told her as a full-time job for her to sip on things old day long. Referring Physician(s) : Dr. 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 ID: Lt [id number], Energy: 15X, Dose/Fx (cGy): 300, #Fx: , Dose Correction (cGy): 0, Total Dose (cGy): 3,000, Start Date: 05/06/2023, End Date: 05/17/2023, Elapsed Days: 11 Chest [id number], Treatment Site: Lt Gjoyp50Je, Ref. ID: [id number], Energy: 6X, Dose/Fx (cGy): 200, #Fx: 30, Dose Correction (cGy): 0, Total Dose (cGy): 5,800, Start Date: 04/29/2023, Elapsed Days: 38 Reason for visit: The patient is being seen today as part of their regularly scheduled weekly on treatment visits to assess for acute toxicities from radiotherapy. Review of Systems: Vital Signs: Imaging: Radiation therapy imaging related to accurate target localization (i.e. KV, MV and CBCT) was reviewed. Appropriate changes, if any, were made to ensure treatment accuracy. Plan: She will get IV fluids tomorrow and twice next week. She will continue to try and work on things that she can get in even if she have to sip on Ensure all day. She only has 1 treatment remaining. I reminded her that it would get better until the middle of next week. Signed by: Dr. Chelsea Mays 06/06/2023 3:15:18 PM
[2023-06-07] MEDS: sodium chloride 0.9% 1,000 ML 999 ML IV (09:30)
[2023-06-07 11:07] VITALS: BP 152/88; PULSE 94; TEMP 36.1; O2SAT 97
--- NOTE | 2023-06-11 12:41 | N.ONRD TS_ITS ---
Radiation Oncology Treatment Summary Patient: Ester Reaves MR#: [id number] : 1940 Age: 82 Sex: Female Dictated by: Gabe Fish Date of Service: 06/07/2023 Referring Physician(s) : Dr. 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 ID: Lt [id number], Energy: 15X, Dose/Fx (cGy): 300, #Fx: 10 , Dose Correction (cGy): 0, Total Dose (cGy): 3,000, Start Date: 05/06/2023, End Date: 05/17/2023, Elapsed Days: 11 Chest [id number], Treatment Site: Lt Kipfg42Wb, Ref. ID: [id number], Energy: 6X, Dose/Fx (cGy): 200, #Fx: 30 / 30, Dose Correction (cGy): 0, Total Dose (cGy): 6,000, Start Date: 04/29/2023, End Date: 06/07/2023, Elapsed Days: 39 Clinical Summary: The patient tolerated poorly as she did require significant IV fluid support for poorly controlled radiation esophagitis. She required IV fluids at the end of treatment on 06/06/2023, 06/10/2023 and 06/11/2023. She was able to sip fluids. She did have triple mix. She declined narcotic analgesics but did use APAP. Plan: End of treatment today. Follow up in one month. Signed by: Gabe Fish>06/11/2023 12:39:47 PM <<Signature on File>>
[2023-06-11 13:32] VITALS: BP 95/56; PULSE 81; RESP 17; TEMP 36.7; O2SAT 96
[2023-06-11] MEDS: sodium chloride 0.9% 1,000 ML 999 ML IV (13:36)
[2023-06-17 09:55] VITALS: BP 120/72; PULSE 99; RESP 16; TEMP 36.7; O2SAT 94
[2023-06-17 10:35] LABS: Basophils % 0.7 %; Hematocrit 25.2 % (36-47); Lymphocytes # 0.7 10^3/uL (0.8-4.8); Mean Corpuscular HGB Conc 32.9 g/dL (30-55); Mean Corpuscular Hemoglobin 29.9 pg (27-33); Mean Corpuscular Volume 90.6 fl (85-98); Monocytes # 0.6 10^3/uL (0.2-0.9); Monocytes % 20.7 %; Neutrophils # 1.45 10^3/uL (1.8-7.7); Neutrophils % 52.8 %; Nucleated Red Blood Cells % 0 %; Platelet Count 34 10^3/cmm (157-399); Red Blood Count 2.78 10^6/uL (3.85-5.65); Red Cell Distribution Width 17.8 % (12.1-15.1); White Blood Count 2.75 10^3/uL (3.29-11.43)
[2023-06-17 10:56] LABS: Alanine Aminotransferase 19 U/L (0-33); Albumin Level 3.1 g/dL (3.5-5.2); Alkaline Phosphatase 126 U/L (35-105); Anion Gap 16.2 (5-19); Aspartate Amino Transferase 22 U/L (0-32); Blood Urea Nitrogen 11 mg/dL (8-23); Calcium 8.9 mg/dL (8.5-10.5); Carbon Dioxide 24 mmol/L (22-29); Chloride 103 mmol/L (98-107); Globulin 2.8 g/dL (1.3-4.6); Glucose 115 mg/dL (65-115); Iron 101 ug/dL (37-145); Osmolality Calculated 290 mOsm/kg (285-295); Percent Saturation 50.5 % (20-50); Potassium 3.2 mmol/L (3.5-5.1); Sodium 140 mmol/L (136-145); Total Bilirubin 0.6 mg/dL (0.15-1.2); Total Iron Binding Capacity 200 mcg/dl; Total Protein 5.9 g/dL (6.6-8.7); Unsaturated Iron Binding 99 ug/dL (112-347)
== END 2023-06-27 23:59 | disposition home or self-care (01) ==
PROVIDERS: Internal Medicine; Nurse Practitioner Family; PCP Family Medicine; Visit Provider Specialist
DX: C34.32 Malignant neoplasm of lower lobe, left bronchus or lung (principal); R35.0 Frequency of micturition; R06.02 Shortness of breath; M79.605 Pain in left leg; M79.89 Other specified soft tissue disorders; C79.51 Secondary malignant neoplasm of bone; Z79.899 Other long term (current) drug therapy
CPT/HCPCS: 36592; 77014; 77336; 77386; 77427; 80053; 83540; 83550; 85025; 96360; 96367; 96375; 96413; 96417; 99024; 99214; 99215; J1100; J1200; J1642; J2469; J3490; J7030; J7040; J7050; J9045; J9267

== ENCOUNTER 2023-06-28 09:39 | Outpatient (CLI) | payer MEDICARE, SELFPAY ==
[2023-06-28] MEDS: iohexol 350 mg/mL 500 mL Btl (per mL) PO (10:30)
--- NOTE | 2023-06-28 10:30 | CT_ITS ---
WS: [id number] CT CHEST, ABDOMEN AND PELVIS WITH CONTRAST HISTORY: Metastatic squamous cell carcinoma. History of breast cancer. RIGHT mastectomy. TECHNIQUE: Contiguous 5 mm axial imaging performed through the chest, abdomen and pelvis with IV cont rast, oral contrast has been provided. Coronal and sagittal reformats chest. Coronal and sagittal ref ormats through the abdomen and pelvis. All CT scans at [facility] use at least one of these d ose optimization techniques: automated exposure control; mA and/or kV adjustment per patient size (in cludes targeted exams where dose is matched to clinical indication); or iterative reconstruction. CONTRAST: Omnipaque 350; 100 mL IV. DLP: 933.96 mGy.cm COMPARISON: 01/10/2023, 10/12/2019, PET/CT 02/16/[address]: Interval change in appearance of the lungs since the prior examinations. There are new scat tered pulmonary nodules. Some of these are ill-defined and slightly spiculated. Some of these nodules are of groundglass attenuation. There is a 9 mm irregular nodule medial RIGHT upper lobe. There are several very small subcentimeter nodules along the RIGHT fissure. Small groundglass attenuation nodul es in the azygos esophageal recess. There are additional scattered very small nodules in pulmonary op acifications. No pericardial or pleural effusions. Mild atherosclerosis aorta. Moderate enlargement o f the pulmonary artery. Overall there is been a moderate decrease in size of the mediastinal and bebo r lymph node burden since 01/10/2023. LEFT hilar lymph nodes were positive on a recent PET/CT. The lar gest lymph node is now 1.5 cm at the RIGHT hilum which is unchanged. No new or increasing mediastinal or hilar lymph nodes. No axillary lymph nodes. Heart is normal size. Small hiatal hernia. Abdomen CT: Hepatic and splenic granulomata. Tiny area of decreased attenuation in the RIGHT lobe of the liver adjacent to a granuloma is probably fatty sparing. Normal pancreas. Common bile duct is mil dly dilated on the basis of prior cholecystectomy. No pancreatic duct dilatation. Normal adrenal glan ds. Kidneys are normally enhancing. Exophytic cyst from the lower pole LEFT kidney measures 1.3 cm. H eavy calcification within the abdominal aorta. No aneurysm. No ascites. No mediastinal or hilar lymph nodes. Stomach is not distended. No small bowel obstruction. The appendix is normal. Mild diffuse constipati on. RIGHT lateral ventral abdominal wall hernias. There is marked thinning of the musculature with severa l defects resulting in herniation. One of the herniations contains the hepatic flexure. There is no o bstruction. Pelvic CT: Prior hysterectomy. No free fluid or adenopathy. Negative urinary bladder. Marked increase in thoracic kyphosis. L1 and T12 compression fractures. Biconcave fracture of L1. The re is an additional concave fracture involving the superior endplate of L4. These fractures were prev iously described on an MRI from 03/17/2021 patient has a known biopsy-proven metastatic lesion in the LEFT ischial tuberosity. No new destructive bone lesions. IMPRESSION: 1. New scattered subcentimeter pulmonary nodules and groundglass opacifications since the PET/CT of . This may be a response to therapy or new metastatic sites. This will need to be further kina luated. Recommend follow-up chest CT in 3 months. 2. LEFT hilar lymphadenopathy that was positive on the PET/CT has significantly decreased in size. Me diastinal and hilar lymph nodes are either stable or decreased in size. No enlarging adenopathy. 3. No metastatic disease to the liver or adrenal glands. 4. Patient has a known metastatic bone lesion in the LEFT ischial tuberosity. No new osseous metastat ic sites are identified. 5. No ascites and no abdominal or pelvic adenopathy. 6. Known osteoporotic compression fractures T12, L1 and L4. 7. RIGHT lateral ventral abdominal wall hernias.
[2023-06-28] MEDS: iohexol 350 mg/mL 500 mL Btl (per mL) IV (11:31)
== END 2023-06-28 09:40 | disposition home or self-care (01) ==
LOC: RAD 09:39
PROVIDERS: PCP Family Medicine; Visit Provider Internal Medicine Medical Oncology
DX: C50.411 Malignant neoplasm of upper-outer quadrant of right female breast (principal); R91.1 Solitary pulmonary nodule; C41.9 Malignant neoplasm of bone and articular cartilage, unspecified; M80.88XA Other osteoporosis with current pathological fracture, vertebra(e), initial encounter for fracture; K59.00 Constipation, unspecified
CPT/HCPCS: 71260; 74177; Q9967

== ENCOUNTER 2023-07-03 08:03 | Oncology outpatient (recurring) (ONCR) | payer MEDICARE, SELFPAY ==
[2023-07-02 10:34] VITALS: BP 112/68; PULSE 86; RESP 16; TEMP 36.3; O2SAT 91
[2023-07-02 10:48] LABS: Basophils % 0.3 %; Eosinophils # 0.1 10^3/uL (0.0-0.8); Eosinophils % 1.3 %; Hematocrit 24.8 % (36-47); Lymphocytes # 0.9 10^3/uL (0.8-4.8); Lymphocytes % 25.1 %; Mean Corpuscular HGB Conc 31.5 g/dL (30-55); Mean Corpuscular Hemoglobin 31.2 pg (27-33); Mean Corpuscular Volume 99.2 fl (85-98); Mean Platelet Volume 9.4 fL (7.4-10.4); Monocytes # 0.5 10^3/uL (0.2-0.9); Monocytes % 13.9 %; Neutrophils # 2.21 10^3/uL (1.8-7.7); Neutrophils % 59.1 %; Nucleated Red Blood Cells % 0 %; Platelet Count 71 10^3/cmm (157-399); Red Cell Distribution Width 22.5 % (12.1-15.1); White Blood Count 3.74 10^3/uL (3.29-11.43)
[2023-07-02 11:05] LABS: Alanine Aminotransferase 9 U/L (0-33); Albumin Level 3.4 g/dL (3.5-5.2); Alkaline Phosphatase 158 U/L (35-105); Aspartate Amino Transferase 20 U/L (0-32); Blood Urea Nitrogen 19 mg/dL (8-23); Calcium 8.7 mg/dL (8.5-10.5); Carbon Dioxide 24 mmol/L (22-29); Chloride 102 mmol/L (98-107); Glucose 99 mg/dL (65-115); Osmolality Calculated 286 mOsm/kg (285-295); Sodium 137 mmol/L (136-145); Total Bilirubin 0.3 mg/dL (0.15-1.2); Total Protein 6.4 g/dL (6.6-8.7)
[2023-07-03] VITALS (8 sets, daily range): BP systolic 104–121; BP diastolic 50–74; PULSE 63–78; RESP 18; TEMP 36.1–36.6; O2SAT 92–98
[2023-07-03] MEDS: diphenhydrAMINE 25 mg Capsule PO (09:00)
[2023-07-03] MEDS: acetaminophen 325 mg Tablet 650 MG PO (09:00)
[2023-07-03] MEDS: sodium chloride 0.9% 100 mL Bag 50 ML IV (09:00)
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
== END 2023-07-28 23:59 | disposition home or self-care (01) ==
PROVIDERS: Internal Medicine Medical Oncology; PCP Family Medicine; Visit Provider Radiology Radiation Oncology
DX: D64.9 Anemia, unspecified (principal); C34.32 Malignant neoplasm of lower lobe, left bronchus or lung; C79.51 Secondary malignant neoplasm of bone
CPT/HCPCS: 36415; 36430; 80053; 85025; 86850; 86900; 86920; 99024; 99215; P9040

== ENCOUNTER 2023-07-30 08:35 | Outpatient (CLI) | payer MEDICARE, SELFPAY ==
--- NOTE | 2023-07-30 09:00 | PETR_ITS ---
PROCEDURE INFORMATION: Exam: PET/CT Skull Base to Mid-thigh Exam date and time: 07/30/2023 10:05 AM Age: 82 years old Clinical indication: Condition or disease; Primary cancer: Breast, lung; Follow-up oncological assessment; Condition/disease: Lung cancer; Prior surgery; Surgery date: 6+ months; Surgery type: RT mastectomy, gb, hysterectomy, hernia repair; Additional info: Compare to previous LABS AND CLINICAL REPORTS: Glucose: 130 mg/dl Treatment strategy for malignancy (PET staging): Restaging (PS) TECHNIQUE: Imaging protocol: Following at least four-hour fasting and following the injection of radiopharmaceutical, low dose CT images were obtained. Then, PET images were obtained. Attenuation corrected images were constructed using the CT scan. Fused images of PET and CT were reviewed. The standardized uptake values (SUV) reported below are maximum values within a region of interest, expressed in gm/ml. Exam includes orbital meatal line to mid-thigh. Radiopharmaceutical: 12.2 mCi F-18 FDG (Fluorodeoxyglucose), IV. Time of imaging post radiopharmaceutical administration: 1 hour Injection site: Right antecubital COMPARISON: CT chest, abdomen and pelvis 06/28/2023, [facility] [id number] 02/16/2023 9:13 AM FINDINGS: Brain: Visualized brain has normal physiologic uptake. Pharynx: Uptake in the region of the soft palate is noted, likely physiologic in nature without evidence of a definitive correlating lesion on the CT images. Larynx: No abnormal uptake. Lungs, pleura and trachea: Elevated uptake is identified in the region of patchy rounded right periesophageal soft tissue density in the region of the medial right lower lobe on series 3, image 77 adjacent to or arising from the esophagus measuring approximately 2.0 cm in diameter, SUV max 5.6. This appears new since the prior PET-CT and increased in prominence since the prior recent CT chest of 06/28/2023. Calcified granulomas in the right lung are noted. A previously noted spiculated nodule in the anteromedial right upper lobe measuring approximately 8 mm is similar compared with 06/28/2023 without elevated uptake. No additional definite noncalcified pulmonary nodules are noted with limitations of respiratory motion artifact. Heart: Normal physiologic uptake. Mediastinal space: No abnormal uptake. Diaphragm: Small hiatal hernia. Liver: No abnormal uptake. Calcified granulomas in the liver are noted. Gallbladder and bile ducts: No abnormal uptake. The gallbladder appears to be surgically absent. Mild prominence of the common bile duct is noted, within normal limits following cholecystectomy. Pancreas: No abnormal uptake. Spleen: No abnormal uptake. There are calcified granulomas in the spleen. Adrenal glands: No abnormal uptake. Kidneys and ureters: A non radiotracer avid exophytic low-density lesion arising from the inferior pole of the left kidney measuring 2.1 cm is compatible with a benign cyst as characterized on the comparison CT of 06/28/2023. Unremarkable right kidney. Stomach and bowel: No abnormal uptake. A segment of proximal transverse colon extends through a partial diastasis of the right rectus abdominus muscle without evidence obstruction or wall thickening similar to the prior examinations. Vasculature: No abnormal uptake. There are diffuse atherosclerotic changes with mild aneurysmal dilatation of the thoracic aortic arch measuring 3.2 cm and mild ectasia of the ascending thoracic aorta is noted measuring approximately 4.3 cm. Lymph nodes: Previously noted elevated uptake in the left hilar region has significantly decreased, SUV max 3.5 (previously 9.7). No well-defined lymph nodes are noted on the noncontrast CT images. Similar partially calcified precarinal lymph node measuring approximately 1.4 cm on series 3, image 71 with interval resolution of elevated uptake. Previously noted uptake in the right hilar region on the prior PET-CT currently demonstrates an SUV max 3.5 (previously 4.1) without well-defined lymph nodes on the noncontrast CT images. Bones/joints: No abnormal uptake. Previously noted uptake in the left ischial tuberosity has resolved with evidence of two healed or healing fractures in this region currently on CT series 3 images 211-213 that appear new since the prior PET-CT. A previously noted lytic lesion in the ischial tuberosity adjacent to the more posteriorly located fracture in this location is similar in appearance compared to the prior PET-CT on series 3, image 215. A non radiotracer avid fracture with corticated margins and no significant bridging between fracture fragments is noted in the left superior pubic ramus on series 3, image 197 which is similar compared with 06/28/2023 and new since the prior PET-CT. No underlying lesion in this location is identified. The bones appear demineralized.There is mild diffuse vertebral body spondylosis. Moderate thoracic spine kyphosis. An extensive old-appearing compression fracture of the L1 vertebral body is noted with additional chronic mild appearing compression fractures of T12 and L3 with a similar moderate superior endplate compression fracture of L4. Moderate to severe appearing right and moderate left-sided glenohumeral joint primary osteoarthritic changes are noted. Soft tissues: No abnormal uptake in the visualized head, neck, chest, abdomen, pelvis, and extremities. There are postoperative changes of right mastectomy. Benign-appearing muscular uptake is noted in the proximal deltoid muscles without evidence of underlying lesions on the CT images and is greatest on the right, SUV max 5.4, likely inflammatory. METRICS: Mediastinal blood pool: SUV max 2.5 PET/PET [facility] SUBSEQ [id number] IMPRESSION: 1. There is been an interval decrease in elevated uptake in the left and right perihilar regions suggestive partial response to therapy. 2. New rounded focus of soft tissue density in the medial right lower lobe/right periesophageal region compared to the prior PET-CT, increased since the prior recent CT chest of 06/28/2023 with elevated uptake (SUV max 5.6) concerning for possible malignancy. An infectious infiltrate may alternatively account for this appearance. 3. A nodular density in the anteromedial right upper lobe is not radiotracer avid, new since the prior PET-CT. Assessment of small nodules can be limited by PET-CT. 4. Interval resolution of abnormal radiotracer uptake in the left ischial tuberosity within a known metastatic lesion in this region suggestive of response to therapy. In this region currently there are two healing fractures without elevated uptake which appear new since the prior PET-CT. An additional fracture of the left superior pubic ramus is new since the prior PET-CT, similar compared with 06/28/2023 without a definite underlying lesion, likely related to interval trauma. 5. Aneurysmal dilatation of the thoracic aorta. 6. Additional nonurgent findings as detailed above.
== END 2023-07-30 08:36 | disposition home or self-care (01) ==
LOC: RAD 08:37
PROVIDERS: PCP Family Medicine; Visit Provider Internal Medicine
DX: C34.32 Malignant neoplasm of lower lobe, left bronchus or lung (principal); C50.411 Malignant neoplasm of upper-outer quadrant of right female breast; C79.51 Secondary malignant neoplasm of bone
CPT/HCPCS: 78815; A9552

== ENCOUNTER 2023-08-26 10:30 | Oncology outpatient (recurring) (ONCR) | payer MEDICARE, SELFPAY ==
[2023-08-22 08:29] VITALS: BP 126/81; PULSE 67; RESP 17; TEMP 35.9; O2SAT 97
[2023-08-22 08:42] LABS: Basophils % 0.3 %; Eosinophils # 0.1 10^3/uL (0.0-0.8); Eosinophils % 0.9 %; Hematocrit 35.4 % (36-47); Lymphocytes # 1.3 10^3/uL (0.8-4.8); Lymphocytes % 16.9 %; Mean Corpuscular HGB Conc 32.2 g/dL (30-55); Mean Corpuscular Volume 99.4 fl (85-98); Mean Platelet Volume 9.7 fL (7.4-10.4); Monocytes # 0.7 10^3/uL (0.2-0.9); Neutrophils # 5.42 10^3/uL (1.8-7.7); Neutrophils % 72.5 %; Nucleated Red Blood Cells % 0 %; Platelet Count 104 10^3/cmm (157-399); Red Blood Count 3.56 10^6/uL (3.85-5.65); Red Cell Distribution Width 15.6 % (12.1-15.1); White Blood Count 7.47 10^3/uL (3.29-11.43)
[2023-08-22 09:07] LABS: Alanine Aminotransferase 17 U/L (0-33); Albumin Level 3.8 g/dL (3.5-5.2); Alkaline Phosphatase 84 U/L (35-105); Anion Gap 13.4 (5-19); Aspartate Amino Transferase 15 U/L (0-32); Blood Urea Nitrogen 45 mg/dL (8-23); CA 15-3 24.2 U/mL (0-25); Calcium 8.8 mg/dL (8.5-10.5); Carbon Dioxide 27 mmol/L (22-29); Chloride 104 mmol/L (98-107); Globulin 3.2 g/dL (1.3-4.6); Glucose 67 mg/dL (65-115); Osmolality Calculated 302 mOsm/kg (285-295); Potassium 3.4 mmol/L (3.5-5.1); Sodium 141 mmol/L (136-145); Total Bilirubin 0.3 mg/dL (0.15-1.2)
[2023-08-22] MEDS: fulvestrant 250 mg/5 mL Syringe 500 MG IM (10:49)
[2023-08-26 11:23] LABS: Basophils % 0.3 %; Eosinophils # 0.1 10^3/uL (0.0-0.8); Hematocrit 37.7 % (36-47); Lymphocytes % 12.2 %; Mean Corpuscular HGB Conc 33.2 g/dL (30-55); Mean Corpuscular Hemoglobin 32.4 pg (27-33); Mean Corpuscular Volume 97.7 fl (85-98); Mean Platelet Volume 9.5 fL (7.4-10.4); Monocytes # 0.4 10^3/uL (0.2-0.9); Monocytes % 5.2 %; Neutrophils # 6.41 10^3/uL (1.8-7.7); Neutrophils % 80.8 %; Nucleated Red Blood Cells % 0 %; Platelet Count 119 10^3/cmm (157-399); Red Blood Count 3.86 10^6/uL (3.85-5.65); Red Cell Distribution Width 14.7 % (12.1-15.1); White Blood Count 7.93 10^3/uL (3.29-11.43)
[2023-08-26 11:32] LABS: Alanine Aminotransferase 20 U/L (0-33); Albumin Level 4.1 g/dL (3.5-5.2); Alkaline Phosphatase 105 U/L (35-105); Anion Gap 15.9 (5-19); Aspartate Amino Transferase 21 U/L (0-32); Blood Urea Nitrogen 36 mg/dL (8-23); Calcium 9.2 mg/dL (8.5-10.5); Carbon Dioxide 27 mmol/L (22-29); Chloride 97 mmol/L (98-107); Globulin 3.5 g/dL (1.3-4.6); Glucose 177 mg/dL (65-115); Osmolality Calculated 295 mOsm/kg (285-295); Potassium 3.9 mmol/L (3.5-5.1); Sodium 136 mmol/L (136-145); Total Bilirubin 0.4 mg/dL (0.15-1.2); Total Protein 7.6 g/dL (6.6-8.7)
== END 2023-08-28 23:59 | disposition home or self-care (01) ==
PROVIDERS: Internal Medicine Medical Oncology; PCP Family Medicine; Visit Provider Radiology Radiation Oncology
DX: C50.811 Malignant neoplasm of overlapping sites of right female breast; Z53.9 Procedure and treatment not carried out, unspecified reason
CPT/HCPCS: 99215 ×2; 36415; 80053; 85025; 86300; 96402; 99214; J9395

== ENCOUNTER 2023-09-04 15:12 | Inpatient (IN) | payer MEDICARE, SELFPAY ==
[2023-09-04] VITALS (18 sets, daily range): BP systolic 75–129; BP diastolic 43–65; PULSE 82–119; RESP 12–26; TEMP 36.8–37.2; O2SAT 91–99; BMI 26.6; BMI 27.7
--- NOTE | 2023-09-04 15:23 | ED_ITS ---
HPI - Weakness 2 General: Chief complaint: Weakness Stated complaint: weakness Time Seen by Provider: 09/04/23 15:14 Source: patient and EMS Mode of arrival: EMS Limitations: no limitations History of Present Illness: This patient was transported from her home by EMS. She apparently had increasing weakness since the weekend. She was apparently was in [place] and developed generalized weakness and was hospitalized at [facility] for elevated blood sugar and was taken home last evening by her family and continues to have weakness today and missed her appointment with Dr. Conrad. She states that she just feels generalized weakness. She denies any particular pain fevers or chills. She states she did drink considerable amount of Ensure just prior to arrival. She has a history of remote breast cancer and subsequent lung cancer with evidence of metastasis. She has undergone different treatment regimens in the past and most recently was started on a new regimen. She states she continues to have loose stools. Denies any blood in her stools or black tarry stools.. Denies any known exposure to infectious disease. Allegedly she had hyperglycemia from one of her targeted biologic agents over the weekend. MD Complaint: generalized weakness and lack of energy Context: new medication Associated symptoms: Denies chest pain, chills, dysuria, easy bruising, fever(s), headache(s), nausea, syncope or vomiting Review of Systems 2 Const: Reports: change in appetite and fatigue; Denies: fever(s), chills or body aches Eyes: Denies: change in vision ENMT: Reports: oral sores; Denies: throat pain or odynophagia Card: Denies: chest pain, palpitations, syncope or pre-syncope Resp: Denies: dyspnea, productive cough or non-productive cough GI: Denies: abdominal pain, nausea, vomiting or diarrhea : Reports: oliguria; Denies: flank pain, difficulty voiding, dysuria or urinary frequency Musc: Denies: neck pain, back pain, extremity pain or extremity swelling Neuro: Denies: headache(s), numbness in extremities or weakness in extremities Ajay/Lymph: Denies: easy bruising or easy bleeding PFSH ED 2 PFSH: Medical History Non-small cell lung cancer Breast cancer GERD (gastroesophageal reflux disease) History of DVT (deep vein thrombosis) Left lower extremity - following hysterectomy Osteoporosis Hyperlipidemia Hypertension Coronary artery disease History of [place] Surgical History History of inguinal hernia repair History of right mastectomy (07/03/18) S/P lymph node biopsy (07/27/15) Right axillary sentinel lymph node biopsy Status post excisional biopsy (06/30/15) Excisional biopsy of right breast mass History of orthopedic surgery ORIF right forearm fracture History of hysterectomy History of cholecystectomy History of coronary angioplasty with insertion of stent x 6 around 2010 Family History Mother TIA (transient ischemic attack) Father , age 72 CAD (coronary artery disease) Social History Smoking and tobacco/nicotine status: never used tobacco/nicotine Alcohol intake: never Substance/Drug Use: never Physical Exam 2 Narrative: EXAM NARRATIVE: She is alert answers questions appropriately. Const: COMMON NORMALS: patient oriented x3 and alert GENERAL APPEARANCE: c ooperative NUTRITIONAL APPEARANCE: overweight HENMT: COMMON NORMALS: normocephalic and Normal nasal mucous membranes and turbinates present HEAD & SCALP: normocephalic NOSE: Normal nasal mucous membranes and turbinates present OTHER: Erythema of her gingiva and anterior oral mucosa. Remainder of the oral pharynx is normal. Eye: COMMON NORMALS: Equal, round and reactive pupils present, EOMs intact bilaterally and conjunctivae normal CONJUNCTIVA: Yes conjunctivae normal P UPIL: Yes Equal, round and reactive pupils present Neck/C-Spine: COMMON NORMALS: full ROM, no lymphadenopathy, no JVD and Thyroid normal THYROID: Thyroid normal Chest: COMMONS NORMALS: normal inspection of the chest Resp: COMMON NORMALS: normal respiratory effort, No retractions, No use of accessory muscles and clear to auscultation bilaterally AUSCULTATION: clear to auscultation bilaterally Cardio: COMMON NORMALS: no JVD, regular rate, regular rhythm, No murmurs present (Cardio) and Peripheral pulses 2+ throughout RATE: regular rate R HYTHM: regular rhythm PERIPHERAL PULSES: Peripheral pulses 2+ throughout GI: COMMON NORMALS: Normal to inspection, nondistended, normoactive bowel sounds present, Soft to palpation, non-tender and no masses PALPATION: Yes Soft to palpation : COMMON NORMALS: Yes no CVA tenderness BLADDER/KIDNEY EXAM: Yes no CVA tenderness Back/Pelvis: COMMON NORMALS: no CVA tenderness, thoracic and lumbar spine normal to inspection, no thoracic nor lumbar tenderness and thoraco-lumbar ROM normal Extremity: COMMON NORMALS: normal to inspection, full ROM, capillary refill normal, no calf tenderness and no pedal edema Neuro: COMMON NORMALS: patient oriented x3 and moves all extremities S ENSORIUM/ORIENTATION: Yes alert CRANIAL NERVES: Yes CN normal except as noted Psych: COMMON NORMALS: mental status grossly normal Skin: COMMON NORMALS: no rashes or lesions noted, no wounds, no jaundice and no petechiae GENERAL SKIN EXAM: no rashes or lesions noted Course 2 Reevaluation(s): Reevaluation #1: Because of persistent low mean arterial pressures while we were infusing fluids we started her on a peripheral norepinephrine infusion to help support her pressure until she was adequately volume resuscitated. Time: 16:25 Reevaluation #2: Plan of care was discussed with both patient and family. Time: 17:27 Consultations: Consultation #1: Discussed with Dr. Conrad her oncologist. One of her targeted agents can cause elevation in blood sugar however no other untoward effects that he is aware. Time: 15:43 Consultation #2: Discussed with attending hospitalist and reviewed her current presentation and working diagnosis. Plan will be to admit for additional hydration pressors as indicated. Time: 17:27 Vital Signs: Vital signs: Vital Signs Temperature 98.3 F 09/04/23 15:15 Pulse Rate 86 09/04/23 17:06 Respiratory Rate 15 09/04/23 16:39 Blood Pressure 90/52 09/04/23 17:06 Pulse Oximetry 92 09/04/23 17:06 Oxygen Delivery Me thod Room Air 09/04/23 15:15 MDM - Weakness Medical Decision Making This patient who has a history of non-small cell carcinoma who recently received a new treatment with a directed biologic had been doing at her usual baseline status and apparently over the weekend became ill while in [place] was hospitalized at [facility] for hyperglycemia which is a known side effect of her medication. She continued to have many symptoms and the family decided to remove her from the hospital last evening and bring her home. Additional history was that she has had decreased oral intake due to oral stomatitis from her medications as well as some associated loose stools. She had no history of cardiovascular disease nor referable symptoms related to any cardiovascular disease. At presentation she was noted to be significantly hypotensive and aggressive fluid resuscitation was initiated followed by peripheral use of norepinephrine to maintain a acceptable mean arterial pressure. Laboratories confirmed acute kidney injury with significant volume depletion. She also had a slight elevation in troponin and transaminases but these are less likely to be the primary pathology but likely related to her decreased renal clearance. Had no ongoing chest pain nor EKG changes. Chest x- ray did not reveal any evidence of new abnormalities at this time. She is being aggressively fluid resuscitated continued peripheral pressors and being admitted to inpatient service for continued care. Lab Data I reviewed the patient's lab results. 09/04/23 15:49 09/04/23 15:49 Radiology Impressions Chest X-Ray 09/04/23 15:30 IMPRESSION: I see no acute abnormality. Persistent left perihilar atelectasis Laboratory Results WBC 4.10 10^3/uL (3.29-11.43) 09/04/23 15:49 RBC 3.65 10^6/uL (3.85-5.65) L 09/04/23 15:49 Hgb 11.60 g/dL (11.27-16.99) 09/04/23 15:49 Hct 35.6 % (36-47) L 09/04/23 15:49 MCV 97.5 fl (85-98) 09/04/23 15:49 MCH 31.8 pg (27-33) 09/04/23 15:49 MCHC 32.6 g/dL (30-55) 09/04/23 15:49 RDW 14.2 % (12.1-15.1) 09/04/23 15:49 Plt Count 41 10^3/cmm (157-399) L 09/04/23 15:49 MPV 10.9 fL (7.4-10.4) H 09/04/23 15:49 Lymph % (Auto) Not Reportable 09/04/23 15:49 [place] % (Auto) Not Reportable 09/04/23 15:49 Lymph # (Auto) Not Reportable 09/04/23 15:49 [place] # (Auto) Not Reportable 09/04/23 15:49 Total Counted 100 (0-100) 09/04/23 15:49 Atypical Lymphs % 2.0 % (0-5) 09/04/23 15:49 Absolute Neutrophils 3.4 10^3/cmm (1.4-6.5) 09/04/23 15:49 Segmented Neutrophils 62 % 09/04/23 15:49 Abs Segm Neuts (Man) 2.5 10/cmm (1.6-7.1) 09/04/23 15:49 Band Neutrophils 20.0 % 09/04/23 15:49 Abs Band Neuts (Man) 0.8 10^3/cmm (0.0-1.2) 09/04/23 15:49 Absolute Lymphocytes 0.4 10^3/cmm (1.2-3.4) L 09/04/23 15:49 Lymphocytes (Manual) 8 % 09/04/23 15:49 Monocytes (Manual) 5.0 % 09/04/23 15:49 Absolute Monocytes 0.2 10^3/cmm (0.1-0.6) 09/04/23 15:49 Eosinophils (Manual) 0 % 09/04/23 15:49 Absolute Eosinophils 0.0 10^3/cmm (0.0-0.7) 09/04/23 15:49 Basophils (Manual) 0.0 % 09/04/23 15:49 Absolute Basophils 0.0 10^3/cmm (0.0-0.2) 09/04/23 15:49 Metamyelocytes 3.0 % 09/04/23 15:49 Platelet Estimate Decreased (Normal) L 09/04/23 15:49 Macrocytosis 1+ H 09/04/23 15:49 Sodium 134 mmol/L (136-145) L 09/04/23 15:49 Potassium 3.6 mmol/L (3.5-5.1) 09/04/23 15:49 Chloride 97 mmol/L (98-107) L 09/04/23 15:49 Carbon Dioxide 19 mmol/L (22-29) L 09/04/23 15:49 Anion Gap 21.6 (5-19) H 09/04/23 15:49 BUN 58 mg/dL (8-23) H 09/04/23 15:49 Creatinine 4.6 mg/dL (0.5-0.9) H 09/04/23 15:49 GFR Calculation Not Reportable 09/04/23 15:49 Glucose 165 mg/dL (65-115) H 09/04/23 15:49 POC Glucose 149 mg/dL (70-110) H 09/04/23 16:08 Calculated Osmolality 298 mOsm/kg (285-295) H 09/04/23 15:49 Calcium 8.4 mg/dL (8.5-10.5) L 09/04/23 15:49 Total Bilirubin 0.7 mg/dL (0.15-1.2) 09/04/23 15:49 AST 48 U/L (0-32) H 09/04/23 15:49 ALT 39 U/L (0-33) H 09/04/23 15:49 Alkaline Phosphatase 163 U/L (35-105) H 09/04/23 15:49 Troponin T Baseline 38 ng/L (0-10) H 09/04/23 15:49 Total Protein 6.4 g/dL (6.6-8.7) L 09/04/23 15:49 Albumin 2.9 g/dL (3.5-5.2) L 09/04/23 15:49 Globulin 3.5 g/dL (1.3-4.6) 09/04/23 15:49 TSH 1.02 uIU/mL (0.27-4.20) 09/04/23 15:49 All radiology interpretation(s) finalized by discharge EKG Data EKG 1: I personally reviewed and interpreted this EKG as follows: Interpretation: Contemporaneous review of her resting EKG reveals a ventricular rate of 94 bpm. Normal WA interval, QRS duration, corrected QT interval. She has a extreme leftward axis consistent with an left anterior Heema block. No acute ST-T wave changes noted. She does have a loss of R wave anterior suggestive of a remote anterior septal injury. Essentially unchanged from prior tracings within the system. 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 See Rx Instructions .Route .MEDSUPPLY Qty: 1 0RF Rx Instructions: arthritis right knee alpelisib 300 mg/day (150 mg x 2) tablet 300 mg PO DAILY Qty: 56 0RF Rx Instructions: Swallow tabs whole with food at approximately same time daily potassium chloride 20 mEq/15 mL liquid 10 meq PO DAILY 30 Days Qty: 473 0RF Probiotic 15 billion cell Capsule 1 cap PO QAM Immune From Live Pure 1 tab PO DAILY acetaminophen 500 mg Tablet 1,000 mg PO Q4H PRN (Reason: Pain) Coffee Mocha Recharge 1 packet PO QAM Calciumk+ 5 - 10 ml PO DAILY diphenhydramine HCl 12.5 mg/5 mL elixir 25 mg PO Q6H Qty: 500 0RF pantoprazole 40 mg tablet,delayed release (DR/EC) 40 mg PO DAILY meloxicam 7.5 mg tablet 7.5 mg PO QAM carvedilol 3.125 mg tablet 3.125 mg PO BID rosuvastatin 40 mg tablet 40 mg PO QPM prochlorperazine maleate [Compazine] 10 mg tablet 10 mg PO Q4H PRN (Reason: Mild Nausea) Qty: 30 3RF Referrals: Dequan Dubois DO [Primary Care Provider] - Coding Level of Care Code ED Professor Of Theater for Tessa Islas
--- NOTE | 2023-09-04 15:30 | XRR_ITS ---
PROCEDURE INFORMATION: Exam: XR Chest Exam date and time: 09/04/2023 3:56 PM Age: 82 years old Clinical indication: Other: Weakness TECHNIQUE: Imaging protocol: Radiologic exam of the chest. Views: 1 view. COMPARISON: CT chest abdpel [id number]/*[id number] 06/28/2023 11:28 AM FINDINGS: Lungs: There is chronic left perihilar atelectasis. I see no lung mass or infiltrate. Pleural spaces: Unremarkable. No pleural effusion. No pneumothorax. Heart/Mediastinum: Mild cardiomegaly is noted. Bones/joints: Unremarkable. XR/XR chest 1V portable [id number] IMPRESSION: I see no acute abnormality. Persistent left perihilar atelectasis
--- NOTE | 2023-09-04 15:31 | ECG_ITS ---
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 Measurements Intervals [place] Rate: 94 P: 55 CO: 160 QRS: -60 QRSD: 108 T: 77 QT: 361 QTc: 453 Interpretive Statements SINUS RHYTHM PATTERN CONSISTENT WITH PULMONARY DISEASE LEFT ANTERIOR FASCICULAR BLOCK [QRS AXIS <= -45, QR IN I, RS IN II] LEFT VENTRICULAR HYPERTROPHY AND ST-T CHANGE [VOLTAGE CRITERIA PLUS ST/T ABNORMALITY] POSSIBLE SEPTAL MYOCARDIAL INFARCTION , PROBABLY OLD [30 ms Q WAVE IN V1/V2] Compared to ECG 06/12/2023 17:46:04 Left anterior fascicular block now present Left-axis deviation no longer present ST (T wave) deviation still present Myocardial infarct finding still present Electronically Signed On 09-04-2023 16:30:58 SENIOR PRINCIPAL PROCESS ENGINEER by Serafin Walker M.D. [id number]
[2023-09-04] MEDS: lactated ringers 1,000 ML 999 ML IV ×2 (15:38→17:38)
--- NOTE | 2023-09-04 15:38 | PC.NURSE ---
pt b/p 80/46, pt placed in trendelenburg and Dr. Kelly notified.
[2023-09-04 15:57] LABS: Hematocrit 35.6 % (36-47); Mean Corpuscular HGB Conc 32.6 g/dL (30-55); Mean Corpuscular Hemoglobin 31.8 pg (27-33); Mean Corpuscular Volume 97.5 fl (85-98); Mean Platelet Volume 10.9 fL (7.4-10.4); Platelet Count 41 10^3/cmm (157-399); Red Blood Count 3.65 10^6/uL (3.85-5.65); Red Cell Distribution Width 14.2 % (12.1-15.1)
--- NOTE | 2023-09-04 16:08 | PC.NURSE ---
blood glucose via fingerstick @1129: 149
[2023-09-04 16:12] LABS: Glucose Point of Care 149 mg/dL (70-110)
[2023-09-04 16:18] LABS: Potassium 3.6 mmol/L (3.5-5.1); Slide Review Slide Review Perform
[2023-09-04 16:19] LABS: Absolute Neutrophil 3.4 10^3/cmm (1.4-6.5); Absolute Segmented Neutrophil 2.5 10/cmm (1.6-7.1); Band Neutrophils Absolute 0.8 10^3/cmm (0.0-1.2); Eosinophils 0 %; Lymphocytes 8 %; Lymphocytes Absolute 0.4 10^3/cmm (1.2-3.4); Macrocytosis 1+; Monocytes Absolute 0.2 10^3/cmm (0.1-0.6); Platelet Estimate Decreased (Normal); Segmented Neutrophils 62 %; Total Cells Counted 100 (0-100)
[2023-09-04 16:22] LABS: Troponin(5th) Baseline 38 ng/L (0-10)
[2023-09-04] MEDS: norepinephrine 4 MG/250 ML BAG 7.5 MG IV (16:39)
[2023-09-04 16:56] LABS: Alanine Aminotransferase 39 U/L (0-33); Albumin Level 2.9 g/dL (3.5-5.2); Alkaline Phosphatase 163 U/L (35-105); Aspartate Amino Transferase 48 U/L (0-32); Blood Urea Nitrogen 58 mg/dL (8-23); Calcium 8.4 mg/dL (8.5-10.5); Carbon Dioxide 19 mmol/L (22-29); Globulin 3.5 g/dL (1.3-4.6); Glucose 165 mg/dL (65-115); Thyroid Stimulating Hormone 1.02 uIU/mL (0.27-4.20); Total Bilirubin 0.7 mg/dL (0.15-1.2); Total Protein 6.4 g/dL (6.6-8.7)
[2023-09-04 16:57] LABS: Anion Gap 21.6 (5-19); Chloride 97 mmol/L (98-107); Osmolality Calculated 298 mOsm/kg (285-295); Sodium 134 mmol/L (136-145)
--- NOTE | 2023-09-04 17:32 | ECG_ITS ---
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 Measurements Intervals [place] Rate: 104 P: 9 ID: [id number] QRS: -48 QRSD: 125 T: 72 QT: 354 QTc: 467 Interpretive Statements SINUS TACHYCARDIA LEFT ANTERIOR FASCICULAR BLOCK [QRS AXIS <= -45, QR IN I, RS IN II] LEFT VENTRICULAR HYPERTROPHY AND ST-T CHANGE [VOLTAGE CRITERIA PLUS ST/T ABNORMALITY] POSSIBLE SEPTAL MYOCARDIAL INFARCTION , OF INDETERMINATE AGE [30 ms Q WAVE IN V1/V2] Compared to ECG 09/04/2023 15:35:23 Sinus rhythm no longer present ST (T wave) deviation still present Myocardial infarct finding still present Electronically Signed On 09-05-2023 11:40:42 PREFABRICATED HOUSES TRIMMER by Roc Greco M.D. [id number]
--- NOTE | 2023-09-04 17:39 | P.HP_ITS ---
Providers/Chief Complaint 2 Admitting Physician: Dr. Martín Boykin Primary Care Provider: Dequan Dubois DO Chief Complaint: weakness History of Present Illness 82yo F with metastatic breast CA carcinoma, CAD, HTN, HLD, Hx of MO with 6 cardiac stents (>15yrs ago), Hx of DVT, GERD presented to ED with weakness and low energy. Of note, Pt was diagnosed with cancer initially as non-small cell lung CA stage AMY (T1c, N2, M1b) via biopsy in 03/20. Patient underwent chemoradiation for the lung tumor and SBRT to the site of metastatic involvement in the pelvis in 05/20. Patient was later admitted to hospital for declining status. Based on results of sequencing study of the lung biopsy, it was actually suspected that left hilar mass was due to metastatic breast cancer rather than to new primary lung cancer. By IHC the tumor was ER positive and HER2/raghavendra negative. Pt was started on fulvestrant and alpelisib on 08/22/23. Since infusion pt states she has progressively declined, had chills, felt weak. While in [place] last week she developed generalized weakness and was hospitalized at [facility] for hyperglycemia which is a side effect of the biologics. per daughter EMS stated glucose was >600 and had and FRAN. diarrhea begain while in hospital. Family was not pleased with the overall care and left AMA. She returned back to [place] yesterday (09/03/23), admits to decline continued. Was supposed to see Dr. Conrad this AM; however, missed appointment due to generalized weakness. Presented to ED today with worsening Sx. Patient admits to loose stools, chills, dysuria, easy bruising, nausea. states diarrhea is 2- 3x/day in large volumes. daughter in law feels it may be more. Decreased urinary output without abd pain or distension. Denies fever, chills CP, palpitations, melena, BRBPR, hematochezia, emesis. In ED attempted aggressive fluid resuscitation followed by peripheral use of norepinepherine gtt to maintain adequate pressure. in ED on drip, MAP >75. weakness slightly improved. Review of Systems 2 General: Reports: 10 or more systems reviewed and unremarkable except in HPI and below Const: Reports: fatigue and malaise; Denies: fever(s) or chills Eyes: Denies: change in vision or blurry vision ENMT: Denies: throat pain, odynophagia or hoarseness Card: Denies: chest pain, palpitations or dyspnea on exertion Resp: Denies: dyspnea, productive cough, non-productive cough or wheezing GI: Reports: nausea and diarrhea; Denies: abdominal pain, vomiting or constipation Musc: Denies: neck pain, back pain or joint pain Skin/Breast: Denies: rash or new lesions Neuro: Denies: headache(s), numbness in extremities or weakness in extremities Medications/Allergies Home Medications Medication Instructions Recorded Confirmed Last Taken Type Lactobacillus acidophilus and 1 cap PO QAM 12/09/19 09/04/23 06/03/23 History rhamnosus 15 billion cell capsule (Probiotic) Calciumk+ 5 - 10 ml PO DAILY 02/27/22 09/04/23 09/03/23 History Coffee Mocha Recharge 1 packet PO QAM 02/27/22 09/04/23 06/03/23 History Immune From Live Pure 1 tab PO DAILY 02/27/22 09/04/23 06/03/23 History acetaminophen 500 mg tablet 1,000 mg PO Q4H PRN Pain 02/27/22 09/04/23 06/03/23 History 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 ##1 02/20/23 09/04/23 04/18/23 Rx carvedilol 3.125 mg tablet 3.125 mg PO BID 03/08/23 09/04/23 09/03/23 History rosuvastatin 40 mg tablet 40 mg PO QPM 03/08/23 09/04/23 06/03/23 History cholecalciferol (vitamin D3) 10 10 mcg PO DAILY 04/09/23 09/04/23 06/03/23 History mcg (400 unit) capsule prochlorperazine maleate 10 mg 10 mg PO Q4H PRN Mild Nausea #30 04/26/23 09/04/23 06/03/23 Rx tablet (Compazine) tabs lorazepam 1 mg tablet 0.5 - 1 mg (0.5 - 1 x 1 mg) PO Q6H 04/29/23 09/04/23 06/03/23 Rx PRN Severe Nausea #30 tabs diphenhydramine HCl 12.5 mg/5 mL 25 mg (10 mL) PO Q6H #500 mL 06/15/23 09/04/23 Unknown Rx oral elixir cyanocobalamin (vitamin B-12) 5,000 mcg PO DAILY 07/02/23 09/04/23 Unknown History 5,000 mcg capsule alpelisib 300 mg/day (150 mg x 2) 300 mg PO DAILY #56 tabs 07/03/23 09/04/23 Unknown Rx tablet furosemide 40 mg tablet 40 mg PO DAILY #30 tabs 08/07/23 09/04/23 Unknown Rx potassium chloride 20 mEq/15 mL 10 meq (7.5 mL) PO DAILY 30 days 08/20/23 09/04/23 Unknown Rx oral liquid #473 mL meloxicam 7.5 mg tablet 7.5 mg PO QAM 09/04/23 09/04/23 Unknown History pantoprazole 40 mg tablet,delayed 40 mg PO DAILY 09/04/23 09/04/23 Unknown History release Allergies Allergy/AdvReac Type Severity Reaction Status Date / Time No Known Allergies Allergy Verified 09/04/23 15:46 PFSH Acute 2 PFSH: Medical History Non-small cell lung cancer Breast cancer GERD (gastroesophageal reflux disease) History of DVT (deep vein thrombosis) Left lower extremity - following hysterectomy Osteoporosis Hyperlipidemia Hypertension Coronary artery disease History of [place] Surgical History History of inguinal hernia repair History of right mastectomy (07/03/18) S/P lymph node biopsy (07/27/15) Right axillary sentinel lymph node biopsy Status post excisional biopsy (06/30/15) Excisional biopsy of right breast mass History of orthopedic surgery ORIF right forearm fracture History of hysterectomy History of cholecystectomy History of coronary angioplasty with insertion of stent x 6 around 2010 Family History Mother TIA (transient ischemic attack) Father , age 72 CAD (coronary artery disease) Social History Smoking and tobacco/nicotine status: never used tobacco/nicotine Alcohol intake: never Substance/Drug Use: never Vitals/I&O/Wt Last Vital Signs Temp 98.3 F 09/04/23 15:15 Pulse 86 09/04/23 17:06 Resp 15 09/04/23 16:39 BP 90/52 09/04/23 17:06 Pulse Ox 92 09/04/23 17:06 O2 Del Method Room Air 09/04/23 15:15 09/04/23 09/04/23 09/04/23 06:59 14:59 22:59 Intake Total 1007.25 / 1007.25 Balance 1007.25 / 1007.25 Weight last 48 hrs Weight 160 lb Physical Exam 2 Narrative: General: AOx3, no acute distress, well developed, well nourished, appears stated age psych: appropriate mood and affect. Head: atraumatic, normocephalic, no mass/lesions Ears: clear external auditory canals, Eyes: conjunctiva clear w/o exudate or hemorrhage. non-icteric, EOM intact, PERRLA. no signs of nystagmus Nose: nasal mucosa pink, septum midline Oropharynx: poor dention. significant stomatosis of lips. Neck: FROM, no lymphadenopathy, no tracheal deviation, non tender, thyroid gland normal w/o mass. supple Chest: atraumatic, symmetrical CVD: RRR, normal S1 and S2, 2/6 BK at LSB, no R/G. 2+ pulse x 4 extremities, no JVD, no carotid bruit. Lungs: clear lung sounds in all leong, no rhonchi, wheezing, rales. Abdomen: NT, ND, soft, NABS. No hepatosplenomegaly, no mass. umbilicus midline w/o herniation : not done on todays examination Rectal: not done on todays examination Spine: no visible deformities, FROM, 5/5 strength Extremities: FROM and 5/5 strength in BUE and BLE. Neuro: CNII-XII grossly intact. No atrophy, no sensory abnormalities. Skin:? significant stomatosis lips. no dec ulcers Data 09/04/23 15:49 09/04/23 15:49 A&P Assessment and plan (1) Hypovolemic shock: (2) Diarrhea: (3) Acute kidney injury: (4) Hyperglycemia: (5) Breast cancer: (6) Metastatic squamous cell carcinoma: (7) Hypertension: (8) Coronary artery disease: (9) Elevated LFTs: (10) Protein calorie malnutrition: (11) Stomatitis: Plan Asessment: hypovolemic shock FRAN 2/2 drug reaction of fulvestrant and alpelisib hyperglycemia Diarrhea of unclear etiology Metastatic Breast CA - ER positive and HER2/raghavendra negative elevated LFT's hyponatremia stomatosis CAD with Hx of MO and 6 stents HTN HLD PCM mild Plan: Admit to ICU Norepinepherine gtt - will titrate down as needed 1L LR bolus IVF given in ICU. will give another 0.5L bolus then will start LR 125 which is slighty above maintenance HOLD home anti-hypertensives monitor severe FRAN. likely 2/2 hypovolemia and hypotension. if no improvement contact nephro. likely ATN. trend troponin LDSSI with accuchecks vasaline to lips AM labs Cx pending: stool Cx, Blood Cx disposition: ICU for norepi ggt. once MAP >65 w/o gtt we can move her to [facility] FULL CODE DVT: lovenox 40 Attestations 2 Medical Necessity Statement*: will require 2 overnight stays for hypovolemic shock Coding Level of Care Code 86392 Diagnoses Hypovolemic shock R57.1 Diarrhea R19.7 Acute kidney injury N17.9 Hyperglycemia R73.9 Breast cancer C50.919 Metastatic squamous cell carcinoma Hypertension I10 Coronary artery disease I25.10 Elevated LFTs R79.89 Protein calorie malnutrition E46 Stomatitis K12.1
[2023-09-04] MEDS: famotidine 20 mg/2 mL INJ IVP (18:55)
[2023-09-04] MEDS: enoxaparin 40 mg/0.4 mL Syringe SUBCUT (18:56)
[2023-09-04 19:09] LABS: Troponin 5 2HR 34.32 ng/L (0-10)
[2023-09-04 19:10] LABS: Troponin 5 2HR Delta -3.68 ABS# (0-10)
[2023-09-04 19:25] LABS: Add Urine Microscopic? YES; Bilirubin Urine 1+ (Negative); Blood Urine 2+ (Negative); Glucose Urine UA Norm (Normal); Ketones Urine Negative (Negative); Leukocyte Esterase Urine Trace (Negative); Nitrate Urine Negative (Negative); Protein Urine 1+ (Negative); Urine Appearance Cloudy (CLEAR); Urine Color Amber (Yellow); Urobilinogen Urine Norm (Negative); pH Urine 5 (5-7)
[2023-09-04 19:34] LABS: Add Urine Culture? No; Amorphous Sediment Urine 3+ /hpf; Bacteria Urine TRACE /hpf; Mucus Urine 4+ /hpf; Oval Fat Bodies Urine 2+ /hpf; RBC Urine 0-4 /hpf (0-2); Squamous Epithelial Cell Urine 0-4 /hpf (0-5); Transitional Epi Cells Urine 0-4 /hpf
[2023-09-04] MEDS: lactated ringers 500 ML 999 ML IV (20:31)
[2023-09-04] MEDS: lanolin oint 7 gm 1 APPLIC TOPICAL (20:34)
[2023-09-04] MEDS: lactated ringers 1,000 ML 125 ML IV (21:03)
[2023-09-04] MEDS: insulin lispro 100 unit/1 mL SUBCUT (21:05)
[2023-09-04 21:32] LABS: Glucose Point of Care 145 mg/dL (70-110)
[2023-09-04 21:53] LABS: Troponin 5 6HR 33.82 ng/L (0-10)
[2023-09-04 21:57] LABS: Troponin 5 6HR Delta -4.18 ng/L (0-12)
[2023-09-05] VITALS (59 sets, daily range): BP systolic 87–152; BP diastolic 49–95; PULSE 74–109; RESP 15–33; TEMP 36.6–36.9; O2SAT 89–100
[2023-09-05] MEDS: lactated ringers 1,000 ML 125 ML IV ×3 (04:50→22:18)
[2023-09-05 05:25] LABS: Basophils % 0.2 %; Eosinophils # 0.1 10^3/uL (0.0-0.8); Eosinophils % 0.9 %; Hematocrit 30.6 % (36-47); Lymphocytes # 0.5 10^3/uL (0.8-4.8); Lymphocytes % 8.7 %; Mean Corpuscular HGB Conc 33.3 g/dL (30-55); Mean Corpuscular Hemoglobin 32.3 pg (27-33); Mean Corpuscular Volume 96.8 fl (85-98); Mean Platelet Volume 11.1 fL (7.4-10.4); Monocytes # 0.8 10^3/uL (0.2-0.9); Monocytes % 13.7 %; Neutrophils # 4.27 10^3/uL (1.8-7.7); Nucleated Red Blood Cells % 0 %; Platelet Count 54 10^3/cmm (157-399); Red Blood Count 3.16 10^6/uL (3.85-5.65); Red Cell Distribution Width 14.5 % (12.1-15.1); White Blood Count 5.62 10^3/uL (3.29-11.43)
[2023-09-05] MEDS: famotidine 20 mg/2 mL INJ IVP ×2 (05:36→17:59)
[2023-09-05 05:51] LABS: Alanine Aminotransferase 32 U/L (0-33); Albumin Level 2.6 g/dL (3.5-5.2); Alkaline Phosphatase 141 U/L (35-105); Anion Gap 18.3 (5-19); Aspartate Amino Transferase 34 U/L (0-32); Blood Urea Nitrogen 57 mg/dL (8-23); Calcium 7.9 mg/dL (8.5-10.5); Carbon Dioxide 20 mmol/L (22-29); Chloride 102 mmol/L (98-107); Globulin 2.9 g/dL (1.3-4.6); Glucose 93 mg/dL (65-115); Magnesium 1.7 mg/dL (1.7-2.3); Osmolality Calculated 300 mOsm/kg (285-295); Potassium 3.3 mmol/L (3.5-5.1); Sodium 137 mmol/L (136-145); Total Bilirubin 0.6 mg/dL (0.15-1.2); Total Protein 5.5 g/dL (6.6-8.7)
[2023-09-05 05:52] LABS: Slide Review Slide Review Perform
[2023-09-05 08:22] LABS: Glucose Point of Care 74 mg/dL (70-110)
[2023-09-05] MEDS: cholecalciferol (vitamin D3) 1,000 unit Tablet 500 UNIT PO (09:10)
[2023-09-05] MEDS: lanolin oint 7 gm 1 APPLIC TOPICAL ×4 (10:50→18:06)
[2023-09-05 11:46] LABS: Glucose Point of Care 90 mg/dL (70-110)
--- NOTE | 2023-09-05 12:03 | P.PN_ITS ---
Subjective 2 Subjective: Patient is off Levophed Endorsing some pain around her lips I do not see any ulcer no sign of shingles She has dermatitis Eating her breakfast Vitals/I&O/Wt Last Vital Signs Temp 97.9 F 09/05/23 10:00 Pulse 78 09/05/23 11:15 Resp 15 09/05/23 11:15 BP 98/65 09/05/23 11:15 Pulse Ox 98 09/05/23 11:15 O2 Del Method Nasal Cannula 09/05/23 11:15 O2 Flow Rate 2 09/05/23 11:15 09/04/23 09/05/23 09/05/23 22:59 06:59 14:59 Intake Total 1138.00 / 1138.00 1192.417 / 2330.417 287.375 / 287.375 Output Total 275 / 275 Balance 1138.00 / 1138.00 917.417 / 2055.417 287.375 / 287.375 Weight last 48 hrs Weight 80.966 kg Weight 78.018 kg Weight 72.575 kg Physical Exam 2 Narrative: Pleasant cooperative Signs of dehydration improving Active chest pain Currently on room air Pleasant cooperative abdomen soft Lower extremity no edema Nonfocal neuroexam Eating breakfast Fatigued and lethargic S1, S2 Urinary Catheter Management: Hurd: Cath Placed During This Visit: yes Reason for Continuing Indwelling Catheter: Accurate Measurement of Urinary Output in Critically Ill Patients Urinary Catheter Date of Insertion: 09/04/23 Urinary Catheter Time of Insertion: 19:14 Data 09/05/23 04:24 09/05/23 04:24 Micro: Microbiology 09/04/23 19:45 Blood Culture - Preliminary Blood SPECIMEN COLLECTED 09/04/23 19:32 Blood Culture - Preliminary Blood SPECIMEN COLLECTED A&P Assessment and plan (1) Coronary artery disease: (2) Palpitations: (3) Hypovolemic shock: (4) Thrombocytopenia: (5) Stomatitis: (6) Diarrhea: (7) Acute kidney injury: (8) Fluid volume depletion: (9) Urinary tract infection: Qualifiers: Urinary tract infection type: acute cystitis Hematuria presence: w ithout hematuria Qualified Code(s): N30.00 - Acute cystitis without hematuria (10) Cystitis: (11) Weakness generalized: Plan Hypovolemic shock related to diarrhea Off Levophed this morning Continue IV fluids Hyperglycemia improved Acute on chronic kidney disease creatinine 4.0 related to hypotension, shock avoid nephrotoxic agents Creatinine improving with IV fluid hydration Hyponatremia related to dehydration: Improved with IV fluids Full code Type 2 diabetes: No sign of DKA No active diarrhea today I have requested Cdiff panel if patient has more than 3 loose stools today Stomatitis: I do not see any sign of Gabby ulcer or shingles This is mostly related to B12 deficiency or zinc I do not see anything related to rash how she can use ointment moisturizing lotion for now History of cancer Recent left AMA from [facility] Attestations 2 Medical Necessity Statement*: Can be transferred out of ICU to [facility] if blood pressure remains stable Diagnoses Coronary artery disease I25.10 Palpitations R00.2 Hypovolemic shock R57.1 Thrombocytopenia D69.6 Stomatitis K12.1 Diarrhea R19.7 Acute kidney injury N17.9 Fluid volume depletion E86.9 Acute cystitis without hematuria N30.00 Urinary tract infection type: acute cystitis Hematuria presence: without hematuria Cystitis N30.90 Weakness generalized R53.1
[2023-09-05 12:41] LABS: Estmated Average Glucose 151; Hemoglobin A1C 6.9 % (4.0-6.0)
[2023-09-05 17:27] LABS: Glucose Point of Care 75 mg/dL (70-110)
[2023-09-05] MEDS: enoxaparin 40 mg/0.4 mL Syringe SUBCUT (18:00)
[2023-09-05] MEDS: atorvastatin 40 mg Tablet PO (18:02)
[2023-09-05] MEDS: ondansetron 4 MG Tablet PO (18:02)
--- NOTE | 2023-09-05 19:40 | PC.NURSE ---
Shift summary: Pt rested in bed throughout the shift. She has complained of being cold frequently. Blankets regular and warmed supplied for her comfort. She has complained of her lips being very tender, lanolin at bedside which she has been applied frequently. No sores noted inside her mouth. Pt has picked at her meals, stating she wants something soft because of her mouth. Variety of things offered and minimal/scant amounts ate. She did have a bout of nausea and emesis this evening. Zofran admin and Sprite offered. She admitted to eating a bite of the mashed potatoes then stated she always throws up on mashed potatoes. Kitchen had been notified twice today about not bringing her potatoes due to her issues with potatoes. She had Levophed infusing at 4mcg/min this am. She maintained a good BP well enough this am that Levophed was titrated off by 100. She still IVF infusing. She remained sinus rhythm on the monitor. Se used O2 at 2lpm/NC today mostly for her comfort. Her O2 sats were greater than 95%. She had 725 of urine output and one bout of diarrhea this shift. Visitors were here mid afternoon.
[2023-09-05 20:27] LABS: Glucose Point of Care 74 mg/dL (70-110)
--- NOTE | 2023-09-05 22:50 | PC.NURSE ---
pt vomiting pt vomiting at this time. this nurse got written order via [facility] for 4mg zofran q4.
[2023-09-05] MEDS: ondansetron 2 mg/ML SDV 2 mL 4 MG IVP (23:02)
[2023-09-06] VITALS (45 sets, daily range): BP systolic 87–145; BP diastolic 46–87; PULSE 75–110; RESP 14–25; TEMP 36.8–37.9; O2SAT 90–98
[2023-09-06 03:38] LABS: Glucose Point of Care 73 mg/dL (70-110)
[2023-09-06] MEDS: ondansetron 2 mg/ML SDV 2 mL 4 MG IVP (03:41)
--- NOTE | 2023-09-06 03:57 | PC.NURSE ---
pt vomiting episode pt fsbg was taken and pt agreed to drink apple juice. pt then vomited a copious amount. Jose De Jesus rn gave zofran. linen changed at this time.
[2023-09-06 04:22] LABS: Basophils # 0.1 10^3/uL (0.0-0.1); Basophils % 1.3 %; Eosinophils % 0.8 %; Hematocrit 30.4 % (36-47); Lymphocytes # 0.3 10^3/uL (0.8-4.8); Lymphocytes % 8.5 %; Mean Corpuscular HGB Conc 33.2 g/dL (30-55); Mean Corpuscular Hemoglobin 31.9 pg (27-33); Mean Corpuscular Volume 95.9 fl (85-98); Mean Platelet Volume 11.1 fL (7.4-10.4); Monocytes # 0.3 10^3/uL (0.2-0.9); Neutrophils # 3.01 10^3/uL (1.8-7.7); Neutrophils % 79.6 %; Nucleated Red Blood Cells % 0 %; Platelet Count 54 10^3/cmm (157-399); Red Blood Count 3.17 10^6/uL (3.85-5.65); Red Cell Distribution Width 14.5 % (12.1-15.1); White Blood Count 3.78 10^3/uL (3.29-11.43)
[2023-09-06 04:45] LABS: Alanine Aminotransferase 26 U/L (0-33); Albumin Level 2.5 g/dL (3.5-5.2); Alkaline Phosphatase 166 U/L (35-105); Anion Gap 18.5 (5-19); Aspartate Amino Transferase 27 U/L (0-32); Blood Urea Nitrogen 56 mg/dL (8-23); Calcium 8.1 mg/dL (8.5-10.5); Carbon Dioxide 21 mmol/L (22-29); Chloride 102 mmol/L (98-107); Globulin 3.1 g/dL (1.3-4.6); Glucose 77 mg/dL (65-115); Osmolality Calculated 300 mOsm/kg (285-295); Potassium 3.5 mmol/L (3.5-5.1); Sodium 138 mmol/L (136-145); Total Bilirubin 0.7 mg/dL (0.15-1.2); Total Protein 5.6 g/dL (6.6-8.7)
[2023-09-06 04:55] LABS: Slide Review Slide Review Perform
[2023-09-06] MEDS: famotidine 20 mg/2 mL INJ IVP ×2 (05:28→18:54)
[2023-09-06] MEDS: ondansetron 4 MG Tablet PO (08:13)
[2023-09-06] MEDS: dextrose 50% syringe 50 mL 25 ML IVP (08:21)
[2023-09-06 08:50] LABS: Glucose Point of Care 121 mg/dL (70-110)
[2023-09-06 10:30] LABS: Eosinophils % 0.4 %; Hematocrit 32.6 % (36-47); Lymphocytes # 0.2 10^3/uL (0.8-4.8); Mean Corpuscular HGB Conc 32.5 g/dL (30-55); Mean Corpuscular Hemoglobin 32.3 pg (27-33); Mean Corpuscular Volume 99.4 fl (85-98); Mean Platelet Volume 10.8 fL (7.4-10.4); Monocytes # 0.4 10^3/uL (0.2-0.9); Monocytes % 6.9 %; Neutrophils # 4.45 10^3/uL (1.8-7.7); Neutrophils % 88.3 %; Nucleated Red Blood Cells % 0 %; Platelet Count 56 10^3/cmm (157-399); Red Blood Count 3.28 10^6/uL (3.85-5.65); Red Cell Distribution Width 14.5 % (12.1-15.1); White Blood Count 5.04 10^3/uL (3.29-11.43)
[2023-09-06] MEDS: cyanocobalamin 1,000 mcg Tablet 5000 MCG PO (10:30)
[2023-09-06] MEDS: cholecalciferol (vitamin D3) 1,000 unit Tablet 500 UNIT PO (10:30)
[2023-09-06] MEDS: pantoprazole DR 40 mg Tablet PO (10:31)
[2023-09-06] MEDS: dextrose 5%-lactated ringers 1,000 ML 75 ML IV ×2 (10:31→23:46)
[2023-09-06] MEDS: thiamine 100 mg Tablet PO (10:31)
--- NOTE | 2023-09-06 10:33 | CTR_ITS ---
PROCEDURE INFORMATION: Exam: CT Abdomen And Pelvis Without Contrast Exam date and time: 09/06/2023 3:31 PM Age: 82 years old Clinical indication: Nausea TECHNIQUE: Imaging protocol: Computed tomography of the abdomen and pelvis without contrast. Radiation optimization: All CT scans at this facility use at least one of these dose optimization techniques: automated exposure control; mA and/or kV adjustment per patient size (includes targeted exams where dose is matched to clinical indication); or iterative reconstruction. COMPARISON: PT PET skulltothigh SUBSEQ [id number] 07/30/2023 10:05 AM RADIATION DOSE METRICS: Total DLP (mGy-cm): 818.63 FINDINGS: Lungs: Left [id number]-right basilar atelectasis/consolidation Liver: No acute findings Gallbladder and bile ducts: No acute findings. Pancreas: No ductal dilation. Spleen: No splenomegaly. Adrenal glands: No mass. Kidneys and ureters: No stones or hydronephrosis. Bilateral renal sinus cysts, no follow-up indicated. Stomach and bowel: Diffusely dilated fluid-filled small bowel with possible transition of caliber upstream from the right lower abdominal ventral abdominal wall defect around axial image 47. No pneumatosis or free air. Appendix: No evidence of appendicitis. Intraperitoneal space: No free air. No significant fluid collection. Vasculature: No abdominal aortic aneurysm. Lymph nodes: No enlarged lymph nodes. Urinary bladder: Decompressed around a Hurd catheter. Reproductive: No acute findings. Bones/joints: No acute findings. Soft tissues: No acute findings. CT/CT abdomen pelvis wo con [id number] IMPRESSION: Partial small bowel obstruction which may be related to a right lower quadrant abdominal wall defect/hernia as above. Short-term follow-up exam with oral contrast may help to further characterize.
[2023-09-06] MEDS: lanolin oint 7 gm 1 APPLIC TOPICAL (10:35)
--- NOTE | 2023-09-06 10:41 | P.PN_ITS ---
Subjective 2 Subjective: Patient is stating that every time she is taking liquid diet she is vomiting About 500 mL output noted through vomiting I requested CT abdomen pelvis without contrast kept her n.p.o. this morning Given Reglan Low blood sugar will add D5 LR Creatinine improving signs of dehydration improving Vitals/I&O/Wt Last Vital Signs Temp 98.6 F 09/06/23 06:24 Pulse 86 09/06/23 06:00 Resp 20 H 09/06/23 06:00 BP 123/66 09/06/23 06:00 Pulse Ox 96 09/06/23 06:00 O2 Del Method Nasal Cannula 09/06/23 04:00 O2 Flow Rate 2 09/06/23 04:00 09/05/23 09/06/23 09/06/23 22:59 06:59 14:59 Intake Total 1300 / 2787.375 Output Total 915 / 915 950 / 1865 Balance 385 / 1872.375 -950 / 922.375 Weight last 48 hrs Weight 82.554 kg Weight 80.966 kg Weight 78.018 kg Weight 72.575 kg Physical Exam 2 Narrative: Pleasant cooperative Sitting in recliner No active emesis Abdomen with sluggish bowel sound Abdomen distended nontender No sign of peritonitis or guarding S1, S2 Currently on 2 L nasal cannula Hemodynamic stable GCS 15 Urinary Catheter Management: Hurd: Cath Placed During This Visit: yes Reason for Continuing Indwelling Catheter: Accurate Measurement of Urinary Output in Critically Ill Patients Urinary Catheter Date of Insertion: 09/04/23 Urinary Catheter Time of Insertion: 19:14 Data 09/06/23 03:28 09/06/23 03:28 Micro: Microbiology 09/04/23 19:45 Blood Culture - Preliminary Blood NEGATIVE TO DATE 09/04/23 19:32 Blood Culture - Preliminary Blood NEGATIVE TO DATE A&P Assessment and plan (1) Thrombocytopenia: (2) Hypovolemic shock: (3) Stomatitis: (4) Diarrhea: (5) Elevated LFTs: (6) Acute kidney injury: (7) Fluid volume depletion: (8) Urinary tract infection: Qualifiers: Urinary tract infection type: acute cystitis Hematuria presence: w ithout hematuria Qualified Code(s): N30.00 - Acute cystitis without hematuria (9) Cystitis: (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 Requested CT abdomen pelvis to rule out obstruction Concern for gastroenteritis related worsening C. difficile panel will be requested Change fluids to D5 LR for symptoms of hypoglycemia FRAN related dehydration: Improving Stomatitis: Improved added multivitamins Thrombocytopenia stable continue DVT prophylaxis with Lovenox Generalized weakness fatigue History of cancer Add Zosyn for possible gastroenteritis Attestations 2 Medical Necessity Statement*: If blood pressure stays stable can be transferred out of ICU Diagnoses Thrombocytopenia D69.6 Hypovolemic shock R57.1 Stomatitis K12.1 Diarrhea R19.7 Elevated LFTs R79.89 Acute kidney injury N17.9 Fluid volume depletion E86.9 Acute cystitis without hematuria N30.00 Urinary tract infection type: acute cystitis Hematuria presence: without hematuria Cystitis N30.90 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
[2023-09-06 11:29] LABS: Slide Review Slide Review Perform
[2023-09-06 12:03] LABS: Glucose Point of Care 106 mg/dL (70-110)
[2023-09-06] MEDS: piperacillin-tazobactam 3.375 GM in sodium chloride 0.9% (plus) 50 ML IV ×2 (12:25→22:45)
[2023-09-06 12:44] LABS: Glucose Point of Care 69 mg/dL (70-110)
[2023-09-06 17:18] LABS: Glucose Point of Care 115 mg/dL (70-110)
--- NOTE | 2023-09-06 17:54 | XRR_ITS ---
PROCEDURE INFORMATION: Exam: XR Chest Exam date and time: 09/06/2023 6:07 PM Age: 82 years old Clinical indication: Device placement; Ng tube; Additional info: Ng placement TECHNIQUE: Imaging protocol: Radiologic exam of the chest. Views: 1 view. COMPARISON: 1. CR XR chest 1V portable [id number] 09/04/2023 3:[address] abdomen pelvis wo con [id number] 09/06/2023 3:31 PM FINDINGS: Tubes, catheters and devices: Interval placement of an enteric tube. The tube is coiled in the stomach with the tip in the fundus. Lungs: Stable linear scarring in the right middle lobe and left lingula. Pleural spaces: No pleural effusion. No pneumothorax. Heart/Mediastinum: Stable moderate enlargement of the cardiac silhouette. Mediastinal contours are unremarkable. Vasculature: Stable vascular calcifications in the aorta. Bones/joints: Unremarkable for age. Gastrointestinal tract: Dilated small bowel loops in the visualized abdomen are overall stable. Findings are suspicious for a small bowel obstruction. XR/XR chest 1V portable [id number] IMPRESSION: 1. No acute cardiopulmonary process. 2. Interval placement of an enteric tube. The tube is coiled in the stomach with the tip in the fundus. 3. Dilated small bowel loops in the visualized abdomen are overall stable. Findings are suspicious for a small bowel obstruction. 4. Incidental/nonacute findings are listed in the report.
--- NOTE | 2023-09-06 17:57 | PC.NURSE ---
Dr Hein, at bedside, inserted NG 18 italian. Pt tolerated poorly. Thick yellow drainage, 500ml out put. Awaiting placement xray
--- NOTE | 2023-09-06 18:00 | P.CONIM_ITS ---
Providers/Reason For Consult 2 Consulting Physician/Specialty*: General surgery Reason for Consult*: Small bowel obstruction Attending Physician: Akhil Cuevas MD Primary Care Provider: Dequan Dubois DO History of Present Illness History of Present Illness Ester Reaves is a 82 year old female with history of metastatic breast cancer who is currently receiving therapy as guided by medical oncology. Was admitted to the hospital 2 days ago with diarrhea, weakness and overall sensation of malaise. Over the last 24 hours patient developed nausea vomit even after ingestion of very small amounts of fluid. A CT scan of the abdomen pelvis was obtained which show evidence of a partial small bowel obstruction and a redemonstration of a hernia in the right hemiabdomen that cannot rule out as the cause of the small bowel obstruction. I was consulted for this finding. Review of Systems 2 General: Reports: 10 or more systems reviewed and unremarkable except in HPI and below Medications/Allergies Home Medications Medication Instructions Recorded Confirmed Last Taken Type Lactobacillus acidophilus and 1 cap PO QAM 12/09/19 09/04/23 06/03/23 History rhamnosus 15 billion cell capsule (Probiotic) Calciumk+ 5 - 10 ml PO DAILY 02/27/22 09/04/23 09/03/23 History Coffee Mocha Recharge 1 packet PO QAM 02/27/22 09/04/23 06/03/23 History Immune From Live Pure 1 tab PO DAILY 02/27/22 09/04/23 06/03/23 History acetaminophen 500 mg tablet 1,000 mg PO Q4H PRN Pain 02/27/22 09/04/23 06/03/23 History 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 ##1 02/20/23 09/04/23 04/18/23 Rx carvedilol 3.125 mg tablet 3.125 mg PO BID 03/08/23 09/04/23 09/03/23 History rosuvastatin 40 mg tablet 40 mg PO QPM 03/08/23 09/04/23 06/03/23 History cholecalciferol (vitamin D3) 10 10 mcg PO DAILY 04/09/23 09/04/23 06/03/23 History mcg (400 unit) capsule prochlorperazine maleate 10 mg 10 mg PO Q4H PRN Mild Nausea #30 04/26/23 09/04/23 06/03/23 Rx tablet (Compazine) tabs lorazepam 1 mg tablet 0.5 - 1 mg (0.5 - 1 x 1 mg) PO Q6H 04/29/23 09/04/23 06/03/23 Rx PRN Severe Nausea #30 tabs diphenhydramine HCl 12.5 mg/5 mL 25 mg (10 mL) PO Q6H #500 mL 06/15/23 09/04/23 Unknown Rx oral elixir cyanocobalamin (vitamin B-12) 5,000 mcg PO DAILY 07/02/23 09/04/23 Unknown History 5,000 mcg capsule alpelisib 300 mg/day (150 mg x 2) 300 mg PO DAILY #56 tabs 07/03/23 09/04/23 Unknown Rx tablet furosemide 40 mg tablet 40 mg PO DAILY #30 tabs 08/07/23 09/04/23 Unknown Rx potassium chloride 20 mEq/15 mL 10 meq (7.5 mL) PO DAILY 30 days 08/20/23 09/04/23 Unknown Rx oral liquid #473 mL meloxicam 7.5 mg tablet 7.5 mg PO QAM 09/04/23 09/04/23 Unknown History pantoprazole 40 mg tablet,delayed 40 mg PO DAILY 09/04/23 09/04/23 Unknown History release Allergies Allergy/AdvReac Type Severity Reaction Status Date / Time No Known Allergies Allergy Verified 09/04/23 15:46 Current Medications Generic Name Dose Route Start Last Admin Trade Name Freq PRN Reason Stop Dose Admin Atorvastatin Calcium 40 mg 09/05/23 18:00 09/05/23 18:02 Atorvastatin 40 Mg Tablet PO 40 mg QPM ROMA Administration Cyanocobalamin 5,000 mcg 09/06/23 09:00 09/06/23 10:30 Cyanocobalamin 1,000 Mcg Tablet PO 5,000 mcg DAILY ROMA Administration Dextrose 25 ml 09/04/23 18:26 09/06/23 08:21 Dextrose 50% Syringe 50 Ml IVP 25 ml ONCE PRN Administration hypoglycemia protocol Protocol Enoxaparin Sodium 40 mg 09/04/23 18:30 09/05/23 18:00 Enoxaparin 40 Mg/0.4 Ml Syringe SUBCUT 40 mg Q24H ROMA Administration Famotidine 20 mg 09/04/23 18:30 09/06/23 05:28 Famotidine 20 Mg/2 Ml Inj IVP 20 mg Q12H ROMA Administration norepinephrine 4 mg in 250 mls @ 0 mls/hr 09/04/23 16:00 09/05/23 10:14 Levophed IV 0 mcg/min .Q0M ROMA 0 mls/hr Titration Protocol Per Protocol Dextrose/Lactated Ringer's 1,000 mls @ 75 mls/hr 09/06/23 10:15 09/06/23 10:31 Dextrose 5%-Lactated Ringers IV 75 mls/hr .[id number] ROMA Administration Piperacillin Sod/Tazobactam 50 mls @ 12.5 mls/hr 09/06/23 11:30 09/06/23 12:25 Sod 3.375 gm/ Sodium Chloride IV 12.5 mls/hr Q12H ROMA Administration Protocol Insulin Human Lispro 0 unit 09/04/23 21:00 09/06/23 17:25 Insulin Lispro 100 Unit/1 Ml SUBCUT Not Given WM&BEDTIME ROMA Protocol Lanolin 1 applic 09/04/23 20:23 09/06/23 10:35 Lanolin Oint 7 Gm TOPICAL 1 applic PRN PRN Administration DRYNESS Ondansetron HCl 4 mg 09/04/23 18:21 09/06/23 08:13 Ondansetron 4 Mg Tablet PO 4 mg Q6H PRN Administration NAUSEA Ondansetron HCl 4 mg 09/05/23 22:48 09/06/23 03:41 Ondansetron 2 Mg/Ml Sdv 2 Ml IVP 4 mg Q4H PRN Administration NAUSEA AND VOMITING Pantoprazole Sodium 40 mg 09/06/23 09:00 09/06/23 10:[address] 40 Mg Tablet PO 40 mg DAILY ROMA Administration Thiamine Mononitrate 100 mg 09/06/23 09:00 09/06/23 10:31 Thiamine 100 Mg Tablet PO 100 mg DAILY ROMA Administration Vitamin D 500 unit 09/05/23 09:00 09/06/23 10:30 Cholecalciferol (Vitamin D3) 1,000 Unit Tablet PO 500 unit DAILY ROMA Administration PFSH Acute 2 PFSH: Medical History Non-small cell lung cancer Breast cancer GERD (gastroesophageal reflux disease) History of DVT (deep vein thrombosis) Left lower extremity - following hysterectomy Osteoporosis Hyperlipidemia Hypertension Coronary artery disease History of [place] Surgical History History of inguinal hernia repair History of right mastectomy (07/03/18) S/P lymph node biopsy (07/27/15) Right axillary sentinel lymph node biopsy Status post excisional biopsy (06/30/15) Excisional biopsy of right breast mass History of orthopedic surgery ORIF right forearm fracture History of hysterectomy History of cholecystectomy History of coronary angioplasty with insertion of stent x 6 around 2010 Family History Mother TIA (transient ischemic attack) Father , age 72 CAD (coronary artery disease) Social History Smoking and tobacco/nicotine status: never used tobacco/nicotine Alcohol intake: never Substance/Drug Use: never Vitals/I&O/Wt Last Vital Signs Temp 98.9 F 09/06/23 16:30 Pulse 87 09/06/23 17:00 Resp 21 H 09/06/23 17:00 BP 108/56 09/06/23 17:00 Pulse Ox 91 09/06/23 17:00 O2 Del Method Room Air 09/06/23 17:00 O2 Flow Rate 2 09/06/23 09:30 09/06/23 09/06/23 09/06/23 06:59 14:59 22:59 Intake Total 1100 / 1100 Output Total 950 / 1865 350 / 350 Balance -950 / 922.375 750 / 750 Weight last 48 hrs Weight 182 lb Weight 178 lb 8 oz Weight 172 lb Physical Exam 2 Narrative: General : Patient appears weak and frail Head : Normal cephalic, a-traumatic. Nose : Mucous membranes are without erythema. Lungs : Equal chest rise bilaterally, no use of accessory muscles, trachea is midline. CV : Rate and rhythm are normal. Abdomen : Soft, there is evidence of previous surgical scar on the right upper quadrant that may be consistent with that of a open cholecystectomy, abdomen is distended, is soft and mildly tender. Extremities : No edema. Upper extremities are normal bilaterally. Back : non-tender to palpation, no CVA tenderness. Urinary Catheter Management: Hurd: Cath Placed During This Visit: yes Reason for Continuing Indwelling Catheter: Accurate Measurement of Urinary Output in Critically Ill Patients Urinary Catheter Date of Insertion: 09/04/23 Urinary Catheter Time of Insertion: 19:14 Data 09/06/23 09:41 09/06/23 03:28 Micro: Microbiology 09/04/23 19:45 Blood Culture - Preliminary Blood NEGATIVE TO DATE 09/04/23 19:32 Blood Culture - Preliminary Blood NEGATIVE TO DATE A&P Assessment and plan (1) Small bowel obstruction: Plan After complete history, physical examination and review of all available clinical data the following is my assessment. Patient has a partial small bowel obstruction as demonstrated by clinical examination and a CT scan that showed evidence of significant dilation of the small bowel but also presence of distal air at the level of the rectal vault. She does have a right abdominal wall hernia which appears to contain hepatic flexure of the colon, this was demonstrated previously in a CAT scan done on June 2023 and appears to remain stable. From my initial review of imaging it is unlikely that the hernia is the cause of the obstruction, most likely cause is additions versus possible progression of disease with peritoneal seeding's. An NG tube was inserted at the bedside with the immediate output of about 550 cc of yellowish enteric content. After initial decompression abdominal exam was much improved. Plan will be for decompression for the next 24 to 48 hours, after these I will plan to do a Gastrografin trial to evaluate for progression of the contrast in the GI tract. In the event of lack of progression patient may require exploratory laparotomy. I will have a discussion with the family members regarding the possibility of surgery. As one of the main concerns is that if there is no improvement of the small bowel obstruction it may be caused by a progression of disease and even after a laparotomy there is a likelihood that if we encountered metastatic disease we will be unable to resolve her obstruction and the only option may be doing palliative ostomy. Is important to note that due to age of the patient, significant comorbidities and history of chemotherapy she is a very high risk for any kind of surgical procedure with increased risk for morbidity and mortality, I will take this into consideration before making a decision to going to the operating room this will be discussed with the family members. In the interim we can continue to monitor abdominal exams NG output and we can trend laboratory workup and lactate levels. General surgery will continue to follow Coding Level of Care Code 78390 Diagnoses Small bowel obstruction K56.609
[2023-09-06] MEDS: enoxaparin 40 mg/0.4 mL Syringe SUBCUT (18:54)
--- NOTE | 2023-09-06 19:00 | PC.NURSE ---
1814: Chest xray for NG placement completed. Line curled in stomach. Dr Treadwell notified: To pull it back out to the next line. 1854: NG pulled back to next line as instructed. Pt tolerated poorly but better than the insertion. Secured tube with venigard on her nose and biocclusive to her left cheek. Still to LIS, draining dark yellow fluid.
[2023-09-06] MEDS: phenol oral Spray 177 mL 3 SPRAY MUCOUS MEM ×2 (19:38→22:24)
--- NOTE | 2023-09-06 20:15 | PC.NURSE ---
Shift summary: Pt started her day up to chair at bedside. She was febrile and did not feel good per her. Checked her blood sugar: 69mg/dl. She was nauseated per her. Zofran PO admin. It was a struggle to get pt to sip juice per the hypglycemic protocol. That lasted about half hour then she vomited 350ml of dark yellow, feces odored fluid. Folowed hypoglycemic protocol for pt's who cannot take oral. Dr Cuevas , then on unit, notified. Pt made NPO, IV fluids changed to D5/LR and imaging for her abdomen ordered. Pt dozed in chair with VSS until about 1100 then she was assisted back to bed. Some odorous belching noted. She rested in bed and visited with friends/family early afternoon. No more compalins of nausea. Her blood sugars now above 100mg/dl. She was even perkier. Late afternoon CT of abd completed. Dr Cuevas notified that results were ready. Dr Treadwell was consulted, NG inserted with return of dark yellow fluid. At end of shift 650ml of gastric output noted. She did have 650 ml of dark yellow urine also.
[2023-09-06 20:54] LABS: Glucose Point of Care 129 mg/dL (70-110)
[2023-09-07] VITALS (27 sets, daily range): BP systolic 92–136; BP diastolic 46–78; PULSE 66–101; RESP 11–24; TEMP 36.4–37.1; O2SAT 91–100
[2023-09-07] MEDS: phenol oral Spray 177 mL 3 SPRAY MUCOUS MEM ×2 (00:49→05:31)
--- NOTE | 2023-09-07 00:54 | PC.NURSE ---
Stool Sample: Lab called and reported that collected stool sample was not enough to run test ordered. Stool is liquid and most absorbs into pads underneath pt. Staff aware that more stool will need to be sent to lab when available.
[2023-09-07 04:23] LABS: Basophils # 0.1 10^3/uL (0.0-0.1); Basophils % 1.2 %; Eosinophils # 0.1 10^3/uL (0.0-0.8); Eosinophils % 1.2 %; Hematocrit 33.3 % (36-47); Lymphocytes # 0.4 10^3/uL (0.8-4.8); Lymphocytes % 8.8 %; Mean Corpuscular HGB Conc 32.4 g/dL (30-55); Mean Corpuscular Hemoglobin 31.7 pg (27-33); Mean Corpuscular Volume 97.7 fl (85-98); Mean Platelet Volume 10.6 fL (7.4-10.4); Monocytes # 0.4 10^3/uL (0.2-0.9); Monocytes % 9.3 %; Neutrophils # 3.39 10^3/uL (1.8-7.7); Neutrophils % 78.8 %; Nucleated Red Blood Cells % 0 %; Platelet Count 57 10^3/cmm (157-399); Red Blood Count 3.41 10^6/uL (3.85-5.65); Red Cell Distribution Width 14.6 % (12.1-15.1)
[2023-09-07 04:54] LABS: Alanine Aminotransferase 23 U/L (0-33); Albumin Level 2.5 g/dL (3.5-5.2); Alkaline Phosphatase 129 U/L (35-105); Anion Gap 15.9 (5-19); Aspartate Amino Transferase 18 U/L (0-32); Blood Urea Nitrogen 53 mg/dL (8-23); Carbon Dioxide 24 mmol/L (22-29); Chloride 105 mmol/L (98-107); Glucose 135 mg/dL (65-115); Osmolality Calculated 310 mOsm/kg (285-295); Sodium 142 mmol/L (136-145); Total Bilirubin 0.5 mg/dL (0.15-1.2); Total Protein 5.5 g/dL (6.6-8.7)
[2023-09-07 05:01] LABS: Potassium 2.9 mmol/L (3.5-5.1)
[2023-09-07] MEDS: lidocaine 1% 5 ML in potassium chloride premix 100 ML 26.25 ML IV ×3 (05:22→12:33)
[2023-09-07 05:31] LABS: Glucose Point of Care 132 mg/dL (70-110)
[2023-09-07] MEDS: famotidine 20 mg/2 mL INJ IVP ×2 (05:31→18:12)
[2023-09-07] MEDS: lanolin oint 7 gm 1 APPLIC TOPICAL ×4 (06:04→11:28)
--- NOTE | 2023-09-07 07:50 | PC.NURSE ---
Blood sugar of 153mg/dl. Dr Cuevas, at bedside, verbally ordered for this am insulin to be held, and continue to hold insulin if blood sugars are 140-180 mg/dl.
--- NOTE | 2023-09-07 09:05 | P.PN_ITS ---
Subjective 2 Subjective: 82-year-old female with partial small saba wel obstruction. Evaluated patient this morning, she denies any abdominal pain, according to her she is feeling fine. Denies having gas or bowel movements in the last 24 hours. NG output has remained minimal if feculent with effluent of 700 cc since insertion. Vitals/I&O/Wt Last Vital Signs Temp 98.4 F 09/07/23 04:30 Pulse 77 09/07/23 06:08 Resp 16 09/07/23 06:00 BP 106/54 09/07/23 06:00 Pulse Ox 97 09/07/23 06:00 O2 Del Method Nasal Cannula 09/07/23 06:00 O2 Flow Rate 2 09/07/23 06:00 09/06/23 09/07/23 09/07/23 22:59 06:59 14:59 Intake Total 961.25 / 2061.25 561.250 / 2622.500 Output Total 1300 / 1650 625 / 2275 Balance -338.75 / 411.25 -63.750 / 347.500 Weight last 48 hrs Weight 182 lb 14.4 oz Weight 182 lb Physical Exam 2 GI: OTHER: Abdomen is soft, nontender, minimally distended. Urinary Catheter Management: Hurd: Cath Placed During This Visit: yes Reason for Continuing Indwelling Catheter: Accurate Measurement of Urinary Output in Critically Ill Patients Urinary Catheter Date of Insertion: 09/04/23 Urinary Catheter Time of Insertion: 19:14 Data 09/07/23 03:20 09/07/23 03:20 A&P Assessment and plan (1) Small bowel obstruction: Plan 82-year-old female with history of metastatic breast cancer and now partial small bowel obstruction. NG tube was inserted yesterday after decompression patient is feeling much better no significant abdominal pain, only complaint is pain on the back of the throat due to the NG tube. Has not had flatus or bowel movement yet. Plan is to decompress additional 24 hours if by tomorrow the output is low and patient is feeling well we will plan to do a Gastrografin trial. ? Continue NG to low intermittent wall suction ? Please replace electrolytes as needed ? Patient should be out of bed to chair and encourage movement is much as possible ? Appreciate care by medical ICU team. Attestations 2 Medical Necessity Statement*: Per medical ICU team. Coding Level of Care Code Acute Code for Chg Fwd Diagnoses Small bowel obstruction K56.609
[2023-09-07] MEDS: pantoprazole 40 mg SDV IVP ×2 (09:19→22:03)
--- NOTE | 2023-09-07 09:47 | P.PN_ITS ---
Subjective 2 Subjective: Mg drained 600 mL of bile Abdomen is soft Patient endorsing feeling slightly better No active emesis Vitals/I&O/Wt Last Vital Signs Temp 98.4 F 09/07/23 04:30 Pulse 77 09/07/23 06:08 Resp 16 09/07/23 06:00 BP 106/54 09/07/23 06:00 Pulse Ox 97 09/07/23 06:00 O2 Del Method Nasal Cannula 09/07/23 06:00 O2 Flow Rate 2 09/07/23 06:00 09/06/23 09/07/23 09/07/23 22:59 06:59 14:59 Intake Total 961.25 / 2061.25 561.250 / 2622.500 Output Total 1300 / 1650 625 / 2275 Balance -338.75 / 411.25 -63.750 / 347.500 Weight last 48 hrs Weight 82.962 kg Weight 82.554 kg Physical Exam 2 Narrative: Sitting in bed Currently on 2 L Pleasant cooperative Abdomen soft Nontender Bowel sounds sluggish but present GCS 15 No signs of rigidity guarding or peritonitis Nonfocal neuroexam Urinary Catheter Management: Hurd: Cath Placed During This Visit: yes Reason for Continuing Indwelling Catheter: Accurate Measurement of Urinary Output in Critically Ill Patients Urinary Catheter Date of Insertion: 09/04/23 Urinary Catheter Time of Insertion: 19:14 Data 09/07/23 03:20 09/07/23 03:20 A&P Assessment and plan (1) Lung mass: (2) Weakness generalized: (3) SBO (small bowel obstruction): (4) Acute kidney injury: (5) Fluid volume depletion: (6) Cystitis: (7) Urinary tract infection: Qualifiers: Urinary tract infection type: acute cystitis Hematuria presence: w ithout hematuria Qualified Code(s): N30.00 - Acute cystitis without hematuria (8) Urinary symptom or sign: (9) Metastatic squamous cell carcinoma: Plan Bowel obstruction NG to suction 600 mL of bile noted Gastrografin study tomorrow as per general surgery Keep blood sugar between 100 4280 mg/dL Continue D5 LR fluid resuscitation for now She can get out of bed to recliner She is not on complete bedrest FRAN: Improving with IV fluid hydration Stomatitis: Improving Stable thrombocytopenia Likely will need prison placement Zosyn was added for concern related to gastroenteritis Attestations 2 Medical Necessity Statement*: Gastrografin study tomorrow Off Levophed can be transferred out of ICU Diagnoses Lung mass R91.8 Weakness generalized R53.1 SBO (small bowel obstruction) K56.609 Acute kidney injury N17.9 Fluid volume depletion E86.9 Cystitis N30.90 Acute cystitis without hematuria N30.00 Urinary tract infection type: acute cystitis Hematuria presence: without hematuria Urinary symptom or sign R39.9 Metastatic squamous cell carcinoma
[2023-09-07 11:06] LABS: Basophils % 0.9 %; Eosinophils % 1.2 %; Hematocrit 28.9 % (36-47); Lymphocytes # 0.3 10^3/uL (0.8-4.8); Mean Corpuscular HGB Conc 33.2 g/dL (30-55); Mean Corpuscular Volume 96.3 fl (85-98); Mean Platelet Volume 10.3 fL (7.4-10.4); Monocytes # 0.4 10^3/uL (0.2-0.9); Monocytes % 11.2 %; Neutrophils # 2.52 10^3/uL (1.8-7.7); Neutrophils % 76.4 %; Nucleated Red Blood Cells % 0 %; Platelet Count 59 10^3/cmm (157-399); Red Cell Distribution Width 14.5 % (12.1-15.1)
[2023-09-07] MEDS: piperacillin-tazobactam 3.375 GM in sodium chloride 0.9% (plus) 50 ML IV (11:11)
[2023-09-07 11:16] LABS: Glucose Point of Care 127 mg/dL (70-110)
[2023-09-07] MEDS: dextrose 5%-lactated ringers 1,000 ML 75 ML IV (12:30)
--- NOTE | 2023-09-07 15:41 | PC.NURSE ---
Report called to [facility]. Report given to Radha Hernnadez.
--- NOTE | 2023-09-07 16:12 | PC.NURSE ---
Pt transferred to room 262 via W/C. All belongings transferred with pt. Cell phe and [employer] cord. Pt only has ONE hearing aid, the left one, with her this hospital stay. Unable to reach Serafin, the son, to notify, his phone had busy signal. Pt called and notified him.
[2023-09-07] MEDS: enoxaparin 40 mg/0.4 mL Syringe SUBCUT (18:12)
[2023-09-07] MEDS: atorvastatin 40 mg Tablet PO (18:12)
[2023-09-07 18:28] LABS: Glucose Point of Care 133 mg/dL (70-110)
[2023-09-07 18:32] LABS: Glucose Point of Care 153 mg/dL (70-110)
[2023-09-07 21:32] LABS: Glucose Point of Care 140 mg/dL (70-110)
[2023-09-08] VITALS (9 sets, daily range): BP systolic 111–131; BP diastolic 66–82; PULSE 76–98; RESP 16–19; TEMP 36.6–37.1; O2SAT 90–95
[2023-09-08] MEDS: piperacillin-tazobactam 3.375 GM in sodium chloride 0.9% (plus) 50 ML IV ×3 (00:43→20:51)
[2023-09-08] MEDS: dextrose 5%-lactated ringers 1,000 ML 75 ML IV ×2 (00:50→14:29)
[2023-09-08 03:54] LABS: Basophils % 1.1 %; Eosinophils % 0.6 %; Hematocrit 30.6 % (36-47); Lymphocytes # 0.5 10^3/uL (0.8-4.8); Lymphocytes % 13.4 %; Mean Corpuscular HGB Conc 32.4 g/dL (30-55); Mean Corpuscular Hemoglobin 31.9 pg (27-33); Mean Corpuscular Volume 98.7 fl (85-98); Mean Platelet Volume 10.1 fL (7.4-10.4); Monocytes # 0.4 10^3/uL (0.2-0.9); Monocytes % 10.6 %; Neutrophils # 2.65 10^3/uL (1.8-7.7); Neutrophils % 73.7 %; Nucleated Red Blood Cells % 0 %; Platelet Count 59 10^3/cmm (157-399); Red Cell Distribution Width 14.5 % (12.1-15.1); White Blood Count 3.59 10^3/uL (3.29-11.43)
[2023-09-08 04:14] LABS: Anion Gap 13.3 (5-19); Blood Urea Nitrogen 39 mg/dL (8-23); Calcium 7.8 mg/dL (8.5-10.5); Carbon Dioxide 26 mmol/L (22-29); Chloride 107 mmol/L (98-107); Glucose 123 mg/dL (65-115); Osmolality Calculated 307 mOsm/kg (285-295); Potassium 3.3 mmol/L (3.5-5.1); Sodium 143 mmol/L (136-145)
[2023-09-08 05:41] LABS: Glucose Point of Care 131 mg/dL (70-110)
--- NOTE | 2023-09-08 07:55 | P.PN_ITS ---
Subjective 2 Subjective: 82-year-old female with multiple medical comorbidities including metastatic breast cancer who is currently being evaluated by my service for episode of partial small bowel obstruction. Good progression over the last 24 hours. About 100 cc of bilious output from the NG tube. Does not have any significant abdominal pain, according to the patient she had a bowel movement this morning. Vitals/I&O/Wt Last Vital Signs Temp 98.0 F 09/08/23 04:00 Pulse 96 09/08/23 05:48 Resp 17 09/08/23 04:00 BP 121/74 09/08/23 04:00 Pulse Ox 90 09/08/23 04:00 O2 Del Method Room Air 09/08/23 04:00 O2 Flow Rate 2 09/07/23 13:00 09/07/23 09/08/23 09/08/23 22:59 06:59 14:59 Intake Total 155 / 900.313 995.25 / 1895.563 Output Total 1300 / 1300 400 / 1700 Balance -1145 / -399.687 595.25 / 195.563 Weight last 48 hrs Weight 183 lb 1 oz Weight 182 lb 14.4 oz Physical Exam 2 GI: OTHER: Abdominal exam is benign, abdomen is mildly distended, is soft, nontender to palpation. Urinary Catheter Management: Hurd: Cath Placed During This Visit: yes Reason for Continuing Indwelling Catheter: Accurate Measurement of Urinary Output in Critically Ill Patients Urinary Catheter Date of Insertion: 09/04/23 Urinary Catheter Time of Insertion: 19:14 Data 09/08/23 03:39 09/08/23 03:39 A&P Assessment and plan (1) SBO (small bowel obstruction): Plan To complete history physical examination and review of all available clinical data the following is my assessment. Patient is showing adequate progression consistent with the possibility of partial small bowel obstruction. We will proceed with Gastrografin trial today. After Gastrografin administration tube will be clamped and will remain clamped for the next 12 to 24 hours if there is good progression of the Gastrografin in the GI tract by the morning we will plan to remove NG tube and start the patient on clear liquid diet. If there is lack of progression or significant symptoms we may consider exploratory laparoscopy versus laparotomy. Patient and family members were informed of the plan and they agree. Attestations 2 Medical Necessity Statement*: Per medical team Coding Level of Care Code Acute Code for Chg Fwd Diagnoses SBO (small bowel obstruction) K56.609
--- NOTE | 2023-09-08 09:05 | P.PN_ITS ---
Subjective 2 Subjective: Patient stating that she had 2 bowel movement this morning General surgery wants Gastrografin trial today NG only have minimal output Abdomen soft positive bowel sounds Patient looks dehydrated Vitals/I&O/Wt Last Vital Signs Temp 97.9 F 09/08/23 08:00 Pulse 98 09/08/23 08:00 Resp 16 09/08/23 08:00 BP 131/70 09/08/23 08:00 Pulse Ox 95 09/08/23 08:00 O2 Del Method Room Air 09/08/23 08:00 O2 Flow Rate 2 09/07/23 13:00 09/07/23 09/08/23 09/08/23 22:59 06:59 14:59 Intake Total 155 / 900.313 995.25 / 1895.563 Output Total 1300 / 1300 400 / 1700 350 / 350 Balance -1145 / -399.687 595.25 / 195.563 -350 / -350 Weight last 48 hrs Weight 83.036 kg Weight 82.962 kg Physical Exam 2 Narrative: Patient looks dehydrated NG to suction Abdomen soft positive bowel sound Pleasant and calm Stomatitis improving S1, S2 Currently on room air Urinary Catheter Management: Hurd: Cath Placed During This Visit: yes Reason for Continuing Indwelling Catheter: Accurate Measurement of Urinary Output in Critically Ill Patients Urinary Catheter Date of Insertion: 09/04/23 Urinary Catheter Time of Insertion: 19:14 Data 09/08/23 03:39 09/08/23 03:39 A&P Assessment and plan (1) Thrombocytopenia: (2) Protein calorie malnutrition: (3) Stomatitis: (4) Nausea & vomiting: (5) SBO (small bowel obstruction): (6) Acute kidney injury: (7) Fluid volume depletion: (8) Urinary symptom or sign: (9) Urinary tract infection: Qualifiers: Urinary tract infection type: acute cystitis Hematuria presence: w ithout hematuria Qualified Code(s): N30.00 - Acute cystitis without hematuria (10) Cystitis: (11) Weakness generalized: Plan Partial SBO Having bowel movement today Positive bowel sounds, Gastrografin study trial today Most likely NG tube will come out and we will let her have clear liquid diet Dehydration: Continue IV fluid FRAN improved with IV fluid Stable thrombocytopenia Patient does not want to go to longterm/rehab stating that she would like to go home with her son with home health Replenish potassium Continue D5 LR UTI: Improving on Zosyn Attestations 2 Medical Necessity Statement*: Possible discharge in next 24 to 48 hours Diagnoses Thrombocytopenia D69.6 Protein calorie malnutrition E46 Stomatitis K12.1 Nausea & vomiting R11.2 SBO (small bowel obstruction) K56.609 Acute kidney injury N17.9 Fluid volume depletion E86.9 Urinary symptom or sign R39.9 Acute cystitis without hematuria N30.00 Urinary tract infection type: acute cystitis Hematuria presence: without hematuria Cystitis N30.90 Weakness generalized R53.1
[2023-09-08] MEDS: pantoprazole 40 mg SDV IVP ×2 (09:12→21:55)
[2023-09-08] MEDS: phenol oral Spray 177 mL 3 SPRAY MUCOUS MEM (09:19)
--- NOTE | 2023-09-08 11:03 | PM.MISC ---
Miscellaneous Note Purpose of Documentation: Update on patient care Note: Patient doing well this morning, no abdominal pain, has had 1 more bowel movement and nursing reports that patient has been passing gas. 100 cc of Gastrografin diluted in 50 cc of water were administered through the NG tube and the NG tube is clamped. Will obtain an x-ray at 5 PM and another 1 tomorrow morning. If x-rays look fine and there is progression of Gastrografin in the GI tract we will remove NG tube and proceed to advance diet.
[2023-09-08 11:59] LABS: Glucose Point of Care 123 mg/dL (70-110)
--- NOTE | 2023-09-08 16:00 | XRR_ITS ---
PROCEDURE INFORMATION: Exam: XR Abdomen Exam date and time: 09/08/2023 5:31 PM Age: 82 years old Clinical indication: Abdominal tenderness and bloating; Patient HX: Abdominal distention; Suspected bowel obstruction; 60cc gastrograffin injected through ng @ approx 1200-5hr film. TECHNIQUE: Imaging protocol: Radiologic exam of the abdomen. Views: Frontal supine view of the abdomen. 1 View. COMPARISON: CT abdomen pelvis con [id number] 09/06/2023 3:31 PM FINDINGS: Gastrointestinal tract: Contrast is seen in multiple dilated small bowel loops, proximal to distal, consistent with distal small bowel obstruction. The contrast filled small bowel loop somewhat obscure large bowel loops. It is unclear whether the contrast has progressed to the proximal large bowel. Bones/joints: Not well seen. XR/XR abdomen 1V* [id number] IMPRESSION: Findings as stated above are consistent with a distal small bowel obstruction.
[2023-09-08 17:47] LABS: Glucose Point of Care 122 mg/dL (70-110)
[2023-09-08] MEDS: famotidine 20 mg/2 mL INJ IVP (18:26)
[2023-09-08] MEDS: atorvastatin 40 mg Tablet PO (18:27)
[2023-09-08] MEDS: enoxaparin 40 mg/0.4 mL Syringe SUBCUT (18:27)
--- NOTE | 2023-09-08 18:45 | PM.MISC ---
Miscellaneous Note Purpose of Documentation: Update on patient care Note: X-ray of the abdomen shows evidence of distended loops of bowel but there is progression of the contrast up to the distal small bowel. I evaluated patient at the bedside, her abdominal exam is benign, I can identify any induration of the abdominal both suggesting of incarcerated hernia both in the abdomen or at the level of the groins. Will finish my evaluation patient stated that she will like to have a bowel movement, she was taken to the bedside commode she passed large amount of flatus and had a large liquid bowel movement. This is consistent with improvement of her partial small bowel obstruction, my recommendation will be to obtain another x-ray tomorrow morning and if there is good progression of contrast into the colon next step will be to remove the NG tube and start clear liquid diet. Patient will require daily laxatives to maintain adequate bowel transit.
[2023-09-08 21:19] LABS: Glucose Point of Care 130 mg/dL (70-110)
[2023-09-08 23:04] LABS: Glucose Point of Care 124 mg/dL (70-110)
[2023-09-09] VITALS (9 sets, daily range): BP systolic 107–160; BP diastolic 65–78; PULSE 70–98; RESP 16–18; TEMP 36.3–36.7; O2SAT 91–95
[2023-09-09 03:06] LABS: Basophils % 0.5 %; Eosinophils % 1.1 %; Hematocrit 28.3 % (36-47); Lymphocytes # 0.6 10^3/uL (0.8-4.8); Lymphocytes % 15.5 %; Mean Corpuscular HGB Conc 32.2 g/dL (30-55); Mean Corpuscular Hemoglobin 31.5 pg (27-33); Mean Corpuscular Volume 97.9 fl (85-98); Mean Platelet Volume 10.4 fL (7.4-10.4); Monocytes # 0.4 10^3/uL (0.2-0.9); Monocytes % 10.4 %; Nucleated Red Blood Cells % 0 %; Platelet Count 57 10^3/cmm (157-399); Red Blood Count 2.89 10^6/uL (3.85-5.65); Red Cell Distribution Width 14.6 % (12.1-15.1); White Blood Count 3.75 10^3/uL (3.29-11.43)
[2023-09-09 03:28] LABS: Anion Gap 10.5 (5-19); Blood Urea Nitrogen 33 mg/dL (8-23); Calcium 7.9 mg/dL (8.5-10.5); Carbon Dioxide 27 mmol/L (22-29); Chloride 112 mmol/L (98-107); Glucose 123 mg/dL (65-115); Osmolality Calculated 313 mOsm/kg (285-295); Sodium 147 mmol/L (136-145)
[2023-09-09 03:43] LABS: Potassium 2.5 mmol/L (3.5-5.1)
[2023-09-09] MEDS: piperacillin-tazobactam 3.375 GM in sodium chloride 0.9% (plus) 50 ML IV ×3 (03:59→20:21)
[2023-09-09] MEDS: dextrose 5%-lactated ringers 1,000 ML 75 ML IV ×2 (03:59→17:44)
[2023-09-09 05:14] LABS: Glucose Point of Care 132 mg/dL (70-110)
--- NOTE | 2023-09-09 05:35 | XRR_ITS ---
PROCEDURE INFORMATION: Exam: XR Abdomen Exam date and time: 09/09/2023 6:01 AM Age: 82 years old Clinical indication: Other: F/u sbo; Prior surgery; Surgery date: 6+ months; Surgery type: Mastectomy. Gb. Hysterectomy. Hernia repair; Patient HX: F/u for sbo. 60cc of gastrograffin administered via ng tube on 09/08/2023 @ 1200 hours. ; Additional info: Follow up gastrografin trial TECHNIQUE: Imaging protocol: Radiologic exam of the abdomen. Views: Frontal supine view of the abdomen. 1 View. COMPARISON: CR (ABDOMEN, ) 09/08/2023 5:31 PM FINDINGS: Tubes, catheters and devices: Stable NG tube. Gastrointestinal tract: Normal. No bowel dilation. Dilute contrast is seen throughout colon. Has entirely or nearly entirely resolved. Minimal scattered small bowel dilatation remains. Bones/joints: Unremarkable. XR/XR abdomen 1V* [id number] IMPRESSION: Resolved or resolving small bowel obstruction with contrast now throughout colon.
[2023-09-09] MEDS: potassium chloride premix 100 ML 25 MEQ IV (05:38)
--- NOTE | 2023-09-09 06:53 | P.PN_ITS ---
Subjective 2 Subjective: 82-year-old female who I have been follo wing for partial small bowel obstruction. In the last 24 hours a Gastrografin trial was done. X-ray this morning shows progression of the contrast to the level of the distal colon. Patient has had multiple bowel movements, does not complain of any abdominal pain. Vitals/I&O/Wt Last Vital Signs Temp 97.8 F 09/09/23 04:00 Pulse 98 09/09/23 06:00 Resp 17 09/09/23 00:00 BP 160/78 09/09/23 04:00 Pulse Ox 93 09/09/23 04:00 O2 Del Method Room Air 09/09/23 04:00 O2 Flow Rate 2 09/07/23 13:00 09/08/23 09/08/23 09/09/23 14:59 22:59 06:59 Intake Total 1000 / 1000 50 / 1050 1050 / 2100 Output Total 350 / 350 500 / 850 700 / 1550 Balance 650 / 650 -450 / 200 350 / 550 Weight last 48 hrs Weight 180 lb Weight 183 lb 1 oz Physical Exam 2 GI: OTHER: Abdominal exam is benign, abdomen is soft nontender minimal distention. Urinary Catheter Management: Hurd: Cath Placed During This Visit: yes Reason for Continuing Indwelling Catheter: Accurate Measurement of Urinary Output in Critically Ill Patients Urinary Catheter Date of Insertion: 09/04/23 Urinary Catheter Time of Insertion: 19:14 Data 09/09/23 02:22 09/09/23 02:22 A&P Assessment and plan (1) SBO (small bowel obstruction): Plan 82-year-old female with partial small bowel obstruction, after review of the current clinical data and physical examination the following is my assessment. Patient is improving significantly, has had several bowel movements yesterday, since last I saw her she had 2 more bowel movements overnight. No abdominal pain no nausea no vomit. NG tube was removed at the bedside. X-ray was reviewed and show evidence of progression of the contrast there is contrast in the distal colon. This indicates there is a resolution of small bowel obstruction. Patient will be initiated on clear liquid diet, she needs to stay on a very aggressive bowel regimen going forward to prevent recurrence of the small bowel obstruction. I recommend a slow advancement of diet, patient may be sent home on full liquid diet with protein shakes. Attestations 2 Medical Necessity Statement*: Per medical team Coding Level of Care Code Acute Code for Chg Fwd Diagnoses SBO (small bowel obstruction) K56.609
[2023-09-09] MEDS: polyethylene glycol 3350 Pkt 17 gm PO (08:22)
[2023-09-09] MEDS: magnesium citrate Btl 296 mL 150 ML PO (08:22)
[2023-09-09] MEDS: pantoprazole 40 mg SDV IVP ×2 (08:22→20:50)
[2023-09-09] MEDS: lanolin oint 7 gm 1 APPLIC TOPICAL (08:53)
[2023-09-09] MEDS: lidocaine 1% 5 ML in potassium chloride premix 100 ML 25 ML IV (10:01)
--- NOTE | 2023-09-09 10:48 | PC.SOCIAL ---
IMM Update pg 2 of IMM updated and reviewed w/ patient. Copy provided and copy dated, initialed and placed in chart.
--- NOTE | 2023-09-09 11:26 | P.PN_ITS ---
Subjective 2 Subjective: NG tube is out Patient is tolerating clear liquid diet Might be able to advance her diet by tomorrow She is hoping to return home with her son Uses a walker Vitals/I&O/Wt Last Vital Signs Temp 98.1 F 09/09/23 07:49 Pulse 77 09/09/23 07:49 Resp 16 09/09/23 07:49 BP 124/76 09/09/23 07:49 Pulse Ox 92 09/09/23 07:49 O2 Del Method Room Air 09/09/23 07:49 O2 Flow Rate 2 09/07/23 13:00 09/08/23 09/09/23 09/09/23 22:59 06:59 14:59 Intake Total 50 / 1050 1050 / 2100 510 / 510 Output Total 500 / 850 700 / 1550 Balance -450 / 200 350 / 550 510 / 510 Weight last 48 hrs Weight 81.647 kg Weight 83.036 kg Physical Exam 2 Narrative: Patient is in good spirits She is very happy that NG tube has come out She is able to tolerate clear liquid diet Abdomen soft Bowel sound present Currently on room air GCS 15 Nonfocal neuroexam Laying in bed without any difficulty Urinary Catheter Management: Hurd: Cath Placed During This Visit: yes Reason for Continuing Indwelling Catheter: Accurate Measurement of Urinary Output in Critically Ill Patients Urinary Catheter Date of Insertion: 09/04/23 Urinary Catheter Time of Insertion: 19:14 Data 09/09/23 02:22 09/09/23 02:22 A&P Assessment and plan (1) Hypovolemic shock: (2) Nausea & vomiting: (3) Acute kidney injury: (4) Fluid volume depletion: (5) Urinary symptom or sign: (6) Urinary tract infection: Qualifiers: Urinary tract infection type: acute cystitis Hematuria presence: w ithout hematuria Qualified Code(s): N30.00 - Acute cystitis without hematuria (7) Cystitis: (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: (9) Acute hypernatremia: Plan Hyponatremia related to dehydration I will continue her D5 LR at 75 mill per hour today Her diet has been advanced Anticipating, by tomorrow Patient does not want to go to SNF she is hoping to return home to live with her son she uses a walker at baseline Currently not on oxygen, Tolerating diet Getting regular bowel movement for last 40 hours Full code Will repeat BMP only by tomorrow FRAN: Improving UTI symptoms: Improved Attestations 2 Medical Necessity Statement*: Possible discharge by tomorrow Coding Level of Care Code Acute Code for Chg Fwd Diagnoses Hypovolemic shock R57.1 Nausea & vomiting R11.2 Acute kidney injury N17.9 Fluid volume depletion E86.9 Urinary symptom or sign R39.9 Acute cystitis without hematuria N30.00 Urinary tract infection type: acute cystitis Hematuria presence: without hematuria Cystitis N30.90 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
[2023-09-09 12:18] LABS: Glucose Point of Care 116 mg/dL (70-110)
[2023-09-09] MEDS: acetaminophen 325 mg Tablet 650 MG PO (12:20)
[2023-09-09 14:49] LABS: Clostridium Difficile PCR NOT DETECTED (NOT DETECTED)
[2023-09-09 16:25] LABS: Glucose Point of Care 131 mg/dL (70-110)
[2023-09-09] MEDS: enoxaparin 40 mg/0.4 mL Syringe SUBCUT (17:43)
[2023-09-09] MEDS: atorvastatin 40 mg Tablet PO (17:44)
[2023-09-09] MEDS: famotidine 20 mg/2 mL INJ IVP (17:44)
[2023-09-09 20:31] LABS: Glucose Point of Care 113 mg/dL (70-110)
[2023-09-10] VITALS (10 sets, daily range): BP systolic 126–138; BP diastolic 68–79; PULSE 70–93; RESP 16–18; TEMP 36.5–36.8; O2SAT 90–95
[2023-09-10] MEDS: piperacillin-tazobactam 3.375 GM in sodium chloride 0.9% (plus) 50 ML IV ×2 (04:57→11:22)
[2023-09-10 05:14] LABS: Glucose Point of Care 110 mg/dL (70-110)
[2023-09-10 05:42] LABS: Anion Gap 12.2 (5-19); Blood Urea Nitrogen 23 mg/dL (8-23); Calcium 7.9 mg/dL (8.5-10.5); Carbon Dioxide 28 mmol/L (22-29); Chloride 113 mmol/L (98-107); Glucose 115 mg/dL (65-115); Osmolality Calculated 315 mOsm/kg (285-295); Potassium 3.2 mmol/L (3.5-5.1); Sodium 150 mmol/L (136-145)
[2023-09-10] MEDS: famotidine 20 mg/2 mL INJ IVP (06:07)
[2023-09-10] MEDS: dextrose 5%-lactated ringers 1,000 ML 75 ML IV (07:24)
--- NOTE | 2023-09-10 07:47 | P.PN_ITS ---
Subjective 2 Subjective: Good progression, no significant complaints over the last 4 hours, has tolerated liquid diet and is passing bowel movements, last bowel movement was overnight. No nausea or vomit. Vitals/I&O/Wt Last Vital Signs Temp 98.2 F 09/10/23 07:45 Pulse 93 09/10/23 07:45 Resp 16 09/10/23 07:45 BP 132/69 09/10/23 07:45 Pulse Ox 90 09/10/23 07:45 O2 Del Method Room Air 09/10/23 07:45 O2 Flow Rate 2 09/07/23 13:00 09/09/23 09/10/23 09/10/23 22:59 06:59 14:59 Intake Total 1410 / 2145 170 / 2315 1000 / 1000 Output Total 250 / 675 1000 / 1675 Balance 1160 / 1470 -830 / 640 1000 / 1000 Weight last 48 hrs Weight 189 lb 9 oz Weight 180 lb Physical Exam 2 GI: OTHER: Abdominal exam is benign, soft, nontender, mildly distended, no evidence of incarcerated hernia exposing the groin or in the abdomen. Urinary Catheter Management: Hurd: Cath Placed During This Visit: yes Reason for Continuing Indwelling Catheter: Other Urinary Catheter Date of Insertion: 09/04/23 Urinary Catheter Time of Insertion: 19:14 Data 09/09/23 02:22 09/10/23 05:07 Micro: Microbiology 09/04/23 19:45 Blood Culture - Final Blood NO GROWTH AFTER 5 DAYS 09/04/23 19:32 Blood Culture - Final Blood NO GROWTH AFTER 5 DAYS A&P Assessment and plan (1) SBO (small bowel obstruction): Plan Patient with resolving small bowel obstruction. No acute surgical intervention is indicated at this point. Patient can be advanced to low residue diet (GI soft). Patient should remain on low residue diet as outpatient and received twice a day MiraLAX to facilitate intestinal transit. All other management per primary team is appreciated. Attestations 2 Medical Necessity Statement*: Per medical team. Coding Level of Care Code Acute Code for [facility] Diagnoses SBO (small bowel obstruction) K56.609
[2023-09-10] MEDS: pantoprazole 40 mg SDV IVP (08:35)
[2023-09-10] MEDS: polyethylene glycol 3350 Pkt 17 gm PO (08:35)
[2023-09-10] MEDS: dextrose 5% 1,000 ML 100 ML IV (08:35)
--- NOTE | 2023-09-10 10:07 | PM.DCS ---
Discharge Providers Date of Admission: 09/04/23 20:16 Date of Discharge: September 10, 2023 Attending Provider at Admission: Martín Boykin MD Attending Provider at Discharge: Akhil Cuevas MD Primary Care Provider: Dequan Dubois DO Diagnoses at Discharge Discharge Diagnosis (1) SBO (small bowel obstruction): Status: Acute Reason for Visit Reason for Visit: weakness Hospital Course Hospital Course 82-year-old female who was admitted for management and evaluation of hypovolemic shock she required Levophed for couple of hours in the ICU she was diagnosed with FRAN as well she initially had diarrhea which resolved then she developed partial bowel obstruction around ventral hernia General surgery was consulted, she was managed conservatively with NG tube to low intermittent suction, her symptoms improved, however because of n.p.o. status despite use of IV fluids her sodium worsened, NG tube was taken out she is tolerating clear liquid diet diet has been advanced, patient is able to walk 75 feet, she has refused home health services, she lives with her son, uses a walker and does have a bedside commode at home, FRAN improving on daily basis with IV fluid hydration, she complain of stomatitis for which we gave her mouthwash there is no sign of shingles I do believe this is related to vitamin deficiency she can take multivitamins at home. I would like to keep her on D5 until 2 or 3 PM time of discharge. I am anticipating this will improve with better free water and fluid intake at home. Physical Exam Narrative: Awake and alert Signs of dehydration improving Awake and alert GCS 15 nonfocal exam Currently on room air S1, S2 Urinary Catheter Management: Hurd: Cath Placed During This Visit: yes Reason for Continuing Indwelling Catheter: Other Urinary Catheter Date of Insertion: 09/04/23 Urinary Catheter Time of Insertion: 19:14 Discharge Data Studies Completed and Pending Completed Studies During Hospitalization Category Date Time Status CT abdomen pelvis wo con [id number] Routine Cat Scan 09/06/23 10:33 Completed XR abdomen 1V* [id number] Routine Exams 09/08/23 16:00 Completed XR abdomen 1V* [id number] Stat Exams 09/09/23 05:35 Completed XR chest 1V portable [id number] Stat Exams 09/04/23 15:30 Completed XR chest 1V portable [id number] Stat Exams 09/06/23 17:54 Completed Radiology Impressions Abdomen/Pelvis CT 09/06/23 10:33 IMPRESSION: Partial small bowel obstruction which may be related to a right lower quadrant abdominal wall defect/hernia as above. Short-term follow-up exam with oral contrast may help to further characterize. Chest X-Ray 09/06/23 17:54 IMPRESSION: 1. No acute cardiopulmonary process. 2. Interval placement of an enteric tube. The tube is coiled in the stomach with the tip in the fundus. 3. Dilated small bowel loops in the visualized abdomen are overall stable. Findings are suspicious for a small bowel obstruction. 4. Incidental/nonacute findings are listed in the report. Abdomen X-Ray 09/09/23 05:35 IMPRESSION: Resolved or resolving small bowel obstruction with contrast now throughout colon. Laboratory Results WBC 3.75 10^3/uL (3.29-11.43) 09/09/23 02:22 RBC 2.89 10^6/uL (3.85-5.65) L 09/09/23 02:22 Hgb 9.10 g/dL (11.27-16.99) L 09/09/23 02:22 Hct 28.3 % (36-47) L 09/09/23 02:22 MCV 97.9 fl (85-98) 09/09/23 02:22 MCH 31.5 pg (27-33) 09/09/23 02:22 MCHC 32.2 g/dL (30-55) 09/09/23 02:22 RDW 14.6 % (12.1-15.1) 09/09/23 02:22 Plt Count 57 10^3/cmm (157-399) L 09/09/23 02:22 MPV 10.4 fL (7.4-10.4) 09/09/23 02:22 Neut % (Auto) 72.0 % 09/09/23 02:22 Lymph % (Auto) 15.5 % 09/09/23 02:22 Price % (Auto) 10.4 % 09/09/23 02:22 Eos % (Auto) 1.1 % 09/09/23 02:22 Baso % (Auto) 0.5 % 09/09/23 02:22 Neut # (Auto) 2.70 10^3/uL (1.8-7.7) 09/09/23 02:22 Lymph # (Auto) 0.6 10^3/uL (0.8-4.8) L 09/09/23 02:22 Price # (Auto) 0.4 10^3/uL (0.2-0.9) 09/09/23 02:22 Eos # (Auto) 0.0 10^3/uL (0.0-0.8) 09/09/23 02:22 Baso # (Auto) 0.0 10^3/uL (0.0-0.1) 09/09/23 02:22 Nucleated RBC % (auto) 0 % 09/09/23 02:22 Total Counted 100 (0-100) 09/04/23 15:49 Atypical Lymphs % 2.0 % (0-5) 09/04/23 15:49 Absolute Neutrophils 3.4 10^3/cmm (1.4-6.5) 09/04/23 15:49 Segmented Neutrophils 62 % 09/04/23 15:49 Abs Segm Neuts (Man) 2.5 10/cmm (1.6-7.1) 09/04/23 15:49 Band Neutrophils 20.0 % 09/04/23 15:49 Abs Band Neuts (Man) 0.8 10^3/cmm (0.0-1.2) 09/04/23 15:49 Absolute Lymphocytes 0.4 10^3/cmm (1.2-3.4) L 09/04/23 15:49 Lymphocytes (Manual) 8 % 09/04/23 15:49 Monocytes (Manual) 5.0 % 09/04/23 15:49 Absolute Monocytes 0.2 10^3/cmm (0.1-0.6) 09/04/23 15:49 Eosinophils (Manual) 0 % 09/04/23 15:49 Absolute Eosinophils 0.0 10^3/cmm (0.0-0.7) 09/04/23 15:49 Basophils (Manual) 0.0 % 09/04/23 15:49 Absolute Basophils 0.0 10^3/cmm (0.0-0.2) 09/04/23 15:49 Metamyelocytes 3.0 % 09/04/23 15:49 Nucleated RBCs # 0.0 /100WBC 09/09/23 02:22 Platelet Estimate Decreased (Normal) L 09/04/23 15:49 Macrocytosis 1+ H 09/04/23 15:49 Sodium 150 mmol/L (136-145) H 09/10/23 05:07 Potassium 3.2 mmol/L (3.5-5.1) L 09/10/23 05:07 Chloride 113 mmol/L (98-107) H 09/10/23 05:07 Carbon Dioxide 28 mmol/L (22-29) 09/10/23 05:07 Anion Gap 12.2 (5-19) 09/10/23 05:07 BUN 23 mg/dL (8-23) 09/10/23 05:07 Creatinine 1.4 mg/dL (0.5-0.9) H 09/10/23 05:07 GFR Calculation Not Reportable 09/10/23 05:07 Glucose 115 mg/dL (65-115) 09/10/23 05:07 POC Glucose 110 mg/dL (70-110) 09/10/23 05:00 Estimat Average Glucose 151 09/05/23 04:25 Hemoglobin A1c 6.9 % (4.0-6.0) H 09/05/23 04:25 Calculated Osmolality 315 mOsm/kg (285-295) H 09/10/23 05:07 Calcium 7.9 mg/dL (8.5-10.5) L 09/10/23 05:07 Magnesium 1.7 mg/dL (1.7-2.3) 09/05/23 04:24 Total Bilirubin 0.5 mg/dL (0.15-1.2) 09/07/23 03:20 AST 18 U/L (0-32) 09/07/23 03:20 ALT 23 U/L (0-33) 09/07/23 03:20 Alkaline Phosphatase 129 U/L (35-105) H 09/07/23 03:20 Troponin T Baseline 38 ng/L (0-10) H 09/04/23 15:49 Troponin T 120 Minute 34.32 ng/L (0-10) H 09/04/23 18:16 Delta Troponin T -3.68 ABS# (0-10) L 09/04/23 18:16 Troponin T Hi Sens 6Hr 33.82 ng/L (0-10) H 09/04/23 21:25 Troponin T Hi Sens 6Hr Delta -4.18 ng/L (0-12) L 09/04/23 21:25 Total Protein 5.5 g/dL (6.6-8.7) L 09/07/23 03:20 Albumin 2.5 g/dL (3.5-5.2) L 09/07/23 03:20 Globulin 3.0 g/dL (1.3-4.6) 09/07/23 03:20 TSH 1.02 uIU/mL (0.27-4.20) 09/04/23 15:49 Urine Color Keisha (Yellow) 09/04/23 19:07 Urine Appearance Cloudy (CLEAR) A 09/04/23 19:07 Urine pH 5 (5-7) 09/04/23 19:07 Ur Specific [place] 1.020 (1.005-1.030) 09/04/23 19:07 Urine Protein 1+ (Negative) H 09/04/23 19:07 Urine Glucose (UA) Norm (Normal) 09/04/23 19:07 Urine Ketones Negative (Negative) 09/04/23 19:07 Urine Blood 2+ (Negative) H 09/04/23 19:07 Urine Nitrate Negative (Negative) 09/04/23 19:07 Urine Bilirubin 1+ (Negative) H 09/04/23 19:07 Urine Urobilinogen Norm mg/dL (Negative) 09/04/23 19:07 Ur Leukocyte Esterase Trace (Negative) H 09/04/23 19:07 Urine RBC 0-4 /hpf (0-2) H 09/04/23 19:07 Urine WBC 5-10 /hpf (0-5) H 09/04/23 19:07 Ur Squamous Epith Cells 0-4 /hpf (0-5) H 09/04/23 19:07 Ur Transition Epith Cell 0-4 /hpf 09/04/23 19:07 Amorphous Sediment 3+ /hpf 09/04/23 19:07 Urine Bacteria Trace /hpf (NONE) 09/04/23 19:07 Urine Mucus 4+ /hpf 09/04/23 19:07 Ur Oval Fat Bodies 2+ /hpf 09/04/23 19:07 Stool H. pylori Ag See note 09/07/23 14:15 C. difficile Tox (PCR) Not detected (NOT DETECTED) 09/07/23 14:15 Vitals Last Vital Signs Temp 98.2 F 09/10/23 10:00 Pulse 93 09/10/23 10:00 Resp 16 09/10/23 10:00 BP 132/69 09/10/23 10:00 Pulse Ox 90 09/10/23 07:45 O2 Del Method Room Air 09/10/23 07:45 O2 Flow Rate 2 09/07/23 13:00 Discharge Plan Discharge Patient Disposition: Home Condition: Stable Prescriptions: New potassium chloride 20 mEq tablet extended release 20 meq PO DAILY Qty: 10 0RF Continued cholecalciferol (vitamin D3) 10 mcg (400 unit) capsule 10 mcg PO DAILY cyanocobalamin (vitamin B-12) 5,000 mcg capsule 5,000 mcg PO DAILY Rx Instructions: 1 drop oral liquid lorazepam 1 mg tablet 0.5 - 1 mg PO Q6H PRN (Reason: Severe Nausea) Qty: 30 3RF (DME) plate straightener knee brace See Rx Instructions .Route .MEDSUPPLY Qty: 1 0RF Rx Instructions: arthritis right knee alpelisib 300 mg/day (150 mg x 2) tablet 300 mg PO DAILY Qty: 56 0RF Rx Instructions: Swallow tabs whole with food at approximately same time daily potassium chloride 20 mEq/15 mL liquid 10 meq PO DAILY 30 Days Qty: 473 0RF Probiotic 15 billion cell Capsule 1 cap PO QAM Immune From Live Pure 1 tab PO DAILY acetaminophen 500 mg Tablet 1,000 mg PO Q4H PRN (Reason: Pain) Calciumk+ 5 - 10 ml PO DAILY pantoprazole 40 mg tablet,delayed release (DR/EC) 40 mg PO DAILY carvedilol 3.125 mg tablet 3.125 mg PO BID prochlorperazine maleate [Compazine] 10 mg tablet 10 mg PO Q4H PRN (Reason: Mild Nausea) Qty: 30 3RF Held furosemide 40 mg tablet 40 mg PO DAILY Qty: 30 0RF Hold Instructions: Resume on 09/17/23. Discontinued Coffee Mocha Recharge 1 packet PO QAM diphenhydramine HCl 12.5 mg/5 mL elixir 25 mg PO Q6H Qty: 500 0RF meloxicam 7.5 mg tablet 7.5 mg PO QAM rosuvastatin 40 mg tablet 40 mg PO QPM Discharge Orders: Discharge Order (Routine); Ordered 09/10/23 Ordered By: Akhil Cuevas Referrals: Dequan Dubois DO [Primary Care Provider] - 2 weeks Discharge Diet: GI Soft Patient Instructions: Opioid Safety Discharge Attestations Time Spent in Discharge Care*: greater than 30 min Quality Metrics Clinical Quality Measures [ No reported AMI, CVA or VTE this stay] Coding Level of Care Code Acute Code for Chg Fwd Diagnoses SBO (small bowel obstruction) K56.609
[2023-09-10 11:06] LABS: Glucose Point of Care 86 mg/dL (70-110)
[2023-09-10 13:58] LABS: Sodium 147 mmol/L (136-145)
--- NOTE | 2023-09-10 14:30 | PC.NURSE ---
Patients discharge was delayed due to elevated sodium levels. Sodium level redrawn at [address] Cuevas notified and stated to proceed with discharge. Waiting to go over discharge instructions until patients' son arrives at 1630 to take patient home.
[2023-09-10 16:40] LABS: Glucose Point of Care 117 mg/dL (70-110)
== END 2023-09-10 18:03 | disposition home or self-care (01) | DRG 682 ==
LOC: ER 17:39 → ICU 20:17 → MEDSURG 09-07 15:49
PROVIDERS: Admitting Provider Family Medicine; Emergency Provider Emergency Medicine; PCP Family Medicine; Visit Provider Internal Medicine
DX: N17.9 Acute kidney failure, unspecified (principal); R57.1 Hypovolemic shock; K56.600 Partial intestinal obstruction, unspecified as to cause; N30.00 Acute cystitis without hematuria; E87.1 Hypo-osmolality and hyponatremia; E44.1 Mild protein-calorie malnutrition; C34.32 Malignant neoplasm of lower lobe, left bronchus or lung; C79.89 Secondary malignant neoplasm of other specified sites; T38.6X5A Adverse effect of antigonadotrophins, antiestrogens, antiandrogens, not elsewhere classified, initial encounter; E86.0 Dehydration; E11.65 Type 2 diabetes mellitus with hyperglycemia; K52.9 Noninfective gastroenteritis and colitis, unspecified; I12.9 Hypertensive chronic kidney disease with stage 1 through stage 4 chronic kidney disease, or unspecified chronic kidney disease; E11.22 Type 2 diabetes mellitus with diabetic chronic kidney disease; N18.9 Chronic kidney disease, unspecified; D69.6 Thrombocytopenia, unspecified; L30.9 Dermatitis, unspecified; Z68.30 Body mass index [BMI] 30.0-30.9, adult; I25.2 Old myocardial infarction; I25.10 Atherosclerotic heart disease of native coronary artery without angina pectoris; Z95.5 Presence of coronary angioplasty implant and graft; E78.5 Hyperlipidemia, unspecified; M85.80 Other specified disorders of bone density and structure, unspecified site; Z86.718 Personal history of other venous thrombosis and embolism; K21.9 Gastro-esophageal reflux disease without esophagitis; Z85.3 Personal history of malignant neoplasm of breast; Z90.11 Acquired absence of right breast and nipple; K43.9 Ventral hernia without obstruction or gangrene; E53.8 Deficiency of other specified B group vitamins; E60 Dietary zinc deficiency
CPT/HCPCS: 36415; 36416; 51702; 71045; 74018; 74176; 80048; 80053; 81001; 82962; 83036; 83735; 84295; 84443; 84484; 85007; 85025; 87040; 87338; 87493; 93005; 96365; 96372; 96375; 96376; 97110; 97116; 97162; 97530; 99285; C9113; J1650; J1815; J2405; J2543; J3480; J3490; J7070; J7120; J7121; Q0162; Q9963

== ENCOUNTER 2023-09-23 12:00 | Oncology outpatient (recurring) (ONCR) | payer MEDICARE, SELFPAY ==
--- OUTSIDE RECORDS SUMMARY | 2023-09-16 10:00 | XMS_ITS | Continuity of Care Document ---
Author Name Unknown Organization [facility] Address [address] [place] [address]- Encounter [employer] Number [id number] Date(s): 08/31/23 - 09/03/23 [facility] [address] [place] [address]- [phone] Encounter Diagnosis Hyperglycemia(Discharge Diagnosis) - 08/31/23 Superficial thrombosis of leg(Discharge Diagnosis) - 08/31/23 FRAN (acute kidney injury)(Discharge Diagnosis) - 08/31/23 Metabolic encephalopathy(Discharge Diagnosis) - 08/31/23 Hypokalemia(Discharge Diagnosis) - 08/31/23 Breast cancer metastasized to bone(Discharge Diagnosis) - 08/31/23 Breast cancer metastasized to lung(Discharge Diagnosis) - 08/31/23 NSAID long-term use(Discharge Diagnosis) - 08/31/23 Hyperglycemia(Discharge Diagnosis) - 09/01/23 Fever(Discharge Diagnosis) - 09/02/23 CKD (chronic kidney disease) stage 4, GFR 15-29 ml/min(Discharge Diagnosis) - 09/02/23 Discharge Disposition: .Discharge to Home (Routine) Attending Physician: Pedro Lay MD Admitting Physician: Eligio Haywood MD Allergies, Adverse Reactions, Alerts No Known Medication Allergies Assessment and Plan Extracted from: Title:Progress SOAP Note Author:Priyanka Lay MD Date:09/03/23 1.??Hyperglycemia(Hyperglyce yumi, unspecified: R73.9) 2.??FRAN (acute kidney injury)(Acute kidney failure, unspecified: N17.9) 3.??Metabolic encephalopathy(Metabolic encephalopathy: G93.41) 4.??Superficial thrombosis of leg(Embolism and thrombosis of superficial veins of unspecified lower extremity: I82.819) 5.??Hypokalemia(Hypokalemia: E87.6) 6.??Breast cancer metastasized to bone(Malignant neoplasm of unspecified site of unspecified female breast: C50.919) 7.??Breast cancer metastasized to lung(Malignant neoplasm of unspecified site of unspecified female breast: C50.919) 8.??NSAID long-term use(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 (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 of non-steroidal anti- inflammatories (NSAID): Z79.1) CKD (chronic kidney disease) stage 4, GFR 15-29 ml/min(Chronic kidney disease, stage 4 (severe): N18.4) Fever(Fever, unspecified: R50.9) Hyperglycemia(Hyperglycemia, unspecified: R73.9) Orders: Occupational Therapy Evaluation and Treatment, eval and tx Physical Therapy Additional Treatment Physical Therapy Evaluation and Treatment, eval and tx Extracted from: Title:Progress SOAP Note Author:Priyanka Lay MD Date:09/02/23 1.??Hyperglycemia(Hyperglyce yumi, unspecified: R73.9) 2.??FRAN (acute kidney injury)(Acute kidney failure, unspecified: N17.9) 3.??Metabolic encephalopathy(Metabolic encephalopathy: G93.41) 4.??Superficial thrombosis of leg(Embolism and thrombosis of superficial veins of unspecified lower extremity: I82.819) 5.??Hypokalemia(Hypokalemia: E87.6) 6.??Breast cancer metastasized to bone(Malignant neoplasm of unspecified site of unspecified female breast: C50.919) 7.??Breast cancer metastasized to lung(Malignant neoplasm of unspecified site of unspecified female breast: C50.919) 8.??NSAID long-term use(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 (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 of non-steroidal anti- inflammatories (NSAID): Z79.1) Hyperglycemia(Hyperglycemia, unspecified: R73.9) Orders: Potassium Serum Extracted from: Title:Endocrinology Author:Laura Nuñez NP Date:09/01/23 1.??Hyperglycemia(Hyperglyce yumi, unspecified: R73.9) Continue IV insulin via Glucommander. Elevated BGs likely due to combination of prednisone and alpelisib. 2.??FRAN (acute kidney injury)(Acute kidney failure, unspecified: N17.9) 3.??Metabolic encephalopathy(Metabolic encephalopathy: G93.41) 4.??Superficial thrombosis of leg(Embolism and thrombosis of superficial veins of unspecified lower extremity: I82.819) 5.??Hypokalemia(Hypokalemia: E87.6) Start potassium replacement protocol 6.??Breast cancer metastasized to bone(Malignant neoplasm of unspecified site of unspecified female breast: C50.919) 7.??Breast cancer metastasized to lung(Malignant neoplasm of unspecified site of unspecified female breast: C50.919) 8.??NSAID long-term use(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 (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 of non-steroidal anti- inflammatories (NSAID): Z79.1) Hyperglycemia(Hyperglycemia, unspecified: R73.9) Orders: BALTA Russell if...., Unspecified, UNSPECIFIED-See comments, Unscheduled, Start Date: 09/01/23 9:04:00 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, Duration: 90 Days, Stop date 11/30/23 10:03:00 CDT, Routine, Disp Location: [facility] citric acid-potassium bicarbonate, 25 mEq = 1 tab, Solutab, PO/per tube, as directed, PRN, See Comment Note, Start Date: 09/01/23 9:04:00 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 CLERK, Duration: 90 Days, Stop date 11/30/23 10:03:00 CDT, Routine, Disp Location: [place] [address], [facility] citric acid-potassium bicarbonate, 50 mEq = 2 tab, Solutab, PO/per tube, as directed, PRN, See Comment Note, Start Date: 09/01/23 9:04:00 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 CLERK, Duration: 90 Days, Stop date 11/30/23 10:03:00 CDT, Routine, Disp Location: [place] [address], [facility] Initiate Plan, Potassium Replacement Protocol - Routine Nursing Communication Order, Order Potassium Serum level to be drawn 4 hours after po dose. Potassium Replacement Protocol, *SERUM POTASSIUM LEVEL 3.1 - 3.4 mEq/L administer 25 mEq potassium bicarbonate (Effer-K), po/ng. Recheck serum potassium level 4 hours after last oral dose. *SERUM POTASSIUM LEVEL less than 3.1 mEq/L administer 50 mEq potassium bicarbonate (Effer-K), po Potassium Serum Extracted from: Title:Progress SOAP Note Author:Yesica Euceda DO Date:09/01/23 1.??Hyperglycemia(Hyperglyce yumi, unspecified: R73.9) 2.??FRAN (acute kidney injury)(Acute kidney failure, unspecified: N17.9) 3.??Metabolic encephalopathy(Metabolic encephalopathy: G93.41) 4.??Superficial thrombosis of leg(Embolism and thrombosis of superficial veins of unspecified lower extremity: I82.819) 5.??Hypokalemia(Hypokalemia: E87.6) 6.??Breast cancer metastasized to bone(Malignant neoplasm of unspecified site of unspecified female breast: C50.919) 7.??Breast cancer metastasized to lung(Malignant neoplasm of unspecified site of unspecified female breast: C50.919) 8.??NSAID long-term use(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 (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 of non-steroidal anti- inflammatories (NSAID): Z79.1) Hyperglycemia(Hyperglycemia, unspecified: R73.9) Orders: carvedilol, 3.125 mg = 1 tab, TAB, By mouth, BID, Start Date: 09/01/23 9:00:00 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 CLERK, Duration: 90 Days, Stop date 11/29/23 21:00:00 CDT, Routine, Disp Location: [facility] NaCl 0.45% / 20mEq KCL 1000ml 1,000 mL, Route: IV, Routine, Start Date: 09/01/23 6:41:00 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 CLERK, 90 Days, Stop date 11/30/23 6:40:00 CDT, Rate= 75 ml/hr, hr, Total Vol ml = 1,000, Disp Location: MAIN RX, Populate Charting Weight From Order, GEN DISP, 1.87, m2 pantoprazole, 40 mg = 1 tab, TAB, By mouth, Daily, Home Med Continuation, Routine, Start Date: 09/01/23 10:00:00 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 CLERK, Duration: 90 Days, Stop date 11/30/23 8:59:00 CDT, Disp Location: [facility] 2nd Floor 1, GEN DISP rosuvastatin, 10 mg = 1 tab, TAB, By mouth, Daily, Start Date: 09/01/23 9:00:00 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 CLERK, Duration: 90 Days, Stop date 11/29/23 9:00:00 CDT, Routine, Disp Location: [facility], GEN DISP Soft diet Hyperglycemia:?? GMS consult appreciated, IV insulin non DKA ?? Acute kidney??injury:?? Hold??NSAIDs,??hold further nephrotoxic??agents, allow renal perfusion. hold home lasix, meloxicam, decreased statin dosing. ?? Thrombocytopenia: hold heparin ?? Hypokalemia: IVF with KCl with IV insulin ?? Metastatic breast cancer: followed in [place]. Recently started on Piqray, holding at this time due to risk of hyperglycemia. Followed by Dr. Conrad in [place] ? Diet:??soft, carb??consistent diet ?? DVT ppx:??SCDs, heparin stopped due to above Discharge Disposition planning:??pending ?? Code status:??Full Code ? Extracted from: Title:Admission H&P Note Author:Reyes Vazquez on M Date:08/31/23 1.??Hyperglycemia(Hyperglyce yumi, unspecified: R73.9) 2.??FRAN (acute kidney injury)(Acute kidney failure, unspecified: N17.9) 3.??Metabolic encephalopathy(Metabolic encephalopathy: G93.41) 4.??Superficial thrombosis of leg(Embolism and thrombosis of superficial veins of unspecified lower extremity: I82.819) 5.??Hypokalemia(Hypokalemia: E87.6) 6.??Breast cancer metastasized to bone(Malignant neoplasm of unspecified site of unspecified female breast: C50.919) 7.??Breast cancer metastasized to lung(Malignant neoplasm of unspecified site of unspecified female breast: C50.919) 8.??NSAID long-term use(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 Admit to the hospitalist service ?? IV insulin started in ER, will continue glycemic management team consult Replace potassium s/p 1 liter of IVFs, will continue with 100 ml.hr and follow renal function (unknown baseline) ?? VTE??prophylaxis with heparin? - recommend cessation of meloxicam due to FRAN and active cancer with increased thromboembolic events ?? Code:Full, discussed with patient time of admission ?? Plan of care in coordination with??Eligio Haywood MD ? ATTENDING ATTESTATION: The patient? s history, exam findings, diagnostics, and a summary??was reviewed in detail with??KUSHAL??Jose. I??have seen and examined this patient??independently of above. ??I agree with HPI as documented. My personal exam reveals findings consistent with those documented. All diagnostic studies were reviewed and discussed. I confirm diagnosis as documented by Jose. The care plan articulated was made after review of all data and??consistent with our discussion of the patient? s care ? Hyperglycemia due to new DM or??could be due??to new medication??that??was started.?? Check??hemoglobin A1c??anyway??placed on insulin??glycemic??management.?? Pseudohyponatremia corrected sodium??for glucose is about 141 FRAN hydrate monitor??renal function??closely hold all NSAIDs, hold Lasix,??unclear if??there is a baseline chronic??kidney disease either.? Hypokalemia being replaced?? Superficial??thrombophlebitis noted on ultrasound of the leg? Voice recognition software [employer] was used dictate and transcribe this document. Security Researcher variances may occur. Despite proofreading, typographical errors may occur. ?? Eligio Haywood MD. Hospitalist ? Extracted from: Title:Increased blood sugar Author:Patti Olvera MD A Date:08/31/23 Impression and Plan Diagnosis Hyperglycemia (GNG82-GM R73.9) Plan Condition: Improved. Disposition: Admit time 08/31/2023 20:53:00, Admit to Inpatient Unit, Eligio Haywood MD. Discharge: Diagnosis: Hyperglycemia (R73.9) Superficial thrombosis of leg (I82.819) Orders: ( Completed ): Urinalysis w/ microscopy (Urinalysis w/ microscopy) 08/31/2023 19:22 Xtra purple top 08/31/2023 18:56 Xtra green top 08/31/2023 18:59 Xtra Gold Top 08/31/2023 18:59 CMP (CMP) 08/31/2023 20:09 Venous Blood Gas (VBG) 08/31/2023 19:45 Ketone Serum (Ketone Serum) 08/31/2023 23:08 Charge Bedside Glucose Xtra green top 08/31/2023 18:40 Xtra Olvera Top 08/31/2023 18:49 Xtra blue top 08/31/2023 18:55 Xtra purple top 08/31/2023 18:55 CBC-d (CBC-d) 08/31/2023 20:00 Obtain EKG (Obtain EKG) 08/31/2023 19:28 US VL Venous LE Left (US VL Venous LE Left) 08/31/2023 21:10 Osmolality Serum (Osmolality Serum) 08/31/2023 20:34 Charge Bedside Glucose ED Physician Request (ED Physician Request) 08/31/2023 20:45 zCBC Automated Diff 08/31/2023 20:00 Weight to Glucommander (Weight to Glucommander) insulin regular (insulin regular infusion 100units/100mL premix) 100 Units ED Physician Request Pending Complete (ED Physician Request Pending Complete) 08/31/2023 20:48 Orders: ( Ordered ): Urinalysis w/ microscopy (UA w/ micro) . Counseled: Patient, Family, Regarding diagnosis, Regarding diagnostic results, Regarding treatment plan, Patient indicated understanding of instructions, Need to admit. Medications carvedilol 3.125 mg oral tablet 3.125 mg = 1 tab, By mouth, BID, Refill(s) 0 Start Date: 08/31/23 Status: Ordered fulvestrant 250mg, IM, QMonth, X 42 Days, Refill(s) 0 Start Date: 08/31/23 Stop Date: 10/12/23 Status: Ordered furosemide 40 mg oral tablet 40 mg = 1 tab, By mouth, Daily, Refill(s) 0 Start Date: 08/31/23 Status: Ordered meloxicam 7.5 mg oral tablet 7.5 mg = 1 tab, By mouth, Daily, Refill(s) 0 Start Date: 08/31/23 Status: Ordered pantoprazole 40 mg oral delayed release tablet Refill(s) 0 Start Date: 08/31/23 Status: Ordered Piqray By mouth, Daily, Refill(s) 0 Start Date: 08/31/23 Status: Ordered potassium chloride 20 mEq/15 mL oral liquid 20 mEq = 15 mL, By mouth, Daily, dilute with at least 6 ounces of fluids, Refill(s) 0 Start Date: 08/31/23 Status: Ordered rosuvastatin 40 mg oral tablet 40 mg = 1 tab, By mouth, Daily, Refill(s) 0 Start Date: 08/31/23 Status: Ordered Problem List Condition Confirmation Course Effective Dates Status Health St atus Informant Breast cancer metastasized to bone Confirmed Active Breast cancer metastasized to lung Confirmed Active NSAID long-term use Confirmed Active Procedures Procedure Date Related Diagnosis Body Site Status Fluoroscopy guided angioplas ty of bilateral iliac arteries and insertion of bilateral iliac artery stents with contrast Completed History of right mastectomy Completed Results Laboratory List Name Date CBC-d 09/02/23 CMP 09/02/23 Manual Differential for CBC (DF) 09/02/23 Potassium Serum 09/02/23 BMP 09/02/23 Hemogram (CBC(Hemogram)) 09/02/23 BMP 09/01/23 CBC-d (CBC with diff) 09/01/23 Magnesium Serum (Mg Serum) 09/01/23 zCBC Automated Diff 09/01/23 Osmolality Serum (OsmolSerum) 08/31/23 CMP 08/31/23 Hgb A1C (Glyc Hgb) 08/31/23 Ketone Serum (KetoneSerum) 08/31/23 zCBC Automated Diff 08/31/23 Venous Blood Gas (VBG) 08/31/23 Urinalysis w/ microscopy (UA w/ micro) Most recent to oldest [Reference Range]: 1 2 3 RBC Morphology Normal (09/02/23 4:36 PM) Bedside Glucose 115 mg/dL 1 (09/03/23 5:09 PM) 143 mg/dL 2 (09/03/23 11:15 AM) 128 mg/dL 3 (09/03/23 7:06 AM) Administered FIO2 .21 *NA* (08/31/23 6:56 PM) Modified Gian's Test Not Applicable (08/31/23 6:56 PM) Est. Ave. Glucose 157 mg/dL *NA* (08/31/23 7:34 PM) Anion Gap [2-15 mEq/L] 5 mEq/L (09/02/23 4:36 PM) 8 mEq/L (09/02/23 12:14 AM) 10 mEq/L (09/01/23 1:43 AM) Sample Site Venous Draw (08/31/23 6:56 PM) RTE Casts None Seen (08/31/23 6:10 PM) RTEs None Seen (08/31/23 6:10 PM) eGFR CKD-EPI [>=61 mL/min/1. 73 m2] 21 mL/min/1.73 m2 *LOW* (09/02/23 4:36 PM) 25 mL/min/1.73 m2 *LOW* (09/02/23 12:14 AM) 27 mL/min/1.73 m2 *LOW* (09/01/23 1:43 AM) Seg Abs Man [1.8-8.0 Thous/mm3] 4.3 Thous/mm3 (09/02/23 4:36 PM) Lymph Abs Man [1.0-4.8 Thous/mm3] 0.4 Thous/mm3 *LOW* (09/02/23 4:36 PM) [place] Abs Man [0.2-0.8 Thous/mm3] 0.1 Thous/mm3 *LOW* (09/02/23 4:36 PM) Eos Abs Man [0.0-0.5 Thous/mm3] 0.0 Thous/mm3 (09/02/23 4:36 PM) Baso Abs Man [0.0-0.2 Thous/mm3] 0.0 Thous/mm3 (09/02/23 4:36 PM) P/F Ratio 148 *NA* (08/31/23 6:56 PM) pH [7.36-7.41] 7.40 (08/31/23 6:56 PM) pCO2 [40-45 mmHg] 42 mmHg (08/31/23 6:56 PM) pO2 [18-41 mmHg] 31 mmHg (08/31/23 6:56 PM) HCO3 26 *NA* (08/31/23 6:56 PM) BE 1 *NA* (08/31/23 6:56 PM) THb 12.9 g/dL *NA* (08/31/23 6:56 PM) O2Hb 49 % *NA* (08/31/23 6:56 PM) COHB 1.1 % *NA* (08/31/23 6:56 PM) MetHb 0.2 % *NA* (08/31/23 6:56 PM) Glucose, Serum/Plasma [70-10 0 mg/dL] 138 mg/dL *HI* (09/02/23 4:36 PM) 157 mg/dL *HI* (09/02/23 12:14 AM) 377 mg/dL *HI* (09/01/23 1:43 AM) WBC [4.8-10.8 Thous/mm3] 4.8 Thous/mm3 (09/02/23 4:36 PM) 6.4 Thous/mm3 (09/02/23 12:14 AM) 8.5 Thous/mm3 (09/01/23 1:43 AM) Hct [37.0-47.0 %] 39.8 % (09/02/23 4:36 PM) 40.4 % (09/02/23 12:14 AM) 37.9 % (09/01/23 1:43 AM) Hgb [12.0-16.0 g/dL] 13.1 g/dL (09/02/23 4:36 PM) 13.2 g/dL (09/02/23 12:14 AM) 12.7 g/dL (09/01/23 1:43 AM) RBC [4.20-5.40 Million/mm3] 4.15 Million /mm3 *LOW* (09/02/23 4:36 PM) 4.17 Million/mm3 *LOW* (09/02/23 12:14 AM) 4.03 Million/mm3 *LOW* (09/01/23 1:43 AM) MCV [80.0-100.0 fl] 95.9 fl (09/02/23 4:36 PM) 96.9 fl (09/02/23 12:14 AM) 94.0 fl (09/01/23 1:43 AM) MCH [26.0-34.0 pg] 31.6 pg (09/02/23 4:36 PM) 31.7 pg (09/02/23 12:14 AM) 31.5 pg (09/01/23 1:43 AM) MCHC [31.0-36.5 g/dL] 32.9 g/dL (09/02/23 4:36 PM) 32.7 g/dL (09/02/23 12:14 AM) 33.5 g/dL (09/01/23 1:43 AM) RDW [10.4-14.4 %] 14.4 % (09/02/23 4:36 PM) 14.3 % (09/02/23 12:14 AM) 14.1 % (09/01/23 1:43 AM) Platelets [130-440 Thous/mm3] 40 Thous/m m3 *LOW* (09/02/23 4:36 PM) 41 Thous/mm3 *LOW* (09/02/23 12:14 AM) 51 Thous/mm3 *LOW* (09/01/23 1:43 AM) MPV [9.4-12.4 fl] 11.0 fl (09/02/23 4:36 PM) 9.3 fl *LOW* (09/02/23 12:14 AM) 10.2 fl (09/01/23 1:43 AM) AutoNeutrophil [43.0-78.0 %] 83.8 % *HI* (09/01/23 1:43 AM) 84.1 % *HI* (08/31/23 7:34 PM) AutoLymphs [20.0-40.0 %] 9.0 % *LOW* (09/01/23 1:43 AM) 6.5 % *LOW* (08/31/23 7:34 PM) AutoMono [2.0-10.0 %] 5.0 % (09/01/23 1:43 AM) 7.0 % (08/31/23 7:34 PM) AutoEo [0.0-7.0 %] 1.2 % (09/01/23 1:43 AM) 1.3 % (08/31/23 7:34 PM) Sodium [136-145 mEq/L] 136 mEq/L (09/02/23 4:36 PM) 138 mEq/L (09/02/23 12:14 AM) 135 mEq/L *LOW* (09/01/23 1:43 AM) Potassium [3.5-5.1 mEq/L] 3.5 mEq/L (09/02/23 4:36 PM) 3.8 mEq/L (09/02/23 6:24 AM) 3.0 mEq/L *LOW* (09/02/23 12:14 AM) Chloride [98-107 mEq/L] 106 mEq/L (09/02/23 4:36 PM) 106 mEq/L (09/02/23 12:14 AM) 101 mEq/L (09/01/23 1:43 AM) AbsNeut [2.0-8.0 Thous/mm3] 7.1 Thous/mm 3 (09/01/23 1:43 AM) 7.7 Thous/mm3 (08/31/23 7:34 PM) CO2 [21-32 mEq/L] 25 mEq/L (09/02/23 4:36 PM) 24 mEq/L (09/02/23 12:14 AM) 24 mEq/L (09/01/23 1:43 AM) BUN [7-18 mg/dL] 30 mg/dL *HI* (09/02/23 4:36 PM) 25 mg/dL *HI* (09/02/23 12:14 AM) 31 mg/dL *HI* (09/01/23 1:43 AM) Creatinine [0.55-1.02 mg/dL] 2.26 mg/dL *HI* (09/02/23 4:36 PM) 2.01 mg/dL *HI* (09/02/23 12:14 AM) 1.88 mg/dL *HI* (09/01/23 1:43 AM) AbsLymph [1.0-4.0 Thous/mm3] 0.8 Thous/m m3 *LOW* (09/01/23 1:43 AM) 0.6 Thous/mm3 *LOW* (08/31/23 7:34 PM) AbsMono [0.1-1.0 Thous/mm3] 0.4 Thous/mm 3 (09/01/23 1:43 AM) 0.6 Thous/mm3 (08/31/23 7:34 PM) Bilirubin, Total [0.2-1.0 mg/dL] 0.5 mg/dL (09/02/23 4:36 PM) 0.5 mg/dL (08/31/23 7:34 PM) AbsEo [0.0-0.5 Thous/mm3] 0.1 Thous/mm3 (09/01/23 1:43 AM) 0.1 Thous/mm3 (08/31/23 7:34 PM) AbsBaso [0.0-0.2 Thous/mm3] 0.0 Thous/mm 3 (09/01/23 1:43 AM) 0.0 Thous/mm3 (08/31/23 7:34 PM) AutoBaso [0.0-2.5 %] 0.4 % (09/01/23 1:43 AM) 0.2 % (08/31/23 7:34 PM) Seg [42-76 %] 88 % *HI* (09/02/23 4:36 PM) Band [0-4 %] 1 % (09/02/23 4:36 PM) Lymphocyte [20-40 %] 9 % *LOW* (09/02/23 4:36 PM) Monocyte [2-10 %] 2 % (09/02/23 4:36 PM) Calcium [8.3-10.6 mg/dL] 8.7 mg/dL (09/02/23 4:36 PM) 8.6 mg/dL (09/02/23 12:14 AM) 8.5 mg/dL (09/01/23 1:43 AM) Eosinophil [0-7 %] 0 % (09/02/23 4:36 PM) Basophil [0-2 %] 0 % (09/02/23 4:36 PM) Protein Total [6.4-8.5 g/dL] 6.9 g/dL (09/02/23 4:36 PM) 6.9 g/dL (08/31/23 7:34 PM) Albumin [3.4-5.0 g/dL] 3.0 g/dL *LOW* (09/02/23 4:36 PM) 3.2 g/dL *LOW* (08/31/23 7:34 PM) AST [15-37 U/L] 27 U/L (09/02/23 4:36 PM) 18 U/L (08/31/23 7:34 PM) Alk Phos [45-117 U/L] 113 U/L (09/02/23 4:36 PM) 103 U/L (08/31/23 7:34 PM) Magnesium [1.8-2.4 mg/dL] 2.1 mg/dL (09/01/23 1:43 AM) ALT [10-49 U/L] 21 U/L (09/02/23 4:36 PM) 20 U/L (08/31/23 7:34 PM) Appearance [Clear] Clear (08/31/23 6:10 PM) Color [Yellow] Yellow *NA* (08/31/23 6:10 PM) Sp. Berry [1.001-1.035] 1.018 (08/31/23 6:10 PM) Ketones [Negative] Negative (08/31/23 6:10 PM) Glucose [Negative] 3+ *ABN* (08/31/23 6:10 PM) Protein [Negative] 1+ *ABN* (08/31/23 6:10 PM) Blood [Negative] Trace *ABN* (08/31/23 6:10 PM) Nitrites UA [Negative] Negative (08/31/23 6:10 PM) HgbA1c [4.2-6.4 %] 7.1 % *HI* (08/31/23 7:34 PM) Osmolality Serum [275-295 mOsm/kg] 337 mOsm/kg *HI* (08/31/23 8:12 PM) Bilirubin UA [Negative] Negative (08/31/23 6:10 PM) Urobilinogen [1.0 mg/dL] 0.2 mg/dL (08/31/23 6:10 PM) Leuko Esterase UA [Negative] Negative (08/31/23 6:10 PM) pH UA [5.0-9.0] 7.0 (08/31/23 6:10 PM) RBC [0-2/hpf] 6-10/hpf *ABN* (08/31/23 6:10 PM) WBC [0-5/hpf] 0-5/hpf (08/31/23 6:10 PM) Hyaline Casts [0-2/lpf] 3-5/lpf *ABN* (08/31/23 6:10 PM) Bacteria [None Seen] None Seen (08/31/23 6:10 PM) Epithelium [None Seen] None Seen (08/31/23 6:10 PM) Volume 3 mL *NA* (08/31/23 6:10 PM) P/F Ratio Graph() 14.8 *NA* (08/31/23 6:56 PM) b-Hydroxybutyrate [<=2.8 mg/dL] 8.3 mg/dL *HI* (08/31/23 7:34 PM) Imm. Grans % [0-5 %] <5 % (09/01/23 1:43 AM) <5 % (08/31/23 7:34 PM) Imm. Grans # [0.0-0.5 Thous/mm3] <0.5 Thous/mm3 (09/01/23 1:43 AM) <0.5 Thous/mm3 (08/31/23 7:34 PM) ANC-AbsNeutCount 7.1 Thous/mm3 *NA* (09/01/23 1:43 AM) 7.7 Thous/mm3 *NA* (08/31/23 7:34 PM) ANC Manual DF 4.3 Thous/mm3 *NA* (09/02/23 4:36 PM) 1Result Comment: Notify RN/ Performed at:[address], [address] Reference Ranges: Age 0 - 24 hours: 45 - 115 mg/dL Age 24 hours - 30 days: 55 - 115 mg/dL Age > 30 days: 70 - 100 mg/dL Critical Results Requiring Immediate Notification: Age <72 Hours: <40 or >350 mg/dL Age >72 Hours: <50 or >400 mg/dL 2Result Comment: Notify DELL/ Performed at:[address], [address] Reference Ranges: Age 0 - 24 hours: 45 - 115 mg/dL Age 24 hours - 30 days: 55 - 115 mg/dL Age > 30 days: 70 - 100 mg/dL Critical Results Requiring Immediate Notification: Age <72 Hours: <40 or >350 mg/dL Age >72 Hours: <50 or >400 mg/dL 3Result Comment: Notify RN/DR Performed at:[facility], [facility] [place], [address] Reference Ranges: Age 0 - 24 hours: 45 - 115 mg/dL Age 24 hours - 30 days: 55 - 115 mg/dL Age > 30 days: 70 - 100 mg/dL Critical Results Requiring Immediate Notification: Age <72 Hours: <40 or >350 mg/dL Age >72 Hours: <50 or >400 mg/dL Orders for Microbiology Reports Name Date Blood Culture 2of2 (C Blood 2of2) 09/02/23 Blood Culture (C Blood) 09/02/23 Microbiology Reports TEST:Blood Culture 2of2 STATUS:Order in Progress BODY SITE: SOURCE:Blood COLLECTED DATE/TIME:09/02/23 3:56 AM PRELIMINARY REPORT No Growth at 24 hours TEST:Blood Culture STATUS:Order in Progress BODY SITE: SOURCE:Blood COLLECTED DATE/TIME:09/02/23 3:20 AM PRELIMINARY REPORT No Growth at 24 hours Radiology Reports * Exam Date Time Procedure Performing Provider Status 08/31/23 8:47 PM US VL Venous LE Left Wade RENTERIA, Dahlia A; Auth (Verified) Notes: (US VL Venous LE Left) Reason For Exam: palpable cord in RLE REPORT US VL Venous LE Left PROCEDURE INFORMATION: Exam: US Duplex Left Lower Extremity Veins, Limited Exam date and time: 08/31/2023 8:47 PM Age: 82 years old Clinical indication: Hyperglycemia, unspecified; Additional info: palpable cord in rle TECHNIQUE: Imaging protocol: Real-time duplex ultrasound of the left extremity with 2-D olvera scale, color Doppler flow and spectral waveform analysis including responses to compression and other maneuvers (when performed) with image documentation. Limited exam focused on the left lower extremity veins. COMPARISON: No relevant prior studies available. FINDINGS: Left deep veins: The common femoral, femoral, proximal profunda femoral and popliteal veins are patent without thrombus. Normal Doppler waveforms. Normal compressibility and/or augmentation response. Superficial veins: Filling defect noted in the entire great saphenous vein 0.3 cm away from the common femoral vein-great saphenous vein junction. Soft tissues: Unremarkable. IMPRESSION: No evidence of deep vein thrombosis. Filling defect noted in the entire great saphenous vein. this is consistent with superficial thrombophlebitis Electronically signed by: Keesha Elkins MD, [facility], 08/31/2023 21:10 Brittni RENTERIA, Keesha Signed 08/31/23 21:10:23 (Electronic Signature) Technologist AMANDO Vital Signs Most recent to oldest [Reference Range]: 1 2 3 Blood Pressure 92/56mmHg (09/03/23 3:28 PM) 94/61mmHg (09/03/23 12:18 PM) 83/53mmHg *<LLOW* (09/03/23 11:13 AM) Height (inches) (Clinical) 66 in (09/03/23 9:00 AM) 66 in (09/03/23 5:00 AM) 66 in (09/03/23 2:00 AM) Weight (kg) (Clinical) 80 kg (09/03/23 5:00 AM) 80 kg (09/03/23 3:38 AM) 78.4 kg (09/02/23 6:17 AM) BMI (Clinical) 28.4 kg/m2 (09/03/23 5:00 AM) 26.3 kg/m2 (09/01/23 5:00 AM) 25.8 kg/m2 (08/31/23 10:36 PM) Scale Type Bed (09/03/23 5:00 AM) Bed (09/03/23 3:38 AM) Bed (09/01/23 5:00 AM) Social History Social History Type Response Smoking Status Never smoker; Smokel ess tobacco use: Never; Has the patient smoked in the last 365 days, even once? No entered on: 08/31/23 Sex Female Endocrinology Consult note * Joaquin [employer]ER, Laura M: PERFORM, MODIFY Event Display: Endocrinology Consultation Authored Date: [id number] Chief Complaint pt. started new medication recently, started piqray. family called d/t acting more confused. BSG found to be high. A&Ox3. not a diabetic.. Care Team Primary Care Physician??- Admitting Physician - Eligio Haywood MD Attending Physician - Ariella Euceda DO Arrival Date/Time??- 08/31/2023 18:11:00 History of Present Illness GMS consulted for??medication induced hyperglycemiasamy Neri PAC_ ?? HgbA1c:??7.1 %??High (08/31/23) Weight (kg) (Clinical): 74.1 kg (09/01/23 05:00:00) ?? HPI: Admitted with fatigue, weakness, and hyperglycemia. Appears to have started prednisone 10mg 08/07 after an initial 3 day loading dose of 20mg. Unsure??of alpelisib dose or start date but she takes 2 pills of this per day. Denies increase in thirst or urination, changes in vision, or neuropathy.Denies being diagnosed with diabetes in the past. Reports her son has DM2. ?? Home Regimen: alpelisib daily + prednisone 10mg ?? Hospital Regimen: IV insulin via Glucommander ?? Diet:??clear liquid??then soft, carb consist at lunch ?? Reviewed MAR, insulin administration, blood glucose levels, and labs as reported on this document.?? Review of Systems Denies nausea and vomiting. Reports she is starving Physical Exam Vitals & Measurements T:??98.3?F?? TMIN:??97.5?F?? TMAX:??98.9?F?? HR:??93?? RR:??17?? BP:??92/60?? SpO2:??95%??WT:??74.1??kg?? Labs - Diabetes - GMS Bedside Glucose: 140 mg/dL (09/01/23 11:47:52) Bedside Glucose: 149 mg/dL (09/01/23 10:41:17) Bedside Glucose: 141 mg/dL (09/01/23 09:49:43) Bedside Glucose: 120 mg/dL (09/01/23 08:42:51) Bedside Glucose: 116 mg/dL (09/01/23 07:35:48) Bedside Glucose: 148 mg/dL (09/01/23 06:35:44) Bedside Glucose: 189 mg/dL (09/01/23 05:39:47) Bedside Glucose: 238 mg/dL (09/01/23 04:40:39) Bedside Glucose: 253 mg/dL (09/01/23 03:41:00) Bedside Glucose: 317 mg/dL (09/01/23 02:41:33) Bedside Glucose: 382 mg/dL (09/01/23 01:43:30) Bedside Glucose:??445 mg/dL??Critical (09/01/23 00:45:42) Bedside Glucose:??451 mg/dL??Critical (08/31/23 23:48:33) Bedside Glucose:??440 mg/dL??Critical (08/31/23 22:46:33) Bedside Glucose:??503 mg/dL??Critical (08/31/23 21:46:12) Bedside Glucose:??534 mg/dL??Critical (08/31/23 20:28:33) Bedside Glucose:??570 mg/dL??Critical (08/31/23 18:38:35) ?? Pt seen at bedside in no apparent distress. Alert, oriented. Speech fluent. Warm, dry. Cooperative.?? Assessment/Plan 1.??Hyperglycemia(Hyperglycemia, unspecified: R73.9) Continue IV insulin via Glucommander. Elevated BGs likely due to combination of prednisone and alpelisib. 2.??FRAN (acute kidney injury)(Acute kidney failure, unspecified: N17.9) 3.??Metabolic encephalopathy(Metabolic encephalopathy: G93.41) 4.??Superficial thrombosis of leg(Embolism and thrombosis of superficial veins of unspecified lowerextremity: I82.819) 5.??Hypokalemia(Hypokalemia: E87.6) Start potassium replacement protocol 6.??Breast cancer metastasized to bone(Malignant neoplasm of unspecified site of unspecified femalebreast: C50.919) 7.??Breast cancer metastasized to lung(Malignant neoplasm of unspecified site of unspecified femalebreast: C50.919) 8.??NSAID long-term use(group home (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 of non-steroidal anti- inflammatories (NSAID): Z79.1) Hyperglycemia(Hyperglycemia, unspecified: R73.9) Orders: BALTA Russell if...., Unspecified, UNSPECIFIED-See comments, Unscheduled, Start Date: 09/01/23 9:04:00 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 CLERK, Duration: 90 Days, Stop date 11/30/23 10:03:00 CDT, Routine, Disp Location: [facility] citric acid-potassium bicarbonate, 25 mEq = 1 tab, Solutab, PO/per tube, as directed, PRN, See Comment Note, Start Date: 09/01/23 9:04:00 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 CLERK, Duration: 90 Days, Stop date 11/30/23 10:03:00 CDT, Routine, Disp Location: [place] [address], [facility] citric acid-potassium bicarbonate, 50 mEq = 2 tab, Solutab, PO/per tube, as directed, PRN, See Comment Note, Start Date: 09/01/23 9:04:00 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 CLERK, Duration: 90 Days, Stop date 11/30/23 10:03:00 CDT, Routine, Disp Location: [place] [address], [facility] Initiate Plan, Potassium Replacement Protocol - Routine Nursing Communication Order, Order Potassium Serum level to be drawn 4 hours after po dose. Potassium Replacement Protocol, *SERUM POTASSIUM LEVEL 3.1 - 3.4 mEq/L administer 25 mEq potassium bicarbonate (Effer-K), po/ng. Recheck serum potassium level 4 hours after last oral dose. *SERUM POTASSIUM LEVEL less than 3.1 mEq/L administer 50 mEq potassium bicarbonate (Effer-K), po Potassium Serum Problem List/Past Medical History Ongoing Breast cancer metastasized to bone Breast cancer metastasized to lung NSAID long-term use Historical No qualifying data Procedure/Surgical History ???Fluoroscopy guided angioplasty of bilateral iliac arteries and insertion of bilateral iliac artery stents with contrast???History of right mastectomy Medications Home Medications (8) Active carvedilol 3.125 mg oral tablet??3.125 mg = 1 tab, By mouth, BID fulvestrant??250mg, IM, QMonth furosemide 40 mg oral tablet??40 mg = 1 tab, By mouth, Daily meloxicam 7.5 mg oral tablet??7.5 mg = 1 tab, By mouth, Daily pantoprazole 40 mg oral delayed release tablet?? Piqray??, By mouth, Daily potassium chloride 20 mEq/15 mL oral liquid??20 mEq = 15 mL, By mouth, Daily rosuvastatin 40 mg oral tablet??40 mg = 1 tab, By mouth, Daily Allergies No Known Medication Allergies Social History Social History Alcohol ??Denies Substance Abuse ??Denies Tobacco ??Smoking Status: Never smoker. ??Smokeless tobacco use: Never. Lab Results Labs??(Last two charted values on this encounter) WBC 8.5 ??(SEP 01) 9.2 ??(AUG 31) Hgb 12.7 ??(SEP 01) 12.8 ??(AUG 31) Hct 37.9 ??(SEP 01) 38.4 ??(AUG 31) Platelets 51 ??(SEP 01) 43 ??(AUG 31) Na 135 ??(SEP 01) 133 ??(AUG 31) K 3.5 ??(SEP 01) 3.1 ??(SEP 01) Cl 101 ??(SEP 01) 99 ??(AUG 31) CO2 24 ??(SEP 01) 25 ??(AUG 31) BUN 31 ??(SEP 01) 42 ??(AUG 31) Cr 1.88 ??(SEP 01) 2.09 ??(AUG 31) ProteinT ?6.9 ??(AUG 31) ?? Albumin ?3.2 ??(AUG 31) ?? Bilirubin ,Total ??0.5 ??(AUG 31) ?? Alk Phos ?103 ??(AUG 31) ?? ALT ?20 ??(AUG 31) ?? AST ?18 ??(AUG 31) ?? Mag ?2.1 ??(SEP 01) ?? Bedside Glucose 140 ??(SEP 01) 149 ??(SEP 01) Glucose,Plasma 377 ??(SEP 01) 609 ??(AUG 31) Diagnostic Results Radiology Results:?? US VL Venous LE Left - ??Auth (Verified) - 08/31/23 20:47 ( Brittni RENTERIA, Keesha )?? IMPRESSION: No evidence of deep vein thrombosis. ??Filling defect noted in the entire great saphenous vein. ?? this is consistent with superficial thrombophlebitisElectronically signed by: Keesha Elkins MD, ??[facility], 08/31/2023 21:10 Electronically signed by:Joaquin HUANG, Laura Easley 09/01/23 17:15 Electronically cosigned by: Yue RENTERIA, Claudette Berger Progress note * Rosanne RENTERIA, Pedro Leonardo: PERFORM Event Display: Progress Notes Authored Date: [id number] Hospital Course Patient is an??82-year-old??female??with??medical history??of??metastatic breast??cancer followed by??physician in [place]??that presented??to the emergency department??with??concern??for??increased??blood sugars.?? Noted to??have glucose??greater than 600??with acute kidney??injury.?? Patient wang ecently started on Piqray for her metastatic breast cancer.?? Patient started on??IV insulin??drip during??hospitalization with glycemic management??consultation.?? Given??IV fluids and home Lasix, meloxicam??held??on admission with her FRAN.?? Renal function??slowly??improving. Subjective no new overnight issues. off insulin drip, no new fevers. cultures remain negative to date. blood sugars acceptable. ?? Review of Systems See HPI. All other ROS reviewed as negative or not pertinent. Objective Vitals & Measurements ??Vital Signs (last 24 hrs)?Last Charted?Minimum?Maximum?Temp?98.5 (SEP 03 15:28)?97.7 (SEP 03 07:07)?99.2 (SEP 03 03:38)?Heart Rate?80 (SEP 03 15:28)?80 (SEP 03 15:28)?95 (SEP 03 03:38)?Resp Rate?18 (SEP 03 15:28)?12 (SEP 03 12:18)?22 (SEP 02 22:59)?SBP?92 (SEP 03 15:28)?C??83(SEP 03 11:13)?115 (B 07:07)?DBP?56 (SEP 03 15:28)?53 (SEP 03 11:13)?69 (SEP 03:38)?SpO2?95 (SEP 03 15:28)?93 (SEP 03 03:38)?98 (B 07:07)?O2?Room a (SEP 03:28)?Nasal (B 22:59)?Nasal (B 12 17:59)?O2 Flow?2 (SEP 03:13)?2 (B 12 17:59)?2 (SEP 02 22:59)?Weight?80 (SEP 03 05:00)?80 (SEP 03:38)?80 (SEP 03:38)?? Physical Exam General: Awake??and alert??, elderly female, chronically ill-appearing. HEENT: Normocephalic, atraumatic Cardiovascular: Regular rate and rhythm Respiratory: ??Reduced lung leong??bilaterally,??no wheezing or??rales. ? Abdomen: Soft, non-tender, normal bowel sounds Neurologic: ??CN II-XII grossly intact??without??focal deficit Integumentary:?Skin??is clear without??rashes or lesions Psychiatric:?? Calm, cooperative ?? Assessment/Plan 1.??Hyperglycemia(Hyperglycemia, unspecified: R73.9) 2.??FRAN (acute kidney injury)(Acute kidney failure, unspecified: N17.9) 3.??Metabolic encephalopathy(Metabolic encephalopathy: G93.41) 4.??Superficial thrombosis of leg(Embolism and thrombosis of superficial veins of unspecified lowerextremity: I82.819) 5.??Hypokalemia(Hypokalemia: E87.6) 6.??Breast cancer metastasized to bone(Malignant neoplasm of unspecified site of unspecified femalebreast: C50.919) 7.??Breast cancer metastasized to lung(Malignant neoplasm of unspecified site of unspecified femalebreast: C50.919) 8.??NSAID long-term use(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 (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 of non-steroidal anti- inflammatories (NSAID): Z79.1) CKD (chronic kidney disease) stage 4, GFR 15-29 ml/min(Chronic kidney disease, stage 4 (severe): N18.4) Fever(Fever, unspecified: R50.9) Hyperglycemia(Hyperglycemia, unspecified: R73.9) Orders: Occupational Therapy Evaluation and Treatment, eval and tx Physical Therapy Additional Treatment Physical Therapy Evaluation and Treatment, eval and tx Other Hyperglycemia:?? resolved with insulin gtt. transitioned to subcut insulin. ?? Acute kidney??injury:??Unsure baseline. May have CKD stage 4. Hold??NSAIDs,??hold further nephrotoxic??agents, allow renal perfusion. follow AM labs. ?? Thrombocytopenia: low but stable. hold heparin ?? Hypokalemia: replace per protocol. ?? Fever - no recurrence, home in the AM if he remains stable. continue to hold antibiotics. ?? Metastatic breast cancer: followed in [place]. Recently started on Piqray, holding at this timedue to risk of hyperglycemia. Followed by Dr. Conrad in [place] ? Diet:??soft, carb??consistent diet DVT ppx:??SCDs, heparin stopped due to above Discharge Disposition planning:??pending Code status:??Full Code Medications Medications (8) Active Scheduled: (8) aaMAR Note ??DC if...., UNSPECIFIED-See comments, Unscheduled carVEDilol 3.125 mg TAB ??3.125 mg 1 tab, By mouth, BID insulin GLARgine (LanTUS) 100 units/mL 3 mL PEN ??14 Units 0.14 mL, SubQ, QAM insulin lispro (HumaLOG) 100 units/mL 3 mL PEN ??1 Unit per 20g CHO consumed, SubQ, TIDWM (three times a day with meals) insulin lispro (HumaLOG) 100 units/mL 3 mL PEN ??Medium dose scale, SUBQ, With Meals & Bedtime pantoprazole 40 mg TAB ??40 mg 1 tab, By mouth, Daily rosuvastatin 10mg TAB ??10 mg 1 tab, By mouth, Daily sodium chloride 0.9% INJ SYR 5 mL ??5 mL, IVP, Q12H Continuous: (0) Lab Results Labs??(Last two charted values on this encounter) WBC 4.8 ??(SEP 02) 6.4 ??(SEP 02) Hgb 13.1 ??(SEP 02) 13.2 ??(SEP 02) Hct 39.8 ??(SEP 02) 40.4 ??(SEP 02) Platelets 40 ??(SEP 02) 41 ??(SEP 02) Na 136 ??(SEP 02) 138 ??(SEP 02) K 3.5 ??(SEP 02) 3.8 ??(SEP 02) Cl 106 ??(SEP 02) 106 ??(SEP 02) CO2 25 ??(SEP 02) 24 ??(SEP 02) BUN 30 ??(SEP 02) 25 ??(SEP 02) Cr 2.26 ??(SEP 02) 2.01 ??(SEP 02) ProteinT ?6.9 ??(SEP 02) ?6.9 ??(AUG 31) Albumin ?3.0 ??(SEP 02) ?3.2 ??(AUG 31) Bilirubin ,Total ??0.5 ??(SEP 02) ??0.5 ??(AUG 31) Alk Phos ?113 ??(SEP 02) ?103 ??(AUG 31) ALT ?21 ??(SEP 02) ?20 ??(AUG 31) AST ?27 ??(SEP 02) ?18 ??(AUG 31) Mag ?2.1 ??(SEP 01) ?? Bedside Glucose 115 ??(SEP 03) 143 ??(SEP 03) Glucose,Plasma 138 ??(SEP 02) 157 ??(SEP 02) Electronically signed by:Pedro Lay MD 09/03/23 21:50 * Akosah MD, Pedro Y: PERFORM, MODIFY Event Display: Progress Notes Authored Date: [id number] Hospital Course Patient is an??82-year-old??female??with??medical history??of??metastatic breast??cancer followed by??physician in [place]??that presented??to the emergency department??with??concern??for??increased??blood sugars.?? Noted to??have glucose??greater than 600??with acute kidney??injury.?? Patient wang ecently started on Piqray for her metastatic breast cancer.?? Patient started on??IV insulin??drip during??hospitalization with glycemic management??consultation.?? Given??IV fluids and home Lasix, meloxicam??held??on admission with her FRAN.?? Renal function??slowly??improving. Subjective The patient was seen and examined at the bedside.??reports ongoing bad taste??in the mouth??since she began chemo. ??Remains on insulin??drip. ??Blood sugars controlled. febrile overnight. she reports no new overnight issues. ? Review of Systems See HPI. All other ROS reviewed as negative or not pertinent. Objective Vitals & Measurements ??Vital Signs (last 24 hrs)?Last Charted?Minimum?Maximum?Temp?98 (SEP 02 11:00)?97.9 (SEP 02 00:46)?C??101.2(SEP 01 23:33)?Heart Rate?82 (SEP 02 11:00)?77 (SEP 02 06:58)?94 (SEP 01 19:11)?Resp Rate?17 (SEP 02 11:00)?16 (SEP 01 15:06)?17 (SEP 01 23:33)?SBP?96 (SEP 02 11:14)?C??88(SEP 02 11:00)?138 (SEP 01 19:11)?DBP?58 (FEB 11:14)?57 (FEB 11:00)?84 (FEB 19:11)?SpO2?95 (FEB 11:00)?92 (B 06:58)?97 (B 03:44)?O2?Nasal (FEB 11:00)?Nasal (FEB 15:06)?Nasal (FEB 15:06)?O2 Flow?2 (B 11:00)?2 (FEB 15:06)?2 (FEB 15:06)?Weight?78.4 (B 06:17)?78.4 (FEB 06:17)?78.4 (B 06:17)?? Physical Exam General: Awake??and alert??, elderly female, chronically ill-appearing. HEENT: Normocephalic, atraumatic Cardiovascular: Regular rate and rhythm Respiratory: ??Reduced lung leong??bilaterally,??no wheezing or??rales. ? Abdomen: Soft, non-tender, normal bowel sounds Neurologic: ??CN II-XII grossly intact??without??focal deficit Integumentary:?Skin??is clear without??rashes or lesions Psychiatric:?? Calm, cooperative ?? Assessment/Plan 1.??Hyperglycemia(Hyperglycemia, unspecified: R73.9) 2.??FRAN (acute kidney injury)(Acute kidney failure, unspecified: N17.9) 3.??Metabolic encephalopathy(Metabolic encephalopathy: G93.41) 4.??Superficial thrombosis of leg(Embolism and thrombosis of superficial veins of unspecified lowerextremity: I82.819) 5.??Hypokalemia(Hypokalemia: E87.6) 6.??Breast cancer metastasized to bone(Malignant neoplasm of unspecified site of unspecified femalebreast: C50.919) 7.??Breast cancer metastasized to lung(Malignant neoplasm of unspecified site of unspecified femalebreast: C50.919) 8.??NSAID long-term use(group home (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 of non-steroidal anti- inflammatories (NSAID): Z79.1) Hyperglycemia(Hyperglycemia, unspecified: R73.9) Orders: Potassium Serum Other Hyperglycemia:?? GMS consult appreciated, remains on??IV insulin per??non DKA protocol . Notes reviewed. ?? Acute kidney??injury:??Unsure baseline. May have CKD stage 4. Hold??NSAIDs,??hold further nephrotoxic??agents, allow renal perfusion. ?? Thrombocytopenia: low but stable. hold heparin ?? Hypokalemia: replace per protocol. ?? Fever - unclear source, ordered a set of blood culture. start empiric antibiotics if recurrent. ?? Metastatic breast cancer: followed in [place]. Recently started on Piqray, holding at this timedue to risk of hyperglycemia. Followed by Dr. Conrad in [place] ? Diet:??soft, carb??consistent diet DVT ppx:??SCDs, heparin stopped due to above Discharge Disposition planning:??pending Code status:??Full Code Medications Medications (11) Active Scheduled: (7) aaMAR Note ??DC if...., UNSPECIFIED-See comments, Unscheduled carVEDilol 3.125 mg TAB ??3.125 mg 1 tab, By mouth, BID insulin GLARgine (LanTUS) 100 units/mL 3 mL PEN ??14 Units 0.14 mL, SubQ, ONCE insulin lispro (HumaLOG) 100 units/mL 3 mL PEN ??Medium dose scale, SUBQ, 5XD pantoprazole 40 mg TAB ??40 mg 1 tab, By mouth, Daily rosuvastatin 10mg TAB ??10 mg 1 tab, By mouth, Daily sodium chloride 0.9% INJ SYR 5 mL ??5 mL, IVP, Q12H Continuous: (4) insulin regular infusion 100units/100mL premix 100 Units + Premix Diluent NS 100 mL ??100 mL, IV IVF NaCl 0.45% / 20mEq KCL ??1000ml 1,000 mL ??1,000 mL, IV, 75 ml/hr IVF sodium chloride 0.9% IVPB 1000 mL 1,000 mL ??1,000 mL, IV, 100 ml/hr IVF sodium chloride 0.9% IVPB 1000 mL 500 mL ??500 mL, IV, 10 ml/hr Lab Results Labs??(Last two charted values on this encounter) WBC 6.4 ??(SEP 02) 8.5 ??(SEP 01) Hgb 13.2 ??(SEP 02) 12.7 ??(SEP 01) Hct 40.4 ??(SEP 02) 37.9 ??(SEP 01) Platelets 41 ??(SEP 02) 51 ??(SEP 01) Na 138 ??(SEP 02) 135 ??(SEP 01) K 3.8 ??(SEP 02) 3.0 ??(SEP 02) Cl 106 ??(SEP 02) 101 ??(SEP 01) CO2 24 ??(SEP 02) 24 ??(SEP 01) BUN 25 ??(SEP 02) 31 ??(SEP 01) Cr 2.01 ??(SEP 02) 1.88 ??(SEP 01) ProteinT ?6.9 ??(AUG 31) ?? Albumin ?3.2 ??(AUG 31) ?? Bilirubin ,Total ??0.5 ??(AUG 31) ?? Alk Phos ?103 ??(AUG 31) ?? ALT ?20 ??(AUG 31) ?? AST ?18 ??(AUG 31) ?? Mag ?2.1 ??(SEP 01) ?? Bedside Glucose 173 ??(SEP 02) 163 ??(SEP 02) Glucose,Plasma 157 ??(SEP 02) 377 ??(SEP 01) Electronically signed by:Pedro Lay MD 09/02/23 14:41 Electronically cosigned by: Pedro Lay MD 09/02/23 14:45 * Ariella Euceda DO: PERFORM Event Display: Progress Notes Authored Date: [id number] Hospital Course Patient is an??82-year-old??female??with??medical history??of??metastatic breast??cancer followed by??physician in [place]??that presented??to the emergency department??with??concern??for??increased??blood sugars.?? Noted to??have glucose??greater than 600??with acute kidney??injury.?? Patient r ecently started on Piqray for her metastatic breast cancer.?? Patient started on??IV insulin??drip during??hospitalization with glycemic management??consultation.?? Given??IV fluids and home Lasix, meloxicam??held??on admission with her FRAN.?? Renal function??slowly??improving. Subjective Patient awake in bed today. Denied any chest pain or shortness of breath. She denied any abdominal pain, reported she feels hungry. She reported that she has been on her chemo pill for several weeks and follows with Dr. Conrad in [place]. ?? Reviewed with broker in charge, no acute concern Objective Vitals & Measurements ??Vital Signs (last 24 hrs)?Last Charted?Minimum?Maximum?Temp?98.3 (SEP 01 10:54)?97.5 (B 02:55)?98.9 (B 03 22:31)?Heart Rate?93 (B 10:54)?73 (B 03 19:30)?94 (B 02:55)?Resp Rate?17 (B 10:54)?17 (B 03 18:37)?19 (B 07:37)?SBP?92 (B 10:54)?92 (B 10:54)?170 (B 03 20:45)?DBP?60 (B 10:54)?60 (B 02:55)?80 (B 20:00)?SpO2?95 (SEP 01 10:54)?91 (B 19:20)?97 (B 22:31)?O2?Nasal (SEP 01 10:54)?Room a (AUG 31 18:37)?Room a (B 18:37)?O2 Flow?2 (SEP 01 10:54)?2 (AUG 31 22:23)?3 (AUG 31 22:31)?Weight?74.1 (B 05:00)?72.6 (AUG 31 22:36)?79 (B 18:37)?? Physical Exam General: Awake??and alert??, elderly female HEENT: Normocephalic, atraumatic Cardiovascular: Regular rate and rhythm Respiratory: On 2L NC, no appreciable wheezing or rhonchi Abdomen: Soft, non-tender, normal bowel sounds Neurologic: ??CN II-XII grossly intact??without??focal deficit Integumentary:?Skin??is clear without??rashes or lesions Psychiatric:?? Calm, cooperative Assessment/Plan 1.??Hyperglycemia(Hyperglycemia, unspecified: R73.9) 2.??FRAN (acute kidney injury)(Acute kidney failure, unspecified: N17.9) 3.??Metabolic encephalopathy(Metabolic encephalopathy: G93.41) 4.??Superficial thrombosis of leg(Embolism and thrombosis of superficial veins of unspecified lowerextremity: I82.819) 5.??Hypokalemia(Hypokalemia: E87.6) 6.??Breast cancer metastasized to bone(Malignant neoplasm of unspecified site of unspecified femalebreast: C50.919) 7.??Breast cancer metastasized to lung(Malignant neoplasm of unspecified site of unspecified femalebreast: C50.919) 8.??NSAID long-term use(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 (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 of non-steroidal anti- inflammatories (NSAID): Z79.1) Hyperglycemia(Hyperglycemia, unspecified: R73.9) Orders: carvedilol, 3.125 mg = 1 tab, TAB, By mouth, BID, Start Date: 09/01/23 9:00:00 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 CLERK, Duration: 90 Days, Stop date 11/29/23 21:00:00 CDT, Routine, Disp Location: [facility] NaCl 0.45% / 20mEq KCL 1000ml 1,000 mL, Route: IV, Routine, Start Date: 09/01/23 6:41:00 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 CLERK, 90 Days, Stop date 11/30/23 6:40:00 CDT, Rate= 75 ml/hr, hr, Total Vol ml = 1,000, Disp Location: [facility], Populate Charting Weight From Order, [facility], 1.87, m2 pantoprazole, 40 mg = 1 tab, TAB, By mouth, Daily, Home Med Continuation, Routine, Start Date: 09/01/23 10:00:00 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 CLERK, Duration: 90 Days, Stop date 11/30/23 8:59:00 CDT, Disp Location: [facility] [address] Floor [address], [facility] rosuvastatin, 10 mg = 1 tab, TAB, By mouth, Daily, Start Date: 09/01/23 9:00:00 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 CLERK, Duration: 90 Days, Stop date 11/29/23 9:00:00 CDT, Routine, Disp Location: [facility] Soft diet Hyperglycemia:?? GMS consult appreciated, IV insulin non DKA ?? Acute kidney??injury:?? Hold??NSAIDs,??hold further nephrotoxic??agents, allow renal perfusion. hold home lasix, meloxicam, decreased statin dosing. ?? Thrombocytopenia: hold heparin ?? Hypokalemia: IVF with KCl with IV insulin ?? Metastatic breast cancer: followed in [place]. Recently started on Piqray, holding at this timedue to risk of hyperglycemia. Followed by Dr. Conrad in [place] ? Diet:??soft, carb??consistent diet DVT ppx:??SCDs, heparin stopped due to above Discharge Disposition planning:??pending Code status:??Full Code Other Medications Medications (10) Active Scheduled: (6) aaMAR Note ??DC if...., UNSPECIFIED-See comments, Unscheduled carVEDilol 3.125 mg TAB ??3.125 mg 1 tab, By mouth, BID pantoprazole 40 mg TAB ??40 mg 1 tab, By mouth, Daily potassium bicarbonate-citric acid 25 mEq effervescent TAB (Effer-K) ??25 mEq 1 tab, PO/per tube, BID rosuvastatin 10mg TAB ??10 mg 1 tab, By mouth, Daily sodium chloride 0.9% INJ SYR 5 mL ??5 mL, IVP, Q12H Continuous: (4) insulin regular infusion 100units/100mL premix 100 Units + Premix Diluent NS 100 mL ??100 mL, IV IVF NaCl 0.45% / 20mEq KCL ??1000ml 1,000 mL ??1,000 mL, IV, 75 ml/hr IVF sodium chloride 0.9% IVPB 1000 mL 1,000 mL ??1,000 mL, IV, 100 ml/hr IVF sodium chloride 0.9% IVPB 1000 mL 500 mL ??500 mL, IV, 10 ml/hr Lab Results Labs??(Last two charted values on this encounter) WBC 8.5 ??(SEP 01) 9.2 ??(AUG 31) Hgb 12.7 ??(SEP 01) 12.8 ??(AUG 31) Hct 37.9 ??(SEP 01) 38.4 ??(AUG 31) Platelets 51 ??(SEP 01) 43 ??(AUG 31) Na 135 ??(SEP 01) 133 ??(AUG 31) K 3.5 ??(SEP 01) 3.1 ??(SEP 01) Cl 101 ??(SEP 01) 99 ??(AUG 31) CO2 24 ??(SEP 01) 25 ??(AUG 31) BUN 31 ??(SEP 01) 42 ??(AUG 31) Cr 1.88 ??(SEP 01) 2.09 ??(AUG 31) ProteinT ?6.9 ??(AUG 31) ?? Albumin ?3.2 ??(AUG 31) ?? Bilirubin ,Total ??0.5 ??(AUG 31) ?? Alk Phos ?103 ??(AUG 31) ?? ALT ?20 ??(AUG 31) ?? AST ?18 ??(AUG 31) ?? Mag ?2.1 ??(SEP 01) ?? Bedside Glucose 140 ??(SEP 01) 149 ??(SEP 01) Glucose,Plasma 377 ??(SEP 01) 609 ??(AUG 31) Electronically signed by:Ariella Euceda DO 09/01/23 12:04 History and physical note * Jose Vazquez: PERFORM Jose Vazquez: PERFORM, MODIFY Eligio Haywood MD: MODIFY Event Display: History and Physicals Authored Date: [id number] Chief Complaint pt. started new medication recently, started piqray. family called d/t acting more confused. BSG found to be high. A&Ox3. not a diabetic.. Arrival Date/Time??- 08/31/2023 18:11:00 History of Present Illness Carmen Marie is an 82 female with a history of metastatic breast cancer??(to lung and bone)??on alpelisib who presents??to the emergency department for evaluation??of fatigue??and weakness. ?? Patient [place] in [place] but??was in the [place]area with family??yesterday and today.??This afternoon??the patient became very fatigued??and??mildly confused at times. ?? EMS??reported??that her??blood sugar was found??to be??greater than 600. ?? It is noted??that??her medication has a??known??side effect??of hyperglycemia. ?? Patient reports she has had some discomfort??in the left lower??extremity in the past few days. Review of Systems CV:??No chest pain RESP:??No shortness of breath or cough GI:??No nausea, vomiting, or abdominal pain MS:??No??decreased range of motion SKIN:??No wounds NEURO: No headache ENDO:??+ excessive thirst Physical Exam Vitals & Measurements T:??98.9?F?? TMIN:??98.3?F?? TMAX:??98.9?F?? HR:??74?? RR:??17?? BP:??124/71?? SpO2:??97%?? WT:??79??kg?? General:??82 Years??old??Female, no acute distress, seen in ER Rm B17, family x 3 at bedside Eye:??pupils equal, EOMI, no nystagmus HENT:?symmetrical in movement, sensation intact in 3 leong Neck:??supple, non-tender Respiratory:??clear to auscultation, no cough, no wheezing, no conversational dyspnea or increased work of breathing Cardiovascular:??RRR, no peripheral edema Gastrointestinal:??soft, +bs, non-tender Musculoskeletal:?Patient able to sit upright??for??exam,??freely moving upper extremities Integumentary:??warm/dry Neurologic:?CAOx3, no focal deficits Psychiatric:?calm, cooperative Assessment/Plan 1.??Hyperglycemia(Hyperglycemia, unspecified: R73.9) 2.??FRAN (acute kidney injury)(Acute kidney failure, unspecified: N17.9) 3.??Metabolic encephalopathy(Metabolic encephalopathy: G93.41) 4.??Superficial thrombosis of leg(Embolism and thrombosis of superficial veins of unspecified lowerextremity: I82.819) 5.??Hypokalemia(Hypokalemia: E87.6) 6.??Breast cancer metastasized to bone(Malignant neoplasm of unspecified site of unspecified femalebreast: C50.919) 7.??Breast cancer metastasized to lung(Malignant neoplasm of unspecified site of unspecified femalebreast: C50.919) 8.??NSAID long-term use(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 IV insulin started in ER, will continue glycemic management team consult Replace potassium s/p 1 liter of IVFs, will continue with 100 ml.hr and follow renal function (unknown baseline) ?? VTE??prophylaxis with heparin? - recommend cessation of meloxicam due to FRAN and active cancer with increased thromboembolic events ?? Code:Full, discussed with patient time of admission ?? Plan of care in coordination with??Eligio Haywood MD ? ATTENDING ATTESTATION: The patient???s history, exam findings, diagnostics, and a summary??was reviewed in detail with??KUSHAL??Jose. I??have seen and examined this patient??independently of above. ??I agree with HPI as documented. My personal exam reveals findings consistent with those documented. All diagnostic studies were reviewed and discussed. I confirm diagnosis as documented by Jose. The care plan articulated was made after review of all data and??consistent with our discussion of the patient???s care ?? Hyperglycemia due to new DM or??could be due??to new medication??that??was started.?? Check??hemoglobin A1c??anyway??placed on insulin??glycemic??management.?? Pseudohyponatremia corrected sodium??for glucose is about 141 FRAN hydrate monitor??renal function??closely hold all NSAIDs, hold Lasix,??unclear if??there is a baseline chronic??kidney disease either.? Hypokalemia being replaced?? Superficial??thrombophlebitis noted on ultrasound of the leg? Voice recognition software [employer] was used dictate and transcribe this document. Security Researcher variances may occur. Despite proofreading, typographical errors may occur. ?? Eligio Haywood MD. Hospitalist Problem List/Past Medical History Ongoing Breast cancer metastasized to bone Breast cancer metastasized to lung NSAID long-term use Historical No qualifying data Procedure/Surgical History ???Fluoroscopy guided angioplasty of bilateral iliac arteries and insertion of bilateral iliac artery stents with contrast???History of right mastectomy Medications Home Medications (8) Active carvedilol 3.125 mg oral tablet??3.125 mg = 1 tab, By mouth, BID fulvestrant??250mg, IM, QMonth furosemide 40 mg oral tablet??40 mg = 1 tab, By mouth, Daily meloxicam 7.5 mg oral tablet??7.5 mg = 1 tab, By mouth, Daily pantoprazole 40 mg oral delayed release tablet?? Piqray??, By mouth, Daily potassium chloride 20 mEq/15 mL oral liquid??20 mEq = 15 mL, By mouth, Daily rosuvastatin 40 mg oral tablet??40 mg = 1 tab, By mouth, Daily Allergies No Known Medication Allergies Social History Social History Alcohol ??Denies Substance Abuse ??Denies Tobacco ??Smoking Status: Never smoker. ??Smokeless tobacco use: Never. Lab Results Labs??(Last two charted values on this encounter) WBC 9.2 ??(AUG 31) ?? Hgb 12.8 ??(AUG 31) ?? Hct 38.4 ??(AUG 31) ?? Platelets 43 ??(AUG 31) ?? Na 133 ??(AUG 31) ?? K 3.4 ??(AUG 31) ?? Cl 99 ??(AUG 31) ?? CO2 25 ??(AUG 31) ?? BUN 42 ??(AUG 31) ?? Cr 2.09 ??(AUG 31) ?? ProteinT ?6.9 ??(AUG 31) ?? Albumin ?3.2 ??(AUG 31) ?? Bilirubin ,Total ??0.5 ??(AUG 31) ?? Alk Phos ?103 ??(AUG 31) ?? ALT ?20 ??(AUG 31) ?? AST ?18 ??(AUG 31) ?? Bedside Glucose 503 ??(AUG 31) 534 ??(AUG 31) Glucose,Plasma 609 ??(AUG 31) ?? Diagnostic Results Radiology Results:?? US VL Venous LE Left - ??Auth (Verified) - 08/31/23 20:47 ( Brittni RENTERIA, Keesha )?? IMPRESSION: No evidence of deep vein thrombosis. ??Filling defect noted in the entire great saphenous vein. ?? this is consistent with superficial thrombophlebitisElectronically signed by: Keesha Elkins MD, ??[facility], 08/31/2023 21:10 Electronically signed by:Daron ALLEN Jose Kaushal 08/31/23 22:44 Electronically cosigned by: Eligio Haywood MD 08/31/23 22:50 Electronically cosigned by: Eligio Haywood MD 09/01/23 17:20 Radiology * Keesha Elkins MD: PERFORM, VERIFY, VERIFY Event Display: Report Authored Date: Note * Keesha Elkins MD: PERFORM, VERIFY, VERIFY Event Display: Powerscribe Read Authored Date: PROCEDURE INFORMATION: Exam: US Duplex Left Lower Extremity Veins, Limited Exam date and time: 08/31/2023 8:47 PM Age: 82 years old Clinical indication: Hyperglycemia, unspecified; Additional info: palpable cord in rle TECHNIQUE: Imaging protocol: Real-time duplex ultrasound of the left extremity with 2-D olvera scale, color Doppler flow and spectral waveform analysis including responses to compression and other maneuvers (when performed) with image documentation. Limited exam focused on the left lower extremity veins. COMPARISON: No relevant prior studies available. FINDINGS: Left deep veins: The common femoral, femoral, proximal profunda femoral and popliteal veins are patent without thrombus. Normal Doppler waveforms. Normal compressibility and/or augmentation response. Superficial veins: Filling defect noted in the entire great saphenous vein 0.3 cm away from the common femoral vein-great saphenous vein junction. Soft tissues: Unremarkable. IMPRESSION: No evidence of deep vein thrombosis. Filling defect noted in the entire great saphenous vein. this is consistent with superficial thrombophlebitis Electronically signed by: Keesha Elkins MD, [facility], 08/31/2023 21:10 Keesha Elkins MD Signed 08/31/23 21:10:23 (Electronic Signature) Technologist [facility] * Winston Yuen MD: VERIFY, SIGN Event Display: EKG 12-Lead Authored Date: * Antione Thornton MD: SIGN, VERIFY Event Display: EKG 12-Lead Authored Date: Patient Care team information Care Team Personnel Name: Brissa Mclaughlin Position: Inpatient-Midlevel Member Role: Nurse Practitioner Address: Address: [address] [place], [place] [id number] Name: Rosanne RENTERIA, Pedor Leonardo Position: Physician-Hospitalist Med Service: Hospitalist Member Role: Attending Physician Address: Address: [address] [place] [address]- Name: Franny Santillan Position: HIGHWAY ENGINEERING TECHNICIAN / US (E) Member Role: NA/Clerical Care Team Related Persons Name: ANUSHKA MARIE
[2023-09-16 10:29] LABS: Basophils % 0.5 %; Eosinophils % 0.5 %; Hematocrit 31.9 % (36-47); Lymphocytes # 0.8 10^3/uL (0.8-4.8); Lymphocytes % 22.3 %; Mean Corpuscular Hemoglobin 31.3 pg (27-33); Mean Corpuscular Volume 97.9 fl (85-98); Mean Platelet Volume 10.7 fL (7.4-10.4); Monocytes # 0.4 10^3/uL (0.2-0.9); Neutrophils # 2.32 10^3/uL (1.8-7.7); Neutrophils % 63.3 %; Nucleated Red Blood Cells % 0 %; Platelet Count 103 10^3/cmm (157-399); Red Blood Count 3.26 10^6/uL (3.85-5.65); Red Cell Distribution Width 14.3 % (12.1-15.1); White Blood Count 3.67 10^3/uL (3.29-11.43)
[2023-09-16 10:43] LABS: Alanine Aminotransferase 14 U/L (0-33); Albumin Level 3.1 g/dL (3.5-5.2); Alkaline Phosphatase 183 U/L (35-105); Anion Gap 14.4 (5-19); Aspartate Amino Transferase 20 U/L (0-32); Blood Urea Nitrogen 16 mg/dL (8-23); Calcium 7.8 mg/dL (8.5-10.5); Carbon Dioxide 27 mmol/L (22-29); Chloride 98 mmol/L (98-107); Globulin 3.1 g/dL (1.3-4.6); Glucose 85 mg/dL (65-115); Osmolality Calculated 284 mOsm/kg (285-295); Sodium 137 mmol/L (136-145); Total Bilirubin 0.3 mg/dL (0.15-1.2); Total Protein 6.2 g/dL (6.6-8.7)
[2023-09-16 10:44] LABS: Potassium 2.4 mmol/L (3.5-5.1)
[2023-09-16] MEDS: sodium chloride 0.9% 250 ML 75 ML IV (11:54)
[2023-09-16] MEDS: potassium chloride premix 20 MEQ/100 ML 50 MEQ IV (11:55)
[2023-09-16 14:00] VITALS: BP 94/53; PULSE 78; RESP 16; TEMP 36.8; O2SAT 98
[2023-09-16 17:28] LABS: CA 15-3 18.2 U/mL (0-25)
[2023-09-23] MEDS: fulvestrant 250 mg/5 mL Syringe 500 MG IM (12:39)
== END 2023-09-26 23:59 | disposition home or self-care (01) ==
PROVIDERS: Nurse Practitioner Family; PCP Family Medicine; Visit Provider Internal Medicine Medical Oncology
DX: C79.51 Secondary malignant neoplasm of bone; Z51.11 Encounter for antineoplastic chemotherapy; Z53.9 Procedure and treatment not carried out, unspecified reason; C50.411 Malignant neoplasm of upper-outer quadrant of right female breast; Z79.818 Long term (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 of other agents affecting estrogen receptors and estrogen levels; Z79.899 Other long term (current) drug therapy; R60.0 Localized edema; Z92.3 Personal history of irradiation; E87.6 Hypokalemia; C78.02 Secondary malignant neoplasm of left lung; Z17.0 Estrogen receptor positive status [ER+]
CPT/HCPCS: 36415; 80053; 85025; 86300; 96365; 96366; 96402; 99214; J3480; J7050; J9395

== ENCOUNTER → 2023-10-07 10:25 | Outpatient (BNVA) | payer MEDICARE, SELFPAY | PROVIDERS: PCP Family Medicine; Visit Provider Internal Medicine Cardiovascular Disease | DX: I25.10 Atherosclerotic heart disease of native coronary artery without angina pectoris (principal); I10 Essential (primary) hypertension; E78.5 Hyperlipidemia, unspecified; M79.89 Other specified soft tissue disorders | CPT/HCPCS: 99214 ==

== ENCOUNTER 2023-10-21 10:00 | Oncology outpatient (recurring) (ONCR) | payer MEDICARE, SELFPAY ==
[2023-10-11 10:39] LABS: Anion Gap 17.7 (5-19); Blood Urea Nitrogen 17 mg/dL (8-23); Calcium 9.2 mg/dL (8.5-10.5); Carbon Dioxide 24 mmol/L (22-29); Chloride 101 mmol/L (98-107); Glucose 97 mg/dL (65-115); Osmolality Calculated 289 mOsm/kg (285-295); Potassium 3.7 mmol/L (3.5-5.1); Sodium 139 mmol/L (136-145)
[2023-10-21 10:22] LABS: Basophils % 0.3 %; Eosinophils # 0.1 10^3/uL (0.0-0.8); Eosinophils % 1.3 %; Hematocrit 26.7 % (36-47); Lymphocytes # 0.9 10^3/uL (0.8-4.8); Lymphocytes % 11.5 %; Mean Corpuscular HGB Conc 31.5 g/dL (30-55); Mean Corpuscular Hemoglobin 30.7 pg (27-33); Mean Corpuscular Volume 97.4 fl (85-98); Mean Platelet Volume 9.4 fL (7.4-10.4); Monocytes # 0.7 10^3/uL (0.2-0.9); Monocytes % 8.9 %; Neutrophils # 5.87 10^3/uL (1.8-7.7); Neutrophils % 76.8 %; Nucleated Red Blood Cells % 0 %; Platelet Count 227 10^3/cmm (157-399); Red Blood Count 2.74 10^6/uL (3.85-5.65); Red Cell Distribution Width 15.6 % (12.1-15.1); White Blood Count 7.64 10^3/uL (3.29-11.43)
[2023-10-21 10:42] LABS: Alanine Aminotransferase 18 U/L (0-33); Albumin Level 3.3 g/dL (3.5-5.2); Alkaline Phosphatase 332 U/L (35-105); Anion Gap 17.3 (5-19); Aspartate Amino Transferase 20 U/L (0-32); Blood Urea Nitrogen 20 mg/dL (8-23); Calcium 9.5 mg/dL (8.5-10.5); Carbon Dioxide 24 mmol/L (22-29); Chloride 102 mmol/L (98-107); Globulin 3.9 g/dL (1.3-4.6); Glucose 80 mg/dL (65-115); Osmolality Calculated 290 mOsm/kg (285-295); Potassium 4.3 mmol/L (3.5-5.1); Sodium 139 mmol/L (136-145); Total Bilirubin 0.3 mg/dL (0.15-1.2); Total Protein 7.2 g/dL (6.6-8.7)
[2023-10-21] MEDS: fulvestrant 250 mg/5 mL Syringe 500 MG IM (12:36)
[2023-10-21 12:50] LABS: Iron 41 ug/dL (37-145); Percent Saturation 17.7 % (20-50); Total Iron Binding Capacity 231 mcg/dl; Unsaturated Iron Binding 190 ug/dL (112-347); Vitamin B12 607 pg/mL (232-1245)
== END 2023-10-27 23:59 | disposition home or self-care (01) ==
PROVIDERS: PCP Family Medicine; Visit Provider Internal Medicine Medical Oncology
DX: D64.9 Anemia, unspecified; C79.51 Secondary malignant neoplasm of bone; C50.411 Malignant neoplasm of upper-outer quadrant of right female breast; Z53.9 Procedure and treatment not carried out, unspecified reason; Z87.891 Personal history of nicotine dependence; C78.02 Secondary malignant neoplasm of left lung; Z90.11 Acquired absence of right breast and nipple; Z17.0 Estrogen receptor positive status [ER+]; Z92.3 Personal history of irradiation; Z79.818 Long term (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 of other agents affecting estrogen receptors and estrogen levels; Z79.899 Other long term (current) drug therapy
CPT/HCPCS: 36415; 80048; 80053; 82607; 83540; 83550; 83735; 85025; 96402; 99214; J9395

== ENCOUNTER 2023-11-25 12:30 | Oncology outpatient (recurring) (ONCR) | payer MEDICARE, SELFPAY ==
[2023-11-18 11:54] LABS: Basophils % 0.5 %; Eosinophils # 0.1 10^3/uL (0.0-0.8); Eosinophils % 2.2 %; Lymphocytes % 16.2 %; Mean Corpuscular HGB Conc 30.9 g/dL (30-55); Mean Corpuscular Hemoglobin 30.4 pg (27-33); Mean Corpuscular Volume 98.2 fl (85-98); Mean Platelet Volume 9.2 fL (7.4-10.4); Monocytes # 0.7 10^3/uL (0.2-0.9); Monocytes % 10.7 %; Neutrophils # 4.39 10^3/uL (1.8-7.7); Neutrophils % 69.9 %; Nucleated Red Blood Cells % 0 %; Platelet Count 188 10^3/cmm (157-399); Red Blood Count 3.26 10^6/uL (3.85-5.65); Red Cell Distribution Width 16.6 % (12.1-15.1); White Blood Count 6.28 10^3/uL (3.29-11.43)
[2023-11-18 12:11] LABS: Alanine Aminotransferase 17 U/L (0-33); Albumin Level 3.8 g/dL (3.5-5.2); Alkaline Phosphatase 246 U/L (35-105); Anion Gap 14.5 (5-19); Aspartate Amino Transferase 26 U/L (0-32); Blood Urea Nitrogen 25 mg/dL (8-23); Calcium 9.4 mg/dL (8.5-10.5); Carbon Dioxide 24 mmol/L (22-29); Chloride 104 mmol/L (98-107); Globulin 3.7 g/dL (1.3-4.6); Glucose 100 mg/dL (65-115); Osmolality Calculated 290 mOsm/kg (285-295); Potassium 4.5 mmol/L (3.5-5.1); Sodium 138 mmol/L (136-145); Total Bilirubin 0.3 mg/dL (0.15-1.2); Total Protein 7.5 g/dL (6.6-8.7)
[2023-11-18] MEDS: fulvestrant 250 mg/5 mL Syringe 500 MG IM (13:31)
--- NOTE | 2023-11-18 13:49 | XRR_ITS ---
PROCEDURE INFORMATION: Exam: XR Left Hip Exam date and time: 11/18/2023 1:55 PM Age: 83 years old Clinical indication: Hip pain; Left hip; Patient HX: HX of breast, lung , bone cancer; Additional info: Left hip pain TECHNIQUE: Imaging protocol: Radiologic exam of the left hip. Views: 2 or 3 views hip with pelvis when performed. COMPARISON: CT abdomen pelvis wo con [id number] 09/06/2023 3:31 PM FINDINGS: Bones/joints: Chronic bony changes of the left ischium and ischiopubic region when correlated with prior exam of 05/20/2023 including old healed fracture deformity. Prior healed fracture deformity of the left superior pubic ramus at the acetabulum in an area of previously noted nondisplaced fracture on 2022 exam. No fracture or dislocation is seen about the left hip. Mild degenerative change. Osteopenia. Soft tissues: No significant focal soft tissue abnormality. Vasculature: Arterial vascular calcification noted. XR/XR hip LT 2-3V wo/w pel* [id number] IMPRESSION: 1. Chronic bony changes of the left ischium and ischiopubic region, including suggestion old fracture deformity, as well as prior fracture deformity left superior pubic ramus at the acetabulum, when correlated with 2022 exam. 2. No acute fracture or dislocation of the left hip. Mild degenerative change.
[2023-11-25 13:05] LABS: Basophils % 0.4 %; Eosinophils # 0.1 10^3/uL (0.0-0.8); Eosinophils % 2.4 %; Hematocrit 30.1 % (36-47); Lymphocytes # 0.9 10^3/uL (0.8-4.8); Lymphocytes % 17.3 %; Mean Corpuscular HGB Conc 30.9 g/dL (30-55); Mean Corpuscular Hemoglobin 30.2 pg (27-33); Mean Corpuscular Volume 97.7 fl (85-98); Mean Platelet Volume 9.4 fL (7.4-10.4); Monocytes # 0.3 10^3/uL (0.2-0.9); Monocytes % 5.7 %; Neutrophils # 3.76 10^3/uL (1.8-7.7); Neutrophils % 73.8 %; Nucleated Red Blood Cells % 0 %; Platelet Count 157 10^3/cmm (157-399); Red Blood Count 3.08 10^6/uL (3.85-5.65); Red Cell Distribution Width 16.8 % (12.1-15.1); White Blood Count 5.09 10^3/uL (3.29-11.43)
[2023-11-25 13:23] LABS: Alanine Aminotransferase 11 U/L (0-33); Albumin Level 3.8 g/dL (3.5-5.2); Alkaline Phosphatase 173 U/L (35-105); Anion Gap 14.5 (5-19); Aspartate Amino Transferase 20 U/L (0-32); Blood Urea Nitrogen 22 mg/dL (8-23); Calcium 8.9 mg/dL (8.5-10.5); Carbon Dioxide 24 mmol/L (22-29); Chloride 103 mmol/L (98-107); Creatinine Clr Calc Pharmacy 44.8469; Globulin 3.3 g/dL (1.3-4.6); Glucose 102 mg/dL (65-115); Osmolality Calculated 288 mOsm/kg (285-295); Potassium 4.5 mmol/L (3.5-5.1); Sodium 137 mmol/L (136-145); Total Bilirubin 0.3 mg/dL (0.15-1.2); Total Protein 7.1 g/dL (6.6-8.7)
== END 2023-11-26 23:59 | disposition home or self-care (01) ==
PROVIDERS: Nurse Practitioner Family; PCP Family Medicine; Visit Provider Internal Medicine Medical Oncology
DX: Z53.9 Procedure and treatment not carried out, unspecified reason (principal); C50.411 Malignant neoplasm of upper-outer quadrant of right female breast
CPT/HCPCS: 36415; 73502; 80053; 85025; 99215; J9395

== ENCOUNTER 2023-12-24 11:34 | Oncology outpatient (recurring) (ONCR) | payer MEDICARE, SELFPAY ==
[2023-12-02 14:08] LABS: Basophils % 0.7 %; Eosinophils # 0.1 10^3/uL (0.0-0.8); Eosinophils % 2.7 %; Hematocrit 32.2 % (36-47); Lymphocytes # 0.9 10^3/uL (0.8-4.8); Lymphocytes % 31.3 %; Mean Corpuscular HGB Conc 31.7 g/dL (30-55); Mean Corpuscular Hemoglobin 31.2 pg (27-33); Mean Corpuscular Volume 98.5 fl (85-98); Mean Platelet Volume 9.6 fL (7.4-10.4); Monocytes # 0.2 10^3/uL (0.2-0.9); Monocytes % 7.5 %; Neutrophils # 1.69 10^3/uL (1.8-7.7); Neutrophils % 57.5 %; Nucleated Red Blood Cells % 0 %; Platelet Count 99 10^3/cmm (157-399); Red Blood Count 3.27 10^6/uL (3.85-5.65); Red Cell Distribution Width 17.4 % (12.1-15.1); White Blood Count 2.94 10^3/uL (3.29-11.43)
[2023-12-02 14:28] LABS: Alanine Aminotransferase 14 U/L (0-33); Albumin Level 3.9 g/dL (3.5-5.2); Alkaline Phosphatase 182 U/L (35-105); Anion Gap 13.5 (5-19); Aspartate Amino Transferase 26 U/L (0-32); Blood Urea Nitrogen 23 mg/dL (8-23); Calcium 8.9 mg/dL (8.5-10.5); Carbon Dioxide 24 mmol/L (22-29); Chloride 107 mmol/L (98-107); Globulin 3.8 g/dL (1.3-4.6); Glucose 87 mg/dL (65-115); Osmolality Calculated 293 mOsm/kg (285-295); Potassium 4.5 mmol/L (3.5-5.1); Sodium 140 mmol/L (136-145); Total Bilirubin 0.3 mg/dL (0.15-1.2); Total Protein 7.7 g/dL (6.6-8.7)
[2023-12-09 08:18] LABS: Hematocrit 31.5 % (36-47); Mean Corpuscular HGB Conc 31.4 g/dL (30-55); Mean Corpuscular Hemoglobin 30.8 pg (27-33); Mean Corpuscular Volume 98.1 fl (85-98); Mean Platelet Volume 9.1 fL (7.4-10.4); Platelet Count 41 10^3/cmm (157-399); Red Blood Count 3.21 10^6/uL (3.85-5.65); White Blood Count 2.48 10^3/uL (3.29-11.43)
[2023-12-09 08:36] LABS: Alanine Aminotransferase 15 U/L (0-33); Albumin Level 3.8 g/dL (3.5-5.2); Alkaline Phosphatase 165 U/L (35-105); Anion Gap 13.5 (5-19); Aspartate Amino Transferase 20 U/L (0-32); Blood Urea Nitrogen 19 mg/dL (8-23); Calcium 9.3 mg/dL (8.5-10.5); Carbon Dioxide 24 mmol/L (22-29); Chloride 104 mmol/L (98-107); Globulin 3.6 g/dL (1.3-4.6); Glucose 97 mg/dL (65-115); Osmolality Calculated 286 mOsm/kg (285-295); Potassium 4.5 mmol/L (3.5-5.1); Sodium 137 mmol/L (136-145); Total Bilirubin 0.3 mg/dL (0.15-1.2); Total Protein 7.4 g/dL (6.6-8.7)
[2023-12-09 09:06] LABS: Absolute Neutrophil 1.3 10^3/cmm (1.4-6.5); Absolute Segmented Neutrophil 1.3 10/cmm (1.6-7.1); Eosinophils 2 %; Lymphocytes 34 %; Lymphocytes Absolute 0.8 10^3/cmm (1.2-3.4); Monocytes Absolute 0.2 10^3/cmm (0.1-0.6); Platelet Estimate Decreased (Normal); Segmented Neutrophils 54 %; Slide Review Slide Review Perform; Total Cells Counted 100 (0-100)
[2023-12-17 10:14] LABS: Basophils % 0.9 %; Eosinophils % 0.3 %; Hematocrit 27.8 % (36-47); Lymphocytes # 0.6 10^3/uL (0.8-4.8); Lymphocytes % 19.9 %; Mean Corpuscular HGB Conc 31.7 g/dL (30-55); Mean Corpuscular Hemoglobin 31.4 pg (27-33); Mean Corpuscular Volume 99.3 fl (85-98); Mean Platelet Volume 9.7 fL (7.4-10.4); Monocytes # 0.6 10^3/uL (0.2-0.9); Monocytes % 19.6 %; Neutrophils # 1.86 10^3/uL (1.8-7.7); Nucleated Red Blood Cells % 0 %; Platelet Count 49 10^3/cmm (157-399); Red Cell Distribution Width 18.4 % (12.1-15.1); White Blood Count 3.16 10^3/uL (3.29-11.43)
[2023-12-17 10:33] LABS: Alanine Aminotransferase 33 U/L (0-33); Albumin Level 3.5 g/dL (3.5-5.2); Alkaline Phosphatase 251 U/L (35-105); Anion Gap 14.5 (5-19); Aspartate Amino Transferase 36 U/L (0-32); Blood Urea Nitrogen 19 mg/dL (8-23); Carbon Dioxide 24 mmol/L (22-29); Chloride 103 mmol/L (98-107); Globulin 3.6 g/dL (1.3-4.6); Glucose 103 mg/dL (65-115); Osmolality Calculated 287 mOsm/kg (285-295); Potassium 4.5 mmol/L (3.5-5.1); Sodium 137 mmol/L (136-145); Total Bilirubin 0.4 mg/dL (0.15-1.2); Total Protein 7.1 g/dL (6.6-8.7)
[2023-12-24 11:57] LABS: Basophils % 0.8 %; Eosinophils % 0.8 %; Hematocrit 30.3 % (36-47); Lymphocytes # 0.9 10^3/uL (0.8-4.8); Lymphocytes % 24.4 %; Mean Corpuscular Hemoglobin 31.2 pg (27-33); Mean Corpuscular Volume 97.4 fl (85-98); Mean Platelet Volume 9.1 fL (7.4-10.4); Monocytes # 0.5 10^3/uL (0.2-0.9); Monocytes % 12.9 %; Neutrophils # 2.25 10^3/uL (1.8-7.7); Neutrophils % 60.3 %; Nucleated Red Blood Cells % 0 %; Platelet Count 129 10^3/cmm (157-399); Red Blood Count 3.11 10^6/uL (3.85-5.65); Red Cell Distribution Width 17.8 % (12.1-15.1); White Blood Count 3.73 10^3/uL (3.29-11.43)
[2023-12-24 12:21] LABS: Alanine Aminotransferase 19 U/L (0-33); Albumin Level 3.6 g/dL (3.5-5.2); Alkaline Phosphatase 288 U/L (35-105); Anion Gap 16.6 (5-19); Aspartate Amino Transferase 21 U/L (0-32); Blood Urea Nitrogen 23 mg/dL (8-23); Calcium 9.3 mg/dL (8.5-10.5); Carbon Dioxide 24 mmol/L (22-29); Chloride 102 mmol/L (98-107); Globulin 3.8 g/dL (1.3-4.6); Glucose 103 mg/dL (65-115); Osmolality Calculated 290 mOsm/kg (285-295); Potassium 4.6 mmol/L (3.5-5.1); Sodium 138 mmol/L (136-145); Total Bilirubin 0.2 mg/dL (0.15-1.2); Total Protein 7.4 g/dL (6.6-8.7)
[2023-12-24 12:38] LABS: Creatinine Clr Calc Pharmacy 40.7269
[2023-12-24] MEDS: fulvestrant 250 mg/5 mL Syringe 500 MG IM (13:47)
== END 2023-12-27 23:59 | disposition home or self-care (01) ==
PROVIDERS: Nurse Practitioner Family; PCP Family Medicine; Visit Provider Internal Medicine Medical Oncology
DX: Z53.9 Procedure and treatment not carried out, unspecified reason (principal); Z51.11 Encounter for antineoplastic chemotherapy; C50.411 Malignant neoplasm of upper-outer quadrant of right female breast; Z79.818 Long term (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 of other agents affecting estrogen receptors and estrogen levels; Z79.899 Other long term (current) drug therapy; M25.511 Pain in right shoulder
CPT/HCPCS: 36415; 80053; 85007; 85025; 96402; 99214; J9395

== ENCOUNTER → 2024-01-01 14:11 | Outpatient (BNVA) | payer MEDICARE, SELFPAY | PROVIDERS: PCP Family Medicine; Visit Provider Internal Medicine Cardiovascular Disease | DX: R06.02 Shortness of breath (principal); R06.09 Other forms of dyspnea; R00.2 Palpitations | CPT/HCPCS: 36415; 83880; 99215 ==

== ENCOUNTER 2024-01-13 08:22 | Outpatient (CLI) | payer MEDICARE, SELFPAY ==
--- NOTE | 2024-01-13 09:15 | USCV_ITS ---
Ester Reaves Age: 83 Gender: F : 1940 Exam Date: 01/13/2024 08:45 Ordering Phys: Derrick Diaz MD ([email or web address]) Technologist: Exam Location: [facility] [place] Indication: sob BP: / HR: Rhythm: Sinus Technical Quality: Adequate MEASUREMENTS (Male / Female) Normal Values FINDINGS Left Ventricle Diffuse hypokinesia of the left ventricle with an ejection fraction of 35 to 40%. Right Ventricle Normal RV size with a slightly diminished ejection fraction Right Atrium The right atrium is normal in size. Left Atrium Moderately increased left atrial volume 40 ml/m squared. Mitral Valve Mild mitral valve regurgitation. Aortic Valve Thickened aortic valve. [id number] aortic valve regurgitation. Tricuspid Valve Trace tricuspid valve regurgitation. estimated pulmonary artery peak systolic pressure 33 mmHg Pulmonic Valve Mild pulmonary valve regurgitation. Pericardium No pericardial effusion. Aorta Minimal plaque to the ascending aorta IVC Normal inferior vena cava. CONCLUSIONS Diffuse hypokinesia of the left ventricle with an ejection fraction of 35 to 40%. Moderately increased left atrial volume 40 ml/m squared. Mild mitral valve regurgitation. Thickened aortic valve. [id number]-[id number] aortic valve regurgitation. Trace tricuspid valve regurgitation. Estimated pulmonary artery peak systolic pressure 33 mmHg. Compared to the study from 03/20/2021, there is a significant drop in the LV ejection fraction from 55-60% to 35 to 40% Dr Derrick Diaz MD [facility] (Electronically Signed) Final Date: 14 January 2024 09:22 S
== END 2024-01-13 08:23 | disposition home or self-care (01) ==
LOC: RAD 08:22
PROVIDERS: PCP Family Medicine; Visit Provider Internal Medicine Cardiovascular Disease
DX: I35.2 Nonrheumatic aortic (valve) stenosis with insufficiency (principal); I51.89 Other ill-defined heart diseases; R06.09 Other forms of dyspnea
CPT/HCPCS: 36415; 83880; 93306; 99215

== ENCOUNTER 2024-01-20 08:00 | Oncology outpatient (recurring) (ONCR) | payer MEDICARE, SELFPAY ==
[2023-12-30 08:49] LABS: Basophils % 1.3 %; Eosinophils # 0.1 10^3/uL (0.0-0.8); Eosinophils % 2.3 %; Hematocrit 30.8 % (36-47); Lymphocytes # 0.7 10^3/uL (0.8-4.8); Lymphocytes % 23.4 %; Mean Corpuscular HGB Conc 32.1 g/dL (30-55); Mean Corpuscular Hemoglobin 31.1 pg (27-33); Mean Corpuscular Volume 96.9 fl (85-98); Mean Platelet Volume 9.4 fL (7.4-10.4); Monocytes # 0.3 10^3/uL (0.2-0.9); Monocytes % 9.5 %; Neutrophils # 1.92 10^3/uL (1.8-7.7); Neutrophils % 63.2 %; Nucleated Red Blood Cells % 0 %; Platelet Count 185 10^3/cmm (157-399); Red Blood Count 3.18 10^6/uL (3.85-5.65); Red Cell Distribution Width 17.5 % (12.1-15.1); White Blood Count 3.04 10^3/uL (3.29-11.43)
[2023-12-30 09:21] LABS: Alanine Aminotransferase 14 U/L (0-33); Albumin Level 3.7 g/dL (3.5-5.2); Alkaline Phosphatase 219 U/L (35-105); Anion Gap 15.4 (5-19); Aspartate Amino Transferase 24 U/L (0-32); Blood Urea Nitrogen 21 mg/dL (8-23); Calcium 9.3 mg/dL (8.5-10.5); Carbon Dioxide 25 mmol/L (22-29); Chloride 103 mmol/L (98-107); Globulin 3.8 g/dL (1.3-4.6); Glucose 92 mg/dL (65-115); Osmolality Calculated 291 mOsm/kg (285-295); Potassium 4.4 mmol/L (3.5-5.1); Sodium 139 mmol/L (136-145); Total Bilirubin 0.2 mg/dL (0.15-1.2); Total Protein 7.5 g/dL (6.6-8.7)
[2024-01-06 08:24] LABS: Basophils % 1.4 %; Eosinophils % 1.4 %; Hematocrit 31.6 % (36-47); Lymphocytes # 0.6 10^3/uL (0.8-4.8); Lymphocytes % 27.5 %; Mean Corpuscular Hemoglobin 31.7 pg (27-33); Mean Corpuscular Volume 99.1 fl (85-98); Mean Platelet Volume 9.2 fL (7.4-10.4); Monocytes # 0.2 10^3/uL (0.2-0.9); Monocytes % 11.4 %; Neutrophils # 1.22 10^3/uL (1.8-7.7); Neutrophils % 57.8 %; Nucleated Red Blood Cells % 0 %; Platelet Count 125 10^3/cmm (157-399); Red Blood Count 3.19 10^6/uL (3.85-5.65); Red Cell Distribution Width 18.3 % (12.1-15.1); White Blood Count 2.11 10^3/uL (3.29-11.43)
[2024-01-06 08:41] LABS: Alanine Aminotransferase 10 U/L (0-33); Albumin Level 3.7 g/dL (3.5-5.2); Alkaline Phosphatase 141 U/L (35-105); Anion Gap 15.3 (5-19); Aspartate Amino Transferase 19 U/L (0-32); Blood Urea Nitrogen 17 mg/dL (8-23); Calcium 9.1 mg/dL (8.5-10.5); Carbon Dioxide 24 mmol/L (22-29); Chloride 106 mmol/L (98-107); Globulin 3.6 g/dL (1.3-4.6); Glucose 79 mg/dL (65-115); Osmolality Calculated 292 mOsm/kg (285-295); Potassium 4.3 mmol/L (3.5-5.1); Sodium 141 mmol/L (136-145); Total Bilirubin 0.2 mg/dL (0.15-1.2); Total Protein 7.3 g/dL (6.6-8.7)
[2024-01-13 08:26] LABS: Basophils % 1.8 %; Eosinophils % 1.4 %; Hematocrit 31.8 % (36-47); Lymphocytes # 0.7 10^3/uL (0.8-4.8); Lymphocytes % 31.5 %; Mean Corpuscular HGB Conc 31.8 g/dL (30-55); Mean Corpuscular Hemoglobin 31.7 pg (27-33); Mean Corpuscular Volume 99.7 fl (85-98); Mean Platelet Volume 9.4 fL (7.4-10.4); Monocytes # 0.5 10^3/uL (0.2-0.9); Monocytes % 20.3 %; Nucleated Red Blood Cells % 0 %; Platelet Count 83 10^3/cmm (157-399); Red Blood Count 3.19 10^6/uL (3.85-5.65); Red Cell Distribution Width 18.8 % (12.1-15.1); White Blood Count 2.22 10^3/uL (3.29-11.43)
[2024-01-13 08:43] LABS: Alanine Aminotransferase 10 U/L (0-33); Albumin Level 3.8 g/dL (3.5-5.2); Alkaline Phosphatase 134 U/L (35-105); Anion Gap 14.5 (5-19); Aspartate Amino Transferase 15 U/L (0-32); Blood Urea Nitrogen 15 mg/dL (8-23); Calcium 9.1 mg/dL (8.5-10.5); Carbon Dioxide 25 mmol/L (22-29); Chloride 103 mmol/L (98-107); Globulin 3.3 g/dL (1.3-4.6); Glucose 67 mg/dL (65-115); Osmolality Calculated 285 mOsm/kg (285-295); Potassium 4.5 mmol/L (3.5-5.1); Sodium 138 mmol/L (136-145); Total Bilirubin 0.2 mg/dL (0.15-1.2); Total Protein 7.1 g/dL (6.6-8.7)
[2024-01-20 08:04] LABS: Basophils % 1.4 %; Eosinophils # 0.1 10^3/uL (0.0-0.8); Eosinophils % 1.8 %; Hematocrit 32.3 % (36-47); Lymphocytes # 0.8 10^3/uL (0.8-4.8); Lymphocytes % 26.5 %; Mean Corpuscular HGB Conc 32.2 g/dL (30-55); Mean Corpuscular Hemoglobin 31.9 pg (27-33); Mean Corpuscular Volume 99.1 fl (85-98); Mean Platelet Volume 9.4 fL (7.4-10.4); Monocytes # 0.5 10^3/uL (0.2-0.9); Monocytes % 16.3 %; Neutrophils # 1.52 10^3/uL (1.8-7.7); Neutrophils % 53.6 %; Nucleated Red Blood Cells % 0 %; Platelet Count 95 10^3/cmm (157-399); Red Blood Count 3.26 10^6/uL (3.85-5.65); Red Cell Distribution Width 18.3 % (12.1-15.1); White Blood Count 2.83 10^3/uL (3.29-11.43)
[2024-01-20 08:33] LABS: Alanine Aminotransferase 10 U/L (0-33); Albumin Level 3.8 g/dL (3.5-5.2); Alkaline Phosphatase 124 U/L (35-105); Anion Gap 15.3 (5-19); Aspartate Amino Transferase 16 U/L (0-32); Blood Urea Nitrogen 18 mg/dL (8-23); Calcium 9.4 mg/dL (8.5-10.5); Carbon Dioxide 25 mmol/L (22-29); Chloride 104 mmol/L (98-107); Globulin 3.3 g/dL (1.3-4.6); Glucose 94 mg/dL (65-115); Osmolality Calculated 292 mOsm/kg (285-295); Potassium 4.3 mmol/L (3.5-5.1); Sodium 140 mmol/L (136-145); Total Bilirubin 0.3 mg/dL (0.15-1.2); Total Protein 7.1 g/dL (6.6-8.7)
[2024-01-20] MEDS: fulvestrant 250 mg/5 mL Syringe 500 MG IM (10:29)
--- NOTE | 2024-01-20 11:07 | XR_ITS ---
WS: [id number] Exam: XR ribs LT 2V* [id number] Date/Time of Exam: 01/20/2024 11:15 AM Reason For Exam: left rib pain No acute rib fracture identified. The LEFT lung is fully expanded. No pleural effusion. Pulmonary par enchymal and pleural scarring noted on the LEFT. IMPRESSION1. No acute rib fracture or pneumothorax.
--- NOTE | 2024-01-20 11:07 | XR_ITS ---
WS: [id number] Exam: XR chest 2V* [id number] Date/Time of Exam: 01/20/2024 11:15 AM Reason For Exam: left rib pain Comparison 03/21/2023. Pulmonary parenchymal and pleural scarring seen in the mid LEFT lung zone. No acute infiltrates or pn eumothorax. Bony structures appear to be intact. Signs of coronary artery stenting. No obvious pleura l effusion. Heart size is normal. The mediastinum is chronically retracted to the LEFT of midline. A monitoring device is noted along the anterior chest wall. Degenerative changes of the T-spine with sp ondylosis and osteopenia. Increased kyphosis. Compression fracture of L1 which is likely old. XR/XR chest 2V* [id number] IMPRESSION: 1. Pulmonary hyperinflation. Chronic pulmonary parenchymal and pleural changes on the LEFT. 2. No acute process is suspected.
== END 2024-01-26 23:59 | disposition home or self-care (01) ==
PROVIDERS: Nurse Practitioner Family; PCP Family Medicine; Visit Provider Internal Medicine Medical Oncology
DX: C50.411 Malignant neoplasm of upper-outer quadrant of right female breast (principal); Z53.9 Procedure and treatment not carried out, unspecified reason; Z51.11 Encounter for antineoplastic chemotherapy; Z79.818 Long term (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 of other agents affecting estrogen receptors and estrogen levels; Z17.0 Estrogen receptor positive status [ER+]; C79.51 Secondary malignant neoplasm of bone; C78.01 Secondary malignant neoplasm of right lung; R07.81 Pleurodynia; Z79.899 Other long term (current) drug therapy
CPT/HCPCS: 36415; 71046; 71100; 80053; 85025; 99214; J9395

== ENCOUNTER 2024-01-27 08:03 | Outpatient (CLI) | payer MEDICARE, SELFPAY ==
[2024-01-27] VITALS (12 sets, daily range): BP systolic 103–170; BP diastolic 56–98; PULSE 57–89; RESP 14–18; TEMP 37.1; O2SAT 91–97; BMI 26.9
--- NOTE | 2024-01-27 07:30 | XACV_ITS ---
Exam Room: 2 Ht: 165 cm Wt: 73 kg BSA: 1.85 m2 Gender: Female : 1940 Exam Priority: Routine Procedure(s): Procedure Description: Diagnostic procedure Procedure Description: Left Heart Catheterization Procedure Description: Coronary Angiography Joe BECERRA; Diagnostic Cath Status: Elective Diagnostic Findings * The left main is a medium caliber vessel with mild diffuse calcification. No significant stenotic lesions. * The left anterior descending artery is a medium caliber vessel which appears to wrap around the LV apex minimally. The stented segment of the mid LAD was found to be patent with mild diffuse in-stent stenosis of around 40%. The first diagonal branch was found to have an ostial around 40% narrowing. No other significant extremity lesions were noted.. * The left circumflex artery is a small caliber nondominant vessel with no significant stenotic lesions. * Right coronary artery is a medium to large caliber dominant vessel which was found to have moderate calcification at the ostium. The proximal RCA was found to have around 70 to 80% eccentric narrowing involving the ostium. Right after the first RV branch, the artery appears to have a subtotal occlusion of around 98%. The PDA and the PLV branches are found to have minimal intimal irregularities with no significant stenotic lesions. Conclusions 1. 83-year-old white female, with a history of atherosclerotic heart disease and previous PCI, no presenting with complaints of shortness of breath, features of congestive heart failure and significant drop in the LV ejection fraction from 55% to 35%. She had a Myocardial perfusion imaging a year ago which revealed areas of fixed defects with very small areas of reversible defect. In view of the patient's history and the presenting symptoms, in order to further evaluate her coronary status, a cardiac catheterization was recommended. Patient underwent left heart catheterization with the left and right coronary angiogram today. The findings are as follows. 2. 1. Mild diffuse calcification of the left main artery. 2. Patent the mid stented segment with around 40% in-stent narrowing. 50% lesion in the ostium of the first diagonal artery. 3. Small nondominant left circumflex artery. 4. Medium to large caliber dominant right coronary artery with an ostial 70 to 80% lesion, eccentric. Moderate calcification at the ostium. Subtotal occlusion of the mid RCA of 98%, right after the first RV branch. LVEDP of 22 mmHg. 3. I reviewed and discussed the cardiac catheterization data with the Dr. Walker. Patient requires PCI of the RCA lesions. Because the complexity of the right coronary ostial lesion , it was thought to be appropriate to perform the intervention with a surgical backup. Diagnostic RX Recommendation: PCI w/o planned CABG LV EDP: 22 mmHg Left Ventriculography Findings: * LV gram was not performed because of the concern about the dye overload. LVEDP was 20 mmHg. Pressures Phase:Rest AO : 122 / 66 ( 87 ) @ 10:02:00 AM 103 / 71 ( 87 ) @ 10:05:00 AM 165 / 68 ( 103 ) @ 10:18:00 AM 158 / 68 ( 102 ) @ 10:18:00 AM LV : 157 / 0 / 22 @ 10:17:00 AM 157 / 0 / 22 @ 10:18:00 AM Valves Phase:DefaultPhase AV : 0.0 @ 9:32:16 AM 0.0 @ 9:32:16 AM AV Mean Gradient: 0.0 @ 9:32:16 AM Clinical Evaluation EBL: 5mL-10mL Procedural Details Procedure Consent Obtained. Admit Source: Out Patient. Pre-Procedure Time Out. Identified patient by full name and date of as verbalized by the patient/guarantor. Does the consent match the physician's order: Yes. Accurate & Complete Informed Consent: Yes. Inpatient/Outpatient History & Physical on Chart: Yes. If H&P is completed, is and addenduem needed: No; If yes, is the addendum complete: N/A. Visualize and Verify Site with Patient/Guarantor: N/A. Relevant Radiology Images available: N/A. The risks, benefits, and alternatives of sedation and/or procedure were discussed by physician. The patient agrees to continue. Procedure started. [facility] Clinical Fraility Score: 4: Vulnerable. Director Clinical Data Indications: Suspected CAD. Chest Pain Symptom Assessment: Atypical Angina. Correct patient, site and procedure confirmed by cath team. Current diagnosis: Chest Pain. PERRLA. Strong, equal hand surgical garment fitter bilaterally. Lungs clear x 5 lobes. IV Site on Arrival: 20 gauge in the left forearm. IV Fluids: 0.9% NaCl at KVO. 0 mL infused prior to industrial laborer. Pre Procedural Pulses: bilateral dorsalis pedis was 3+. Pre Procedural Pulses: bilateral posterior tibial was 1+. Pre Procedural Pulses: bilateral radial was 2+. Oxygen started at 2liters/min via nasal canula. right groin was prepped with chloroprep then draped in the usual sterile fashion. right radial was prepped with chloroprep then draped in the usual sterile fashion. Physician arrived. Baseline sample Acquired. HR: 81 BPM. Physician scrubbed in. Immediate Pre-Procedure Time Out. Correct Patient: Yes; Correct Procedure: Yes; Correct Site: Yes; Correct Patient Position: Yes; Correct Supplies: Yes; Dried Flammable Prep: Yes; Blood Products Available: N/A;. Lidocaine 1% infiltrated to the right radial. Arterial access obtained. A 5 syriac Oli catheter in over wire. Multiple views taken of left coronary artery. Catheter redirected to the RCA. Catheter removed over the exchange wire. A 5 syriac JR4 catheter in over wire. Catheter removed over the exchange wire. A 5 syriac Oli catheter in over wire. Multiple views taken of right coronary artery. Dr. Walker called to review films. EDP Sample taken: LV 157/-1,22; HR: 67 BPM; SpO2: 96%. Pullback taken: LV 157/-1,22; AO 165/68(103); Mean: 0mmHg, Peak to Peak: 0mmHg, SEP: 17sec/min; HR: 66 BPM; SpO2: 96%. Dr. Walker arrived. Catheter attached to heparnized saline flush at KVO to maintain patency. Catheter removed over the exchange wire. Physician scrubbed out. A TR Band was successful obtaining hemostatsis at the Right Radial artery insertion site. Post Procedure: Pulses reassessed and unchanged. PERRLA. Strong, equal hand surgical garment fitter bilaterally. No VTE prophylaxis required. Medication's Wasted: Lidocaine 1% = 15 mL. Medication's Wasted: Nitro = 49.8 mcg. Medication's Wasted: Heparin = 1000 units. Medication's Wasted: Other = Fentanyl 50mcg Versed 1 mg. Total IV fluids: 50 mL. Vital chart was stopped. Complications: None. Estimated blood loss: 5mL-10mL. Responsiveness - Normal response to verbal stimuli; alert and oriented, PERRLA. Post-op diagnosis: CAD in RCA. Airway - Unaffected, no intervention required; spontaneous ventilation. Circulation: W/N/L, pulses unchanged. Nausea/Vomiting: No. Procedure completed. Patient transferred by stretcher to CPRU. Access Site Site: Right Radial artery Sheath Size: 6 Fr Hemostasis Method: TR Band Hemostasis Success: Successful Procedure Medications Start: 8:47 AM Stop: 8:47 AM Medication: Fentanyl Amount: 50 mcg Route: I.V. Start: 8:50 AM Stop: 8:50 AM Medication: Versed Amount: 1 mg Route: I.V. Start: 8:59 AM Stop: 8:59 AM Medication: Nitrogylcerin Amount: 200 mcg Route: I.A. Start: 8:59 AM Stop: 8:59 AM Medication: Verapamil Amount: 5 mg Route: I.A. Start: 9:02 AM Stop: 9:02 AM Medication: Heparin Amount: 5000 units Route: I.V. I, the attending physician, have reviewed and verified all procedure medications. Yes, all medications given per verbal order History/Risk Factors Hypertension: Yes Dyslipidemia: Yes Peripheral Arterial Disease (PAD): No Myocardial Infarction (HI): Yes Obesity: No Renal Disease: No Tobacco Use: Never Prior Interventions PCI: Yes CABG: No Valve Surgery: No Report Signatures Finalized by Dr Derrick Diaz MD [facility] on 01/28/2024 12:26 AM
--- NOTE | 2024-01-27 08:13 | W.PM.OPSUD ---
Surgery/Procedure H&P Update DATE OF PROCEDURE: January 27, 2024 DATE H&P PERFORMED: 01/01/24 H&P UPDATE INFORMATION: I have reviewed H&P completed within last 30 days, I have examined patient prior to procedure and No changes to prior documentation PREOP DIAGNOSIS: Cardiomyopathy,hx of ASHD and previous PCI PRIMARY INDICATION FOR PROCEDURE: Patient was found to have a significant drop in her LV ejection fraction from 55 to 35%. Also was found to have features of congestive heart failure. She had some small areas of ischemia by perfusion scan a year ago PLANNED PROCEDURE: Operation Date: 01/27/24 08:30 Proposed Procedures p Cardiac Catheterization 57868, I25.10, I50.20(Left) - Derrick Diaz MD PATIENT REASSESSED PRIOR TO SEDATION, WITH NO CHANGE NOTED: Yes PHYSICAL EXAM: alert, oriented x 3, clear to auscultation bilaterally and regular rate & rhythm AIRWAY EVAL/ANESTHESIA PLAN: normal airway, see other exam findings, ASA III, Monitored Anesthesia, Local Anesthesia, Risks, benefits & alternatives of sedation and/or procedure discussed and Patient agrees to continue as planned
[2024-01-27] MEDS: aspirin 325 mg Tablet PO (08:25)
[2024-01-27] MEDS: diphenhydrAMINE 50 mg Capsule PO (08:25)
--- NOTE | 2024-01-27 09:30 | SUR.PHASEII ---
Received the patient back from the lab support service tech via cot s/p Diagnostic [facility]. A & 0 x 3. contract forester placed and vital signs obtained. TR band intact to the right wrist. No bleeding or hematoma noted. Palpable radial pulse. No other assessment changes noted from pre cath assessment. Family at bedside. No concerns voiced at this time.
--- NOTE | 2024-01-27 10:00 | SUR.PHASEII ---
Patient ambulated to the restroom to void and then back to the recliner. No other assessment changes at this time.
--- NOTE | 2024-01-27 10:30 | SUR.PHASEII ---
Letting the air out of the TR band per protocol.
--- NOTE | 2024-01-27 11:30 | SUR.PHASEII ---
TR band off per protocol. No bleeding or hematoma noted. Area cleansed with warm water and patted dry. A large band aid was applied to the site and loosely secured with coban. Palpable radial pulse present. No other assessment changes noted. Family remains at bedside.
--- NOTE | 2024-01-27 12:40 | SUR.PHASEII ---
Patient discharged home in stable condition via wheelchair with daughter in law, Stacie Reaves. Patient had voiced that she was unsure if her insurance would cover her to see Dr. Boss at [facility]. Dr. Diaz was notified. He instructed this nurse to make his MA, Cande Holden, aware of the situation and to have Cande get back to Dr. Diaz JASON with the insurance information so that the referral for high risk PCI can be done quickly. A Web EX message was sent to Cande by this nurse.
== END 2024-01-27 08:04 | disposition home or self-care (01) ==
PROVIDERS: PCP Family Medicine; Visit Provider Internal Medicine Cardiovascular Disease
DX: R06.02 Shortness of breath (principal); I10 Essential (primary) hypertension; I25.10 Atherosclerotic heart disease of native coronary artery without angina pectoris; E78.2 Mixed hyperlipidemia
CPT/HCPCS: 36415; 93458; 96374; 96375; 99152; 99153; C1769; C1887; C1894; J1644; J2250; J3010; J3490; J7030; Q0163; Q9967

== ENCOUNTER → 2024-02-19 13:38 | Outpatient (BNVA) | payer MEDICARE, SELFPAY | PROVIDERS: PCP Family Medicine; Visit Provider Nurse Practitioner Family | DX: I25.10 Atherosclerotic heart disease of native coronary artery without angina pectoris (principal); I10 Essential (primary) hypertension | CPT/HCPCS: 99213 ==

== ENCOUNTER 2024-02-24 08:15 | Oncology outpatient (recurring) (ONCR) | payer MEDICARE, SELFPAY ==
[2024-01-27 09:10] LABS: Eosinophils # 0.1 10^3/uL (0.0-0.8); Eosinophils % 1.4 %; Hematocrit 34.4 % (36-47); Lymphocytes # 0.9 10^3/uL (0.8-4.8); Lymphocytes % 20.7 %; Mean Corpuscular HGB Conc 32.3 g/dL (30-55); Mean Corpuscular Hemoglobin 31.8 pg (27-33); Mean Corpuscular Volume 98.6 fl (85-98); Mean Platelet Volume 9.8 fL (7.4-10.4); Monocytes # 0.5 10^3/uL (0.2-0.9); Monocytes % 11.8 %; Neutrophils # 2.69 10^3/uL (1.8-7.7); Neutrophils % 64.6 %; Nucleated Red Blood Cells % 0 %; Platelet Count 170 10^3/cmm (157-399); Red Blood Count 3.49 10^6/uL (3.85-5.65); Red Cell Distribution Width 17.6 % (12.1-15.1); White Blood Count 4.16 10^3/uL (3.29-11.43)
[2024-02-03 08:29] LABS: Basophils % 0.9 %; Eosinophils # 0.2 10^3/uL (0.0-0.8); Eosinophils % 3.7 %; Hematocrit 34.5 % (36-47); Lymphocytes # 0.8 10^3/uL (0.8-4.8); Lymphocytes % 18.6 %; Mean Corpuscular HGB Conc 31.9 g/dL (30-55); Mean Corpuscular Hemoglobin 31.8 pg (27-33); Mean Corpuscular Volume 99.7 fl (85-98); Mean Platelet Volume 9.3 fL (7.4-10.4); Monocytes # 0.6 10^3/uL (0.2-0.9); Monocytes % 13.8 %; Neutrophils # 2.72 10^3/uL (1.8-7.7); Neutrophils % 62.3 %; Nucleated Red Blood Cells % 0 %; Platelet Count 186 10^3/cmm (157-399); Red Blood Count 3.46 10^6/uL (3.85-5.65); Red Cell Distribution Width 16.9 % (12.1-15.1); White Blood Count 4.36 10^3/uL (3.29-11.43)
[2024-02-03 08:45] LABS: Alanine Aminotransferase 15 U/L (0-33); Albumin Level 3.9 g/dL (3.5-5.2); Alkaline Phosphatase 144 U/L (35-105); Blood Urea Nitrogen 21 mg/dL (8-23); Calcium 8.9 mg/dL (8.5-10.5); Carbon Dioxide 26 mmol/L (22-29); Chloride 102 mmol/L (98-107); Globulin 3.3 g/dL (1.3-4.6); Glucose 82 mg/dL (65-115); Osmolality Calculated 286 mOsm/kg (285-295); Sodium 137 mmol/L (136-145); Total Bilirubin 0.3 mg/dL (0.15-1.2); Total Protein 7.2 g/dL (6.6-8.7)
[2024-02-03 08:49] LABS: Anion Gap 13.5 (5-19); Aspartate Amino Transferase 26 U/L (0-32); Potassium 4.5 mmol/L (3.5-5.1)
[2024-02-10 09:05] LABS: Basophils % 0.6 %; Eosinophils # 0.2 10^3/uL (0.0-0.8); Eosinophils % 3.1 %; Hematocrit 31.6 % (36-47); Lymphocytes # 0.9 10^3/uL (0.8-4.8); Lymphocytes % 17.8 %; Mean Corpuscular HGB Conc 31.6 g/dL (30-55); Mean Corpuscular Hemoglobin 31.6 pg (27-33); Mean Platelet Volume 9.1 fL (7.4-10.4); Monocytes # 0.5 10^3/uL (0.2-0.9); Monocytes % 10.3 %; Neutrophils # 3.27 10^3/uL (1.8-7.7); Neutrophils % 67.6 %; Nucleated Red Blood Cells % 0 %; Platelet Count 187 10^3/cmm (157-399); Red Blood Count 3.16 10^6/uL (3.85-5.65); Red Cell Distribution Width 15.9 % (12.1-15.1); White Blood Count 4.84 10^3/uL (3.29-11.43)
[2024-02-10 09:35] LABS: Alanine Aminotransferase 11 U/L (0-33); Albumin Level 4.1 g/dL (3.5-5.2); Alkaline Phosphatase 130 U/L (35-105); Anion Gap 16.4 (5-19); Aspartate Amino Transferase 16 U/L (0-32); Blood Urea Nitrogen 20 mg/dL (8-23); Calcium 9.1 mg/dL (8.5-10.5); Carbon Dioxide 23 mmol/L (22-29); Chloride 104 mmol/L (98-107); Globulin 3.2 g/dL (1.3-4.6); Glucose 95 mg/dL (65-115); Osmolality Calculated 290 mOsm/kg (285-295); Potassium 4.4 mmol/L (3.5-5.1); Sodium 139 mmol/L (136-145); Total Bilirubin 0.4 mg/dL (0.15-1.2); Total Protein 7.3 g/dL (6.6-8.7)
[2024-02-17 08:48] LABS: Basophils % 0.6 %; Eosinophils # 0.2 10^3/uL (0.0-0.8); Eosinophils % 2.8 %; Lymphocytes # 0.8 10^3/uL (0.8-4.8); Lymphocytes % 15.4 %; Mean Corpuscular HGB Conc 31.5 g/dL (30-55); Mean Corpuscular Hemoglobin 31.5 pg (27-33); Mean Platelet Volume 9.2 fL (7.4-10.4); Monocytes # 0.6 10^3/uL (0.2-0.9); Monocytes % 11.1 %; Neutrophils # 3.72 10^3/uL (1.8-7.7); Neutrophils % 69.7 %; Nucleated Red Blood Cells % 0 %; Platelet Count 189 10^3/cmm (157-399); Red Cell Distribution Width 15.2 % (12.1-15.1); White Blood Count 5.33 10^3/uL (3.29-11.43)
[2024-02-17 09:04] LABS: Alanine Aminotransferase 10 U/L (0-33); Albumin Level 3.8 g/dL (3.5-5.2); Alkaline Phosphatase 115 U/L (35-105); Anion Gap 15.2 (5-19); Aspartate Amino Transferase 18 U/L (0-32); Blood Urea Nitrogen 21 mg/dL (8-23); Calcium 8.9 mg/dL (8.5-10.5); Carbon Dioxide 22 mmol/L (22-29); Chloride 107 mmol/L (98-107); Globulin 3.3 g/dL (1.3-4.6); Glucose 67 mg/dL (65-115); Osmolality Calculated 291 mOsm/kg (285-295); Potassium 4.2 mmol/L (3.5-5.1); Sodium 140 mmol/L (136-145); Total Bilirubin 0.3 mg/dL (0.15-1.2); Total Protein 7.1 g/dL (6.6-8.7)
[2024-02-17] MEDS: fulvestrant 250 mg/5 mL Syringe 500 MG IM (10:27)
[2024-02-24 08:51] LABS: Eosinophils # 0.2 10^3/uL (0.0-0.8); Eosinophils % 3.8 %; Hematocrit 31.9 % (36-47); Lymphocytes # 0.6 10^3/uL (0.8-4.8); Lymphocytes % 15.4 %; Mean Corpuscular Hemoglobin 31.9 pg (27-33); Mean Corpuscular Volume 99.7 fl (85-98); Mean Platelet Volume 9.4 fL (7.4-10.4); Monocytes # 0.2 10^3/uL (0.2-0.9); Monocytes % 5.5 %; Neutrophils # 2.93 10^3/uL (1.8-7.7); Neutrophils % 73.8 %; Nucleated Red Blood Cells % 0 %; Platelet Count 164 10^3/cmm (157-399); Red Cell Distribution Width 14.9 % (12.1-15.1); White Blood Count 3.97 10^3/uL (3.29-11.43)
[2024-02-24 09:16] LABS: Alanine Aminotransferase 14 U/L (0-33); Albumin Level 4.1 g/dL (3.5-5.2); Alkaline Phosphatase 123 U/L (35-105); Anion Gap 14.3 (5-19); Aspartate Amino Transferase 18 U/L (0-32); Blood Urea Nitrogen 24 mg/dL (8-23); Calcium 9.3 mg/dL (8.5-10.5); Carbon Dioxide 24 mmol/L (22-29); Chloride 106 mmol/L (98-107); Creatinine Clr Calc Pharmacy 45.0525; Globulin 3.2 g/dL (1.3-4.6); Glucose 93 mg/dL (65-115); Osmolality Calculated 294 mOsm/kg (285-295); Potassium 4.3 mmol/L (3.5-5.1); Sodium 140 mmol/L (136-145); Total Bilirubin 0.5 mg/dL (0.15-1.2); Total Protein 7.3 g/dL (6.6-8.7)
== END 2024-02-26 23:59 | disposition home or self-care (01) ==
PROVIDERS: Nurse Practitioner Family; PCP Family Medicine; Visit Provider Internal Medicine Medical Oncology
DX: C50.411 Malignant neoplasm of upper-outer quadrant of right female breast (principal); Z53.9 Procedure and treatment not carried out, unspecified reason
CPT/HCPCS: 36415; 80053; 85025; 99214; J9395

== ENCOUNTER 2024-03-23 08:00 | Oncology outpatient (recurring) (ONCR) | payer MEDICARE, SELFPAY ==
[2024-03-02 08:33] LABS: Eosinophils # 0.1 10^3/uL (0.0-0.8); Eosinophils % 3.8 %; Lymphocytes # 0.6 10^3/uL (0.8-4.8); Lymphocytes % 29.2 %; Mean Corpuscular Hemoglobin 32.3 pg (27-33); Mean Platelet Volume 9.5 fL (7.4-10.4); Monocytes # 0.2 10^3/uL (0.2-0.9); Monocytes % 8.6 %; Neutrophils # 1.19 10^3/uL (1.8-7.7); Neutrophils % 56.9 %; Nucleated Red Blood Cells % 0 %; Platelet Count 85 10^3/cmm (157-399); Red Blood Count 2.97 10^6/uL (3.85-5.65); Red Cell Distribution Width 15.1 % (12.1-15.1); White Blood Count 2.09 10^3/uL (3.29-11.43)
[2024-03-02 08:59] LABS: Alanine Aminotransferase 12 U/L (0-33); Alkaline Phosphatase 121 U/L (35-105); Anion Gap 15.5 (5-19); Aspartate Amino Transferase 18 U/L (0-32); Blood Urea Nitrogen 21 mg/dL (8-23); Calcium 9.1 mg/dL (8.5-10.5); Carbon Dioxide 23 mmol/L (22-29); Chloride 104 mmol/L (98-107); Globulin 3.1 g/dL (1.3-4.6); Glucose 84 mg/dL (65-115); Osmolality Calculated 288 mOsm/kg (285-295); Potassium 4.5 mmol/L (3.5-5.1); Sodium 138 mmol/L (136-145); Total Bilirubin 0.5 mg/dL (0.15-1.2); Total Protein 7.1 g/dL (6.6-8.7)
[2024-03-09 08:17] LABS: Basophils % 1.5 %; Eosinophils % 1.5 %; Hematocrit 29.1 % (36-47); Lymphocytes # 0.6 10^3/uL (0.8-4.8); Lymphocytes % 30.3 %; Mean Corpuscular HGB Conc 32.3 g/dL (30-55); Mean Corpuscular Hemoglobin 32.6 pg (27-33); Mean Platelet Volume 9.7 fL (7.4-10.4); Monocytes # 0.3 10^3/uL (0.2-0.9); Monocytes % 13.9 %; Neutrophils # 1.05 10^3/uL (1.8-7.7); Neutrophils % 52.3 %; Nucleated Red Blood Cells % 0 %; Platelet Count 45 10^3/cmm (157-399); Red Blood Count 2.88 10^6/uL (3.85-5.65); White Blood Count 2.01 10^3/uL (3.29-11.43)
[2024-03-09 08:34] LABS: Alanine Aminotransferase 13 U/L (0-33); Albumin Level 3.8 g/dL (3.5-5.2); Alkaline Phosphatase 120 U/L (35-105); Anion Gap 16.1 (5-19); Aspartate Amino Transferase 18 U/L (0-32); Blood Urea Nitrogen 17 mg/dL (8-23); Calcium 8.9 mg/dL (8.5-10.5); Carbon Dioxide 23 mmol/L (22-29); Chloride 105 mmol/L (98-107); Globulin 3.2 g/dL (1.3-4.6); Glucose 104 mg/dL (65-115); Osmolality Calculated 292 mOsm/kg (285-295); Potassium 4.1 mmol/L (3.5-5.1); Sodium 140 mmol/L (136-145); Total Bilirubin 0.5 mg/dL (0.15-1.2)
[2024-03-16 08:27] LABS: Basophils % 1.5 %; Eosinophils # 0.1 10^3/uL (0.0-0.8); Eosinophils % 2.2 %; Hematocrit 30.9 % (36-47); Lymphocytes # 0.6 10^3/uL (0.8-4.8); Lymphocytes % 21.9 %; Mean Corpuscular HGB Conc 32.4 g/dL (30-55); Mean Corpuscular Hemoglobin 32.8 pg (27-33); Mean Corpuscular Volume 101.3 fl (85-98); Mean Platelet Volume 9.9 fL (7.4-10.4); Monocytes # 0.4 10^3/uL (0.2-0.9); Monocytes % 15.2 %; Neutrophils # 1.58 10^3/uL (1.8-7.7); Neutrophils % 58.8 %; Nucleated Red Blood Cells % 0 %; Platelet Count 89 10^3/cmm (157-399); Red Blood Count 3.05 10^6/uL (3.85-5.65); Red Cell Distribution Width 15.9 % (12.1-15.1); White Blood Count 2.69 10^3/uL (3.29-11.43)
[2024-03-16 08:43] LABS: Alanine Aminotransferase 14 U/L (0-33); Albumin Level 3.9 g/dL (3.5-5.2); Alkaline Phosphatase 159 U/L (35-105); Aspartate Amino Transferase 19 U/L (0-32); Blood Urea Nitrogen 17 mg/dL (8-23); Calcium 8.9 mg/dL (8.5-10.5); Carbon Dioxide 22 mmol/L (22-29); Chloride 106 mmol/L (98-107); Globulin 3.2 g/dL (1.3-4.6); Glucose 98 mg/dL (65-115); Osmolality Calculated 294 mOsm/kg (285-295); Sodium 141 mmol/L (136-145); Total Bilirubin 0.4 mg/dL (0.15-1.2); Total Protein 7.1 g/dL (6.6-8.7)
[2024-03-16] MEDS: fulvestrant 250 mg/5 mL Syringe 500 MG IM (09:40)
[2024-03-16 09:41] VITALS: BP 129/75; PULSE 68; RESP 16; TEMP 36.3; O2SAT 91
[2024-03-23 08:31] LABS: Basophils % 0.6 %; Eosinophils # 0.1 10^3/uL (0.0-0.8); Eosinophils % 2.4 %; Hematocrit 30.1 % (36-47); Lymphocytes # 0.7 10^3/uL (0.8-4.8); Lymphocytes % 20.4 %; Mean Corpuscular HGB Conc 31.6 g/dL (30-55); Mean Corpuscular Hemoglobin 32.6 pg (27-33); Mean Corpuscular Volume 103.4 fl (85-98); Mean Platelet Volume 9.5 fL (7.4-10.4); Monocytes # 0.5 10^3/uL (0.2-0.9); Monocytes % 14.9 %; Neutrophils # 2.01 10^3/uL (1.8-7.7); Neutrophils % 61.1 %; Nucleated Red Blood Cells % 0 %; Platelet Count 173 10^3/cmm (157-399); Red Blood Count 2.91 10^6/uL (3.85-5.65); Red Cell Distribution Width 15.4 % (12.1-15.1); White Blood Count 3.29 10^3/uL (3.29-11.43)
[2024-03-23 08:54] LABS: Alanine Aminotransferase 12 U/L (0-33); Albumin Level 3.7 g/dL (3.5-5.2); Alkaline Phosphatase 149 U/L (35-105); Anion Gap 18.2 (5-19); Aspartate Amino Transferase 16 U/L (0-32); Blood Urea Nitrogen 18 mg/dL (8-23); Carbon Dioxide 22 mmol/L (22-29); Chloride 106 mmol/L (98-107); Creatinine Clr Calc Pharmacy 50.3741; Globulin 3.2 g/dL (1.3-4.6); Glucose 111 mg/dL (65-115); Osmolality Calculated 297 mOsm/kg (285-295); Potassium 4.2 mmol/L (3.5-5.1); Sodium 142 mmol/L (136-145); Total Bilirubin 0.3 mg/dL (0.15-1.2); Total Protein 6.9 g/dL (6.6-8.7)
== END 2024-03-28 23:59 | disposition home or self-care (01) ==
PROVIDERS: PCP Family Medicine; Visit Provider Internal Medicine Medical Oncology
DX: Z53.9 Procedure and treatment not carried out, unspecified reason (principal); C50.411 Malignant neoplasm of upper-outer quadrant of right female breast
CPT/HCPCS: 36415; 80053; 85025; 96402; 99214; J9395

== ENCOUNTER 2024-04-14 09:17 | Outpatient (CLI) | payer MEDICARE, SELFPAY ==
--- NOTE | 2024-04-14 10:00 | MM_ITS ---
WS: [id number] DIAGNOSTIC LEFT DIGITAL TOMOSYNTHESIS MAMMOGRAPHY WITH CAD. HISTORY: Malignant neoplasm RIGHT breast. Prior RIGHT mastectomy. COMPARISON: 01/08/2023, 10/10/2021, 08/01/2020 Technique: CC, MLO and ML views. Breast composition: There are scattered areas of fibroglandular density. Scattered asymmetries are stable. Slight nipple retraction is stable. No suspicious grouping of calci fications and no mass. MM/MM diag LT tomosynthesis [id number] IMPRESSION: BI-RADS: 2 - Benign. FOLLOW UP: 1 Year Follow-up
== END 2024-04-14 09:18 | disposition home or self-care (01) ==
LOC: RAD 09:17
PROVIDERS: PCP Family Medicine; Visit Provider Internal Medicine Medical Oncology
DX: C50.411 Malignant neoplasm of upper-outer quadrant of right female breast (principal); Z90.11 Acquired absence of right breast and nipple
CPT/HCPCS: 77061; G0279

== ENCOUNTER 2024-04-16 08:30 | Oncology outpatient (recurring) (ONCR) | payer MEDICARE, SELFPAY ==
[2024-03-31 08:29] LABS: Basophils % 0.5 %; Eosinophils # 0.1 10^3/uL (0.0-0.8); Eosinophils % 2.9 %; Hematocrit 30.6 % (36-47); Lymphocytes # 0.8 10^3/uL (0.8-4.8); Lymphocytes % 18.7 %; Mean Corpuscular Hemoglobin 32.1 pg (27-33); Mean Corpuscular Volume 100.3 fl (85-98); Mean Platelet Volume 9.2 fL (7.4-10.4); Monocytes # 0.5 10^3/uL (0.2-0.9); Monocytes % 12.4 %; Neutrophils # 2.68 10^3/uL (1.8-7.7); Nucleated Red Blood Cells % 0 %; Platelet Count 173 10^3/cmm (157-399); Red Blood Count 3.05 10^6/uL (3.85-5.65); White Blood Count 4.12 10^3/uL (3.29-11.43)
[2024-03-31 08:49] LABS: Alanine Aminotransferase 15 U/L (0-33); Albumin Level 3.9 g/dL (3.5-5.2); Alkaline Phosphatase 139 U/L (35-105); Anion Gap 16.3 (5-19); Aspartate Amino Transferase 22 U/L (0-32); Blood Urea Nitrogen 18 mg/dL (8-23); Calcium 8.7 mg/dL (8.5-10.5); Carbon Dioxide 21 mmol/L (22-29); Chloride 105 mmol/L (98-107); Glucose 88 mg/dL (65-115); Osmolality Calculated 287 mOsm/kg (285-295); Potassium 4.3 mmol/L (3.5-5.1); Sodium 138 mmol/L (136-145); Total Bilirubin 0.3 mg/dL (0.15-1.2); Total Protein 6.9 g/dL (6.6-8.7)
[2024-04-06 08:18] LABS: Basophils % 0.4 %; Eosinophils # 0.1 10^3/uL (0.0-0.8); Eosinophils % 2.3 %; Lymphocytes # 0.7 10^3/uL (0.8-4.8); Lymphocytes % 13.2 %; Mean Corpuscular HGB Conc 31.2 g/dL (30-55); Mean Corpuscular Hemoglobin 32.1 pg (27-33); Mean Corpuscular Volume 102.8 fl (85-98); Mean Platelet Volume 9.1 fL (7.4-10.4); Monocytes # 0.2 10^3/uL (0.2-0.9); Monocytes % 4.4 %; Neutrophils # 4.16 10^3/uL (1.8-7.7); Neutrophils % 79.5 %; Nucleated Red Blood Cells % 0 %; Platelet Count 171 10^3/cmm (157-399); Red Blood Count 3.21 10^6/uL (3.85-5.65); Red Cell Distribution Width 14.9 % (12.1-15.1); White Blood Count 5.23 10^3/uL (3.29-11.43)
[2024-04-06 08:36] LABS: Alanine Aminotransferase 15 U/L (0-33); Albumin Level 4.1 g/dL (3.5-5.2); Alkaline Phosphatase 141 U/L (35-105); Anion Gap 15.5 (5-19); Aspartate Amino Transferase 20 U/L (0-32); Blood Urea Nitrogen 19 mg/dL (8-23); Calcium 9.5 mg/dL (8.5-10.5); Carbon Dioxide 25 mmol/L (22-29); Chloride 107 mmol/L (98-107); Globulin 3.3 g/dL (1.3-4.6); Glucose 106 mg/dL (65-115); Osmolality Calculated 299 mOsm/kg (285-295); Potassium 4.5 mmol/L (3.5-5.1); Sodium 143 mmol/L (136-145); Total Bilirubin 0.4 mg/dL (0.15-1.2); Total Protein 7.4 g/dL (6.6-8.7)
[2024-04-16 09:21] LABS: Basophils % 0.8 %; Eosinophils # 0.1 10^3/uL (0.0-0.8); Eosinophils % 1.9 %; Hematocrit 31.1 % (36-47); Lymphocytes # 0.7 10^3/uL (0.8-4.8); Lymphocytes % 26.5 %; Mean Corpuscular HGB Conc 31.5 g/dL (30-55); Mean Corpuscular Hemoglobin 32.1 pg (27-33); Mean Platelet Volume 9.3 fL (7.4-10.4); Monocytes # 0.4 10^3/uL (0.2-0.9); Monocytes % 14.8 %; Neutrophils # 1.46 10^3/uL (1.8-7.7); Neutrophils % 55.2 %; Nucleated Red Blood Cells % 0 %; Platelet Count 93 10^3/cmm (157-399); Red Blood Count 3.05 10^6/uL (3.85-5.65); Red Cell Distribution Width 15.5 % (12.1-15.1); White Blood Count 2.64 10^3/uL (3.29-11.43)
[2024-04-16 09:48] LABS: Alanine Aminotransferase 13 U/L (0-33); Alkaline Phosphatase 128 U/L (35-105); Anion Gap 14.2 (5-19); Aspartate Amino Transferase 20 U/L (0-32); Blood Urea Nitrogen 17 mg/dL (8-23); Carbon Dioxide 25 mmol/L (22-29); Chloride 107 mmol/L (98-107); Globulin 3.1 g/dL (1.3-4.6); Glucose 87 mg/dL (65-115); Osmolality Calculated 295 mOsm/kg (285-295); Potassium 4.2 mmol/L (3.5-5.1); Sodium 142 mmol/L (136-145); Total Bilirubin 0.3 mg/dL (0.15-1.2); Total Protein 7.1 g/dL (6.6-8.7)
[2024-04-16] MEDS: fulvestrant 250 mg/5 mL Syringe 500 MG IM (10:58)
--- NOTE | 2024-04-16 11:06 | XRR_ITS ---
PROCEDURE INFORMATION: Exam: XR Chest Exam date and time: 04/16/2024 11:18 AM Age: 83 years old Clinical indication: Shortness of breath and wheezing; Prior surgery; Surgery date: 6+ months; Surgery type: Mastectomy on R side; Patient HX: HX of breast cancer; Additional info: Shortness of breath, wheezing TECHNIQUE: Imaging protocol: Radiologic exam of the chest. Views: 2 views. COMPARISON: CR XR chest 2V* [id number] 01/20/2024 11:12 AM FINDINGS: Lungs: There are linear and slightly irregular opacities again seen within the left midlung and retrocardiac region. No new infiltrates are identified. Pleural spaces: Unremarkable. No pleural effusion. No pneumothorax. Heart/Mediastinum: Unremarkable. No cardiomegaly. Bones/joints: Unremarkable. Other findings: The patient is mildly rotated which limits evaluation. XR/XR chest 2V* [id number] IMPRESSION: Linear, irregular opacities within the left perihilar and retrocardiac regions, similar to the prior study. Evaluation is suboptimal secondary to patient rotation. This could reflect atelectasis and/or scarring however underlying mass is not excluded. Follow-up CT of the chest is suggested for further evaluation
== END 2024-04-27 23:59 | disposition home or self-care (01) ==
PROVIDERS: PCP Family Medicine; Visit Provider Internal Medicine Medical Oncology
DX: Z51.11 Encounter for antineoplastic chemotherapy (principal); Z53.9 Procedure and treatment not carried out, unspecified reason; C50.412 Malignant neoplasm of upper-outer quadrant of left female breast; Z17.0 Estrogen receptor positive status [ER+]; Z90.13 Acquired absence of bilateral breasts and nipples; Z79.818 Long term (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 of other agents affecting estrogen receptors and estrogen levels; Z79.899 Other long term (current) drug therapy
CPT/HCPCS: 36415; 71046; 80053; 85025; 96402; 99214; J9395

== ENCOUNTER → 2024-04-29 15:30 | Outpatient (BNVA) | payer MEDICARE, SELFPAY | PROVIDERS: PCP Family Medicine; Visit Provider Internal Medicine Cardiovascular Disease | DX: I25.10 Atherosclerotic heart disease of native coronary artery without angina pectoris (principal); E78.5 Hyperlipidemia, unspecified; I10 Essential (primary) hypertension; M79.89 Other specified soft tissue disorders | CPT/HCPCS: 99214 ==

== ENCOUNTER 2024-05-14 08:30 | Oncology outpatient (recurring) (ONCR) | payer MEDICARE, SELFPAY ==
[2024-05-11 08:32] LABS: Basophils % 0.8 %; Eosinophils # 0.1 10^3/uL (0.0-0.8); Eosinophils % 2.7 %; Hematocrit 31.6 % (36-47); Lymphocytes # 0.7 10^3/uL (0.8-4.8); Lymphocytes % 25.4 %; Mean Corpuscular HGB Conc 31.6 g/dL (30-55); Mean Corpuscular Hemoglobin 31.9 pg (27-33); Mean Platelet Volume 9.3 fL (7.4-10.4); Monocytes # 0.3 10^3/uL (0.2-0.9); Monocytes % 9.5 %; Neutrophils # 1.61 10^3/uL (1.8-7.7); Neutrophils % 60.8 %; Nucleated Red Blood Cells % 0 %; Platelet Count 134 10^3/cmm (157-399); Red Blood Count 3.13 10^6/uL (3.85-5.65); White Blood Count 2.64 10^3/uL (3.29-11.43)
[2024-05-11 08:52] LABS: Alanine Aminotransferase 11 U/L (0-33); Albumin Level 4.1 g/dL (3.5-5.2); Alkaline Phosphatase 120 U/L (35-105); Anion Gap 12.6 (5-19); Aspartate Amino Transferase 17 U/L (0-32); Blood Urea Nitrogen 22 mg/dL (8-23); Calcium 8.6 mg/dL (8.5-10.5); Carbon Dioxide 24 mmol/L (22-29); Chloride 108 mmol/L (98-107); Creatinine Clr Calc Pharmacy 50.3391; Glucose 94 mg/dL (65-115); Osmolality Calculated 293 mOsm/kg (285-295); Potassium 4.6 mmol/L (3.5-5.1); Sodium 140 mmol/L (136-145); Total Bilirubin 0.4 mg/dL (0.15-1.2); Total Protein 7.1 g/dL (6.6-8.7)
[2024-05-14 08:17] VITALS: BP 151/72; PULSE 63; RESP 18; TEMP 36.1; O2SAT 96
[2024-05-14] MEDS: fulvestrant 250 mg/5 mL Syringe 500 MG IM (08:19)
[2024-05-14 08:24] VITALS: BP 124/78; PULSE 68; RESP 18; TEMP 36.4; O2SAT 98
== END 2024-05-28 23:59 | disposition home or self-care (01) ==
PROVIDERS: Nurse Practitioner; PCP Family Medicine; Visit Provider Internal Medicine Hematology & Oncology
DX: C50.411 Malignant neoplasm of upper-outer quadrant of right female breast; Z53.9 Procedure and treatment not carried out, unspecified reason; Z51.11 Encounter for antineoplastic chemotherapy; Z79.899 Other long term (current) drug therapy
CPT/HCPCS: 80053; 85025; 96402; 99214; J9395

== ENCOUNTER 2024-06-22 08:15 | Oncology outpatient (recurring) (ONCR) | payer MEDICARE, SELFPAY ==
[2024-06-11 07:53] LABS: Basophils % 1.3 %; Eosinophils # 0.1 10^3/uL (0.0-0.8); Eosinophils % 2.2 %; Hematocrit 31.1 % (36-47); Lymphocytes # 0.8 10^3/uL (0.8-4.8); Lymphocytes % 35.3 %; Mean Corpuscular HGB Conc 32.8 g/dL (30-55); Mean Corpuscular Hemoglobin 33.6 pg (27-33); Mean Corpuscular Volume 102.3 fl (85-98); Mean Platelet Volume 9.3 fL (7.4-10.4); Monocytes # 0.3 10^3/uL (0.2-0.9); Monocytes % 12.9 %; Neutrophils # 1.07 10^3/uL (1.8-7.7); Neutrophils % 47.9 %; Nucleated Red Blood Cells % 0 %; Platelet Count 102 10^3/cmm (157-399); Red Blood Count 3.04 10^6/uL (3.85-5.65); Red Cell Distribution Width 15.4 % (12.1-15.1); White Blood Count 2.24 10^3/uL (3.29-11.43)
[2024-06-11 08:15] LABS: Alanine Aminotransferase 13 U/L (0-33); Alkaline Phosphatase 115 U/L (35-105); Aspartate Amino Transferase 19 U/L (0-32); Blood Urea Nitrogen 21 mg/dL (8-23); Calcium 8.6 mg/dL (8.5-10.5); Carbon Dioxide 25 mmol/L (22-29); Chloride 106 mmol/L (98-107); Creatinine Clr Calc Pharmacy 45.3052; Glucose 66 mg/dL (65-115); Osmolality Calculated 293 mOsm/kg (285-295); Sodium 141 mmol/L (136-145); Total Bilirubin 0.3 mg/dL (0.15-1.2)
[2024-06-11] MEDS: fulvestrant 250 mg/5 mL Syringe 500 MG IM (10:10)
[2024-06-22 09:24] LABS: Alanine Aminotransferase 14 U/L (0-33); Albumin Level 3.8 g/dL (3.5-5.2); Alkaline Phosphatase 114 U/L (35-105); Anion Gap 12.4 (5-19); Aspartate Amino Transferase 19 U/L (0-32); Blood Urea Nitrogen 18 mg/dL (8-23); Calcium 9.6 mg/dL (8.5-10.5); Carbon Dioxide 26 mmol/L (22-29); Chloride 104 mmol/L (98-107); Creatinine Clr Calc Pharmacy 50.3391; Globulin 3.3 g/dL (1.3-4.6); Glucose 97 mg/dL (65-115); Osmolality Calculated 288 mOsm/kg (285-295); Potassium 4.4 mmol/L (3.5-5.1); Sodium 138 mmol/L (136-145); Total Bilirubin 0.3 mg/dL (0.15-1.2); Total Protein 7.1 g/dL (6.6-8.7)
[2024-06-22 12:45] LABS: Basophils % 1.1 %; Eosinophils % 1.1 %; Hematocrit 30.6 % (36-47); Lymphocytes # 0.8 10^3/uL (0.8-4.8); Lymphocytes % 21.3 %; Mean Corpuscular HGB Conc 32.7 g/dL (30-55); Mean Corpuscular Hemoglobin 32.6 pg (27-33); Mean Corpuscular Volume 99.7 fl (85-98); Mean Platelet Volume 9.6 fL (7.4-10.4); Monocytes # 0.5 10^3/uL (0.2-0.9); Monocytes % 14.1 %; Neutrophils # 2.23 10^3/uL (1.8-7.7); Neutrophils % 61.8 %; Nucleated Red Blood Cells % 0 %; Platelet Count 119 10^3/cmm (157-399); Red Blood Count 3.07 10^6/uL (3.85-5.65); Red Cell Distribution Width 15.6 % (12.1-15.1); White Blood Count 3.61 10^3/uL (3.29-11.43)
== END 2024-06-27 23:59 | disposition home or self-care (01) ==
PROVIDERS: Nurse Practitioner; Nurse Practitioner Family; PCP Family Medicine; Visit Provider Internal Medicine Hematology & Oncology
DX: C50.411 Malignant neoplasm of upper-outer quadrant of right female breast; Z53.9 Procedure and treatment not carried out, unspecified reason; C79.51 Secondary malignant neoplasm of bone; M81.0 Age-related osteoporosis without current pathological fracture; L03.115 Cellulitis of right lower limb; Z79.69 Long term (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 of other immunomodulators and immunosuppressants
CPT/HCPCS: 36415; 80053; 85025; 96401; 99214; J9395

== ENCOUNTER 2024-07-09 11:19 | Oncology outpatient (recurring) (ONCR) | payer MEDICARE, SELFPAY ==
[2024-07-09 11:45] LABS: Basophils % 0.6 %; Eosinophils # 0.1 10^3/uL (0.0-0.8); Eosinophils % 2.9 %; Hematocrit 30.7 % (36-47); Lymphocytes # 0.8 10^3/uL (0.8-4.8); Lymphocytes % 22.8 %; Mean Corpuscular HGB Conc 32.2 g/dL (30-55); Mean Corpuscular Hemoglobin 32.4 pg (27-33); Mean Corpuscular Volume 100.3 fl (85-98); Mean Platelet Volume 8.9 fL (7.4-10.4); Monocytes # 0.3 10^3/uL (0.2-0.9); Monocytes % 7.8 %; Neutrophils # 2.26 10^3/uL (1.8-7.7); Neutrophils % 65.3 %; Nucleated Red Blood Cells % 0 %; Platelet Count 149 10^3/cmm (157-399); Red Blood Count 3.06 10^6/uL (3.85-5.65); Red Cell Distribution Width 14.9 % (12.1-15.1); White Blood Count 3.46 10^3/uL (3.29-11.43)
[2024-07-09 12:02] LABS: Alanine Aminotransferase 12 U/L (0-33); Alkaline Phosphatase 112 U/L (35-105); Anion Gap 15.5 (5-19); Aspartate Amino Transferase 17 U/L (0-32); Blood Urea Nitrogen 24 mg/dL (8-23); Calcium 9.1 mg/dL (8.5-10.5); Carbon Dioxide 25 mmol/L (22-29); Chloride 100 mmol/L (98-107); Creatinine Clr Calc Pharmacy 46.0633; Glucose 100 mg/dL (65-115); Osmolality Calculated 286 mOsm/kg (285-295); Potassium 4.5 mmol/L (3.5-5.1); Sodium 136 mmol/L (136-145); Total Bilirubin 0.4 mg/dL (0.15-1.2)
[2024-07-09] MEDS: fulvestrant 250 mg/5 mL Syringe 500 MG IM (13:58)
[2024-07-12 23:24] LABS: Collagen Type I C-Telopeptide 784 pg/mL
== END 2024-07-28 23:59 | disposition home or self-care (01) ==
PROVIDERS: Nurse Practitioner; PCP Family Medicine; Visit Provider Internal Medicine Hematology & Oncology
DX: Z51.11 Encounter for antineoplastic chemotherapy (principal); C50.411 Malignant neoplasm of upper-outer quadrant of right female breast; D70.9 Neutropenia, unspecified; Z17.0 Estrogen receptor positive status [ER+]; Z90.13 Acquired absence of bilateral breasts and nipples; Z79.818 Long term (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 of other agents affecting estrogen receptors and estrogen levels; Z79.899 Other long term (current) drug therapy; C79.51 Secondary malignant neoplasm of bone; M81.0 Age-related osteoporosis without current pathological fracture
CPT/HCPCS: 36415; 80053; 82523; 85025; 96402; 99214; J9395

== ENCOUNTER 2024-08-21 12:00 | Oncology outpatient (recurring) (ONCR) | payer MEDICARE, SELFPAY ==
[2024-08-11 09:38] LABS: Basophils % 0.4 %; Eosinophils # 0.2 10^3/uL (0.0-0.8); Eosinophils % 2.9 %; Hematocrit 34.8 % (36-47); Lymphocytes % 18.2 %; Mean Corpuscular HGB Conc 32.2 g/dL (30-55); Mean Corpuscular Hemoglobin 32.3 pg (27-33); Mean Corpuscular Volume 100.3 fl (85-98); Mean Platelet Volume 9.3 fL (7.4-10.4); Monocytes # 0.6 10^3/uL (0.2-0.9); Monocytes % 11.4 %; Neutrophils # 3.61 10^3/uL (1.8-7.7); Neutrophils % 66.5 %; Nucleated Red Blood Cells % 0 %; Platelet Count 200 10^3/cmm (157-399); Red Blood Count 3.47 10^6/uL (3.85-5.65); Red Cell Distribution Width 14.3 % (12.1-15.1); White Blood Count 5.43 10^3/uL (3.29-11.43)
[2024-08-11 09:53] LABS: Alanine Aminotransferase 15 U/L (0-33); Albumin Level 4.2 g/dL (3.5-5.2); Alkaline Phosphatase 136 U/L (35-105); Anion Gap 14.7 (5-19); Aspartate Amino Transferase 21 U/L (0-32); Blood Urea Nitrogen 21 mg/dL (8-23); Calcium 9.3 mg/dL (8.5-10.5); Carbon Dioxide 25 mmol/L (22-29); Chloride 100 mmol/L (98-107); Creatinine Clr Calc Pharmacy 45.9371; Globulin 3.2 g/dL (1.3-4.6); Glucose 92 mg/dL (65-115); Osmolality Calculated 283 mOsm/kg (285-295); Potassium 4.7 mmol/L (3.5-5.1); Sodium 135 mmol/L (136-145); Total Bilirubin 0.4 mg/dL (0.15-1.2); Total Protein 7.4 g/dL (6.6-8.7)
[2024-08-11] MEDS: fulvestrant 250 mg/5 mL Syringe 500 MG IM (11:28)
--- NOTE | 2024-08-21 12:00 | PETR_ITS ---
PROCEDURE INFORMATION: Exam: PET/CT Skull Base to Mid-thigh Exam date and time: 08/21/2024 1:03 PM Age: 83 years old Clinical indication: Condition or disease; Primary cancer: Breast cancer; Prior surgery; Surgery date: 6+ months; Surgery type: Mastectomy on R side; Additional info: Breast cancer; Compare to previous LABS AND CLINICAL REPORTS: Glucose: 106 mg/dl Treatment strategy for malignancy (PET staging): Restaging (PS) TECHNIQUE: Imaging protocol: Following at least four-hour fasting and following the injection of radiopharmaceutical, low dose CT images were obtained. Then, PET images were obtained. Attenuation corrected images were constructed using the CT scan. Fused images of PET and CT were reviewed. The standardized uptake values (SUV) reported below are maximum values within a region of interest, expressed in gm/ml. Exam includes orbital meatal line to mid-thigh. SUV normalization method: BodyWeight Radiopharmaceutical: 10.78 mCi F-18 FDG (Fluorodeoxyglucose), IV. Time of imaging post radiopharmaceutical administration: 45 minutes Injection site: left forearm COMPARISON: 1. PT PET skull to thigh SUBS [id number] 07/30/2023 10:[address] abdomen pelvis wo con [id number] 09/06/2023 3:31 PM FINDINGS: Brain: Visualized brain has normal physiologic uptake. Pharynx: No abnormal uptake. Larynx: No abnormal uptake. Lungs, pleura and trachea: Left lower lobe atelectasis/partial collapse with patchy air bronchograms and low-level FDG uptake showing SUV max 3.5. Milder lingula atelectasis. Right middle lobe calcified granuloma. Heart: Normal physiologic uptake. Coronary arteries: Heavy coronary artery calcification. Mediastinal space: No abnormal uptake. Diaphragm: Small hiatal hernia. Liver: No abnormal uptake. Calcified granulomata. Gallbladder and biliary ducts: No abnormal uptake. Stable post cholecystectomy changes. Pancreas: No abnormal uptake. Spleen: No abnormal uptake. Calcified granulomata. Adrenal glands: No abnormal uptake. Kidneys and ureters: Normal physiologic uptake. Stomach and bowel: No abnormal uptake. Reproductive: The uterus is surgically absent. Vasculature: No abnormal uptake. Heavy systemic atherosclerotic calcification with stable ascending aorta ectasia measuring 4.3 cm. Stable pulmonary arterial dilatation with the main trunk measuring 4.1 cm. Lymph nodes: No abnormal uptake. No lymphadenopathy in the head, neck, chest, abdomen, pelvis, and extremities. Calcified subcarinal node in keeping with sequela of old granulomatous disease. Skeleton: Central S2 segment FDG uptake shows SUV max 4.8 on axial image [address] abnormality. Focal lytic lesion involving the medial cortex just posterior to the left acetabulum shows SUV max 3.8 on axial image 212. Stable compression deformities of the T12, L1, and L4 vertebral bodies. Degenerative changes along the axial skeletal system and bilateral shoulders as well as the 1st CMC joints. Chronic fracture deformities of the left superior and inferior pubic rami with continued fracture lucencies and associated low-level FDG uptake. Soft tissues: No abnormal uptake in the visualized head, neck, chest, abdomen, pelvis, and extremities. Prior right mastectomy. Stable right ventral abdominal wall hernia containing nondilated, non thickened loop of colon. METRICS: Mediastinal blood pool: SUV mean 2.4 Liver uptake: SUV mean 2.9 PET/PET skull to thigh SUBS [id number] IMPRESSION: 1. Developed osseous lesions likely representing metastases involving the sacrum and left pelvis. 2. Left lower lobe greater than lingular atelectasis/partial collapse with patchy air bronchograms, the former showing low-level FDG uptake. Although difficult to entirely exclude, no highly FDG avid focus to suggest malignancy. Could consider pulmonology evaluation. 3. Additional chronic and incidental findings as above, to include pulmonary arterial dilatation which may be seen in the setting of pulmonary hypertension, atherosclerosis with heavy coronary artery calcification and 4.3 cm ascending aortic ectasia. Chronic fracture deformities of the left superior and inferior pubic rami with continued fracture lucencies and low-level FDG uptake.
== END 2024-08-28 23:59 | disposition home or self-care (01) ==
LOC: ONCMED 12:17 → RAD 12:19 → ONCMED 08-24 09:51
PROVIDERS: PCP Family Medicine; Visit Provider Internal Medicine Medical Oncology
DX: C50.411 Malignant neoplasm of upper-outer quadrant of right female breast (principal); Z53.9 Procedure and treatment not carried out, unspecified reason; J98.11 Atelectasis; I27.20 Pulmonary hypertension, unspecified
CPT/HCPCS: 78815; 80053; 85025; 96402; 99214; A9552; J9395

== ENCOUNTER 2024-09-08 10:04 | Oncology outpatient (recurring) (ONCR) | payer MEDICARE, SELFPAY ==
[2024-09-08 10:24] LABS: Basophils % 0.5 %; Eosinophils # 0.1 10^3/uL (0.0-0.8); Eosinophils % 1.2 %; Lymphocytes # 0.8 10^3/uL (0.8-4.8); Lymphocytes % 12.1 %; Mean Corpuscular HGB Conc 32.1 g/dL (30-55); Mean Corpuscular Hemoglobin 30.8 pg (27-33); Mean Corpuscular Volume 95.9 fl (85-98); Mean Platelet Volume 9.2 fL (7.4-10.4); Monocytes # 0.6 10^3/uL (0.2-0.9); Neutrophils # 4.93 10^3/uL (1.8-7.7); Neutrophils % 75.5 %; Nucleated Red Blood Cells % 0 %; Platelet Count 237 10^3/cmm (157-399); Red Blood Count 3.44 10^6/uL (3.85-5.65); Red Cell Distribution Width 13.6 % (12.1-15.1); White Blood Count 6.53 10^3/uL (3.29-11.43)
[2024-09-08 10:55] LABS: Alanine Aminotransferase 22 U/L (0-33); Albumin Level 3.5 g/dL (3.5-5.2); Alkaline Phosphatase 132 U/L (35-105); Aspartate Amino Transferase 19 U/L (0-32); Blood Urea Nitrogen 15 mg/dL (8-23); CA 15-3 19.7 U/mL (0-25); Calcium 9.3 mg/dL (8.5-10.5); Carbon Dioxide 26 mmol/L (22-29); Chloride 103 mmol/L (98-107); Creatinine Clr Calc Pharmacy 56.7893; Globulin 3.3 g/dL (1.3-4.6); Glucose 97 mg/dL (65-115); Osmolality Calculated 291 mOsm/kg (285-295); Sodium 140 mmol/L (136-145); Total Bilirubin 0.3 mg/dL (0.15-1.2); Total Protein 6.8 g/dL (6.6-8.7)
[2024-09-08] MEDS: fulvestrant 250 mg/5 mL Syringe 500 MG IM (12:07)
== END 2024-09-25 23:59 | disposition home or self-care (01) ==
PROVIDERS: PCP Family Medicine; Visit Provider Internal Medicine Medical Oncology
DX: Z51.11 Encounter for antineoplastic chemotherapy (principal); C50.411 Malignant neoplasm of upper-outer quadrant of right female breast; Z17.0 Estrogen receptor positive status [ER+]; C79.51 Secondary malignant neoplasm of bone; M81.0 Age-related osteoporosis without current pathological fracture; K08.9 Disorder of teeth and supporting structures, unspecified; Z79.899 Other long term (current) drug therapy; Z79.818 Long term (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 of other agents affecting estrogen receptors and estrogen levels
CPT/HCPCS: 36415; 80053; 85025; 86300; 96402; 99214; J9395

== ENCOUNTER 2024-10-15 07:46 | Oncology outpatient (recurring) (ONCR) | payer MEDICARE, SELFPAY ==
[2024-10-15 08:09] LABS: Basophils % 0.5 %; Eosinophils # 0.1 10^3/uL (0.0-0.8); Eosinophils % 1.7 %; Hematocrit 34.1 % (36-47); Lymphocytes # 0.9 10^3/uL (0.8-4.8); Lymphocytes % 15.8 %; Mean Corpuscular Hemoglobin 30.2 pg (27-33); Mean Corpuscular Volume 94.5 fl (85-98); Mean Platelet Volume 9.3 fL (7.4-10.4); Monocytes # 0.5 10^3/uL (0.2-0.9); Monocytes % 7.6 %; Neutrophils % 74.1 %; Nucleated Red Blood Cells % 0 %; Platelet Count 216 10^3/cmm (157-399); Red Blood Count 3.61 10^6/uL (3.85-5.65); Red Cell Distribution Width 14.5 % (12.1-15.1); White Blood Count 5.94 10^3/uL (3.29-11.43)
[2024-10-15 08:30] LABS: Alanine Aminotransferase 14 U/L (0-33); Albumin Level 3.8 g/dL (3.5-5.2); Alkaline Phosphatase 171 U/L (35-105); Anion Gap 17.4 (5-19); Aspartate Amino Transferase 18 U/L (0-32); Blood Urea Nitrogen 17 mg/dL (8-23); Calcium 9.2 mg/dL (8.5-10.5); Carbon Dioxide 22 mmol/L (22-29); Chloride 106 mmol/L (98-107); Globulin 3.3 g/dL (1.3-4.6); Glucose 92 mg/dL (65-115); Osmolality Calculated 293 mOsm/kg (285-295); Potassium 4.4 mmol/L (3.5-5.1); Sodium 141 mmol/L (136-145); Total Bilirubin 0.3 mg/dL (0.15-1.2); Total Protein 7.1 g/dL (6.6-8.7)
[2024-10-15 08:45] LABS: 25 Hydroxy Vitamin D 43 ng/mL (30-100)
[2024-10-15] MEDS: denosumab 120 mg SDV SUBCUT (09:34)
[2024-10-15] MEDS: fulvestrant 250 mg/5 mL Syringe 500 MG IM (09:36)
[2024-10-15 09:42] VITALS: BP 149/80
== END 2024-10-26 23:59 | disposition home or self-care (01) ==
PROVIDERS: Nurse Practitioner; PCP Family Medicine; Visit Provider Internal Medicine
DX: Z51.11 Encounter for antineoplastic chemotherapy (principal); C50.411 Malignant neoplasm of upper-outer quadrant of right female breast; Z17.0 Estrogen receptor positive status [ER+]; C79.51 Secondary malignant neoplasm of bone; M81.0 Age-related osteoporosis without current pathological fracture; K08.9 Disorder of teeth and supporting structures, unspecified; Z79.818 Long term (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 of other agents affecting estrogen receptors and estrogen levels; Z79.899 Other long term (current) drug therapy; Z79.01 Long term (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 of anticoagulants; D64.9 Anemia, unspecified; Z95.818 Presence of other cardiac implants and grafts
CPT/HCPCS: 36415; 80053; 82306; 85025; 96372; 96402; 99213; J0897; J9395

== ENCOUNTER → 2024-11-05 08:26 | Outpatient (BNVA) | payer MEDICARE, SELFPAY | PROVIDERS: PCP Family Medicine; Visit Provider Nurse Practitioner Family | DX: I10 Essential (primary) hypertension (principal); R00.2 Palpitations; E78.5 Hyperlipidemia, unspecified; I25.10 Atherosclerotic heart disease of native coronary artery without angina pectoris; Z95.5 Presence of coronary angioplasty implant and graft; J06.9 Acute upper respiratory infection, unspecified; I25.2 Old myocardial infarction; Z86.718 Personal history of other venous thrombosis and embolism; Z79.01 Long term (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 of anticoagulants; Z79.82 Long term (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 of aspirin | CPT/HCPCS: 99214 ==

== ENCOUNTER 2024-11-12 08:30 | Oncology outpatient (recurring) (ONCR) | payer MEDICARE, SELFPAY ==
[2024-11-12 08:59] LABS: Basophils % 1.2 %; Eosinophils % 0.6 %; Hematocrit 30.7 % (36-47); Lymphocytes # 0.9 10^3/uL (0.8-4.8); Lymphocytes % 24.8 %; Mean Corpuscular HGB Conc 32.2 g/dL (30-55); Mean Corpuscular Hemoglobin 30.7 pg (27-33); Mean Platelet Volume 9.7 fL (7.4-10.4); Monocytes # 0.5 10^3/uL (0.2-0.9); Monocytes % 13.8 %; Neutrophils # 2.05 10^3/uL (1.8-7.7); Nucleated Red Blood Cells % 0 %; Platelet Count 115 10^3/cmm (157-399); Red Blood Count 3.23 10^6/uL (3.85-5.65); Red Cell Distribution Width 16.8 % (12.1-15.1); Reticulocyte % 3.2 % (0.5-2.0); White Blood Count 3.47 10^3/uL (3.29-11.43)
[2024-11-12 09:22] LABS: Alanine Aminotransferase 12 U/L (0-33); Albumin Level 3.9 g/dL (3.5-5.2); Alkaline Phosphatase 147 U/L (35-105); Anion Gap 16.5 (5-19); Aspartate Amino Transferase 13 U/L (0-32); Blood Urea Nitrogen 17 mg/dL (8-23); Calcium 8.7 mg/dL (8.5-10.5); Carbon Dioxide 21 mmol/L (22-29); Chloride 105 mmol/L (98-107); Creatinine Clr Calc Pharmacy 56.1373; Ferritin 307 ng/mL (15-150); Globulin 3.6 g/dL (1.3-4.6); Glucose 82 mg/dL (65-115); Iron 64 ug/dL (37-145); Lactate Dehydrogenase 131 U/L (135-214); Osmolality Calculated 287 mOsm/kg (285-295); Potassium 4.5 mmol/L (3.5-5.1); Sodium 138 mmol/L (136-145); Total Bilirubin 0.3 mg/dL (0.15-1.2); Total Iron Binding Capacity 246 mcg/dl; Total Protein 7.5 g/dL (6.6-8.7); Unsaturated Iron Binding 182 ug/dL (112-347)
[2024-11-12 09:37] LABS: Vitamin B12 670 pg/mL (232-1245)
[2024-11-12 09:47] LABS: Folate Level 8.7 ng/mL (4.8-37.3)
[2024-11-12] MEDS: denosumab 120 mg SDV SUBCUT (10:16)
[2024-11-12] MEDS: fulvestrant 250 mg/5 mL Syringe 500 MG IM (10:19)
== END 2024-11-25 23:59 | disposition home or self-care (01) ==
PROVIDERS: PCP Family Medicine; Visit Provider Internal Medicine
DX: Z51.11 Encounter for antineoplastic chemotherapy (principal); C50.411 Malignant neoplasm of upper-outer quadrant of right female breast; Z17.0 Estrogen receptor positive status [ER+]; C79.51 Secondary malignant neoplasm of bone; M81.0 Age-related osteoporosis without current pathological fracture; R03.0 Elevated blood-pressure reading, without diagnosis of hypertension; D64.9 Anemia, unspecified; Z79.818 Long term (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 of other agents affecting estrogen receptors and estrogen levels; Z79.899 Other long term (current) drug therapy
CPT/HCPCS: 36415; 80053; 82607; 82728; 82746; 83010; 83540; 83550; 83615; 85025; 85045; 96372; 96402; 99214; J0897; J9395

== ENCOUNTER 2024-12-10 13:33 | Oncology outpatient (recurring) (ONCR) | payer MEDICARE, SELFPAY ==
[2024-12-10 13:57] LABS: Basophils # 0.1 10^3/uL (0.0-0.1); Basophils % 1.1 %; Eosinophils % 0.9 %; Hematocrit 30.3 % (36-47); Lymphocytes # 0.9 10^3/uL (0.8-4.8); Lymphocytes % 20.4 %; Mean Corpuscular HGB Conc 31.4 g/dL (30-55); Mean Corpuscular Hemoglobin 30.6 pg (27-33); Mean Corpuscular Volume 97.7 fl (85-98); Mean Platelet Volume 9.1 fL (7.4-10.4); Monocytes # 0.7 10^3/uL (0.2-0.9); Monocytes % 15.2 %; Neutrophils # 2.73 10^3/uL (1.8-7.7); Neutrophils % 61.9 %; Nucleated Red Blood Cells % 0 %; Platelet Count 135 10^3/cmm (157-399); Red Cell Distribution Width 17.4 % (12.1-15.1); White Blood Count 4.41 10^3/uL (3.29-11.43)
[2024-12-10 14:36] LABS: Folate Level 8.2 ng/mL (4.8-37.3)
[2024-12-10 14:38] LABS: Alanine Aminotransferase 17 U/L (0-33); Albumin Level 3.8 g/dL (3.5-5.2); Alkaline Phosphatase 193 U/L (35-105); Anion Gap 18.4 (5-19); Aspartate Amino Transferase 24 U/L (0-32); Blood Urea Nitrogen 17 mg/dL (8-23); Calcium 8.4 mg/dL (8.5-10.5); Carbon Dioxide 20 mmol/L (22-29); Chloride 103 mmol/L (98-107); Globulin 3.4 g/dL (1.3-4.6); Glucose 94 mg/dL (65-115); Iron 34 ug/dL (37-145); Osmolality Calculated 285 mOsm/kg (285-295); Percent Saturation 13.6 % (20-50); Potassium 4.4 mmol/L (3.5-5.1); Sodium 137 mmol/L (136-145); Total Bilirubin 0.3 mg/dL (0.15-1.2); Total Iron Binding Capacity 250 mcg/dl; Total Protein 7.2 g/dL (6.6-8.7); Unsaturated Iron Binding 216 ug/dL (112-347); Vitamin B12 504 pg/mL (232-1245)
[2024-12-10] MEDS: fulvestrant 250 mg/5 mL Syringe 500 MG IM (15:34)
== END 2024-12-26 23:59 | disposition home or self-care (01) ==
PROVIDERS: PCP Family Medicine; Visit Provider Internal Medicine Medical Oncology
DX: Z51.11 Encounter for antineoplastic chemotherapy (principal); C50.411 Malignant neoplasm of upper-outer quadrant of right female breast; Z17.0 Estrogen receptor positive status [ER+]; C79.51 Secondary malignant neoplasm of bone; M81.0 Age-related osteoporosis without current pathological fracture; R03.0 Elevated blood-pressure reading, without diagnosis of hypertension; Z79.818 Long term (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 of other agents affecting estrogen receptors and estrogen levels; Z79.899 Other long term (current) drug therapy
CPT/HCPCS: 36415; 80053; 82607; 82746; 83540; 83550; 85025; 86300; 96402; 99214; J9395

== ENCOUNTER 2025-01-07 12:01 | Oncology outpatient (recurring) (ONCR) | payer MEDICARE, SELFPAY ==
[2025-01-07 12:45] LABS: Basophils % 1.1 %; Eosinophils % 0.8 %; Hematocrit 31.3 % (36-47); Lymphocytes # 0.9 10^3/uL (0.8-4.8); Lymphocytes % 26.1 %; Mean Corpuscular HGB Conc 31.9 g/dL (30-55); Mean Corpuscular Hemoglobin 31.2 pg (27-33); Mean Corpuscular Volume 97.5 fl (85-98); Mean Platelet Volume 9.7 fL (7.4-10.4); Monocytes # 0.5 10^3/uL (0.2-0.9); Monocytes % 14.6 %; Neutrophils # 2.04 10^3/uL (1.8-7.7); Neutrophils % 57.1 %; Nucleated Red Blood Cells % 0 %; Platelet Count 122 10^3/cmm (157-399); Red Blood Count 3.21 10^6/uL (3.85-5.65); Red Cell Distribution Width 17.6 % (12.1-15.1); White Blood Count 3.57 10^3/uL (3.29-11.43)
[2025-01-07 13:17] LABS: Alanine Aminotransferase 14 U/L (0-33); Albumin Level 4.1 g/dL (3.5-5.2); Alkaline Phosphatase 112 U/L (35-105); Anion Gap 15.6 (5-19); Aspartate Amino Transferase 20 U/L (0-32); Blood Urea Nitrogen 14 mg/dL (8-23); Calcium 8.4 mg/dL (8.5-10.5); Carbon Dioxide 21 mmol/L (22-29); Chloride 107 mmol/L (98-107); Creatinine Clr Calc Pharmacy 56.1373; Globulin 3.4 g/dL (1.3-4.6); Glucose 96 mg/dL (65-115); Osmolality Calculated 288 mOsm/kg (285-295); Potassium 4.6 mmol/L (3.5-5.1); Sodium 139 mmol/L (136-145); Total Bilirubin 0.3 mg/dL (0.15-1.2); Total Protein 7.5 g/dL (6.6-8.7)
[2025-01-07 14:11] LABS: Carcinoembryonic Antigen 1.7 ng/mL (0.0-4.7)
[2025-01-07] MEDS: fulvestrant 250 mg/5 mL Syringe 500 MG IM (14:45)
--- NOTE | 2025-01-22 08:30 | PETR_ITS ---
PROCEDURE INFORMATION: Exam: PET/CT Skull Base to Mid-thigh Exam date and time: 01/22/2025 9:09 AM Age: 84 years old Clinical indication: Condition or disease; Primary cancer: Breast cancer, right upper; Follow-up oncological assessment; Prior surgery; Surgery date: 6+ months; Surgery type: Mastectomy on R side; Additional info: Breast cancer; Compare to previous LABS AND CLINICAL REPORTS: Glucose: 120 mg/dl Treatment strategy for malignancy (PET staging): Restaging (PS) TECHNIQUE: Imaging protocol: Following at least four-hour fasting and following the injection of radiopharmaceutical, low dose CT images were obtained. Then, PET images were obtained. Attenuation corrected images were constructed using the CT scan. Fused images of PET and CT were reviewed. The standardized uptake values (SUV) reported below are maximum values within a region of interest, expressed in gm/ml. Exam includes orbital meatal line to mid-thigh. SUV normalization method: BodyWeight Radiopharmaceutical: 11.2 mCi F-18 FDG (Fluorodeoxyglucose), IV. Time of imaging post radiopharmaceutical administration: 46 minutes Injection site: left ac COMPARISON: PT PET skull to thigh SUBS [id number] 08/21/2024 1:03 PM FINDINGS: Brain: Visualized brain has normal physiologic uptake. Pharynx: No abnormal uptake. Larynx: No abnormal uptake. Lungs, pleura and trachea: FDG-avid pulmonary nodule anterior left lower lobe measuring 1.2 cm (series 202 image 107) with SUV max of 5.2, new from prior. Similar consolidative opacity with air bronchograms in the left perihilar region and left lower lobe with low-grade metabolic activity similar to prior (SUV max 3.8). Heart: Normal physiologic uptake. Coronary arteries: Severe coronary artery calcification. Mediastinal space: No abnormal uptake. Liver: No abnormal uptake. Gallbladder and biliary ducts: No abnormal uptake. Pancreas: No abnormal uptake. Spleen: No abnormal uptake. Adrenal glands: No abnormal uptake. Kidneys and ureters: Normal physiologic uptake. Stomach and bowel: No abnormal uptake. Vasculature: Severe atherosclerotic calcifications. Lymph nodes: No abnormal uptake. No lymphadenopathy in the head, neck, chest, abdomen, pelvis, and extremities. Skeleton: Increased size and avidity sclerotic osseous lesion involving the sacrum (now with SUV max 6.5, previously 4.8), as well as the left posterior acetabulum (now with SUV max of 7.4, previously 3.8). Chronic left superior and inferior pubic ramus fractures. Soft tissues: Status post right mastectomy. METRICS: Mediastinal blood pool: SUV max = 2.6 Liver uptake: SUV max = 3.3 PET/PET skull to thigh SUBS [id number] IMPRESSION: 1. New FDG-avid pulmonary nodule anterior left lower lobe measuring 1.2 cm concerning for metastatic disease. 2. Increased size and avidity sclerotic osseous lesions involving the sacrum and left posterior acetabulum. 3. Similar consolidative opacity with air bronchograms in the left perihilar region and left lower lobe with low-grade metabolic activity similar to prior. No focal uptake to suggest active disease.
== END 2025-01-25 23:59 | disposition home or self-care (01) ==
PROVIDERS: PCP Family Medicine; Visit Provider Internal Medicine Medical Oncology
DX: Z51.11 Encounter for antineoplastic chemotherapy (principal); C50.411 Malignant neoplasm of upper-outer quadrant of right female breast; Z17.0 Estrogen receptor positive status [ER+]; M81.0 Age-related osteoporosis without current pathological fracture; Z79.818 Long term (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 of other agents affecting estrogen receptors and estrogen levels
CPT/HCPCS: 36415; 78815; 80053; 82378; 85025; 96402; 99214; A9552; J9395

== ENCOUNTER 2025-02-04 13:17 | Oncology outpatient (recurring) (ONCR) | payer MEDICARE, SELFPAY ==
[2025-02-04 13:48] LABS: Hematocrit 30.6 % (36-47); Hemoglobin 9.90 g/dL (11.27-16.99); Mean Corpuscular HGB Conc 32.4 g/dL (30-55); Mean Corpuscular Hemoglobin 32.0 pg (27-33); Mean Corpuscular Volume 99.0 fl (85-98); Nucleated Red Blood Cells % 0 %; Platelet Count 114 10^3/cmm (157-399); Red Blood Count 3.09 10^6/uL (3.85-5.65); White Blood Count 4.07 10^3/uL (3.29-11.43)
[2025-02-04 14:25] LABS: Alanine Aminotransferase 15 U/L (0-33); Albumin Level 3.9 g/dL (3.5-5.2); Alkaline Phosphatase 119 U/L (35-105); Anion Gap 17.2 (5-19); Aspartate Amino Transferase 19 U/L (0-32); Blood Urea Nitrogen 19 mg/dL (8-23); CA 15-3 33.5 U/mL (0-25); Calcium 8.3 mg/dL (8.5-10.5); Carbon Dioxide 20 mmol/L (22-29); Chloride 105 mmol/L (98-107); Creatinine Clr Calc Pharmacy 56.6032; Ferritin 228 ng/mL (15-150); Globulin 3.2 g/dL (1.3-4.6); Glucose 113 mg/dL (65-115); Iron 40 ug/dL (37-145); Osmolality Calculated 289 mOsm/kg (285-295); Potassium 4.2 mmol/L (3.5-5.1); Sodium 138 mmol/L (136-145); Thyroid Stimulating Hormone 1.34 uIU/mL (0.27-4.20); Total Iron Binding Capacity 256 mcg/dl; Total Protein 7.1 g/dL (6.6-8.7); Unsaturated Iron Binding 216 ug/dL (112-347)
[2025-02-04 15:20] VITALS: BP 123/81; PULSE 64; RESP 17; TEMP 36.9; O2SAT 95
== END 2025-02-25 23:59 | disposition home or self-care (01) ==
PROVIDERS: PCP Family Medicine; Visit Provider Nurse Practitioner
DX: Z51.11 Encounter for antineoplastic chemotherapy (principal); C50.411 Malignant neoplasm of upper-outer quadrant of right female breast; Z17.0 Estrogen receptor positive status [ER+]; C79.51 Secondary malignant neoplasm of bone; M81.0 Age-related osteoporosis without current pathological fracture; R00.2 Palpitations; D70.9 Neutropenia, unspecified; R53.83 Other fatigue; D50.9 Iron deficiency anemia, unspecified; Z79.899 Other long term (current) drug therapy; Z79.818 Long term (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 of other agents affecting estrogen receptors and estrogen levels; Z79.811 Long term (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 of aromatase inhibitors
CPT/HCPCS: 36415; 80053; 82306; 82728; 83540; 83550; 83615; 84443; 85025; 86300; 96402; 99215; J9395

== ENCOUNTER 2025-03-04 09:04 | Oncology outpatient (recurring) (ONCR) | payer MEDICARE, SELFPAY ==
[2025-03-04 09:19] LABS: Hematocrit 33.4 % (36-47); Hemoglobin 10.90 g/dL (11.27-16.99); Mean Corpuscular HGB Conc 32.6 g/dL (30-55); Mean Corpuscular Hemoglobin 32.8 pg (27-33); Mean Corpuscular Volume 100.6 fl (85-98); Nucleated Red Blood Cells % 0 %; Platelet Count 109 10^3/cmm (157-399); Red Blood Count 3.32 10^6/uL (3.85-5.65); White Blood Count 3.08 10^3/uL (3.29-11.43)
[2025-03-04 10:04] LABS: Alanine Aminotransferase 16 U/L (0-33); Albumin Level 4.0 g/dL (3.5-5.2); Alkaline Phosphatase 115 U/L (35-105); Anion Gap 11.7 (5-19); Aspartate Amino Transferase 21 U/L (0-32); Blood Urea Nitrogen 16 mg/dL (8-23); CA 15-3 35.6 U/mL (0-25); Calcium 8.6 mg/dL (8.5-10.5); Carbon Dioxide 26 mmol/L (22-29); Chloride 106 mmol/L (98-107); Creatinine Clr Calc Pharmacy 56.6032; Ferritin 253 ng/mL (15-150); Globulin 3.3 g/dL (1.3-4.6); Glucose 83 mg/dL (65-115); Iron 70 ug/dL (37-145); Osmolality Calculated 288 mOsm/kg (285-295); Potassium 4.7 mmol/L (3.5-5.1); Sodium 139 mmol/L (136-145); Total Iron Binding Capacity 254 mcg/dl; Total Protein 7.3 g/dL (6.6-8.7); Unsaturated Iron Binding 184 ug/dL (112-347)
== END 2025-03-28 23:59 | disposition home or self-care (01) ==
PROVIDERS: PCP Family Medicine; Visit Provider Nurse Practitioner
DX: Z51.11 Encounter for antineoplastic chemotherapy (principal); C50.411 Malignant neoplasm of upper-outer quadrant of right female breast; Z17.0 Estrogen receptor positive status [ER+]; M81.0 Age-related osteoporosis without current pathological fracture; D64.9 Anemia, unspecified; Z79.899 Other long term (current) drug therapy; Z79.818 Long term (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 of other agents affecting estrogen receptors and estrogen levels; Z79.811 Long term (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 of aromatase inhibitors; Z92.3 Personal history of irradiation
CPT/HCPCS: 36415; 80053; 82306; 82728; 83540; 83550; 83615; 85025; 86300; 96402; 99214; J9395

== ENCOUNTER → 2025-03-15 11:12 | Outpatient (BNVA) | payer MEDICARE, SELFPAY | PROVIDERS: PCP Family Medicine | DX: N39.0 Urinary tract infection, site not specified (principal) | CPT/HCPCS: 81000 ==

== ENCOUNTER 2025-04-01 10:06 | Oncology outpatient (recurring) (ONCR) | payer MEDICARE, SELFPAY ==
[2025-04-01 10:28] LABS: Hematocrit 33.1 % (36-47); Hemoglobin 10.60 g/dL (11.27-16.99); Mean Corpuscular HGB Conc 32.0 g/dL (30-55); Mean Corpuscular Hemoglobin 31.9 pg (27-33); Mean Corpuscular Volume 99.7 fl (85-98); Nucleated Red Blood Cells % 0 %; Platelet Count 126 10^3/cmm (157-399); Red Blood Count 3.32 10^6/uL (3.85-5.65); White Blood Count 3.94 10^3/uL (3.29-11.43)
[2025-04-01 11:05] LABS: Alanine Aminotransferase 15 U/L (0-33); Albumin Level 4.1 g/dL (3.5-5.2); Alkaline Phosphatase 97 U/L (35-105); Anion Gap 15.8 (5-19); Aspartate Amino Transferase 24 U/L (0-32); Blood Urea Nitrogen 17 mg/dL (8-23); CA 15-3 34.5 U/mL (0-25); Calcium 8.7 mg/dL (8.5-10.5); Carbon Dioxide 24 mmol/L (22-29); Chloride 102 mmol/L (98-107); Creatinine Clr Calc Pharmacy 56.4482; Globulin 3.4 g/dL (1.3-4.6); Glucose 93 mg/dL (65-115); Osmolality Calculated 285 mOsm/kg (285-295); Potassium 4.8 mmol/L (3.5-5.1); Sodium 137 mmol/L (136-145); Total Protein 7.5 g/dL (6.6-8.7)
== END 2025-04-27 23:59 | disposition home or self-care (01) ==
PROVIDERS: Nurse Practitioner; PCP Family Medicine; Visit Provider Internal Medicine
DX: Z51.11 Encounter for antineoplastic chemotherapy (principal); C50.411 Malignant neoplasm of upper-outer quadrant of right female breast; Z17.0 Estrogen receptor positive status [ER+]; M81.0 Age-related osteoporosis without current pathological fracture; D64.9 Anemia, unspecified; E78.2 Mixed hyperlipidemia; I25.10 Atherosclerotic heart disease of native coronary artery without angina pectoris; C79.51 Secondary malignant neoplasm of bone; R91.1 Solitary pulmonary nodule; M89.9 Disorder of bone, unspecified; D50.9 Iron deficiency anemia, unspecified; Z92.3 Personal history of irradiation; Z79.811 Long term (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 of aromatase inhibitors; Z79.818 Long term (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 of other agents affecting estrogen receptors and estrogen levels; Z79.899 Other long term (current) drug therapy
CPT/HCPCS: 36415; 80053; 83615; 85025; 86300; 96402; 99213; J9395

== ENCOUNTER 2025-05-12 14:06 | Outpatient (CLI) | payer MEDICARE, SELFPAY ==
--- NOTE | 2025-05-12 14:30 | XR_ITS ---
WS: [id number] DEXA (DUAL ENERGY X-RAY ABSORPTIOMETRY) Bone mineral density was performed using a Vonjour machine. HISTORY: surveillance COMPARISON: 04/11/2021 Lumbar spine BMD (L1-L4): 0.938 g/cm2 T score: -2.0 Z score: -0.5 Total hip BMD: Left: 0.437 g/cm2. T score: -4.5 Z score: -2.7 Right: 0.454 g/cm2. T score: -4.4 Z score: -2.5 10 year probability of a major osteoporotic fracture is 53.2%. Compared to the prior study from 04/11/2021. Lumbar spine bone mineral density has decreased by 2.3%. Bilateral hips bone mineral density has decreased by 0.2%. XR/XR DEXA axial skeleton* [id number] IMPRESSION: OSTEOPOROSIS based upon the WHO classification for females. Significant decrease in bone mineral density in the lumbar spine. No change in the hips.
--- NOTE | 2025-05-12 15:00 | MM_ITS ---
WS: [id number] LEFT 3D TOMOSYNTHESIS DIGITAL MAMMOGRAPHY WITH CAD CLINICAL INFORMATION: staging HISTORY: History of RIGHT breast cancer with mastectomy COMPARISON: 2023 TECHNIQUE: 3 views of the left breast were obtained. FINDINGS: Scattered fibroglandular densities of the left breast. Few incidental punctate calcifications. No suspicious focal mass, asymmetry, calcifications, or architectural distortion. No evidence of malignancy. MM/MM diag LT tomosynthesis [id number] IMPRESSION: DENSITY: There are scattered areas of fibroglandular density. BI-RADS: 2 - Benign. FOLLOW UP: 1 Year Follow-up Recommend return to annual diagnostic mammography.
== END 2025-05-12 14:07 | disposition home or self-care (01) ==
LOC: RAD 14:08
PROVIDERS: PCP Family Medicine; Visit Provider Nurse Practitioner Family
DX: Z13.820 Encounter for screening for osteoporosis (principal); C50.411 Malignant neoplasm of upper-outer quadrant of right female breast; Z78.0 Asymptomatic menopausal state; R92.323 Mammographic fibroglandular density, bilateral breasts; R92.1 Mammographic calcification found on diagnostic imaging of breast; M85.88 Other specified disorders of bone density and structure, other site
CPT/HCPCS: 77061; 77080; G0279

== ENCOUNTER → 2025-05-18 13:43 | Outpatient (BNVA) | payer MEDICARE, SELFPAY | PROVIDERS: PCP Family Medicine; Visit Provider Internal Medicine Cardiovascular Disease | DX: I25.10 Atherosclerotic heart disease of native coronary artery without angina pectoris (principal); I10 Essential (primary) hypertension; E78.5 Hyperlipidemia, unspecified; M79.89 Other specified soft tissue disorders; Z95.5 Presence of coronary angioplasty implant and graft; Z86.718 Personal history of other venous thrombosis and embolism; I25.2 Old myocardial infarction | CPT/HCPCS: 99214 ==

== ENCOUNTER 2025-05-27 13:30 | Oncology outpatient (recurring) (ONCR) | payer MEDICARE, SELFPAY ==
[2025-04-29 13:49] LABS: Hematocrit 33.2 % (36-47); Hemoglobin 10.60 g/dL (11.27-16.99); Mean Corpuscular HGB Conc 31.9 g/dL (30-55); Mean Corpuscular Hemoglobin 32.5 pg (27-33); Mean Corpuscular Volume 101.8 fl (85-98); Nucleated Red Blood Cells % 0 %; Platelet Count 120 10^3/cmm (157-399); Red Blood Count 3.26 10^6/uL (3.85-5.65); White Blood Count 3.77 10^3/uL (3.29-11.43)
[2025-04-29 14:16] LABS: Alanine Aminotransferase 14 U/L (0-33); Albumin Level 4.0 g/dL (3.5-5.2); Alkaline Phosphatase 96 U/L (35-105); Anion Gap 15.3 (5-19); Aspartate Amino Transferase 20 U/L (0-32); Blood Urea Nitrogen 22 mg/dL (8-23); CA 15-3 33.7 U/mL (0-25); Calcium 9.0 mg/dL (8.5-10.5); Carbon Dioxide 25 mmol/L (22-29); Chloride 105 mmol/L (98-107); Creatinine Clr Calc Pharmacy 56.1373; Globulin 3.4 g/dL (1.3-4.6); Glucose 120 mg/dL (65-115); Osmolality Calculated 297 mOsm/kg (285-295); Potassium 4.3 mmol/L (3.5-5.1); Sodium 141 mmol/L (136-145); Total Protein 7.4 g/dL (6.6-8.7)
[2025-04-29] MEDS: denosumab 120 mg SDV (Infusion Clinic Only) SUBCUT (15:51)
[2025-05-27 13:39] LABS: Hematocrit 33.1 % (36-47); Hemoglobin 10.80 g/dL (11.27-16.99); Mean Corpuscular HGB Conc 32.6 g/dL (30-55); Mean Corpuscular Hemoglobin 32.5 pg (27-33); Mean Corpuscular Volume 99.7 fl (85-98); Nucleated Red Blood Cells % 0 %; Platelet Count 115 10^3/cmm (157-399); Red Blood Count 3.32 10^6/uL (3.85-5.65); White Blood Count 3.16 10^3/uL (3.29-11.43)
[2025-05-27 14:13] LABS: Slide Review Slide Review Perform
[2025-05-27 14:21] LABS: Alanine Aminotransferase 16 U/L (0-33); Albumin Level 4.1 g/dL (3.5-5.2); Alkaline Phosphatase 103 U/L (35-105); Anion Gap 15.1 (5-19); Aspartate Amino Transferase 20 U/L (0-32); Blood Urea Nitrogen 23 mg/dL (8-23); CA 15-3 36.0 U/mL (0-25); Calcium 9.1 mg/dL (8.5-10.5); Carbon Dioxide 24 mmol/L (22-29); Chloride 101 mmol/L (98-107); Creatinine Clr Calc Pharmacy 40.7143; Ferritin 295 ng/mL (15-150); Globulin 3.6 g/dL (1.3-4.6); Glucose 116 mg/dL (65-115); Iron 51 ug/dL (37-145); Osmolality Calculated 287 mOsm/kg (285-295); Potassium 4.1 mmol/L (3.5-5.1); Sodium 136 mmol/L (136-145); Total Iron Binding Capacity 260 mcg/dl; Total Protein 7.7 g/dL (6.6-8.7); Unsaturated Iron Binding 209 ug/dL (112-347)
[2025-05-27] MEDS: denosumab 120 mg SDV (Infusion Clinic Only) SUBCUT (14:54)
== END 2025-05-28 23:59 | disposition home or self-care (01) ==
PROVIDERS: Nurse Practitioner Family; PCP Family Medicine; Visit Provider Internal Medicine
DX: C50.411 Malignant neoplasm of upper-outer quadrant of right female breast; Z17.0 Estrogen receptor positive status [ER+]; C79.51 Secondary malignant neoplasm of bone; M81.0 Age-related osteoporosis without current pathological fracture; D50.9 Iron deficiency anemia, unspecified; Z79.818 Long term (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 of other agents affecting estrogen receptors and estrogen levels; Z92.3 Personal history of irradiation; Z79.899 Other long term (current) drug therapy; Z53.9 Procedure and treatment not carried out, unspecified reason
CPT/HCPCS: 36415; 80053; 82728; 83540; 83550; 83615; 85025; 86300; 96372; 96401; 96402; 99213; 99214; J0897; J9395

== ENCOUNTER 2025-07-28 12:00 | Oncology outpatient (recurring) (ONCR) | payer MEDICARE, SELFPAY ==
[2025-06-30 11:38] LABS: Hematocrit 33.2 % (36-47); Hemoglobin 10.80 g/dL (11.27-16.99); Mean Corpuscular HGB Conc 32.5 g/dL (30-55); Mean Corpuscular Hemoglobin 33.0 pg (27-33); Mean Corpuscular Volume 101.5 fl (85-98); Nucleated Red Blood Cells % 0 %; Platelet Count 190 10^3/cmm (157-399); Red Blood Count 3.27 10^6/uL (3.85-5.65); White Blood Count 3.85 10^3/uL (3.29-11.43)
[2025-06-30 12:26] LABS: Alanine Aminotransferase 13 U/L (0-33); Albumin Level 4.1 g/dL (3.5-5.2); Alkaline Phosphatase 113 U/L (35-105); Anion Gap 15.6 (5-19); Aspartate Amino Transferase 19 U/L (0-32); Blood Urea Nitrogen 23 mg/dL (8-23); CA 15-3 40.3 U/mL (0-25); Calcium 9.1 mg/dL (8.5-10.5); Carbon Dioxide 24 mmol/L (22-29); Chloride 103 mmol/L (98-107); Globulin 3.6 g/dL (1.3-4.6); Glucose 81 mg/dL (65-115); Osmolality Calculated 289 mOsm/kg (285-295); Potassium 4.6 mmol/L (3.5-5.1); Sodium 138 mmol/L (136-145); Total Protein 7.7 g/dL (6.6-8.7)
[2025-06-30] MEDS: denosumab 120 mg SDV (Infusion Clinic Only) SUBCUT (14:26)
[2025-07-28 12:13] LABS: Hematocrit 32.4 % (36-47); Hemoglobin 10.60 g/dL (11.27-16.99); Mean Corpuscular HGB Conc 32.7 g/dL (30-55); Mean Corpuscular Hemoglobin 33.5 pg (27-33); Mean Corpuscular Volume 102.5 fl (85-98); Nucleated Red Blood Cells % 0 %; Platelet Count 185 10^3/cmm (157-399); Red Blood Count 3.16 10^6/uL (3.85-5.65); White Blood Count 4.53 10^3/uL (3.29-11.43)
[2025-07-28 12:59] LABS: Alanine Aminotransferase 12 U/L (0-33); Albumin Level 4.2 g/dL (3.5-5.2); Alkaline Phosphatase 91 U/L (35-105); Anion Gap 17.0 (5-19); Aspartate Amino Transferase 20 U/L (0-32); Blood Urea Nitrogen 25 mg/dL (8-23); CA 15-3 36.6 U/mL (0-25); Calcium 9.3 mg/dL (8.5-10.5); Carbon Dioxide 24 mmol/L (22-29); Chloride 105 mmol/L (98-107); Globulin 3.0 g/dL (1.3-4.6); Glucose 95 mg/dL (65-115); Osmolality Calculated 296 mOsm/kg (285-295); Potassium 5.0 mmol/L (3.5-5.1); Sodium 141 mmol/L (136-145); Total Protein 7.2 g/dL (6.6-8.7)
[2025-07-28] MEDS: denosumab 120 mg SDV (Infusion Clinic Only) SUBCUT (13:58)
== END 2025-07-28 23:59 | disposition home or self-care (01) ==
PROVIDERS: Internal Medicine; PCP Family Medicine; Visit Provider Nurse Practitioner
DX: Z53.9 Procedure and treatment not carried out, unspecified reason (principal); Z51.11 Encounter for antineoplastic chemotherapy; C50.411 Malignant neoplasm of upper-outer quadrant of right female breast; Z17.0 Estrogen receptor positive status [ER+]; Z79.818 Long term (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 of other agents affecting estrogen receptors and estrogen levels; C79.51 Secondary malignant neoplasm of bone; M81.0 Age-related osteoporosis without current pathological fracture; D50.9 Iron deficiency anemia, unspecified; Z79.899 Other long term (current) drug therapy
CPT/HCPCS: 80053; 82306; 83615; 85025; 86300; 96372; 96402; 99214; J0897; J9395